=== PATIENT | female | born 1940 | race Caucasian/White ===

== ENCOUNTER → 2016-08-19 | Outpatient (CLI) | payer OTHER, MEDICARE ==
[~2016-08-19] MED LIST: ACETAMINOPHEN PO; ASPCH81X PO; ASPI81TA28 PO; BONE STRENGTH PO; CHOL2000 PO; CHOLTAB3 PO; CIPR1TAB11 PO; FISHOIL PO; HYDROCODONE PO; LPR25 PO; MELA3TAB25 PO; META1TAB PO; METO25TA3 PO; METR-163 PO; MULT-506 PO; NITR-5 PO; OMEG10007 PO; ONDA4TAB46 PO; [UNRECOGNIZED DRUG - OTHER] PO
[2016-08-19 09:41] LABS: BASO % 0.5 %; BASO ABS # 0.03 K/uL (0-0.2); COMPLETE YES; EOS % 2.4 %; HEMATOCRIT 35.7 % (37-47); IG% 0.2 %; LYMPH % 36.4 %; LYMPH ABS # 2.12 K/uL (1.2-3.4); MEAN CELL VOLUME 94.4 fL (80-100); MEAN CORPUSCULAR HEMOGLOBIN 32.8 pg (25-34); MEAN CORPUSCULAR HGB CONC 34.7 g/dl (32-36); MEAN PLATELET VOLUME 9.7 fL (7.4-10.4); MONO % 8.7 %; NEUT % 51.8 %; PLATELET COUNT 221 K/uL (130-400); RED BLOOD COUNT 3.78 M/uL (4.2-5.4); WHITE BLOOD COUNT 5.83 K/uL (4.8-10.8)
[2016-08-19 10:01] LABS: CALCIUM 9.7 mg/dl (8.5-10.1)
[2016-08-19 10:02] LABS: ALT/SGPT 22 U/L (12-78); BLOOD UREA NITROGEN 11 mg/dl (7-18); BUN/CREATININE RATIO 14.5 (10-20); CARBON DIOXIDE 30 mmol/L (21-32); CHLORIDE 97 mmol/L (98-107); CHOLESTEROL 192 mg/dl (0-200); CREATININE 0.76 mg/dl (0.60-1.20); GLUCOSE 86 mg/dl (70-99); POTASSIUM 4.2 mmol/L (3.5-5.1); SODIUM 134 mmol/L (136-145); TRIGLYCERIDES 85 mg/dl (0-150); VERY LOW DENSITY LIPOPROT CALC 17 mg/dl
[2016-08-19 10:05] LABS: ALB/GLOB RATIO 1.1 (0.9-2); ALKALINE PHOSPHATASE 52 U/L (45-117); AST/SGOT 24 U/L (15-37); CHOLESTEROL/HDL RATIO 2.5; HDL CHOLESTEROL 78 mg/dl; LDL CHOLESTEROL CALCULATED 97 mg/dl
== END | disposition home or self-care (01) ==
LOC: C.LAB 08:23
PROVIDERS: ATTEND Internal Medicine
DX: K21.9 Gastro-esophageal reflux disease without esophagitis (principal); M81.0 Age-related osteoporosis without current pathological fracture; E78.00 Pure hypercholesterolemia, unspecified

== ENCOUNTER 2016-10-31 12:40 | Emergency (ER) | payer OTHER, MEDICARE ==
[~2016-10-31] VITALS: Ht 152.4 cm; Wt 50.6 kg
[~2016-10-31 12:40] MED LIST changes: -ASPI81TA28 PO; -BONE STRENGTH PO; -CHOL2000 PO; -CIPR1TAB11 PO; -LPR25 PO; -META1TAB PO; -METR-163 PO; -MULT-506 PO; -NITR-5 PO; -OMEG10007 PO; -ONDA4TAB46 PO
[2016-10-31 12:44] VITALS: TEMP 36.8; Ht 152.4 cm; Wt 50.6 kg
[2016-10-31] MEDS ORDERED: SODIUM CHLORIDE 0.9% 1000ML 1,000 ML IV STA (15:01)
[2016-10-31] MEDS ORDERED: ONDANSETRON INJ 2 MG/ML 2 ML VIAL IV STA (15:01)
--- NOTE | 2016-10-31 15:20 | EMERGENCY ROOM VISIT NOTE ---
History First contact with patient: 14:45 Chief Complaint: HEADACHE Stated Complaint: VOMITING, HEADACHE, BACK ACHE, EYE SURGERY ON History of Present Illness The patient is a 76 year old female who presents to the Emergency Room with complaints of abdominal discomfort, nausea, and diarrhea. The patient had cataract surgery of her right eye on 10/29 and had been constipated thereafter so took a herbal tea called Smooth Move Tea, the main ingredient being senna. The patient describes waking up with nausea and diarrhea. Initially the stool was well formed but became more loose throughout the day and has more than 10 bowel movements throughout the day. She states her abdominal pain is located in the left lower quadrant and does not radiate. She also had 2 episodes of vomiting associated with trying to eat food in the morning. The patient also complains of a headache she has had since last night. The patient has a history of ACS and when she was having the diarrhea she was becoming clammy and was concerned about having another episode. She also has a history of diverticulitis occurring in the same region but states this episode is more mild. She denies any fevers, neck pain, chest pain, shortness of breath, or any other acute complaints. Review of Systems See HPI for pertinent positives and negatives. A total of ten systems were reviewed and were otherwise negative. Past Medical/Surgical History Medical Problems: (1) Benign hypertension (2) Diverticulitis Colon (W/O Ment Of Hemorrhage) (3) [place] (myocardial infarction) (4) Osteoporosis Nos (5) pylonephritis Family History Heart disease Social History Smoking Status: Never Smoker Alcohol Use: none Drug Use: none Marital Status: Occupation Status: retired Current/Historical Medications Scheduled Aspirin (Aspirin Ec), 81 MG PO DAILY Cholecalciferol (Vitamin D3), 1 CAP PO DAILY Fish Oil ([place]-3), 1 CAP PO DAILY Metoprolol Succ (Toprol Xl) (Toprol-Xl), 12.5 MG PO DAILY [Bone Strength], 3 TABS PO DAILY Scheduled PRN Melatonin (Melatonin Cr), 3 MG PO HS PRN for Sleep Allergies Coded Allergies: Azithromycin (Verified Allergy, Intermediate, HEADACHE, 10/31/16) Acetaminophen (Verified Allergy, Mild, 10/31/16) Statins (Verified Allergy, Unknown, lethargy,muscle weakness, 10/31/16) Alprazolam (Verified Adverse Reaction, Intermediate, HEADACHE, 10/31/16) Amoxicillin (Verified Adverse Reaction, Unknown, HEADACHE, 10/31/16) Physical Exam Vital Signs Date Time Temp Pulse Resp B/P (MAP) Pulse Ox O2 Delivery O2 Flow Rate FiO2 10/31/16 17:40 82 16 142/75 99 Room Air 10/31/16 15:43 65 18 122/75 98 Room Air 10/31/16 12:44 36.8 74 16 134/70 97 Room Air Physical Exam GENERAL: Awake, alert, well-appearing, in no distress HENT: Normocephalic, atraumatic. Oropharynx unremarkable. EYES: Normal conjunctiva. Sclera non-icteric. NECK: Supple. No nuchal rigidity. RESPIRATORY: Clear to auscultation. CARDIAC: Regular rate, normal rhythm. Extremities warm and well perfused. Pulses equal. ABDOMEN: Soft, non-distended. Tenderness over the left lower quadrant. No rebound or guarding. No masses. RECTAL: Deferred. MUSCULOSKELETAL: Chest examination reveals no tenderness. The back is symmetrical on inspection without obvious abnormality. There is CVA tenderness over the right side. LOWER EXTREMITIES: Calves are equal size bilaterally and non-tender. No edema. No discoloration. NEURO: Normal sensorium. No sensory or motor deficits noted. SKIN: No rash or jaundice noted. Medical Decision & Procedures Laboratory Results 10/31/16 15:35 Red Blood Count 3.79, Mean Corpuscular Volume 93.4, Mean Corpuscular Hemoglobin 33.2, Mean Corpuscular Hemoglobin Concent 35.6, Mean Platelet Volume 10.0, Neutrophils (%) (Auto) 90.5, Lymphocytes (%) (Auto) 5.7, Monocytes (%) (Auto) 3.3, Eosinophils (%) (Auto) 0.1, Basophils (%) (Auto) 0.2, Neutrophils # (Auto) 11.12, Lymphocytes # (Auto) 0.70, Monocytes # (Auto) 0.40, Eosinophils # (Auto) 0.01, Basophils # (Auto) 0.02 10/31/16 15:35 Test 10/31/16 15:35 10/31/16 16:30 White Blood Count 12.28 K/uL (4.8-10.8) Red Blood Count 3.79 M/uL (4.2-5.4) Hemoglobin 12.6 g/dL (12.0-16.0) Hematocrit 35.4 % (37-47) Mean Corpuscular Volume 93.4 fL (80-100) Mean Corpuscular Hemoglobin 33.2 pg (25-34) Mean Corpuscular Hemoglobin Concent 35.6 g/dl (32-36) Platelet Count 170 K/uL (130-400) Mean Platelet Volume 10.0 fL (7.4-10.4) Neutrophils (%) (Auto) 90.5 % Lymphocytes (%) (Auto) 5.7 % Monocytes (%) (Auto) 3.3 % Eosinophils (%) (Auto) 0.1 % Basophils (%) (Auto) 0.2 % Neutrophils # (Auto) 11.12 K/uL (1.4-6.5) Lymphocytes # (Auto) 0.70 K/uL (1.2-3.4) Monocytes # (Auto) 0.40 K/uL (0.11-0.59) Eosinophils # (Auto) 0.01 K/uL (0-0.5) Basophils # (Auto) 0.02 K/uL (0-0.2) RDW Standard Deviation 46.5 fL (36.4-46.3) RDW Coefficient of Variation 13.6 % (11.5-14.5) Immature Granulocyte % (Auto) 0.2 % Immature Granulocyte # (Auto) 0.03 K/uL (0.00-0.02) Anion Gap 9.0 mmol/L (3-11) Est Creatinine Clear Calc Drug Dose 38.5 ml/min Estimated GFR () 73.5 Estimated GFR (Non- 63.4 BUN/Creatinine Ratio 18.6 (10-20) Calcium Level 9.8 mg/dl (8.5-10.1) Total Bilirubin 0.6 mg/dl (0.2-1) Direct Bilirubin < 0.1 mg/dl (0-0.2) Aspartate Amino Transf (AST/SGOT) 23 U/L (15-37) Alanine Aminotransferase (ALT/SGPT) 27 U/L (12-78) Alkaline Phosphatase 57 U/L (45-117) Troponin I < 0.015 ng/ml (0-0.045) Total Protein 8.3 gm/dl (6.4-8.2) Albumin 4.4 gm/dl (3.4-5.0) Lipase 176 U/L (73-393) Urine Color DK YELLOW Urine Appearance CLOUDY (CLEAR) Urine pH 7.5 (4.5-7.5) Urine Specific [place] 1.022 (1.000-1.030) Urine Protein NEG (NEG) Urine Glucose (UA) NEG (NEG) Urine Ketones 2+ (NEG) Urine Occult Blood NEG (NEG) Urine Nitrite NEG (NEG) Urine Bilirubin NEG (NEG) Urine Urobilinogen NEG (NEG) Urine Leukocyte Esterase TRACE (NEG) Urine WBC (Auto) 1-5 /hpf (0-5) Urine RBC (Auto) 5-10 /hpf (0-4) Urine Hyaline Casts (Auto) 1-5 /lpf (0-5) Urine Epithelial Cells (Auto) 10-20 /lpf (0-5) Urine Bacteria (Auto) NEG (NEG) Medications Administered Medications (Trade) Dose Ordered Sig/Seema Route Start Time Stop Time Status Last Admin Dose Admin Ondansetron HCl (Zofran Inj) 4 mg NOW STAT IV 10/31/16 15:01 10/31/16 15:05 DC 10/31/16 16:26 4 MG Sodium Chloride 1,000 ml @ 999 mls/hr Q1H1M STAT IV 10/31/16 15:01 10/31/16 16:01 DC 10/31/16 16:26 999 MLS/HR Medical Decision Patient is a 76 year old female that presents with nausea, abdominal pain, and diarrhea Etiologies such as appendicitis, diverticulitis, obstruction, inflammatory bowel disease, renal colic, PUD, biliary pathology, pancreatitis, mesenteric ischemia, aortic pathology, infections, genitourinary, UTI, perforated viscus, as well as others were entertained. Labs: CBC, BMP, Lipase, LFT, Troponin Imaging: CT Abd/Pelvis 1L NS Meds: Zofran EKG Urinalysis Impression Primary Impression: Vaso vagal episode Patient is a 76 year old female that presents with nausea and diarrhea - Labwork appears to be non-contributory other than non-specific elevated WBC - CT Abd/Pelvis appears to show no acute abnormalities other than some possible endometrial thickening - Patient states she is feeling better after receiving IV fluids and Zofran - Patient will be discharged home with plan to follow up with Dr. Self Departure Information Dispostion Home / Self-Care Condition GOOD Prescriptions Ondansetron Hcl (ZOFRAN) 4 Mg Tab 4 MG PO Q6H Y for Nausea for 3 Days, #12 TAB Prov: David Sam MD 10/31/16 Referrals Pro,Michael Beck M.D. (PCP) Mary Self M.D. Patient Instructions My [facility] Additional Instructions Zofran(odansetron) tablets 4mg: Take one and allow it to dissolve in your mouth every four to six hours as needed for nausea or vomiting. Follow up with Dr. Self to review the results of your CT scan Rest and drink plenty of fluids as tolerated. Continue current medications. Return to the ER immediately for worsening or persistent dizziness, vomiting, headache, fevers, chest pains, difficulty breathing, black or bloody stools, slurred speech, numbness, weakness, visual changes, worsening of your condition , or as needed. Follow up with your primary physician in 2-3 days for a recheck of your current condition.
[2016-10-31] MEDS ORDERED: OPTIRAY 320 IV PRN (15:30)
--- NOTE | 2016-10-31 15:43 | EMERGENCY ROOM VISIT NOTE ---
History Report prepared by Genevieve: Fredy Ortiz Under the Supervision of: Dr. Edgar March M.D. First contact with patient: 14:45 Chief Complaint: HEADACHE Stated Complaint: VOMITING, HEADACHE, BACK ACHE, EYE SURGERY ON History of Present Illness The patient is a 76 year old female who presents to the Emergency Room with complaints of a constant mild headache starting this morning. The patient states that she had cataract surgery two days ago, and she has been having constipation since then. She states that she drank some herbal tea last night. She states that this morning she has been vomiting, and has chills, diarrhea, and a back ache. She states that she has a history of a heart attack in 2004, and she has two stents in. She is not on Plavix, and she takes an aspirin every day. Additionally, she has a history of diverticulosis. Source of History: patient Onset: this morning Position: head Symptom Intensity: mild Quality: ache Timing: constant Associated Symptoms: + chills, + vomiting, + back pain, + diarrhea Review of Systems See HPI for pertinent positives & negatives. A total of 10 systems reviewed and were otherwise negative. Past Medical & Surgical Medical Problems: (1) Benign hypertension (2) Diverticulitis Colon (W/O Ment Of Hemorrhage) (3) [place] (myocardial infarction) (4) Osteoporosis Nos (5) pylonephritis Family History Heart disease Social History Smoking Status: Never Smoker Alcohol Use: none Drug Use: none Marital Status: Occupation Status: retired Current/Historical Medications Scheduled Aspirin (Aspirin Ec), 81 MG PO DAILY Cholecalciferol (Vitamin D3), 1 CAP PO DAILY Fish Oil ([place]-3), 1 CAP PO DAILY Metoprolol Succ (Toprol Xl) (Toprol-Xl), 12.5 MG PO DAILY [Bone Strength], 3 TABS PO DAILY Scheduled PRN Melatonin (Melatonin Cr), 3 MG PO HS PRN for Sleep Ondansetron Hcl (Zofran), 4 MG PO Q6H PRN for Nausea Allergies Coded Allergies: Azithromycin (Verified Allergy, Intermediate, HEADACHE, 10/31/16) Acetaminophen (Verified Allergy, Mild, 10/31/16) Statins (Verified Allergy, Unknown, lethargy,muscle weakness, 10/31/16) Alprazolam (Verified Adverse Reaction, Intermediate, HEADACHE, 10/31/16) Amoxicillin (Verified Adverse Reaction, Unknown, HEADACHE, 10/31/16) Physical Exam Vital Signs Date Time Temp Pulse Resp B/P (MAP) Pulse Ox O2 Delivery O2 Flow Rate FiO2 10/31/16 18:37 76 18 141/87 99 10/31/16 17:40 82 16 142/75 99 Room Air 10/31/16 15:43 65 18 122/75 98 Room Air 10/31/16 12:44 36.8 74 16 134/70 97 Room Air Physical Exam GENERAL: Patient is a healthy-appearing well-nourished female HEAD: Normocephalic atraumatic. No evidence of meningitis or encephalitis EYES: Ocular movements intact pupils equal and react to light OROPHARYNX mucous membranes are moist no exudates present no erythema or edema present NECK: Supple no nuchal rigidity CHEST: Good equal expansion LUNGS: Clear and equal to auscultation CARDIAC: Normal S1 and S2 ABDOMEN: Soft nontender no guarding BACK: No CVA tenderness EXTREMITIES: No pain upon palpation normal muscle strength in all groups no clubbing cyanosis or edema NEURO: Patient is following commands and answering questions appropriately. Alert and oriented x3 Cranial Nerves 2-12 grossly intact Medical Decision & Procedures ER Provider Diagnostic Interpretation: Radiology results as stated below per my review and radiologist interpretation: CT OF THE ABDOMEN AND PELVIS WITH CONTRAST CLINICAL HISTORY: Left lower quadrant abdominal pain. COMPARISON STUDY: CT of the abdomen and pelvis January 30, 2014. TECHNIQUE: Following IV administration of 92 mL of Optiray-320, axial images of the abdomen and pelvis were obtained from the lung bases to the proximal femurs. Images were reviewed in the axial, sagittal, and coronal planes. IV contrast was administered without complication. CT DOSE: 339.05 mGy.cm FINDINGS: The heart is mildly enlarged. There is a pectus excavatum deformity. The liver, spleen, adrenal glands and pancreas are unremarkable. There are a few subcentimeter renal lesions which are too small to characterize but are likely benign. There is no hydronephrosis. There is no evidence for a bowel obstruction. The appendix is normal. A small amount of fluid within the pelvis is nonspecific. There is possible endometrial thickening although this could be artifactual. There is a uterine calcification. No pneumatosis, free air or portal venous gas is present. No suspicious skeletal lesions are present. There is moderate atherosclerotic plaque of the abdominal aorta without aneurysmal dilatation. A small fat-containing umbilical hernia is present. IMPRESSION: 1. Trace free fluid within the pelvis, a nonspecific finding. 2. No bowel obstruction. 3. Possible endometrial thickening. However, this could be artifactual. A follow-up nonemergent pelvic ultrasound is recommended as well as correlation with history of postmenopausal bleeding. Electronically signed by: Hugh Saini M.D. 10/31/2016 5:47 PM Dictated Date/Time: 10/31/2016 5:35 PM SINGLE VIEW CHEST CLINICAL HISTORY: Vasovagal episode. Headache and vomiting. FINDINGS: An AP, portable, upright chest radiograph is compared to study dated 12/05/2013. The examination is degraded by portable technique and patient rotation. The cardiomediastinal heart is enlarged and there is atherosclerotic calcification of the thoracic aorta. The pulmonary vasculature is noncongested. Chronic interstitial thickening is unchanged. No airspace consolidation or large pleural effusion is identified. No pneumothorax is seen. The skeletal structures are osteopenic. The bony thorax is grossly intact. Chronic appearing deformity of the right humeral neck is noted. IMPRESSION: Cardiomegaly with no acute cardiopulmonary abnormality. Electronically signed by: Holden Decker M.D. 10/31/2016 5:21 PM Dictated Date/Time: 10/31/2016 5:20 PM Laboratory Results 10/31/16 15:35 Red Blood Count 3.79, Mean Corpuscular Volume 93.4, Mean Corpuscular Hemoglobin 33.2, Mean Corpuscular Hemoglobin Concent 35.6, Mean Platelet Volume 10.0, Neutrophils (%) (Auto) 90.5, Lymphocytes (%) (Auto) 5.7, Monocytes (%) (Auto) 3.3, Eosinophils (%) (Auto) 0.1, Basophils (%) (Auto) 0.2, Neutrophils # (Auto) 11.12, Lymphocytes # (Auto) 0.70, Monocytes # (Auto) 0.40, Eosinophils # (Auto) 0.01, Basophils # (Auto) 0.02 10/31/16 15:35 Test 10/31/16 15:35 10/31/16 16:30 White Blood Count 12.28 K/uL (4.8-10.8) Red Blood Count 3.79 M/uL (4.2-5.4) Hemoglobin 12.6 g/dL (12.0-16.0) Hematocrit 35.4 % (37-47) Mean Corpuscular Volume 93.4 fL (80-100) Mean Corpuscular Hemoglobin 33.2 pg (25-34) Mean Corpuscular Hemoglobin Concent 35.6 g/dl (32-36) Platelet Count 170 K/uL (130-400) Mean Platelet Volume 10.0 fL (7.4-10.4) Neutrophils (%) (Auto) 90.5 % Lymphocytes (%) (Auto) 5.7 % Monocytes (%) (Auto) 3.3 % Eosinophils (%) (Auto) 0.1 % Basophils (%) (Auto) 0.2 % Neutrophils # (Auto) 11.12 K/uL (1.4-6.5) Lymphocytes # (Auto) 0.70 K/uL (1.2-3.4) Monocytes # (Auto) 0.40 K/uL (0.11-0.59) Eosinophils # (Auto) 0.01 K/uL (0-0.5) Basophils # (Auto) 0.02 K/uL (0-0.2) RDW Standard Deviation 46.5 fL (36.4-46.3) RDW Coefficient of Variation 13.6 % (11.5-14.5) Immature Granulocyte % (Auto) 0.2 % Immature Granulocyte # (Auto) 0.03 K/uL (0.00-0.02) Anion Gap 9.0 mmol/L (3-11) Est Creatinine Clear Calc Drug Dose 38.5 ml/min Estimated GFR () 73.5 Estimated GFR (Non- 63.4 BUN/Creatinine Ratio 18.6 (10-20) Calcium Level 9.8 mg/dl (8.5-10.1) Total Bilirubin 0.6 mg/dl (0.2-1) Direct Bilirubin < 0.1 mg/dl (0-0.2) Aspartate Amino Transf (AST/SGOT) 23 U/L (15-37) Alanine Aminotransferase (ALT/SGPT) 27 U/L (12-78) Alkaline Phosphatase 57 U/L (45-117) Troponin I < 0.015 ng/ml (0-0.045) Total Protein 8.3 gm/dl (6.4-8.2) Albumin 4.4 gm/dl (3.4-5.0) Lipase 176 U/L (73-393) Urine Color DK YELLOW Urine Appearance CLOUDY (CLEAR) Urine pH 7.5 (4.5-7.5) Urine Specific [place] 1.022 (1.000-1.030) Urine Protein NEG (NEG) Urine Glucose (UA) NEG (NEG) Urine Ketones 2+ (NEG) Urine Occult Blood NEG (NEG) Urine Nitrite NEG (NEG) Urine Bilirubin NEG (NEG) Urine Urobilinogen NEG (NEG) Urine Leukocyte Esterase TRACE (NEG) Urine WBC (Auto) 1-5 /hpf (0-5) Urine RBC (Auto) 5-10 /hpf (0-4) Urine Hyaline Casts (Auto) 1-5 /lpf (0-5) Urine Epithelial Cells (Auto) 10-20 /lpf (0-5) Urine Bacteria (Auto) NEG (NEG) Labs reviewed by ED physician. Medications Administered Medications (Trade) Dose Ordered Sig/Seema Route Start Time Stop Time Status Last Admin Dose Admin Ondansetron HCl (Zofran Inj) 4 mg NOW STAT IV 10/31/16 15:01 10/31/16 15:05 DC 10/31/16 16:26 4 MG Sodium Chloride 1,000 ml @ 999 mls/hr Q1H1M STAT IV 10/31/16 15:01 10/31/16 16:01 DC 10/31/16 16:26 999 MLS/HR ECG Indication: other (headache) Rate (beats per minute): 64 Rhythm: normal sinus Findings: no acute ischemic change, no ectopy ED Course 1501: Sodium Chloride 1000 ml @ 999 mls/hr, Zofran Inj 4mg IV 1520: Past medical records reviewed. The patient was evaluated in room B10. A complete history and physical examination was performed. 1756: Upon reexamination the patient is feeling well. I discussed results and treatment plan with the patient. She verbalizes agreement and understanding. The patient is ready for discharge. Medical Decision Differential diagnosis: Etiologies such as vasovagal event, infection, hypoglycemia, electrolyte abnormalities, cardiac sources, intracerebral event, toxicologic, neurologic, as well as others were entertained. This is a 76-year-old female who presents emergency department complaining of multiple complaints. The patient is complaining of a headache as well as left lower quadrant abdominal pain she has a benign abdominal examination. The patient is also complaining of diarrhea. I do believe she had a vasovagal episode. The patient does have a history of stents in place therefore we will check cardiac enzymes as well as EKG. Resident Physician Supervision Note: I interviewed and examined the patient. Discussed with Dr. Sam and agree with findings and plan as documented in the note. Documented By: Edgar March Impression Primary Impression: Vasovagal episode Scribe Attestation The scribe's documentation has been prepared under my direction and personally reviewed by me in its entirety. I confirm that the note above accurately reflects all work, treatment, procedures, and medical decision making performed by me. Departure Information Dispostion Home / Self-Care Prescriptions Ondansetron Hcl (ZOFRAN) 4 Mg Tab 4 MG PO Q6H Y for Nausea for 3 Days, #12 TAB Prov: David Sam MD 10/31/16 Referrals Pro,Michael Beck M.D. (PCP) Patient Instructions My [facility]
[2016-10-31 15:56] LABS: BASO % 0.2 %; BASO ABS # 0.02 K/uL (0-0.2); COMPLETE YES; EOS % 0.1 %; HEMATOCRIT 35.4 % (37-47); IG% 0.2 %; LYMPH % 5.7 %; MEAN CELL VOLUME 93.4 fL (80-100); MEAN CORPUSCULAR HEMOGLOBIN 33.2 pg (25-34); MEAN CORPUSCULAR HGB CONC 35.6 g/dl (32-36); MONO % 3.3 %; NEUT % 90.5 %; PLATELET COUNT 170 K/uL (130-400); RED BLOOD COUNT 3.79 M/uL (4.2-5.4); WHITE BLOOD COUNT 12.28 K/uL (4.8-10.8)
[2016-10-31] MEDS ORDERED: BONE STRENGTH PO (16:05)
[2016-10-31] MEDS ORDERED: OMEG10007 PO (16:05)
[2016-10-31] MEDS ORDERED: CHOL2000 PO (16:05)
[2016-10-31] MEDS ORDERED: ASPI81TA28 PO (16:05)
[2016-10-31 16:21] LABS: ALT/SGPT 27 U/L (12-78); BLOOD UREA NITROGEN 16 mg/dl (7-18); BUN/CREATININE RATIO 18.6 (10-20); CALCIUM 9.8 mg/dl (8.5-10.1); CARBON DIOXIDE 27 mmol/L (21-32); CHLORIDE 97 mmol/L (98-107); CREATININE 0.88 mg/dl (0.60-1.20); GLUCOSE 125 mg/dl (70-99); POTASSIUM 3.9 mmol/L (3.5-5.1); SODIUM 133 mmol/L (136-145)
[2016-10-31 16:27] LABS: ALKALINE PHOSPHATASE 57 U/L (45-117); AST/SGOT 23 U/L (15-37)
[2016-10-31 16:49] LABS: URINE APPEARANCE CLOUDY (CLEAR); URINE BILIRUBIN NEG (NEG); URINE COLOR DK YELLOW; URINE NITRITE NEG (NEG); URINE PH 7.5 (4.5-7.5); URINE SPECIFIC GRAVITY 1.022 (1.000-1.030); UROBILINOGEN NEG (NEG)
[2016-10-31 16:50] LABS: MANUAL MICROSCOPIC REQUIRED? NO; REVIEW REQ? NO
--- NOTE | 2016-10-31 17:23 | DIAGNOSTIC IMAGING REPORT ---
SINGLE VIEW CHEST CLINICAL HISTORY: Vasovagal episode. Headache and vomiting. FINDINGS: An AP, portable, upright chest radiograph is compared to study dated 12/05/2013. The examination is degraded by portable technique and patient rotation. The cardiomediastinal heart is enlarged and there is atherosclerotic calcification of the thoracic aorta. The pulmonary vasculature is noncongested. Chronic interstitial thickening is unchanged. No airspace consolidation or large pleural effusion is identified. No pneumothorax is seen. The skeletal structures are osteopenic. The bony thorax is grossly intact. Chronic appearing deformity of the right humeral neck is noted. IMPRESSION: Cardiomegaly with no acute cardiopulmonary abnormality. Electronically signed by: Holden Decker M.D. 10/31/2016 5:21 PM Dictated Date/Time: 10/31/2016 5:20 PM
--- NOTE | 2016-10-31 17:48 | DIAGNOSTIC IMAGING REPORT ---
CT OF THE ABDOMEN AND PELVIS WITH CONTRAST CLINICAL HISTORY: Left lower quadrant abdominal pain. COMPARISON STUDY: CT of the abdomen and pelvis January 30, 2014. TECHNIQUE: Following IV administration of 92 mL of Optiray-320, axial images of the abdomen and pelvis were obtained from the lung bases to the proximal femurs. Images were reviewed in the axial, sagittal, and coronal planes. IV contrast was administered without complication. CT DOSE: 339.05 mGy.cm FINDINGS: The heart is mildly enlarged. There is a pectus excavatum deformity. The liver, spleen, adrenal glands and pancreas are unremarkable. There are a few subcentimeter renal lesions which are too small to characterize but are likely benign. There is no hydronephrosis. There is no evidence for a bowel obstruction. The appendix is normal. A small amount of fluid within the pelvis is nonspecific. There is possible endometrial thickening although this could be artifactual. There is a uterine calcification. No pneumatosis, free air or portal venous gas is present. No suspicious skeletal lesions are present. There is moderate atherosclerotic plaque of the abdominal aorta without aneurysmal dilatation. A small fat-containing umbilical hernia is present. IMPRESSION: 1. Trace free fluid within the pelvis, a nonspecific finding. 2. No bowel obstruction. 3. Possible endometrial thickening. However, this could be artifactual. A follow-up nonemergent pelvic ultrasound is recommended as well as correlation with history of postmenopausal bleeding. Electronically signed by: Hugh Saini M.D. 10/31/2016 5:47 PM Dictated Date/Time: 10/31/2016 5:35 PM
[2016-10-31] MEDS ORDERED: ONDA4TAB46 PO (17:56)
[2016-10-31 18:37] VITALS: BP 141/87; PULSE 76; O2SAT 99
== END 2016-10-31 18:38 | disposition home or self-care (01) ==
LOC: C.EDB 12:42
DX: R55 Syncope and collapse (principal); I10 Essential (primary) hypertension; I25.2 Old myocardial infarction; M81.0 Age-related osteoporosis without current pathological fracture; K57.32 Diverticulitis of large intestine without perforation or abscess without bleeding; Z87.440 Personal history of urinary (tract) infections; Z79.82 Long term (current) use of aspirin; Z79.899 Other long term (current) drug therapy; Z88.1 Allergy status to other antibiotic agents; Z88.6 Allergy status to analgesic agent; Z88.8 Allergy status to other drugs, medicaments and biological substances; Z82.49 Family history of ischemic heart disease and other diseases of the circulatory system

== ENCOUNTER → 2017-01-24 | Outpatient (CLI) | payer OTHER, MEDICARE ==
[~2017-01-24] MED LIST changes: -ACETAMINOPHEN PO; -ASPCH81X PO; +ASPI81TA28 PO; +BONE STRENGTH PO; +CHOL2000 PO; -CHOLTAB3 PO; -FISHOIL PO; -HYDROCODONE PO; +LPR25 PO; +META1TAB PO; +MULT-506 PO; +NITR-5 PO; +OMEG10007 PO; -[UNRECOGNIZED DRUG - OTHER] PO
[2017-01-24 17:42] LABS: URINE APPEARANCE CLEAR (CLEAR); URINE BILIRUBIN NEG (NEG); URINE COLOR YELLOW; URINE NITRITE NEG (NEG); URINE PH 7.5 (4.5-7.5); URINE SPECIFIC GRAVITY 1.022 (1.000-1.030); UROBILINOGEN NEG (NEG)
[2017-01-24 17:44] LABS: MANUAL MICROSCOPIC REQUIRED? NO; REVIEW REQ? NO
== END | disposition home or self-care (01) ==
LOC: C.LABSPEC 17:14
PROVIDERS: ATTEND Physician Assistant
DX: M54.5 Low back pain (principal)

== ENCOUNTER 2017-01-26 10:28 | Emergency (ER) | payer OTHER, MEDICARE ==
[~2017-01-26] VITALS: Ht 152.4 cm; Wt 58.2 kg
[~2017-01-26 10:28] MED LIST changes: -LPR25 PO; -META1TAB PO; -MULT-506 PO; -NITR-5 PO
[2017-01-26 10:40] VITALS: Ht 152.4 cm; Wt 58.2 kg
[2017-01-26] MEDS ORDERED: ONDANSETRON 4MG OD TAB ONE (10:48)
[2017-01-26] MEDS ORDERED: MULT-506 PO (11:03)
[2017-01-26] MEDS ORDERED: LPR25 PO (11:03)
[2017-01-26] MEDS ORDERED: NITR-5 PO (11:03)
[2017-01-26] MEDS ORDERED: META1TAB PO (11:03)
[2017-01-26] MEDS ORDERED: SODIUM CHLORIDE 0.9% 1000ML 1,000 ML IV STA (11:41)
[2017-01-26] MEDS ORDERED: SODIUM CHLORIDE 0.9% 1000ML 1,000 ML IV ONE (11:41)
[2017-01-26] MEDS ORDERED: KETOROLAC TROMETHAMINE 30 MG/ML VIAL IV STA ×2 (11:44→14:29)
[2017-01-26 12:40] LABS: BASO % 0.1 %; BASO ABS # 0.01 K/uL (0-0.2); COMPLETE YES; HEMATOCRIT 30.7 % (37-47); IG% 0.1 %; LYMPH % 12.8 %; LYMPH ABS # 0.89 K/uL (1.2-3.4); MEAN CORPUSCULAR HGB CONC 37.5 g/dl (32-36); MEAN PLATELET VOLUME 9.1 fL (7.4-10.4); MONO % 8.1 %; NEUT % 78.9 %; PLATELET COUNT 191 K/uL (130-400); RED BLOOD COUNT 3.49 M/uL (4.2-5.4); WHITE BLOOD COUNT 6.93 K/uL (4.8-10.8)
[2017-01-26 12:47] LABS: URINE APPEARANCE CLEAR (CLEAR); URINE BILIRUBIN NEG (NEG); URINE COLOR YELLOW; URINE EPITHELIAL CELL AUTO 20-30 /lpf (0-5); URINE NITRITE NEG (NEG); URINE SPECIFIC GRAVITY 1.011 (1.000-1.030); UROBILINOGEN NEG (NEG); ZZUR CULT IF INDIC CLEAN CATCH NO
[2017-01-26 12:55] LABS: MANUAL MICROSCOPIC REQUIRED? NO; REVIEW REQ? NO
[2017-01-26 12:58] LABS: BUN/CREATININE RATIO 15.5 (10-20); CALCIUM 9.2 mg/dl (8.5-10.1); CREATININE 0.64 mg/dl (0.60-1.20); POTASSIUM 3.5 mmol/L (3.5-5.1)
[2017-01-26 13:01] LABS: ALB/GLOB RATIO 1.2 (0.9-2)
--- NOTE | 2017-01-26 14:00 | DIAGNOSTIC IMAGING REPORT ---
LUMBAR SPINE WITHOUT CLINICAL HISTORY: 76 years-old Female presenting with eval for lumbar dx, left flank pain, lower back pain. TECHNIQUE: Multidetector CT of the lumbar spine was performed without the use of intravenous contrast. IV contrast: None. A dose lowering technique was used consistent with the principles of ALARA (as low as reasonably achievable). COMPARISON: 01/30/2014. CT DOSE (mGy.cm): The estimated cumulative dose is 580.54 mGy.cm. FINDINGS: [employer] Rules topogram: Unremarkable. Minimal levocurvature of the lumbar spine. Normal lumbar lordosis. Vertebral bodies maintain normal height and alignment. Intervertebral disc spaces preserved. Severe osteopenia. No acute fracture or subluxation. Disc bulge with extrusion and cranial migration at L1-[address] This effaces the left lateral recess. No other significant degenerative change. No osseous spinal canal and neural foraminal narrowing. IMPRESSION: 1. No acute osseous injury lumbar spine. 2. Disc extrusion at L1-2 with effacement of the left lateral recess. This be better characterized on MR. Electronically signed by: Jarred Hope M.D. 01/26/2017 1:58 PM Dictated Date/Time: 01/26/2017 1:53 PM
--- NOTE | 2017-01-26 14:08 | DIAGNOSTIC IMAGING REPORT ---
ABD/PELVIS WITHOUT FOR STONE CLINICAL HISTORY: 76 years-old Female presenting with eval for stone, bowel obs, constipation. TECHNIQUE: Multidetector CT of the abdomen and pelvis was performed without the use of intravenous contrast. IV contrast: None. A dose lowering technique was used consistent with the principles of ALARA (as low as reasonably achievable). COMPARISON: 10/31/2016. CT DOSE (mGy.cm): The estimated cumulative dose is 580.54. 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 Lung bases: Lung bases clear. Normal heart size. Small pericardial effusion, stable to slightly increased from prior. No pleural effusion. Liver: Congenital hypoplasia of the medial segments of the left hepatic lobe. Normal density. Biliary: No gross biliary ductal dilatation allowing for noncontrast technique. Normal gallbladder. Pancreas: Normal noncontrast appearance. Spleen: Normal noncontrast appearance. Adrenal glands: Nodular thickening of the adrenal glands, nonspecific. Kidneys and ureters: Normal noncontrast appearance. No hydronephrosis. Extrarenal pelvises bilaterally. No nephrolithiasis. Limited visualization of the ureters. No hydroureter. Bladder: Normal. Pelvic organs: Uterus contains calcification, possibly calcified fibroid. Normal noncontrast appearance of the ovaries. Bowel: Small hiatal hernia. Mild stool burden primarily in the right colon. No bowel obstruction. Peritoneal cavity: Trace free fluid in the pelvis. Lymph nodes: No gross lymphadenopathy allowing for noncontrast technique. Vasculature: Atherosclerosis of the normal caliber abdominal aorta. Abdominal wall: Fat-containing umbilical hernia. Musculoskeletal: Degenerative changes of the spine. IMPRESSION: 1. No acute intra-abdominal pathology. No nephrolithiasis. 2. Mild stool burden. No bowel obstruction. 3. Small pericardial effusion, stable to slightly increased in size from prior. 4. Please see separately dictated CT of the lumbar spine for additional findings. Electronically signed by: Jarred Hope M.D. 01/26/2017 2:07 PM Dictated Date/Time: 01/26/2017 1:59 PM
[2017-01-26] MEDS ORDERED: ONDANSETRON HOME PACK 4MG OD TAB PO ONE (15:45)
[2017-01-26 16:19] VITALS: BP 119/68; PULSE 71; TEMP 36.7; O2SAT 97
--- NOTE | 2017-01-26 16:35 | EMERGENCY ROOM VISIT NOTE ---
History Report prepared by Genevieve: Bela Grayson Under the Supervision of: Dr. Austen Frost M.D. First contact with patient: 11:31 Chief Complaint: BACK PAIN Stated Complaint: BACK PAIN History of Present Illness The patient is a 76 year old female who presents to the Emergency Room with complaints of constant severe left sided lower back pain beginning 1 week ago. The patient states that she was seen here in October for her back pain. She states that she was given 2 prescriptions during her visit for Macrobid and Metaxalone and her doctor thought that the issue may be urinary. She reports that this week her back pain has been severe and spasms and she has been having nausea and vomiting. She notes that she has not been able to keep food and liquids down. The patient complains of weakness, chills, abdominal pain and bloating, and constipation. She states that she has not gone to the bathroom in the last few days. The patient denies any urinary symptoms, fever, numbness, chest pain, injury,headache, shortness of breath. Source of History: patient Onset: 1 week ago Position: back Quality: other (spasms) Timing: constant Associated Symptoms: + chills, + nausea, + vomiting, + abdominal pain, + weakness, No fevers, No headache, No chest pain, No SOB, No urinary symptoms, No numbness Note: Pt complains of constipation. Review of Systems See HPI for pertinent positives & negatives. A total of 10 systems reviewed and were otherwise negative. Past Medical & Surgical Medical Problems: (1) Benign hypertension (2) Diverticulitis Colon (W/O Ment Of Hemorrhage) (3) DC (myocardial infarction) (4) Osteoporosis Nos (5) pylonephritis Old medical records were reviewed. Nurse's notes were reviewed and I agree with. Family History Heart disease Social History Smoking Status: Never Smoker Alcohol Use: none Drug Use: none Marital Status: Occupation Status: retired Current/Historical Medications Scheduled Aspirin (Aspirin Ec), 81 MG PO DAILY Cholecalciferol (Vitamin D3), 1 CAP PO DAILY Fish Oil ([place]-3), 1 CAP PO DAILY Metoprolol Tartrate (Lopressor), 12.5 MG PO DAILY Multivitamin (Multivitamin), 1 TAB PO DAILY Nitrofurantoin Monohyd Macrocr (Macrobid), 100 MG PO BID [Bone Strength], 3 TABS PO DAILY Scheduled PRN Melatonin (Melatonin Cr), 3 MG PO HS PRN for Sleep Metaxalone (Metaxalone), 200-400 MG PO BID PRN for BACK PAIN Allergies Coded Allergies: Azithromycin (Verified Allergy, Intermediate, HEADACHE, 10/31/16) Acetaminophen (Verified Allergy, Mild, 10/31/16) Statins (Verified Allergy, Unknown, lethargy,muscle weakness, 10/31/16) Alprazolam (Verified Adverse Reaction, Intermediate, HEADACHE, 10/31/16) Amoxicillin (Verified Adverse Reaction, Unknown, HEADACHE, 10/31/16) Physical Exam Vital Signs Date Time Temp Pulse Resp B/P (MAP) Pulse Ox O2 Delivery O2 Flow Rate FiO2 01/26/17 16:19 36.7 71 18 119/68 97 01/26/17 15:04 62 18 111/58 97 Room Air 01/26/17 13:00 63 18 127/70 100 01/26/17 10:40 36.7 68 18 156/65 99 Room Air Physical Exam General: Uncomfortable appearing older female in no acute distress. Complaining of lower back pain. HEENT: Normal cephalic atraumatic. Pupils are equal round and reactive to light. Sclerae anicteric. Extraocular movements are intact. Oropharynx is pink with moist mucous membranes. No swelling of the mouth lips or tongue. Neck: Supple with a midline trachea. No meningeal signs or stiffness, no JVD or bruits. No Stridor. Chest: Clear to auscultation bilaterally. No wheezes or rhonchi. No increased work of breathing. Heart: regular rate and rhythm. Abdomen: Soft, mild tenderness to lower lumbar spine centrally, nondistended without rebound guarding or rigidity. Extremities: No cyanosis clubbing or edema. No calf tenderness or assymetry Spine/Back. Non tender to palpation. No CVA tenderness Skin: Good turgor without rashes. Neurologic exam: Cranial nerves two through 12 are intact. Motor and sensation are intact and symmetrical throughout. Medical Decision & Procedures ER Provider Diagnostic Interpretation: Radiology results as stated below per my review and radiologist interpretation: LUMBAR SPINE WITHOUT FINDINGS: Drapery Worker topogram: Unremarkable. Minimal levocurvature of the lumbar spine. Normal lumbar lordosis. Vertebral bodies maintain normal height and alignment. Intervertebral disc spaces preserved. Severe osteopenia. No acute fracture or subluxation. Disc bulge with extrusion and cranial migration at L1-[address] This effaces the left lateral recess. No other significant degenerative change. No osseous spinal canal and neural foraminal narrowing. IMPRESSION: 1. No acute osseous injury lumbar spine. 2. Disc extrusion at L1-2 with effacement of the left lateral recess. This be better characterized on MR. Electronically signed by: Jarred Hope M.D. 01/26/2017 1:58 PM Dictated Date/Time: 01/26/2017 1:53 PM ABD/PELVIS WITHOUT FOR STONE FINDINGS: Drapery Worker topogram: Unremarkable. Lung bases: Lung bases clear. Normal heart size. Small pericardial effusion, stable to slightly increased from prior. No pleural effusion. Liver: Congenital hypoplasia of the medial segments of the left hepatic lobe. Normal density. Biliary: No gross biliary ductal dilatation allowing for noncontrast technique. Normal gallbladder. Pancreas: Normal noncontrast appearance. Spleen: Normal noncontrast appearance. Adrenal glands: Nodular thickening of the adrenal glands, nonspecific. Kidneys and ureters: Normal noncontrast appearance. No hydronephrosis. Extrarenal pelvises bilaterally. No nephrolithiasis. Limited visualization of the ureters. No hydroureter. Bladder: Normal. Pelvic organs: Uterus contains calcification, possibly calcified fibroid. Normal noncontrast appearance of the ovaries. Bowel: Small hiatal hernia. Mild stool burden primarily in the right colon. No bowel obstruction. Peritoneal cavity: Trace free fluid in the pelvis. Lymph nodes: No gross lymphadenopathy allowing for noncontrast technique. Vasculature: Atherosclerosis of the normal caliber abdominal aorta. Abdominal wall: Fat-containing umbilical hernia. Musculoskeletal: Degenerative changes of the spine. IMPRESSION: 1. No acute intra-abdominal pathology. No nephrolithiasis. 2. Mild stool burden. No bowel obstruction. 3. Small pericardial effusion, stable to slightly increased in size from prior. 4. Please see separately dictated CT of the lumbar spine for additional findings. Electronically signed by: Jarred Hope M.D. 01/26/2017 2:07 PM Dictated Date/Time: 01/26/2017 1:59 PM Laboratory Results 01/26/17 12:10 Red Blood Count 3.49, Mean Corpuscular Volume 88.0, Mean Corpuscular Hemoglobin 33.0, Mean Corpuscular Hemoglobin Concent 37.5, Mean Platelet Volume 9.1, Neutrophils (%) (Auto) 78.9, Lymphocytes (%) (Auto) 12.8, Monocytes (%) (Auto) 8.1, Eosinophils (%) (Auto) 0.0, Basophils (%) (Auto) 0.1, Neutrophils # (Auto) 5.46, Lymphocytes # (Auto) 0.89, Monocytes # (Auto) 0.56, Eosinophils # (Auto) 0.00, Basophils # (Auto) 0.01 01/26/17 12:10 Test 01/26/17 12:10 01/26/17 12:26 White Blood Count 6.93 K/uL (4.8-10.8) Red Blood Count 3.49 M/uL (4.2-5.4) Hemoglobin 11.5 g/dL (12.0-16.0) Hematocrit 30.7 % (37-47) Mean Corpuscular Volume 88.0 fL (80-100) Mean Corpuscular Hemoglobin 33.0 pg (25-34) Mean Corpuscular Hemoglobin Concent 37.5 g/dl (32-36) Platelet Count 191 K/uL (130-400) Mean Platelet Volume 9.1 fL (7.4-10.4) Neutrophils (%) (Auto) 78.9 % Lymphocytes (%) (Auto) 12.8 % Monocytes (%) (Auto) 8.1 % Eosinophils (%) (Auto) 0.0 % Basophils (%) (Auto) 0.1 % Neutrophils # (Auto) 5.46 K/uL (1.4-6.5) Lymphocytes # (Auto) 0.89 K/uL (1.2-3.4) Monocytes # (Auto) 0.56 K/uL (0.11-0.59) Eosinophils # (Auto) 0.00 K/uL (0-0.5) Basophils # (Auto) 0.01 K/uL (0-0.2) RDW Standard Deviation 41.3 fL (36.4-46.3) RDW Coefficient of Variation 12.8 % (11.5-14.5) Immature Granulocyte % (Auto) 0.1 % Immature Granulocyte # (Auto) 0.01 K/uL (0.00-0.02) Urine Color YELLOW Urine Appearance CLEAR (CLEAR) Urine pH 8.0 (4.5-7.5) Urine Specific [place] 1.011 (1.000-1.030) Urine Protein NEG (NEG) Urine Glucose (UA) NEG (NEG) Urine Ketones 2+ (NEG) Urine Occult Blood TRACE (NEG) Urine Nitrite NEG (NEG) Urine Bilirubin NEG (NEG) Urine Urobilinogen NEG (NEG) Urine Leukocyte Esterase NEG (NEG) Urine WBC (Auto) 1-5 /hpf (0-5) Urine RBC (Auto) 0-4 /hpf (0-4) Urine Hyaline Casts (Auto) 1-5 /lpf (0-5) Urine Epithelial Cells (Auto) 20-30 /lpf (0-5) Urine Bacteria (Auto) NEG (NEG) Anion Gap 11.0 mmol/L (3-11) Est Creatinine Clear Calc Drug Dose 58.8 ml/min Estimated GFR () 99.8 Estimated GFR (Non- 86.1 BUN/Creatinine Ratio 15.5 (10-20) Calcium Level 9.2 mg/dl (8.5-10.1) Total Bilirubin 1.2 mg/dl (0.2-1) Aspartate Amino Transf (AST/SGOT) 24 U/L (15-37) Alanine Aminotransferase (ALT/SGPT) 21 U/L (12-78) Alkaline Phosphatase 47 U/L (45-117) Total Protein 7.4 gm/dl (6.4-8.2) Albumin 4.0 gm/dl (3.4-5.0) Globulin 3.4 gm/dl (2.5-4.0) Albumin/Globulin Ratio 1.2 (0.9-2) Bedside Troponin I < 0.030 ng/ml (0-0.045) Laboratory studies as stated above per my review. Medications Administered Medications (Trade) Dose Ordered Sig/Seema Route Start Time Stop Time Status Last Admin Dose Admin Ondansetron HCl (Zofran Odt) 4 mg STK-MED ONCE .ROUTE 01/26/17 10:48 01/26/17 10:49 DC 01/26/17 10:48 4 MG Sodium Chloride 1,000 ml @ 999 mls/hr Q1H1M STAT IV 01/26/17 11:41 01/26/17 12:41 DC 01/26/17 11:41 999 MLS/HR Sodium Chloride 1,000 ml @ 150 mls/hr Q6H40M ONCE IV 01/26/17 11:41 01/26/17 18:20 01/26/17 11:41 150 MLS/HR Ketorolac Tromethamine (Toradol Inj) 15 mg NOW STAT IV 01/26/17 11:44 01/26/17 11:45 DC 01/26/17 12:19 15 MG Ketorolac Tromethamine (Toradol Inj) 15 mg NOW STAT IV 01/26/17 14:29 01/26/17 14:31 DC 01/26/17 15:02 15 MG Ondansetron HCl (ZOFRAN ODT 4MG Home Pack) 1 homepack UD ONCE PO 01/26/17 15:45 01/26/17 15:46 DC 01/26/17 15:45 1 HOMEPACK ECG Indication: weakness Rate (beats per minute): 65 Rhythm: normal sinus Findings: no acute ischemic change, no ectopy Comparison ECG Date: 10/31/16 Change: no significant change ED Course 1131: Past medical records reviewed. The patient was evaluated in room C11B, and a complete history and physical examination were performed. 1048: Zofran Odt 4mg PO. 1141: Sodium Chloride 1000 ml @ 150 mls/hr IV. 1141: Sodium Chloride 1000 ml @ 999 mls/hr IV. 1144: Toradol Inj 15mg IV. 1429: Toradol Inj 15mg IV. 1438: I reevaluated the patient. She is feeling better but still has some back pain. 1515: Upon reevaluation, the patient is doing well. I discussed the results and treatment plan with the patient. She verbalized agreement of the treatment plan. The patient was discharged home. Medical Decision Differentials include, but are not limited to; UTI, kidney stone, constipation , bowel obstruction, arrhythmia, electrolyte or metabolic abnormalities. This patient comes in as described above. She's been having back pain for quite some time that got worse last evening. She has been seen by one of her providers recently and had a urine culture that I looked up from 2 days ago was negative. She's had some nausea last evening. She also had some constipation. The back pain is more towards the left. She has no numbness or weakness in her buttocks or legs. She has no incontinence or anything to suggest cauda equina syndrome. She's been afebrile. She tells me she is very sensitive to medications and is reluctant take most things. IV access established was hydrated with IV normal saline and she receive IV Zofran. She did well with Toradol I gave her 15 mg IV and a second dose while she was here she is resting much more comfortably. She has no white count or fever to suggest infection. Her EKG is unremarkable and her symptoms do not sound cardiac. They are in her low back and she has no chest pain or shortness of breath. Her urinalysis here is unremarkable. Her blood work does not show any acute electrode or metabolic abnormality. CAT scan of her abdomen is unremarkable. She has a moderate amount of constipation. She does have a disc at seen at L1/L2 with this could be causing some of her symptoms. I don't think is likely causing all of her symptoms. I do think she likely has some constipation causing this as well. I told her use MiraLAX her some stool softener or an enema. She does well with ibuprofen she should continue this. She does as well as Zofran she can use this if nausea or any problems keeping her medications in. I encouraged to follow-up with Dr. Corley, her primary doctor tomorrow. She may ultimately an MRI. At this point , she has no acute neurologic deficits to suggest that she needs an emergent MRI. She should return if : worsening of symptoms, fever or chills, any new problems or concerns. The patient andher werehappy with plan and she was discharged to home. Medication Reconcilliation Current Medication List: was personally reviewed by me Blood Pressure Screening Patient's blood pressure: Elevated blood pressure Blood pressure disposition: Did not require urgent referral Impression Primary Impression: Back pain Additional Impression: Lumbar disc disease Scribe Attestation The scribe's documentation has been prepared under my direction and personally reviewed by me in its entirety. I confirm that the note above accurately reflects all work, treatment, procedures, and medical decision making performed by me. Departure Information Dispostion Home / Self-Care Referrals No Doctor, Assigned (PCP) Forms HOME CARE DOCUMENTATION FORM, IMPORTANT VISIT INFORMATION Patient Instructions My [facility] Additional Instructions Rest. Use a stool softener or MiraLAX or enema if needed Drink plenty of fluids. Use ibuprofen 400 mg every 6 hours, take with food Return if: Increasing pain, numbness weakness, change in bowel or bladder function, any new problems or concerns. Follow-up with your doctor for recheck tomorrow. You may ultimately need an MRI. Problem Qualifiers
== END 2017-01-26 16:21 | disposition home or self-care (01) ==
LOC: C.EDB 10:29 → C.EDC 16:21
DX: M54.5 Low back pain (principal); M51.9 Unspecified thoracic, thoracolumbar and lumbosacral intervertebral disc disorder; I10 Essential (primary) hypertension; I25.2 Old myocardial infarction; K57.92 Diverticulitis of intestine, part unspecified, without perforation or abscess without bleeding; M81.0 Age-related osteoporosis without current pathological fracture; Z87.440 Personal history of urinary (tract) infections; Z79.82 Long term (current) use of aspirin; Z79.899 Other long term (current) drug therapy; Z88.1 Allergy status to other antibiotic agents; Z88.6 Allergy status to analgesic agent; Z88.8 Allergy status to other drugs, medicaments and biological substances; Z82.49 Family history of ischemic heart disease and other diseases of the circulatory system

== ENCOUNTER 2017-01-29 14:23 | Emergency (ER) | payer OTHER, MEDICARE ==
[~2017-01-29] VITALS: Ht 152.4 cm; Wt 49.3 kg
[~2017-01-29 14:23] MED LIST changes: +LPR25 PO; +META1TAB PO; -METO25TA3 PO; +MULT-506 PO; +NITR-5 PO
[2017-01-29 14:25] VITALS: TEMP 37; Ht 152.4 cm; Wt 49.3 kg
--- NOTE | 2017-01-29 15:09 | EMERGENCY ROOM VISIT NOTE ---
ED Visit Note First contact with patient: 14:37 The patient was seen and examined with Dr. Heber Claros. I agree with the history, physical and findings. Please see the note for disposition and details.
[2017-01-29 15:10] LABS: BASO % 0.1 %; BASO ABS # 0.01 K/uL (0-0.2); COMPLETE YES; HEMATOCRIT 30.8 % (37-47); IG% 0.3 %; LYMPH % 8.4 %; MEAN CELL VOLUME 89.5 fL (80-100); MEAN CORPUSCULAR HEMOGLOBIN 32.6 pg (25-34); MEAN CORPUSCULAR HGB CONC 36.4 g/dl (32-36); MEAN PLATELET VOLUME 9.1 fL (7.4-10.4); MONO % 10.1 %; NEUT % 81.1 %; PLATELET COUNT 217 K/uL (130-400); RED BLOOD COUNT 3.44 M/uL (4.2-5.4); WHITE BLOOD COUNT 9.53 K/uL (4.8-10.8)
[2017-01-29] MEDS ORDERED: OPTIRAY 320 IV PRN (15:30)
[2017-01-29 15:35] LABS: BUN/CREATININE RATIO 15.4 (10-20); CALCIUM 8.9 mg/dl (8.5-10.1); CREATININE 0.77 mg/dl (0.60-1.20); POTASSIUM 3.5 mmol/L (3.5-5.1)
[2017-01-29 15:37] LABS: ALB/GLOB RATIO 1.1 (0.9-2)
--- NOTE | 2017-01-29 15:44 | EMERGENCY ROOM VISIT NOTE ---
History First contact with patient: 14:37 Chief Complaint: GI ASSESSMENT Stated Complaint: INTERNAL BLEEDING Nursing Triage Summary: triage note: pt reports blood in stool twice since this morning. History of Present Illness The patient is a 76 year old female who presents to the Emergency Room with complaints of GI bleeding. She was actually here on 01/26/2017 for complaints of back pain. CT of the abdomen did show constipation and a CT lumbar spine also showed disc extrusion of the lumbar vertebra for which she is scheduled to have follow-up MRI next week. She was discharged home on a bowel regimen with MiraLAX. She was also started on a course of Macrobid for urinary tract infection though this was stopped after the culture was ruled to be negative. The patient states she is taking "senna tea" regimen, started having bowel movements yesterday. She states that she is having multiple bowel movements overnight. She denies at that time that she was having any bleeding. This morning she went up to have another bowel movement. She had some liquid stool, but also noted some fresh blood rectally. She had 2 other bowel movements over the course the morning and notes that she had increasing amounts of blood in her stool. She notes ongoing back pain which is the same back pain she had when she came in on 01/26 which she attributes to the disc extrusion or lumbar spine. She also complaining of a low-grade diffuse abdominal pain is slightly greater in the left lower quadrant. The patient does not recall when her last colonoscopy was, or whether there were any abnormalities. The patient has no known history of inflammatory bowel disease. As above she did take 3 days of Macrobid for suspected UTI last week. She denies any foreign travel. She is on aspirin for secondary prevention of NE, but she is not on any anticoagulants. Patient has not had fevers, or sweats but states that occasionally she gets chills. She also has intermittent nausea but is able to keep food and fluids down. She denies any urinary symptoms including dysuria or urinary frequency. Review of Systems See HPI for pertinent positives & negatives. A total of 10 systems reviewed and were otherwise negative. Past Medical/Surgical History Medical Problems: (1) Benign hypertension (2) Diverticulitis Colon (W/O Ment Of Hemorrhage) (3) NE (myocardial infarction) (4) Osteoporosis Nos (5) pylonephritis Family History Heart disease Social History Smoking Status: Never Smoker Smokeless Tobacco Use: No Alcohol Use: none Drug Use: none Marital Status: Housing Status: lives with family Occupation Status: retired Current/Historical Medications Scheduled Aspirin (Aspirin Ec), 81 MG PO DAILY Cholecalciferol (Vitamin D3), 1 CAP PO DAILY Ciprofloxacin Tab (Cipro), 2 TAB PO BID Fish Oil ([place]-3), 1 CAP PO DAILY Metoprolol Tartrate (Lopressor), 12.5 MG PO DAILY Metronidazole (Flagyl), 500 MG PO TID Multivitamin (Multivitamin), 1 TAB PO DAILY [Bone Strength], 3 TABS PO DAILY Scheduled PRN Melatonin (Melatonin Cr), 3 MG PO HS PRN for Sleep Allergies Multiple allergies and intolerances as noted above Physical Exam Vital Signs Date Time Temp Pulse Resp B/P (MAP) Pulse Ox O2 Delivery O2 Flow Rate FiO2 01/29/17 21:13 84 18 98 Room Air 01/29/17 20:36 71 18 133/66 97 Room Air 01/29/17 18:37 65 18 138/67 99 Room Air 01/29/17 16:42 68 01/29/17 16:30 62 18 98 Room Air 01/29/17 15:56 96 Room Air 01/29/17 14:25 37.0 65 18 139/67 99 Room Air Physical Exam Constitutional: Vital signs as above were reviewed. Eyes: Pupils equal, round, and reactive to light. Extraocular muscles are intact. No proptosis. No photophobia. ENT: Mucous membranes are moist. Oropharynx is clear. No sinus tenderness. Cardiovascular: Heart with a regular rate and rhythm. Pulses are palpable and symmetric in all 4 extremities. No pedal edema appreciated. Respiratory: Lungs clear to auscultation bilaterally. No wheezes, rales, or rhonchi appreciated. No accessory muscle use. No retractions. No increased work of breathing. GI: Abdomen soft nondistended. Normal active bowel sounds. No abdominal hernias appreciated. No rebound. No guarding. Diffuse abdominal quadrant tenderness, without guarding or rigidity. The patient localizes the pain to the left lower quadrant External hemorrhoid at 6 o'clock position, non-thrombosed nonbleeding Rectal examination: Grossly bloody contents noted with digital rectal exam; Hemoccult was positive : No CVA tenderness appreciated. Musculoskeletal: No midline cervical or vertebral tenderness. No gross deformities. No bony tenderness. No calf swelling or tenderness. Integumentary: Warm, dry, no rashes appreciated. Neurological: Patient awake, alert, and oriented x 3. Cranial nerves two through 12 grossly intact. Lymph: No cervical lymphadenopathy appreciated. Medical Decision & Procedures Laboratory Results 01/29/17 14:45 Red Blood Count 3.44, Mean Corpuscular Volume 89.5, Mean Corpuscular Hemoglobin 32.6, Mean Corpuscular Hemoglobin Concent 36.4, Mean Platelet Volume 9.1, Neutrophils (%) (Auto) 81.1, Lymphocytes (%) (Auto) 8.4, Monocytes (%) (Auto) 10.1, Eosinophils (%) (Auto) 0.0, Basophils (%) (Auto) 0.1, Neutrophils # (Auto ) 7.73, Lymphocytes # (Auto) 0.80, Monocytes # (Auto) 0.96, Eosinophils # (Auto ) 0.00, Basophils # (Auto) 0.01 01/29/17 14:45 Test 01/29/17 14:45 01/29/17 19:01 White Blood Count 9.53 K/uL (4.8-10.8) Red Blood Count 3.44 M/uL (4.2-5.4) Hemoglobin 11.2 g/dL (12.0-16.0) Hematocrit 30.8 % (37-47) Mean Corpuscular Volume 89.5 fL (80-100) Mean Corpuscular Hemoglobin 32.6 pg (25-34) Mean Corpuscular Hemoglobin Concent 36.4 g/dl (32-36) Platelet Count 217 K/uL (130-400) Mean Platelet Volume 9.1 fL (7.4-10.4) Neutrophils (%) (Auto) 81.1 % Lymphocytes (%) (Auto) 8.4 % Monocytes (%) (Auto) 10.1 % Eosinophils (%) (Auto) 0.0 % Basophils (%) (Auto) 0.1 % Neutrophils # (Auto) 7.73 K/uL (1.4-6.5) Lymphocytes # (Auto) 0.80 K/uL (1.2-3.4) Monocytes # (Auto) 0.96 K/uL (0.11-0.59) Eosinophils # (Auto) 0.00 K/uL (0-0.5) Basophils # (Auto) 0.01 K/uL (0-0.2) RDW Standard Deviation 42.9 fL (36.4-46.3) RDW Coefficient of Variation 13.2 % (11.5-14.5) Immature Granulocyte % (Auto) 0.3 % Immature Granulocyte # (Auto) 0.03 K/uL (0.00-0.02) Prothrombin Time 11.4 SECONDS (9.0-12.0) Prothromb Time International Ratio 1.1 (0.9-1.1) Activated Partial Thromboplast Time 26.1 SECONDS (21.0-31.0) Partial Thromboplastin Ratio 1.0 Anion Gap 10.0 mmol/L (3-11) Est Creatinine Clear Calc Drug Dose 43.9 ml/min Estimated GFR () 86.3 Estimated GFR (Non- 74.5 BUN/Creatinine Ratio 15.4 (10-20) Calcium Level 8.9 mg/dl (8.5-10.1) Total Bilirubin 0.7 mg/dl (0.2-1) Aspartate Amino Transf (AST/SGOT) 40 U/L (15-37) Alanine Aminotransferase (ALT/SGPT) 53 U/L (12-78) Alkaline Phosphatase 55 U/L (45-117) Total Protein 7.8 gm/dl (6.4-8.2) Albumin 4.1 gm/dl (3.4-5.0) Globulin 3.7 gm/dl (2.5-4.0) Albumin/Globulin Ratio 1.1 (0.9-2) Lipase 152 U/L (73-393) Date/Time Source Procedure Growth Status 01/29/17 20:30 Stool C.difficile Toxin B Gene (PCR) - Final No C. difficile toxin B gene detected Complete Medications Administered Medications (Trade) Dose Ordered Sig/Seema Route Start Time Stop Time Status Last Admin Dose Admin Ciprofloxacin/ Dextrose 400 mg/ Prmx 200 ml @ 100 mls/hr Q12 IV 01/29/17 21:00 02/08/17 20:59 01/29/17 19:45 100 MLS/HR Metronidazole 500 mg/Prmx 100 ml @ 100 mls/hr Q8H IV 01/29/17 19:15 02/08/17 19:14 01/29/17 19:45 100 MLS/HR ED Course 14:15 - The patient was seen and evaluated by Dr. Heber Claros MD [facility] 15:00 - Preliminary labs ordered, CBC, CMP 15:15 - Rectal examination; positive Hemoccult 15:20 - Discussed case with Dr. Eric Mccormack Coags, Stat CMP, EKG and CT Abdo/pelvis with IV and oral contrast ordered 17:00 - labs were reviewed No evidence of anemia Na 128 that is stable compared to previous labs on 02/15 19:45 - Reviewed CT scan result with evidence of colitis Cipro and Flagyl ordered 20:00 - I discussed the results with the patient. After discussing with the patient needs to be admitted versus go home, we discussed the risks versus benefits. I did note to her that she is hemodynamically stable with no evidence of anemia on labs. She noted to me that she had bowel movements with blood but these were resolving. She did have some continued mild abdominal pain that seemed to be getting better. Decision was decision mutually made for the patient to go home with oral antibiotics. 20:15 - Discharge paperwork completed 21:45 - Notified by nursing that the patient was debating whether she should stay or not be admitted. The patient has gotten a dose of Cipro and Flagyl. I did note to her the possible however there will probably be no additional treatment overnight and that likely additional antibiotics will be given the morning. In light of this, the patient stated that she would actually prefer to go home. She did note some mild back pain, though I expect that this was likely due to her extruded lumbar disc. I discussed the plan again with the patient who was in agreement to be discharged home and follow up closely with her PCP in the next 48 hours. Medical Decision Patient is 76-year-old female who presents with acute onset rectal bleeding. Her Hemoccult was positive in the ER. She did have some mild diffuse abdominal pain, but no guarding or rigidity. I was not concerned for an acute abdomen. The abdominal pain has been ongoing issue for the past 2 weeks and was likely due to ongoing constipation which she was diagnosed 3 days ago and was started on a bowel regimen. Review of her labs show that she did have a stable hemoglobin. I was made aware that she had a bowel movement the ED but fortunately it has been progressively improving during her stay. CT scan did show some evidence of colitis. Also, consider whether chronic constipation with large bowel movements over 24 hours has been irritated the lining of the GI tract pre- existing internal hemorrhoids. She is on aspirin for secondary prevention of coronary disease. However this time I have recommended that she hold off for at least 48 hours until she see her primary care provider and until she notes that bleeding stops. Impression is that this case can be managed in the outpatient setting. I strongly reiterated to the patient that she does need to see her PCP within 48 hours. And I would strongly recommend repeat H&H in 24-48 hours. The patient did express that preference as well. I do feel we should also start her on oral antibiotics to provide coverage for possible bacterial source therefore she was discharged on ciprofloxacin and Flagyl. Also recommended to her to eat a low residue diet, and concentrate on eating more liquid foods such as soups. The patient was agreeable to the plan. She is agreed to call her PCPs office in the morning and notes that she will be able to get an appointment by the end of the week to be reassessed. I did reassure her that at this time she is hemodynamically stable, and in the setting of improving bleeding we can watch this at home. The patient was agreeable to the plan and was discharged in stable condition. I did re-iterate that if her condition changes to return immediately to the emergency department so we can reevaluate her. Head Trauma GCS Score: 15 Blood Pressure Screening Patient's blood pressure: Normal blood pressure Impression Primary Impression: Colitis Ruled Out: Diverticulitis Colon (W/O Ment Of Hemorrhage) Departure Information Dispostion Home / Self-Care Condition GOOD Prescriptions Metronidazole (Flagyl) 500 Mg Tab 500 MG PO TID for 10 Days, #30 TAB Prov: Heber Claros MD 01/29/17 Ciprofloxacin Tab (Cipro) 250 Mg Tab 2 TAB PO BID for 10 Days, #40 TAB Prov: Heber Claros MD 01/29/17 Referrals Pro,Michael Beck M.D. (PCP) Patient Instructions My [facility] Additional Instructions You came to the emergency department for rectal bleeding. This started after a large bowel movement following issues with constipation. We did a rectal examination which was positive for blood. We did a CT scan which did show some changes suggestive of inflammation of your colon, called colitis. Inflammation may be related to an infection or may some irritation of the bowel in the setting of having constipation. This may also be related to hemorrhoids. In this setting, we felt you need to start treatment with antibiotics but in discussion with you, we will try to treat this in the outpatient setting with close follow-up with your primary care provider. We will also test you for a common infection that can occur called C.difficile, if this is positive you will be notified. The 2 antibiotics we will treat you with are called Ciprofloxacin and Flagyl. We gave you doses of each of these in the ER before you left and will give you a prescription to take these by mouth outside the hospital for 10 days. You vital signs were stable and you noted improvement in the bleeding after arrival to the hospital so we felt that you could be safely discharged home with close follow-up with your primary care provider. If your symptoms improve, you may talk with your primary care provider about having a colonoscopy to determine if this is related to hemorrhoids or diverticuli. If you continue to bleed, you may need a colonoscopy more urgently. When you go home, please hold your Aspirin until you are seen by your PCP. Please eat a low residue diet with foods like bananas, applesauce, rice and toast. Please also drink fluids to ensure that you do not get dehydration. If your symptoms fail to improve, acutely worsen, please seek medical attention immediately by either calling your primary care provider or going to your nearest emergency department. Otherwise, please see your primary care provider within 2 days to ensure that your symptoms continue to improve. It was a pleasure to be involved in your care and we wish you all the best.
[2017-01-29 15:46] LABS: INR 1.1 (0.9-1.1); PROTHROMBIN TIME (PATIENT) 11.4 SECONDS (9.0-12.0)
[2017-01-29 15:56] VITALS: O2SAT 96
--- NOTE | 2017-01-29 18:17 | DIAGNOSTIC IMAGING REPORT ---
CT OF THE ABDOMEN AND PELVIS WITH CONTRAST CLINICAL HISTORY: Abdominal pain and rectal bleeding. Evaluate for acute diverticulitis. COMPARISON STUDY: CT of the abdomen and pelvis January 26, 2017. TECHNIQUE: Following IV administration of 93 mL of Optiray-320, axial images of the abdomen and pelvis were obtained from the lung bases to the proximal femurs. Images were reviewed in the axial, sagittal, and coronal planes. IV contrast was administered without complication. A dose lowering technique was utilized adhering to the principles of ALARA. Oral contrast was administered. CT DOSE: 337.95 mGy.cm FINDINGS: No pneumatosis, free air or portal venous gas is present. Mild cardiomegaly is noted. There is a small amount of abdominal and pelvic ascites. The liver, spleen, adrenal glands, pancreas and right kidney are normal. A 4 mm hypodense left renal lesion likely reflects a cyst. There is no evidence for a bowel obstruction. There is mild circumferential wall thickening of the descending colon and proximal sigmoid colon. This was not present on prior CT of January 26, 2017. There is no abscess. Apparent endometrial thickening is noted. This is probably artifactual. There is a suspected small calcified uterine fibroid. There is no hydronephrosis. IMPRESSION: 1. Mild circumferential wall thickening of the descending colon and proximal sigmoid colon consistent with colitis. Differential considerations include infectious, ischemic and inflammatory etiologies. Small amount of ascites. No pneumatosis, free air, portal venous gas or abscess. 2. Apparent endometrial thickening which is likely artifactual. However, this could be correlated with history of postmenopausal bleeding and a nonemergent pelvic ultrasound. Electronically signed by: Hugh Saini M.D. 01/29/2017 6:16 PM Dictated Date/Time: 01/29/2017 6:08 PM
[2017-01-29] MEDS ORDERED: METRONIDAZOLE / NSS 500 MG in PREMIXED NSS 100 ML IV SCH (19:15)
[2017-01-29] MEDS ORDERED: METR-163 PO (20:09)
[2017-01-29] MEDS ORDERED: CIPR1TAB11 PO (20:09)
[2017-01-29] MEDS ORDERED: CIPROFLOXACIN / D5W 400 MG in PREMIXED IN D5W 200 ML IV SCH (21:00)
[2017-01-29 22:50] VITALS: BP 125/64; PULSE 62; O2SAT 98
== END 2017-01-29 22:52 | disposition home or self-care (01) ==
LOC: C.EDB 14:24 → C.EDC 22:52
DX: K52.9 Noninfective gastroenteritis and colitis, unspecified (principal); I10 Essential (primary) hypertension; K57.30 Diverticulosis of large intestine without perforation or abscess without bleeding; I25.2 Old myocardial infarction; M81.0 Age-related osteoporosis without current pathological fracture; Z87.440 Personal history of urinary (tract) infections; Z79.82 Long term (current) use of aspirin; Z79.899 Other long term (current) drug therapy; Z82.49 Family history of ischemic heart disease and other diseases of the circulatory system

== ENCOUNTER → 2017-02-01 | Outpatient (CLI) | payer OTHER, MEDICARE ==
[~2017-02-01] MED LIST changes: +CIPR1TAB11 PO; -META1TAB PO; +METR-163 PO; -NITR-5 PO
[2017-02-01 09:10] LABS: HEMATOCRIT 33.9 % (37-47); MEAN CELL VOLUME 90.2 fL (80-100); MEAN CORPUSCULAR HEMOGLOBIN 32.4 pg (25-34); MEAN PLATELET VOLUME 8.7 fL (7.4-10.4); PLATELET COUNT 226 K/uL (130-400); RED BLOOD COUNT 3.76 M/uL (4.2-5.4); WHITE BLOOD COUNT 7.57 K/uL (4.8-10.8)
[2017-02-01 09:39] LABS: ALT/SGPT 41 U/L (12-78); BLOOD UREA NITROGEN 7 mg/dl (7-18); BUN/CREATININE RATIO 9.5 (10-20); CALCIUM 8.8 mg/dl (8.5-10.1); CARBON DIOXIDE 28 mmol/L (21-32); CHLORIDE 94 mmol/L (98-107); CHOLESTEROL 145 mg/dl (0-200); CREATININE 0.77 mg/dl (0.60-1.20); GLUCOSE 97 mg/dl (70-99); POTASSIUM 3.1 mmol/L (3.5-5.1); SODIUM 130 mmol/L (136-145); TRIGLYCERIDES 77 mg/dl (0-150); VERY LOW DENSITY LIPOPROT CALC 15 mg/dl
[2017-02-01 09:42] LABS: ALKALINE PHOSPHATASE 47 U/L (45-117); AST/SGOT 30 U/L (15-37); CHOLESTEROL/HDL RATIO 2.2; HDL CHOLESTEROL 65 mg/dl; LDL CHOLESTEROL CALCULATED 65 mg/dl
== END | disposition home or self-care (01) ==
LOC: C.LAB 08:14
PROVIDERS: ATTEND Internal Medicine Cardiovascular Disease
DX: E87.1 Hypo-osmolality and hyponatremia (principal); K21.9 Gastro-esophageal reflux disease without esophagitis; E55.9 Vitamin D deficiency, unspecified; I25.10 Atherosclerotic heart disease of native coronary artery without angina pectoris

== ENCOUNTER → 2017-02-04 | Outpatient (CLI) | payer OTHER, MEDICARE ==
[~2017-02-04] MED LIST changes: +GADAVIST IV PRN
--- NOTE | 2017-02-04 10:42 | DIAGNOSTIC IMAGING REPORT ---
MRI OF THE LUMBAR SPINE WITH AND WITHOUT CONTRAST CLINICAL HISTORY: Low back pain. COMPARISON STUDY: Lumbar spine CT January 26, 2017 TECHNIQUE: Utilizing a 1.5 Eve magnet and dedicated coil, multiplanar, multiecho imaging of the lumbar spine was performed before and after uneventful IV administration of 5 mL of Gadavist. FINDINGS: For purposes of numbering on this exam, the L5-S1 disc space is assigned to axial image 27 of 30. Alignment of the lumbar spine is anatomic. Vertebral body heights are maintained. There is no marrow replacement. Conus terminates at the L1-L2 level. L1-2: There is a left paracentral disc extrusion with mild superior subligamentous migration that measures 1.3 x 1.2 x 0.7 cm and results in moderate narrowing of the left lateral recess as well as mild narrowing of the left neural foramen at this level. L2-3: The central canal and neural foramen are patent. There is minimal disc bulge L3-4: The central canal and neural foramen are patent. There is minimal disc bulge. L4-5: The central canal and neural foramen are patent. L5-S1: The central canal neural foramen are patent. IMPRESSION: 1. 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 This results in moderate narrowing of the left lateral recess and mild narrowing of the left neural foramen at this level. 2. Otherwise, minimal multilevel degenerative changes of the lumbar spine. Electronically signed by: Hugh Saini M.D. 02/04/2017 10:41 AM Dictated Date/Time: 02/04/2017 10:33 AM
== END | disposition home or self-care (01) ==
LOC: C.MRI 09:24
PROVIDERS: ATTEND Physician Assistant
DX: M51.26 Other intervertebral disc displacement, lumbar region (principal); M48.061 Spinal stenosis, lumbar region without neurogenic claudication

== ENCOUNTER → 2017-02-12 | Outpatient (CLI) | payer OTHER, MEDICARE ==
[~2017-02-12] MED LIST changes: -CIPR1TAB11 PO; -GADAVIST IV PRN; -METR-163 PO
[2017-02-12 10:05] LABS: BLOOD UREA NITROGEN 12 mg/dl (7-18); BUN/CREATININE RATIO 17.6 (10-20); CALCIUM 9.2 mg/dl (8.5-10.1); CARBON DIOXIDE 28 mmol/L (21-32); CHLORIDE 99 mmol/L (98-107); CREATININE 0.68 mg/dl (0.60-1.20); GLUCOSE 86 mg/dl (70-99); POTASSIUM 4.1 mmol/L (3.5-5.1); SODIUM 134 mmol/L (136-145)
== END | disposition home or self-care (01) ==
LOC: C.LAB 08:23
PROVIDERS: ATTEND Internal Medicine
DX: E87.6 Hypokalemia (principal)

== ENCOUNTER → 2017-04-04 | Outpatient (CLI) | payer OTHER, MEDICARE ==
--- NOTE | 2017-04-07 08:03 | DIAGNOSTIC IMAGING REPORT ---
LEG LENGTH STUDY (WHOLE LEG) CLINICAL HISTORY: OSTEOPENIA, OSTEOPOROSIS COMPARISON STUDY: None FINDINGS: Total leg length on the right ICA is 80.1 cm. Total leg length on the left is 80.0 cm. This is a 1 cm discrepancy. IMPRESSION: 1 cm discrepancy with the left leg 1 cm shorter as compared to the right. The above report was generated using voice recognition software. It may contain grammatical, syntax or spelling errors. Electronically signed by: Luis Otoole M.D. 04/04/2017 11:24 AM Dictated Date/Time: 04/04/2017 11:22 AM
== END | disposition home or self-care (01) ==
LOC: C.RAD1850 10:45
PROVIDERS: ATTEND Internal Medicine
DX: M85.9 Disorder of bone density and structure, unspecified (principal); M81.0 Age-related osteoporosis without current pathological fracture; M21.752 Unequal limb length (acquired), left femur

== ENCOUNTER 2017-04-27 06:29 | Emergency (ER) | payer OTHER, MEDICARE ==
[~2017-04-27] VITALS: Ht 154.9 cm; Wt 46.9 kg
[2017-04-27 06:34] VITALS: TEMP 37.1; Ht 154.9 cm; Wt 46.9 kg
[2017-04-27] MEDS ORDERED: MoRPHine SULFATE 4 MG/ML 1 ML CARP\\VIAL IV STA (06:54)
[2017-04-27] MEDS ORDERED: ONDANSETRON INJ 2 MG/ML 2 ML VIAL IV STA (06:54)
[2017-04-27] MEDS ORDERED: SODIUM CHLORIDE 0.9% 1000ML 1,000 ML IV STA (06:54)
[2017-04-27] MEDS ORDERED: DIGECAP3 PO (07:03)
--- NOTE | 2017-04-27 07:11 | EMERGENCY ROOM VISIT NOTE ---
History Report prepared by Genevieve: Fredy Ortiz Under the Supervision of: Cira EllsworthO. First contact with patient: 06:39 Chief Complaint: BACK PAIN Stated Complaint: LWR BACK/HIP RIGHT SIDED PAIN,STRESS History of Present Illness The patient is a 77 year old female who presents to the Emergency Room with complaints of waxing and waning right lower back pain starting 5 days ago. She notes that the pain is relieved with heat, and it is worse with twisting, turning, bending, and lifting. The patient states that she had similar symptoms on the left side in January, and she had an MRI done, and it turned out to be constipation. She states that she had it treated and has been fine since then until this episode. The patient reports that she has osteoporosis and some disc bulges in her spine. The patient denies any history of kidney stones. Pt denies difficulty with bowel movements and urination, numbness in her legs, headache, change in vision, fevers, chest pain, shortness of breath, nausea, vomiting, diarrhea, pain with urination, and melena. Source of History: patient Onset: 5 days ago Position: back (right lower) Timing: waxes/wanes Modifying Factors (Worsening): movement Modifying Factors (Relieving): heat Associated Symptoms: No urinary symptoms, No numbness Review of Systems See HPI for pertinent positives & negatives. A total of 10 systems reviewed and were otherwise negative. Past Medical & Surgical Medical Problems: (1) Benign hypertension (2) Diverticulitis Colon (W/O Ment Of Hemorrhage) (3) LA (myocardial infarction) (4) Osteoporosis Nos (5) pylonephritis Family History Heart disease Social History Smoking Status: Never Smoker Alcohol Use: none Drug Use: none Marital Status: Housing Status: lives with family Occupation Status: retired Current/Historical Medications Scheduled Aspirin (Aspirin Ec), 81 MG PO DAILY Cholecalciferol (Vitamin D3), 1 CAP PO DAILY Digestive Enzymes (Enzyme Digest), 1 CAP PO DAILY Fish Oil (Custer-3), 1 CAP PO DAILY Metoprolol Tartrate (Lopressor), 12.5 MG PO DAILY Multivitamin (Multivitamin), 1 TAB PO DAILY [Bone Strength], 3 TABS PO DAILY Scheduled PRN Melatonin (Melatonin Cr), 3 MG PO HS PRN for Sleep Oxycodone Immediate Rel Tab (Roxicodone Ir), 5 MG PO Q6H PRN for Pain Allergies Coded Allergies: Azithromycin (Verified Allergy, Intermediate, HEADACHE, 04/27/17) Acetaminophen (Verified Allergy, Mild, 04/27/17) Statins (Verified Allergy, Unknown, lethargy,muscle weakness, 04/27/17) Alprazolam (Verified Adverse Reaction, Intermediate, HEADACHE, 04/27/17) Amoxicillin (Verified Adverse Reaction, Unknown, HEADACHE, 04/27/17) Physical Exam Vital Signs Date Time Temp Pulse Resp B/P (MAP) Pulse Ox O2 Delivery O2 Flow Rate FiO2 04/27/17 08:56 64 18 109/65 99 04/27/17 08:03 64 18 113/79 98 Room Air 04/27/17 06:34 37.1 79 20 152/82 97 Room Air Physical Exam GENERAL: Sitting up in bed, intermittently grabbing her back and jumping onto the bed. Complaining of right flank pain. EYE EXAM: normal conjunctiva. OROPHARYNX: no exudate, no erythema, lips, buccal mucosa, and tongue normal and mucous membranes are moist NECK: supple, no nuchal rigidity, no adenopathy, non-tender LUNGS: Clear to auscultation. Normal chest wall mechanics HEART: no murmurs, S1 normal and S2 normal ABDOMEN: abdomen soft, non-tender, normo-active bowel sounds, no masses, no rebound or guarding. BACK: Acute reproducible right paraspinal tenderness. Back is symmetrical on inspection and there is no deformity SKIN: no rashes and no bruising UPPER EXTREMITIES: upper extremities are grossly normal. LOWER EXTREMITIES: Flexion and extension of the hip, knee, ankle, and EHL are 5/ 5 bilaterally. Gross sensation intact. Achilles and patellar reflexes are 1/4. DP are 2/4. No pitting edema. NEURO EXAM: Normal sensorium, cranial nerves II-XII grossly intact, normal speech, no gross weakness of arms. Medical Decision & Procedures ER Provider Diagnostic Interpretation: Radiology results as stated below per my review and the radiologist's interpretation: LUMBAR SPINE WITHOUT CLINICAL HISTORY: Right lower back pain. COMPARISON STUDY: Lumbar spine CT January 26, 2017 and MRI of the lumbar spine February 04, 2017. FINDINGS: Mild leftward curvature of the lumbar spine is likely positional. There is no acute lumbar spine fracture or subluxation. No suspicious osseous lesion is present. The abdomen and pelvis will be reported separately. A left paracentral disc extrusion at L1-L2 appears similar to prior CT and MRI. Otherwise, mild multilevel degenerative changes are present. The central canal and neural foramen are suboptimally assessed by CT. IMPRESSION: 1. No acute lumbar spine fracture or subluxation. 2. No significant change in a left paracentral disc extrusion at L1-L2 since prior CT of January 26, 2017 and MRI of February 04, 2017. 3. Otherwise, mild multilevel degenerative disc disease and facet arthrosis of the lumbar spine. Electronically signed by: Hugh Saini M.D. 04/27/2017 8:23 AM Dictated Date/Time: 04/27/2017 8:[address] OF THE ABDOMEN AND PELVIS WITHOUT CONTRAST, STONE PROTOCOL CLINICAL HISTORY: Right flank pain. COMPARISON STUDY: CT of the abdomen and pelvis January 29, 2017. TECHNIQUE: Helical axial images of the abdomen and pelvis were obtained without IV or oral contrast according to renal stone protocol. A dose lowering technique was utilized adhering to the principles of ALARA. FINDINGS: No renal, ureteral or bladder calculi are noted. There are bilateral extrarenal pelves. Evaluation of the remainder of the abdomen and pelvis is suboptimal on this unenhanced exam. Unenhanced images of liver, spleen, adrenal glands and pancreas are unremarkable. There is no evidence for a bowel obstruction. The appendix is normal. A small amount of free fluid within the pelvis is noted. This is been shown on prior exams. There is a calcified uterine fibroid. No pneumatosis, free air or portal venous gas is present. The lumbar spine CT will be reported separately. IMPRESSION: 1. No urinary calculi or hydronephrosis. 2. No acute process within the abdomen or pelvis on unenhanced exam. No bowel obstruction. Normal appendix. 3. Small amount of free fluid within the pelvis which has shown seen on prior exams. Electronically signed by: Hugh Saini M.D. 04/27/2017 8:18 AM Dictated Date/Time: 04/27/2017 8:07 AM Laboratory Results 04/27/17 07:15 Red Blood Count 3.40, Mean Corpuscular Volume 92.9, Mean Corpuscular Hemoglobin 32.9, Mean Corpuscular Hemoglobin Concent 35.4, Mean Platelet Volume 9.6, Neutrophils (%) (Auto) 75.7, Lymphocytes (%) (Auto) 15.0, Monocytes (%) (Auto) 8.7, Eosinophils (%) (Auto) 0.0, Basophils (%) (Auto) 0.3, Neutrophils # (Auto) 5.47, Lymphocytes # (Auto) 1.08, Monocytes # (Auto) 0.63, Eosinophils # (Auto) 0.00, Basophils # (Auto) 0.02 04/27/17 07:15 Test 04/27/17 07:15 White Blood Count 7.22 K/uL (4.8-10.8) Red Blood Count 3.40 M/uL (4.2-5.4) Hemoglobin 11.2 g/dL (12.0-16.0) Hematocrit 31.6 % (37-47) Mean Corpuscular Volume 92.9 fL (80-100) Mean Corpuscular Hemoglobin 32.9 pg (25-34) Mean Corpuscular Hemoglobin Concent 35.4 g/dl (32-36) Platelet Count 188 K/uL (130-400) Mean Platelet Volume 9.6 fL (7.4-10.4) Neutrophils (%) (Auto) 75.7 % Lymphocytes (%) (Auto) 15.0 % Monocytes (%) (Auto) 8.7 % Eosinophils (%) (Auto) 0.0 % Basophils (%) (Auto) 0.3 % Neutrophils # (Auto) 5.47 K/uL (1.4-6.5) Lymphocytes # (Auto) 1.08 K/uL (1.2-3.4) Monocytes # (Auto) 0.63 K/uL (0.11-0.59) Eosinophils # (Auto) 0.00 K/uL (0-0.5) Basophils # (Auto) 0.02 K/uL (0-0.2) RDW Standard Deviation 47.0 fL (36.4-46.3) RDW Coefficient of Variation 13.9 % (11.5-14.5) Immature Granulocyte % (Auto) 0.3 % Immature Granulocyte # (Auto) 0.02 K/uL (0.00-0.02) Urine Color YELLOW Urine Appearance CLEAR (CLEAR) Urine pH 7.0 (4.5-7.5) Urine Specific [place] 1.022 (1.000-1.030) Urine Protein NEG (NEG) Urine Glucose (UA) NEG (NEG) Urine Ketones 1+ (NEG) Urine Occult Blood TRACE (NEG) Urine Nitrite NEG (NEG) Urine Bilirubin NEG (NEG) Urine Urobilinogen NEG (NEG) Urine Leukocyte Esterase SMALL (NEG) Urine WBC (Auto) 1-5 /hpf (0-5) Urine RBC (Auto) 5-10 /hpf (0-4) Urine Hyaline Casts (Auto) 1-5 /lpf (0-5) Urine Epithelial Cells (Auto) 10-20 /lpf (0-5) Urine Bacteria (Auto) NEG (NEG) Anion Gap 7.0 mmol/L (3-11) Est Creatinine Clear Calc Drug Dose 50.5 ml/min Estimated GFR () 97.1 Estimated GFR (Non- 83.8 BUN/Creatinine Ratio 21.6 (10-20) Calcium Level 9.2 mg/dl (8.5-10.1) Total Bilirubin 0.9 mg/dl (0.2-1) Direct Bilirubin 0.2 mg/dl (0-0.2) Aspartate Amino Transf (AST/SGOT) 33 U/L (15-37) Alanine Aminotransferase (ALT/SGPT) 36 U/L (12-78) Alkaline Phosphatase 49 U/L (45-117) Total Protein 7.8 gm/dl (6.4-8.2) Albumin 4.0 gm/dl (3.4-5.0) Lipase 186 U/L (73-393) Laboratory results per my review. Medications Administered Medications (Trade) Dose Ordered Sig/Seema Route Start Time Stop Time Status Last Admin Dose Admin Ondansetron HCl (Zofran Inj) 4 mg NOW STAT IV 04/27/17 06:54 04/27/17 06:56 DC 04/27/17 07:21 4 MG Morphine Sulfate (MoRPHine SULFATE INJ) 2 mg NOW STAT IV 04/27/17 06:54 04/27/17 06:56 DC 04/27/17 07:22 2 MG Sodium Chloride 1,000 ml @ 999 mls/hr Q1H1M STAT IV 04/27/17 06:54 04/27/17 07:54 DC 04/27/17 07:22 999 MLS/HR Oxycodone HCl (Roxicodone Immediate Rel Tab) 5 mg NOW STAT PO 04/27/17 08:41 04/27/17 08:42 DC 04/27/17 08:48 5 MG ED Course ED COURSE: Vital signs were reviewed and showed situational hypertension The patients medical record was reviewed The above diagnostic studies were performed and reviewed. ED treatments and interventions as stated above. 0639: The patient was evaluated in room A11. A complete history and physical examination was performed. 0654: Sodium Chloride 1000 ml @ 999 mls/hr IV, Morphine Sulfate 2mg IV, Zofran 4mg IV 0838: Upon reevaluation, the patient is doing well.I discussed my findings with the patient and she understands and agrees with the treatment plan. Based on the patients age, coexisting illnesses, exam and lab findings the decision to treat as an outpatient was made. The patient remained stable while under my care. The patient appeared well at the time of discharge. 0841: Oxycodone HCl 5mg PO Medical Decision Differential diagnoses includes but is not limited to lumbar radiculopathy, muscle strain, facture, cauda equina, mass, and disc herniation. Patient is a 77-year-old female who presents to ER for right lower back pain associated with nausea. She has no numbness or weakness in her legs. No focal deficit. Completely neurologically intact. She is intermittently writhing around in the bed. Based on presentation and decided consistent with muscle spasms or possible stone. Based on this blood work was obtained. CT was ordered. She was given IV narcotics and Zofran. CT of the abdomen and pelvis and lumbar spine was unremarkable. No stone. CBC was unremarkable. BMP shows a sodium of 128. Will follow-up with PCP in regards to this. Bilirubin all LFTs and lipase is normal. UA without signs of infection. Patient was updated bedside. She was given an oral dose of OxyIR prior to discharge and was instructed to follow-up with PCP. I do favor this is muscle skeletal back pain based on exam with reproducible tenderness. No signs of cauda equina. Discussed with Pt concerning signs and symptoms to watch out for. Pt was instructed to follow up with their PCP and discussed with the patient their option to return to the ED at anytime for persistent or worsening symptoms. The appropriate anticipatory guidance and out-patient management, including indications for return to the emergency department, were explained at length to the patient and understood. [place] Drug Monitoring Program Search Results: patient reviewed within database, no issues identified Medication Reconcilliation Current Medication List: was personally reviewed by me Blood Pressure Screening Patient's blood pressure: Elevated blood pressure Blood pressure disposition: Elevated BP felt to be situational Impression Primary Impression: Musculoskeletal back pain Additional Impression: Hyponatremia Scribe Attestation The scribe's documentation has been prepared under my direction and personally reviewed by me in its entirety. I confirm that the note above accurately reflects all work, treatment, procedures, and medical decision making performed by me. Departure Information Dispostion Home / Self-Care Prescriptions Oxycodone Immediate Rel Tab (ROXICODONE IR) 5 Mg Tab 5 MG PO Q6H Y for Pain, #14 TAB Prov: Meet Aguirre, DO 04/27/17 Referrals Michael Corley M.D. (PCP) Forms HOME CARE DOCUMENTATION FORM, IMPORTANT VISIT INFORMATION Patient Instructions Back Pain - [facility], Hyponatremia Dc, My [facility] Additional Instructions Please follow up with your primary care doctor or if you are a student, [facility] with in the next 24 hours. Any worsening of your symptoms, please return to the ED immediately. This includes any fevers greater than 100.4, worsening pain, chest pain, shortness breath, persistent nausea, vomiting, unable to eat or drink, weakness or numbness in her legs or any other concerning signs or symptoms from your standpoint. You were given medications during this visit that will inhibit your ability to drive, operate machinery and work. Please do NOT drive, operate machinery or work for the next 12hrs. You were also given a prescription for a narcotic. While taking this medication you should also not drive, operate machinery and or work. Please have a repeat BMP to recheck your sodium within 3 days by her primary care doctor. Problem Qualifiers
[2017-04-27 07:24] LABS: BASO % 0.3 %; BASO ABS # 0.02 K/uL (0-0.2); HEMATOCRIT 31.6 % (37-47); HEMOGLOBIN 11.2 g/dL (12.0-16.0); IG# 0.02 K/uL (0.00-0.02); LYMPH ABS # 1.08 K/uL (1.2-3.4); MEAN CELL VOLUME 92.9 fL (80-100); MEAN CORPUSCULAR HEMOGLOBIN 32.9 pg (25-34); MEAN CORPUSCULAR HGB CONC 35.4 g/dl (32-36); MEAN PLATELET VOLUME 9.6 fL (7.4-10.4); MONO % 8.7 %; MONO ABS # 0.63 K/uL (0.11-0.59); NEUT % 75.7 %; NEUT ABS # 5.47 K/uL (1.4-6.5); PLATELET COUNT 188 K/uL (130-400); RED CELL DISTRIBUTION WIDTH CV 13.9 % (11.5-14.5); WHITE BLOOD COUNT 7.22 K/uL (4.8-10.8)
[2017-04-27 07:45] LABS: CALCIUM 9.2 mg/dl (8.5-10.1); CREATININE 0.68 mg/dl (0.60-1.20); POTASSIUM 3.7 mmol/L (3.5-5.1)
[2017-04-27 07:48] LABS: TOTAL PROTEIN 7.8 gm/dl (6.4-8.2)
--- NOTE | 2017-04-27 08:19 | DIAGNOSTIC IMAGING REPORT ---
CT OF THE ABDOMEN AND PELVIS WITHOUT CONTRAST, STONE PROTOCOL CLINICAL HISTORY: Right flank pain. COMPARISON STUDY: CT of the abdomen and pelvis January 29, 2017. TECHNIQUE: Helical axial images of the abdomen and pelvis were obtained without IV or oral contrast according to renal stone protocol. A dose lowering technique was utilized adhering to the principles of ALARA. FINDINGS: No renal, ureteral or bladder calculi are noted. There are bilateral extrarenal pelves. Evaluation of the remainder of the abdomen and pelvis is suboptimal on this unenhanced exam. Unenhanced images of liver, spleen, adrenal glands and pancreas are unremarkable. There is no evidence for a bowel obstruction. The appendix is normal. A small amount of free fluid within the pelvis is noted. This is been shown on prior exams. There is a calcified uterine fibroid. No pneumatosis, free air or portal venous gas is present. The lumbar spine CT will be reported separately. IMPRESSION: 1. No urinary calculi or hydronephrosis. 2. No acute process within the abdomen or pelvis on unenhanced exam. No bowel obstruction. Normal appendix. 3. Small amount of free fluid within the pelvis which has shown seen on prior exams. Electronically signed by: Hugh Saini M.D. 04/27/2017 8:18 AM Dictated Date/Time: 04/27/2017 8:07 AM
--- NOTE | 2017-04-27 08:24 | DIAGNOSTIC IMAGING REPORT ---
LUMBAR SPINE WITHOUT CLINICAL HISTORY: Right lower back pain. COMPARISON STUDY: Lumbar spine CT January 26, 2017 and MRI of the lumbar spine February 04, 2017. FINDINGS: Mild leftward curvature of the lumbar spine is likely positional. There is no acute lumbar spine fracture or subluxation. No suspicious osseous lesion is present. The abdomen and pelvis will be reported separately. A left paracentral disc extrusion at L1-L2 appears similar to prior CT and MRI. Otherwise, mild multilevel degenerative changes are present. The central canal and neural foramen are suboptimally assessed by CT. IMPRESSION: 1. No acute lumbar spine fracture or subluxation. 2. No significant change in a left paracentral disc extrusion at L1-L2 since prior CT of January 26, 2017 and MRI of February 04, 2017. 3. Otherwise, mild multilevel degenerative disc disease and facet arthrosis of the lumbar spine. Electronically signed by: Hugh Saini M.D. 04/27/2017 8:23 AM Dictated Date/Time: 04/27/2017 8:18 AM
[2017-04-27] MEDS ORDERED: OXYCODONE HCL IR 5 MG TAB (IMMEDIATE RELEASE) PO STA (08:41)
[2017-04-27] MEDS ORDERED: OXYC1TAB3 PO (08:43)
[2017-04-27 08:56] VITALS: BP 109/65; PULSE 64; O2SAT 99
== END 2017-04-27 08:56 | disposition home or self-care (01) ==
LOC: C.EDB 06:32 → C.EDA 08:56
DX: M54.5 Low back pain (principal); E87.1 Hypo-osmolality and hyponatremia; M81.0 Age-related osteoporosis without current pathological fracture; I10 Essential (primary) hypertension; I25.2 Old myocardial infarction; Z79.82 Long term (current) use of aspirin; Z82.49 Family history of ischemic heart disease and other diseases of the circulatory system

== ENCOUNTER → 2017-05-22 | Outpatient (CLI) | payer OTHER, MEDICARE ==
[~2017-05-22] MED LIST changes: +DIGECAP3 PO; +OXYC1TAB3 PO
[2017-05-22 14:57] LABS: BLOOD UREA NITROGEN 19 mg/dl (7-18); CALCIUM 8.9 mg/dl (8.5-10.1); CARBON DIOXIDE 30 mmol/L (21-32); CREATININE 0.76 mg/dl (0.60-1.20); GLUCOSE 103 mg/dl (70-99); POTASSIUM 3.7 mmol/L (3.5-5.1); SODIUM 133 mmol/L (136-145)
== END | disposition home or self-care (01) ==
LOC: C.LAB 13:09
PROVIDERS: ATTEND Internal Medicine
DX: E87.1 Hypo-osmolality and hyponatremia (principal)

== ENCOUNTER → 2017-07-19 | Outpatient (CLI) | payer OTHER, MEDICARE ==
[2017-07-19 09:27] LABS: HEMATOCRIT 35.4 % (37-47); HEMOGLOBIN 12.2 g/dL (12.0-16.0); MEAN CELL VOLUME 93.9 fL (80-100); MEAN CORPUSCULAR HEMOGLOBIN 32.4 pg (25-34); MEAN CORPUSCULAR HGB CONC 34.5 g/dl (32-36); PLATELET COUNT 165 K/uL (130-400); RED CELL DISTRIBUTION WIDTH CV 13.5 % (11.5-14.5); RED CELL DISTRIBUTION WIDTH SD 46.5 fL (36.4-46.3); WHITE BLOOD COUNT 5.35 K/uL (4.8-10.8)
[2017-07-19 09:56] LABS: ALT/SGPT 26 U/L (12-78); BLOOD UREA NITROGEN 14 mg/dl (7-18); CALCIUM 9.3 mg/dl (8.5-10.1); CARBON DIOXIDE 29 mmol/L (21-32); CHOLESTEROL 178 mg/dl (0-200); CREATININE 0.75 mg/dl (0.60-1.20); GLUCOSE 88 mg/dl (70-99); POTASSIUM 4.1 mmol/L (3.5-5.1); SODIUM 134 mmol/L (136-145)
[2017-07-19 09:57] LABS: AST/SGOT 25 U/L (15-37); LDL CHOLESTEROL CALCULATED 87 mg/dl
== END | disposition home or self-care (01) ==
LOC: C.LAB 08:57
PROVIDERS: ATTEND Internal Medicine Cardiovascular Disease
DX: E87.1 Hypo-osmolality and hyponatremia (principal); E55.9 Vitamin D deficiency, unspecified; K21.9 Gastro-esophageal reflux disease without esophagitis; I25.10 Atherosclerotic heart disease of native coronary artery without angina pectoris

== ENCOUNTER 2018-12-02 10:33 | Observation (INO) ==
[2018-12-02] MEDS ORDERED: ASPIRIN CHEW 324 MG PO STA (10:44)
[2018-12-02] MEDS ORDERED: SODIUM CHLORIDE 0.9% 1000ML 1,000 ML IV SCH (10:45)
[2018-12-02 10:59] LABS: Basophils # (auto) 0.04 K/uL (0-0.2); Basophils % (auto) 0.7 %; Eosinophils % (auto) 1.9 %; Hemoglobin 11.8 g/dL (12.0-16.0); Immature Granulocytes # (auto) 0.01 K/uL (0.00-0.02); Immature Granulocytes % (auto) 0.2 %; Lymphocytes # (auto) 1.76 K/uL (1.2-3.4); Lymphocytes % (auto) 32.7 %; Mean Corpuscular Hgb Conc 34.7 g/dL (32-36); Mean Corpuscular Volume 94.2 fL (80-100); Mean Platelet Volume 9.9 fL (7.4-10.4); Monocytes # (auto) 0.49 K/uL (0.11-0.59); Monocytes % (auto) 9.1 %; Neutrophils # (auto) 2.99 K/uL (1.4-6.5); Neutrophils % (auto) 55.4 %; Platelet Count 157 K/uL (130-400); RDW Coefficient of Variation 13.6 % (11.5-14.5); RDW Standard Deviation 47.1 fL (36.4-46.3); Red Blood Count 3.61 M/uL (4.2-5.4); White Blood Count 5.39 K/uL (4.8-10.8)
--- NOTE | 2018-12-02 10:59 | XRay Report ---
XR chest 1V portable CLINICAL HISTORY: Atypical chest pain COMPARISON STUDY: 10/31/2016 FINDINGS: The heart is mildly enlarged. The patient appears hyperinflated. There is no failure. There is no focal pulmonary consolidation. There are no pleural effusions.[ IMPRESSION: Stable cardiomegaly. No acute findings. Electronically signed by: Thomas Connor M.D. 12/02/2018 10:58 AM
[2018-12-02 11:20] LABS: Alanine Aminotransferase 24 U/L (12-78); Albumin Level 3.7 gm/dl (3.4-5.0); Aspartate Aminotransferase 25 U/L (15-37); BUN Creatinine Ratio 20.4 (10-20); Blood Urea Nitrogen 17 mg/dl (7-18); Carbon Dioxide 29 mmol/L (21-32); Chloride 101 mmol/L (98-107); Est GFR (African American) 76.6; Est GFR (Non-African American) 66.1; Glucose 108 mg/dl (70-99); Potassium 3.9 mmol/L (3.5-5.1); Sodium 136 mmol/L (136-145)
[2018-12-02 11:31] LABS: Alkaline Phosphatase 48 U/L (45-117); Bilirubin,Total 0.6 mg/dl (0.2-1); Globulin 3.6 gm/dl (2.5-4.0); Total Protein 7.3 gm/dl (6.4-8.2); Troponin I < 0.015 ng/ml (0-0.045)
[2018-12-02] MEDS ORDERED: KETOROLAC TROMETHAMINE 15 MG/ML VIAL IV PRN ×2 (16:24→19:37)
--- NOTE | 2018-12-02 16:41 | History & Physical Report ---
Date of Service December 02, 2018 Assessment & Plan (1) Chest pain, precordial: Admit to inpatient on observation with telemetry Vital signs every 4 hours Troponin every 6 hours with EKG Echocardiogram Consult cardiology Would recommend nuclear stress test CT scan abdomen and pelvis for epigastric pain Hold DVT prophylaxis RICHARD lamae and SCDs for DVT prophylaxis Keep n.p.o. while patient has epigastric pain IV fluid hydration Full code Present on Admission?: Yes (2) Anemia: Appears to be anemia of chronic disease Iron studies Present on Admission?: Yes (3) Epigastric pain: Pending CT abdomen pelvis with IV and p.o. contrast N.p.o. Gentle IV fluid hydration Present on Admission?: Yes History of Present Illness Chief Complaint: Chest pain and epigastric pain Primary Care Provider: Michael Corley MD Patient is a 78 years old female with past medical history of myocardial infarction, coronary artery disease, anemia, digestive enzymes insufficiency was brought by the ambulance to the emergency room with a complaint of the chest pain that started this last night. patient describes her chest pain started first in her epigastrium and then it was spreading to over her left side. Patient tried to relieve her chest pain with food but that did not help. Chest pain continued through the morning and then patient called ambulance. On arrival of the ambulance patient was given 4 baby aspirins and nitroglycerin. Patient said her chest pain improved by that time. Labs were reviewed: White blood cell 5.39, hemoglobin 11.8, hematocrit 34, platelets 157. PT 11.4, INR 1.1, APTT 26.1 PTT ratio 1. Chemistry: Sodium 136 potassium 3.9 chloride 101 anion gap 6 BUN 17 creatinine 0.86 GFR 76 BUN/creatinine ratio 20.4 glucose 108 AST 25 ALT 24 alkaline phosphatase 48 troponin 0 0.015, lipase 178. Chest x- ray, stable cardiomegaly no acute findings. EKG: Sinus rhythm with market sinus arrhythmia and first-degree AV block. Cannot rule out anterior infarction cited on or before November 2018 compared with ECG of January 29, 2017, will repeat EKG. Decision was made to admit patient to the hospital on telemetry for observation to rule out acute coronary syndrome and check serial troponins with EKG. Also ordered CT abdomen pelvis with IV and p.o. contrast. Allergies Allergy/AdvReac Type Severity Reaction Status Date / Time mivacurium Allergy Intermediate HEADACHE Verified 12/02/18 11:33 acetaminophen Allergy Mild Verified 12/02/18 11:33 Tjczxun-Urt-Kic Reductase Allergy Unknown lethargy,muscle Verified 12/02/18 11:33 Inhibitor weakness alprazolam AdvReac Intermediate HEADACHE Verified 12/02/18 11:33 amoxicillin AdvReac Unknown HEADACHE Verified 12/02/18 11:33 Home Medications Home Medications Medication Instructions Recorded Confirmed Type calcium crb,[id number] 2 tab PO DAILY 12/02/18 12/02/18 History [Citracal + Bone Density] cholecalciferol (vitamin D3) 2,000 unit PO DAILY 12/02/18 12/02/18 History [Vitamin D3] digestive enzymes [Enzyme Digest] 1 cap PO BIDM 12/02/18 12/02/18 History melatonin 3 mg PO HS PRN 12/02/18 12/02/18 History multivitamin 1 tab PO DAILY 12/02/18 12/02/18 History omega 3-asm-msz-fish oil [Fish Oil] 1 cap PO DAILY 12/02/18 12/02/18 History Past Med/Surg History Medical History Myocardial infarction Social History Preferred Language: Ethiopian Communication Ability: Effective Supervisor Shearing Required: No Beliefs That Will Affect Care: Spiritism Spiritism Beliefs: Zoroastrian Current Living Situation: Spouse Other Information That Helps Us Care for You: No Feels Safe at Home: Yes Safety Concerns: Feels Safe At This Time Smoking Status: Never smoker Hx Alcohol Use: Yes Alcohol type: wine Hx Substance Use: No Review of Systems Review of Systems: All systems reviewed & are unremarkable except as noted in HPI & below Physical Exam Constitutional: WD/WN, vitals as above well developed and + frail appearing Eyes: PERRL, conjunctivae normal, anicteric sclerae ENMT: external ear and nose normal, oropharynx normal Neck: trachea midline, no thyromegaly Respiratory: normal respiratory effort, lungs clear to auscultation Cardiovascular: Heart Sounds: normal S1, normal S2 and + murmur Chest (Breasts): normal inspection/palpation of breasts Gastrointestinal (Abdomen): Inspection/Auscultation: abdomen normal to inspection and + hypoactive bowel sounds Percussion/Palpation: abdomen soft Musculoskeletal: no cyanosis or clubbing, extremities motor strength 5/5 Skin: no rashes, warm and dry Neurologic: patellar DTR's 2+ bilat, sensation intact Psychiatric: A+Ox3, euthymic affect Genitourinary: no vaginal lesions, no adnexal mass Lymphatic: no cervical or axillary lymphadenopathy Results & Data Vital Signs (Past 12 Hours) Vital Signs Temp Pulse Resp BP Pulse Ox 12/02/18 14:50 71 19 141/93 H 100 12/02/18 14:30 70 12/02/18 14:02 74 20 12/02/18 12:36 80 17 139/65 100 12/02/18 12:30 67 22 99 12/02/18 12:00 68 16 100 12/02/18 11:30 62 12/02/18 11:00 70 12/02/18 10:48 70 20 12/02/18 10:44 78 19 97/66 L 98 12/02/18 10:33 36.8 C 71 18 97/66 L 98 Code Status & VTE Plan Code Status Full code VTE Prophylaxis Plan VTE Prophylaxis will be ordered: No PG Care Time/CCT Total # of Minutes Spent Total Time Spent with Patient: Total time spent is greater than 50% in coordination of care (as documented) at patient's floor/unit and/or counseling patient:
--- NOTE | 2018-12-02 17:14 | Emergency Department Note ---
Entered by Aniya Workman acting as a scribe for History of Present Illness General Chief complaint: Chest Pain Stated complaint: chest pain Time Seen by Provider: 12/02/18 10:34 Source: patient and EMS Mode of arrival: EMS Limitations: no limitations History of Present Illness Onset (ago): hour(s) 2 Location: chest Radiation: non-radiation Pain Consistency: + constant Quality: + other ("pressure") Relieved By: + none Exacerbated By: + none Associated symptoms: + diaphoresis, + nausea/vomiting (+nausea, -vomiting), + weakness and + other (-jaw pain, -arm pain) Treatments prior to arrival: none The patient is a 78 year old female w/ PMHx of previous HI who presents to the ED w/ CC of chest pain beginning earlier this morning. She was brought to the ED via EMS. She states while eating breakfast, she started to experience indigestion and chest pain that she describes as "pressure". She notes she experienced similar symptoms when she had an HI in 2004. She has [address]. She admits to nausea this morning but denies any vomiting. She was diaphoretic with the pain as well. She denies any jaw or arm pain. The patient does complain of some increased weakness recently. She denies any increased breathing issues or weakness with exertion. She does take daily Aspirin. Home Medications Home Medications Medication Instructions Recorded Confirmed Type calcium crb,[id number]-genis 2 tab PO DAILY 12/02/18 12/02/18 History [Citracal + Bone Density] cholecalciferol (vitamin D3) 2,000 unit PO DAILY 12/02/18 12/02/18 History [Vitamin D3] digestive enzymes [Enzyme Digest] 1 cap PO BIDM 12/02/18 12/02/18 History melatonin 3 mg PO HS PRN 12/02/18 12/02/18 History multivitamin 1 tab PO DAILY 12/02/18 12/02/18 History omega 7-wib-xje-fish oil [Fish Oil] 1 cap PO DAILY 12/02/18 12/02/18 History Allergies Allergy/AdvReac Type Severity Reaction Status Date / Time mivacurium Allergy Intermediate HEADACHE Verified 12/02/18 11:33 acetaminophen Allergy Mild Verified 12/02/18 11:33 Mzosyqq-Qjq-Xvj Reductase Allergy Unknown lethargy,muscle Verified 12/02/18 11:33 Inhibitor weakness alprazolam AdvReac Intermediate HEADACHE Verified 12/02/18 11:33 amoxicillin AdvReac Unknown HEADACHE Verified 12/02/18 11:33 Past Med/Surg History Medical History Myocardial infarction Social History Feels Safe at Home: Yes Review of Systems See HPI for pertinent positives & negatives. and A total of 10 systems reviewed and were otherwise negative Physical Exam Vital Signs Vital Signs - 24 hr 12/02/18 10:33 12/02/18 10:44 12/02/18 10:48 Temperature 36.8 C Temperature Source Oral Sepsis Recent Fever Within 48 Hours No Sepsis Action Taken by Nursing No Action Required Pulse Rate 71 78 70 Pulse Rate from SpO2 Sensor Respiratory Rate 18 19 20 Blood Pressure 97/66 L 97/66 L Blood Pressure Mean 76 76 Pulse Oximetry 98 98 Oxygen Delivery Method Room Air Room Air 12/02/18 11:00 12/02/18 11:30 12/02/18 12:00 Temperature Temperature Source Sepsis Recent Fever Within 48 Hours Sepsis Action Taken by Nursing Pulse Rate 70 62 68 Pulse Rate from SpO2 Sensor 69 Respiratory Rate 16 Blood Pressure Blood Pressure Mean Pulse Oximetry 100 Oxygen Delivery Method 12/02/18 12:30 12/02/18 12:36 12/02/18 14:02 Temperature Temperature Source Sepsis Recent Fever Within 48 Hours Sepsis Action Taken by Nursing Pulse Rate 67 80 74 Pulse Rate from SpO2 Sensor 68 80 Respiratory Rate 22 17 20 Blood Pressure 139/65 Blood Pressure Mean 89 Pulse Oximetry 99 100 Oxygen Delivery Method 12/02/18 14:30 12/02/18 14:50 Temperature Temperature Source Sepsis Recent Fever Within 48 Hours Sepsis Action Taken by Nursing Pulse Rate 70 71 Pulse Rate from SpO2 Sensor 72 Respiratory Rate 19 Blood Pressure 141/93 H Blood Pressure Mean 109 Pulse Oximetry 100 Oxygen Delivery Method GENERAL: Patient is sitting up in bed, talking in full sentences, wearing hospital gown. EKG being obtained. EYE EXAM: normal conjunctiva OROPHARYNX: no exudate, no erythema, lips, buccal mucosa, and tongue normal and mucous membranes are moist NECK: supple, no nuchal rigidity, no adenopathy, non-tender LUNGS: Clear to auscultation. Normal chest wall mechanics HEART: no murmurs, S1 normal and S2 normal ABDOMEN: abdomen soft, non-tender, normo-active bowel sounds, no masses, no rebound or guarding. BACK: Back is symmetrical on inspection and there is no deformity, no midline tenderness, no CVA tenderness. SKIN: no rashes and no bruising UPPER EXTREMITIES: upper extremities are grossly normal. LOWER EXTREMITIES: No pitting edema. Calves are equal bilaterally. NEURO EXAM: Normal sensorium, cranial nerves II-XII grossly intact, normal speech, no gross weakness of arms, no gross weakness of legs. Gross sensation intact. Course ED COURSE: Vital signs were reviewed and showed the patient is hypotensive. The patients medical record was reviewed The above diagnostic studies were performed and reviewed. ED treatments and interventions as stated above. 1038: The patient was evaluated in room A12A. A complete history and physical examination was performed. 1230: I discussed the patients [facility] The patient will be further evaluated. 1235: Upon reevaluation, the patient is resting comfortably. I discussed my findings with the patient and she understands and agrees with the treatment plan. Based on the patients age, coexisting illnesses, exam and lab findings the decis ion to treat as an inpatient was made. The patient remained stable while under my care. The patient will be evaluated for further management. Administered Medications Discontinued Medications Aspirin (Aspirin) 324 mg PO NOW STA Stop: 12/02/18 10:45 Last Admin: 12/02/18 12:45 Dose: Not Given Documented by: [id number] Sodium Chloride (Nss 1000ml) 1,000 mls @ 999 mls/hr IV .Q1H1M ELIANA Stop: 12/02/18 11:45 Last Admin: 12/02/18 12:45 Dose: 999 mls/hr Documented by: [id number] Medical Decision Making Differential Diagnosis Differential diagnoses includes but is not limited to acute coronary syndrome, myocardial infarction, pericarditis, pulmonary embolus, aortic dissection, pneumonia, pneumothorax, musculoskeletal, shingles, esophageal. Medical Records Attestation: I reviewed the patient's medical records. Home Medications Current Medication List: was personally reviewed by me Laboratory Data Attestation: I reviewed the patient's lab results. Result diagrams: 12/02/18 10:50 12/02/18 10:50 Lab Results 12/02/18 12/02/18 Range/Units 10:50 10:50 WBC 5.39 (4.8-10.8) K/uL RBC 3.61 L (4.2-5.4) M/uL Hgb 11.8 L (12.0-16.0) g/dL Hct 34.0 L (37-47) % MCV 94.2 (80-100) fL MCH 32.7 (25-34) pg MCHC 34.7 (32-36) g/dL RDW Std Deviation 47.1 H (36.4-46.3) fL RDW Coeff of Jorge Luis 13.6 (11.5-14.5) % Plt Count 157 (130-400) K/uL MPV 9.9 (7.4-10.4) fL Immature Gran % (Auto) 0.2 % Neut % (Auto) 55.4 % Lymph % (Auto) 32.7 % [place] % (Auto) 9.1 % Eos % (Auto) 1.9 % Baso % (Auto) 0.7 % Immature Gran # (Auto) 0.01 (0.00-0.02) K/uL Neut # (Auto) 2.99 (1.4-6.5) K/uL Lymph # (Auto) 1.76 (1.2-3.4) K/uL [place] # (Auto) 0.49 (0.11-0.59) K/uL Eos # (Auto) 0.10 (0-0.5) K/uL Baso # (Auto) 0.04 (0-0.2) K/uL Sodium 136 (136-145) mmol/L Potassium 3.9 (3.5-5.1) mmol/L Chloride 101 (98-107) mmol/L Carbon Dioxide 29 (21-32) mmol/L Anion Gap 6.0 (3-11) BUN 17 (7-18) mg/dl Creatinine 0.84 (0.6-1.2) mg/dl Est Cr Clr Drug Dosing 39.0 ml/min Est GFR ( Amer) 76.6 Est GFR (Non-Af Amer) 66.1 BUN/Creatinine Ratio 20.4 H (10-20) Glucose 108 H (70-99) mg/dl Calcium 9.0 (8.5-10.1) mg/dl Total Bilirubin 0.6 (0.2-1) mg/dl AST 25 (15-37) U/L ALT 24 (12-78) U/L Alkaline Phosphatase 48 (45-117) U/L Troponin I < 0.015 (0-0.045) ng/ml Total Protein 7.3 (6.4-8.2) gm/dl Albumin 3.7 (3.4-5.0) gm/dl Globulin 3.6 (2.5-4.0) gm/dl Albumin/Globulin Ratio 1.0 (0.9-2) Lipase 178 (73-393) U/L Specimen Hemolysis Imaging Data Radiologist's Impression: Radiology results as stated below per my review and the radiologist's interpretation: XR chest 1V portable CLINICAL HISTORY: Atypical chest pain COMPARISON STUDY: 10/31/2016 FINDINGS: The heart is mildly enlarged. The patient appears hyperinflated. There is no failure. There is no focal pulmonary consolidation. There are no pleural effusions. IMPRESSION: Stable cardiomegaly. No acute findings. Electronically signed by: Thomas Connor M.D. 12/02/2018 10:58 AM ECG Data Attestation: I personally reviewed and interpreted this ECG as follows: Indication: chest pain Rate (beats per minute): 78 Rhythm: sinus with SA Findings: + other (Normal axis) and + ST elevation (in V2) Comparison ECG Date: from (01/29/2017) Change: no significant change Blood Pressure Blood Pressure Findings: Low blood pressure MDM Narrative Patient is a 78-year-old female with a past medical history of previous HI back in 2004 who presents the ER for epigastric pressure/heaviness associated with shortness of breath nausea and sweating which felt like her previous HI. She does have 2 stents placed. Vitals show that she is slightly hypertensive. She was given nitro by EMS and her pain resolved. She was given aspirin. Blood work was obtained and showed no significant leukocytosis. Mild anemia at 11.8. BMP along with LFTs bilirubin and troponin was negative. Lipase was unremarkable. EKG with ST segment elevation in V2 consistent with previous. Patient was pain-free and as this felt like her previous HI with no recent cath did feel prudent to observe her overnight. Discussed with patient discussed the hospitalist. Impression & Plan Chest pain, precordial, Anemia Discharge Plan Visit Data Chief Complaint: Chest Pain Stated Complaint: chest pain ED Provider: Meet Aguirre Discharge Problem: Chest pain, precordial, Anemia Patient Disposition: Being Evaluated by Hospitalist Forms Stand Alone Forms: Call Back Authorization, My [facility] Prescriptions Prescriptions: No Action multivitamin Tablet 1 tab PO DAILY RF: 0 Enzyme Digest Capsule 1 cap PO BIDM RF: 0 melatonin 3 mg Tablet 3 mg PO HS PRN (Reason: Sleep) RF: 0 cholecalciferol (vitamin D3) [Vitamin D3] 1,000 unit Capsule 2,000 unit PO DAILY RF: 0 Citracal + Bone Density 300-200-13.5 mg-unit-mg Tablet 2 tab PO DAILY RF: 0 omega 7-bob-udo-fish oil [Fish Oil] 1,000 mg (120 mg-180 mg) Capsule 1 cap PO DAILY RF: 0 Referrals Referrals: Michael Corley MD [Primary Care Provider] - The scribe's documentation has been prepared under my direction and personally reviewed by me in its entirety. I confirm that the note above accurately reflects all work, treatment, procedures, and medical decision making performed by me.
--- NOTE | 2018-12-02 17:23 | Ultrasound Report ---
ULTRASOUND OF THE CAROTID ARTERIES CLINICAL HISTORY: Atypical chest pain. COMPARISON STUDY: No priors. TECHNIQUE: Real-time, grayscale, and color Doppler sonography of the carotid arteries is performed. I mages are reviewed in the transverse and longitudinal planes. FINDINGS: Blood pressures were not assessed due to the presence of IV catheters. The carotid arteries are patent bilaterally and demonstrate antegrade flow. There is mild atheroscler otic plaque seen in the carotid bulbs. Normal doppler arterial waveforms are seen throughout. Velocit y measurements are listed below. Common carotid peak systolic velocity (cm/sec): RIGHT: 58 LEFT: 62 ICA proximal peak systolic velocity (cm/sec): RIGHT: 46 LEFT: 59 ICA mid peak systolic velocity (cm/sec): RIGHT: 83 LEFT: 53 ICA distal peak systolic velocity (cm/sec): RIGHT: 67 LEFT: 75 ICA/CC peak systolic ratio: RIGHT: 1.4 LEFT: 1.2 Antegrade flow was shown in the vertebral arteries. The external carotid arteries are patent. IMPRESSION: 1. There is no sonographic evidence of hemodynamically significant stenosis in the right or left [place] tid arterial system. 2. Antegrade flow is shown in the vertebral arteries. Electronically signed by: Holden Decker M.D. 12/02/2018 5:21 PM
[2018-12-02] MEDS ORDERED: NITROGLYCERIN SL 0.4 MG/TAB TAB SL PRN (19:37)
[2018-12-02] MEDS ORDERED: FAMOTIDINE 20MG IV PUSH 20 MG/5 ML SYR IV SCH (19:37)
[2018-12-02] MEDS ORDERED: ALUMINUM/MAGNESIUM SUSP 30 ML UDC PO PRN (19:37)
[2018-12-02] MEDS ORDERED: ZOLPIDEM TARTRATE 5 MG TAB PO PRN (19:37)
[2018-12-02] MEDS ORDERED: MAGNESIUM HYDROXIDE SUSP 30 ML UDC PO PRN (19:37)
[2018-12-02] MEDS ORDERED: POLYETHYLENE (MIRALAX) 17 GM PACK PO PRN (19:37)
[2018-12-02] MEDS: SODIUM CHLORIDE 0.9% 1000ML 1,000 ML IV SCH (20:12)
[2018-12-02] MEDS: FAMOTIDINE 20 MG in SYRINGE 3 ML IV SCH (20:13)
[2018-12-03] MEDS ORDERED: IOVERSOL 100ml IV PRN (00:03)
--- NOTE | 2018-12-03 06:21 | CT Scan Report ---
CT abd pelvis oral and IV con CT DOSE: 229.25 mGy.cm HISTORY: Pain. Nausea. epigastric pain TECHNIQUE: Multiaxial CT images of the abdomen and pelvis were performed following the use of intrave nous and oral contrast. A dose lowering technique was utilized adhering to the principles of ALARA. COMPARISON STUDY: 04/27/2017 FINDINGS: The lung bases are clear. Liver spleen and pancreas are unremarkable. Gallbladder is contra cted. Slight prominence of the renal pelves bilaterally most likely anatomic variation bases. No evid ence for hydronephrosis. Nonobstructive bowel pattern. Several partially calcified uterine fibroids. The bladder is midline. N onobstructive bowel pattern. IMPRESSION: 1. Contracted gallbladder. 2. Partially calcified uterine fibroids. 3. Otherwise negative study. The above report was generated using voice recognition software. It may contain grammatical, syntax or spelling errors. Electronically signed by: Luis Otoole M.D. 12/03/2018 6:19 AM
[2018-12-03 07:48] LABS: Basophils # (auto) 0.02 K/uL (0-0.2); Basophils % (auto) 0.4 %; Eosinophils # (auto) 0.06 K/uL (0-0.5); Eosinophils % (auto) 1.1 %; Hematocrit (blood only) 31.5 % (37-47); Hemoglobin 11.1 g/dL (12.0-16.0); Immature Granulocytes # (auto) 0.01 K/uL (0.00-0.02); Immature Granulocytes % (auto) 0.2 %; Lymphocytes # (auto) 1.55 K/uL (1.2-3.4); Lymphocytes % (auto) 29.5 %; Mean Corpuscular Hgb Conc 35.2 g/dL (32-36); Mean Corpuscular Volume 93.5 fL (80-100); Mean Platelet Volume 9.5 fL (7.4-10.4); Monocytes % (auto) 7.6 %; Neutrophils # (auto) 3.21 K/uL (1.4-6.5); Neutrophils % (auto) 61.2 %; Platelet Count 138 K/uL (130-400); RDW Coefficient of Variation 13.7 % (11.5-14.5); Red Blood Count 3.37 M/uL (4.2-5.4); Reticulocytes # 0.03 10^6/uL (0.02-0.10); White Blood Count 5.25 K/uL (4.8-10.8)
[2018-12-03 08:24] LABS: Folate (Folic Acid) 14.51 ng/ml (>5.38)
[2018-12-03 08:25] LABS: Alanine Aminotransferase 21 U/L (12-78); Albumin Level 3.4 gm/dl (3.4-5.0); Aspartate Aminotransferase 22 U/L (15-37); BUN Creatinine Ratio 13.9 (10-20); Blood Urea Nitrogen 9 mg/dl (7-18); Calcium 8.4 mg/dl (8.5-10.1); Carbon Dioxide 28 mmol/L (21-32); Chloride 105 mmol/L (98-107); Creatinine Clr Calc Pharmacy 47.2 ml/min; Est GFR (African American) 96.4; Est GFR (Non-African American) 83.2; Glucose 80 mg/dl (70-99); Iron 109 mcg/dl (35-150); Potassium 3.7 mmol/L (3.5-5.1); Sodium 138 mmol/L (136-145)
[2018-12-03 08:36] LABS: Albumin Globulin Ratio 1.1 (0.9-2); Alkaline Phosphatase 43 U/L (45-117); Bilirubin,Total 0.8 mg/dl (0.2-1); Total Protein 6.4 gm/dl (6.4-8.2); Troponin I < 0.015 ng/ml (0-0.045)
[2018-12-03] MEDS ORDERED: CALCIUM 600MG + VIT D 400 IU TAB PO SCH (09:00)
[2018-12-03] MEDS ORDERED: CHOLECALCIFEROL 1,000 UNITS TAB PO SCH (09:00)
[2018-12-03] MEDS ORDERED: MULTIVITAMIN TAB PO SCH (09:00)
[2018-12-03] MEDS ORDERED: OMEGA-3 (PURIFIED FISH OIL) 1 GM CAP PO SCH (09:00)
[2018-12-03] MEDS: SODIUM CHLORIDE 0.9% 1000ML 1,000 ML IV SCH (09:05)
[2018-12-03] MEDS: FAMOTIDINE 20 MG in SYRINGE 3 ML IV SCH (09:13)
--- NOTE | 2018-12-03 11:24 | Cardiology Consultation ---
Date of Consultation December 03, 2018 Assessment & Plan (1) Epigastric pain: The patient had the abrupt onset of epigastric discomfort immediately following a high fiber meal. Suspect her presenting complaints were gastrointestinal in origin, and not financial sales representative of myocardial ischemia. She is very physically active without evidence of angina pectoris. Would allow the patient to eat breakfast, ambulate in the hallways. If she does well, no further cardiac evaluation necessary. (2) CAD (coronary artery disease): She has a history of an anterior myocardial infarction which required stents within the LAD and ramus intermedius. Her coronary disease has been quiescent on her current medical regimen. No changes were necessary today. (3) Hypertension: Adequate control on her current medical regimen. (4) Hypercholesterolemia: She is intolerant to statins. History of Present Illness Attending Physician: Ravi Flores History of Present Illness Mrs. Brown is a 78-year-old female admitted yesterday with a chest pain synd [place]. This consultation was ordered to assist in her management. Of note, the patient is well known to me from the outpatient setting. Patient was in her usual state of health until yesterday morning. Just after finishing a high fiber breakfast, the patient noted the acute onset of a gas- like discomfort in her mid epigastrium. She explained that it felt like I had to burp, however, I could not." There were no other associated symptoms such as shortness of breath, nausea, vomiting, diaphoresis, or radiation of the discomfort. After approximately 20 minutes, the patient called 911. While in route, she was given 4 baby aspirin and a sublingual nitroglycerin tablet. Her symptoms resolved by the time she reached the hospital. The patient is very active on a daily basis caring for her home and property. She works in the garden, cleaned her home, and can climb several flights stairs without exertional angina pectoris or limiting dyspnea. She further denies syncope, presyncope, PND, orthopnea, palpitations, lower extremity edema, and claudication. The patient's cardiac history began back in January 2005 when she suffered anterior myocardial infarction requiring stents in the LAD and ramus intermedius. She has done well from a cardiac perspective since that time. Currently, patient is resting comfortably in bed without complaints. Past medical and surgical history 1. Coronary artery disease-see above 2. LAD stent-January 2005 3. Ramus intermedius stent-January 2005 4. Hypertension 5. Statin intolerant hypercholesterolemia 6. GERD 7. Vitamin-D deficiency 8. Osteoporosis 9. Diverticulitis 10. Interocular lens implants 11. D&C Social history and lives with her No tobacco or alcohol Family history Noncontributory Review of systems A 10 point review of systems was undertaken and negative except for that described above. Allergies Allergy/AdvReac Type Severity Reaction Status Date / Time mivacurium Allergy Intermediate HEADACHE Verified 12/02/18 11:33 acetaminophen Allergy Mild Verified 12/02/18 11:33 Zlaygfe-Acr-Siv Reductase Allergy Unknown lethargy,muscle Verified 12/02/18 11:33 Inhibitor weakness alprazolam AdvReac Intermediate HEADACHE Verified 12/02/18 11:33 amoxicillin AdvReac Unknown HEADACHE Verified 12/02/18 11:33 Home Medications Home Medications Medication Instructions Recorded Confirmed Type calcium crb,sbg-[id number]-[id number]-genis 2 tab PO DAILY 12/02/18 12/02/18 History [Citracal + Bone Density] cholecalciferol (vitamin D3) 2,000 unit PO DAILY 12/02/18 12/02/18 History [Vitamin D3] digestive enzymes [Enzyme Digest] 1 cap PO BIDM 12/02/18 12/02/18 History melatonin 3 mg PO HS PRN 12/02/18 12/02/18 History multivitamin 1 tab PO DAILY 12/02/18 12/02/18 History omega 0-zjz-uie-fish oil [Fish Oil] 1 cap PO DAILY 12/02/18 12/02/18 History Patient History Medical History Myocardial infarction Social History Preferred Language: Pashto Communication Ability: Effective Story Teller Required: No Beliefs That Will Affect Care: Hinduism Hinduism Beliefs: Episcopal Current Living Situation: Spouse Other Information That Helps Us Care for You: No Feels Safe at Home: Yes Safety Concerns: Feels Safe At This Time Smoking Status: Never smoker Hx Alcohol Use: Yes Alcohol type: wine Hx Substance Use: No Physical Exam Physical Exam: In general this is a well-developed well-nourished white female in no acute distress. HEENT exam is negative. Neck is supple with full carotid upstrokes. There are no carotid bruits. Jugular venous pressure is flat at 90. There is no thyromegaly. Cardiovascular exam reveals a regular rhythm with a normal S1 and S2. No S3, S4, or murmurs are noted. Lungs are clear without rales, rhonchi, or wheezes. Abdomen is soft and nontender without bruits. Extremities reveal intact radial artery and posterior tibial pulses bilaterally. There is no peripheral edema. Results & Data Vital Signs (Past 12 Hours) Vital Signs Temp Pulse Pulse Resp BP BP Pulse Ox 12/03/18 07:29 36.8 C 64 18 135/80 99 12/03/18 07:09 61 12/03/18 03:34 36.8 C 65 18 125/75 97 12/03/18 01:15 62 Laboratory Results CBC notes a hemoglobin of 11.1, hematocrit 31.5, white count 5.2, and platelet count [id number]. Electrolytes note a sodium of 136, potassium 3.9, chloride 101, bicarb 29, BUN 17, creatinine 0.84, glucose of 108. Two troponin I levels were undetectable less than 0.015. Diagnostic Findings EKG notes normal sinus rhythm with a first-degree AV block. There frequent PACs and nonspecific T-wave abnormality. Chest x-ray shows cardiomegaly. Carotid ultrasound shows no significant disease. court recording monitor is benign. PG Care Time/CCT Total # of Minutes Spent Total Time Spent with Patient: Total time spent is greater than 50% in coordination of care (as documented) at patient's floor/unit and/or counseling patient:
[2018-12-04] MEDS ORDERED: FAMOTIDINE 20 MG TAB PO SCH (09:00)
--- NOTE | 2018-12-13 21:16 | Discharge Summary ---
Date of Service December 03, 2018 Admission HPI Per Admitting Provider Patient is a 78 years old female with past medical history of myocardial infarction, coronary artery disease, anemia, digestive enzymes insufficiency was brought by the ambulance to the emergency room with a complaint of the chest pain that started this last night. patient describes her chest pain started first in her epigastrium and then it was spreading to over her left side. Patient tried to relieve her chest pain with food but that did not help. Chest pain continued through the morning and then patient called ambulance. On arrival of the ambulance patient was given 4 baby aspirins and nitroglycerin. Patient said her chest pain improved by that time. Labs were reviewed: White blood cell 5.39, hemoglobin 11.8, hematocrit 34, platelets 157. PT 11.4, INR 1.1, APTT 26.1 PTT ratio 1. Chemistry: Sodium 136 potassium 3.9 chloride 101 anion gap 6 BUN 17 creatinine 0.86 GFR 76 BUN/creatinine ratio 20.4 glucose 108 AST 25 ALT 24 alkaline phosphatase 48 troponin 0 0.015, lipase 178. Chest x-ray, stable cardiomegaly no acute findings. EKG: Sinus rhythm with market sinus arrhythmia and first-degree AV block. Cannot rule out anterior infarction cited on or before November 2018 compared with ECG of January 29, 2017, will repeat EKG. Decision was made to admit patient to the hospital on telemetry for observation to rule out acute coronary syndrome and check serial troponins with EKG. Also ordered CT abdomen pelvis with IV and p.o. contrast. Principal Diagnosis Chest pain Discharge Exam Constitutional: WD/WN, vitals as above well developed Eyes: PERRL, conjunctivae normal, anicteric sclerae ENMT: external ear and nose normal, oropharynx normal Neck: trachea midline, no thyromegaly Respiratory: normal respiratory effort, lungs clear to auscultation Cardiovascular: Heart Sounds: normal S1, normal S2 and + murmur Chest (Breasts): normal inspection/palpation of breasts Gastrointestinal (Abdomen): Inspection/Auscultation: abdomen normal to inspection and + hypoactive bowel sounds Percussion/Palpation: abdomen soft Musculoskeletal: no cyanosis or clubbing, extremities motor strength 5/5 Skin: no rashes, warm and dry Neurologic: patellar DTR's 2+ bilat, sensation intact Psychiatric: A+Ox3, euthymic affect Lymphatic: no cervical or axillary lymphadenopathy Discharge Data Allergies Allergy/AdvReac Type Severity Reaction Status Date / Time mivacurium Allergy Intermediate HEADACHE Verified 12/09/18 13:49 acetaminophen Allergy Mild Verified 12/09/18 13:49 Nnqixly-Iaa-Itl Reductase Allergy Unknown lethargy,muscle Verified 12/09/18 13:49 Inhibitor weakness alprazolam AdvReac Intermediate HEADACHE Verified 12/09/18 13:49 amoxicillin AdvReac Unknown HEADACHE Verified 12/09/18 13:49 Consultations 12/02/18 12:03 ED Decision to Admit Stat 12/02/18 23:07 Consult Cardiology Routine Ordered Studies 12/02/18 16:18 US carotid doppler BI Stat 12/02/18 19:37 CT abd pelvis oral and IV con Urgent Hospital Course (1) Chest pain, precordial: Admit to inpatient on observation with telemetry Vital signs every 4 hours Troponin every 6 hours with EKG Echocardiogram Consult cardiology Would recommend nuclear stress test CT scan abdomen and pelvis for epigastric pain Hold DVT prophylaxis RICHARD hose and SCDs for DVT prophylaxis Keep n.p.o. while patient has epigastric pain IV fluid hydration Full code Cardio Input The patient had the abrupt onset of epigastric discomfort immediately following a high fiber meal. 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 She is very physically active without evidence of angina pectoris. Would allow the patient to eat breakfast, ambulate in the hallways. If she does well, no further cardiac evaluation necessary. (2) CAD (coronary artery disease): She has a history of an anterior myocardial infarction which required stents within the LAD and ramus intermedius. Her coronary disease has been quiescent on her current medical regimen. No changes were necessary today. (3) Hypertension: Adequate control on her current medical regimen. (4) Hypercholesterolemia: She is intolerant to statins. Patient is discharged. Will defer further eval of epigastric pain to PCP. (2) Anemia: Appears to be anemia of chronic disease Iron studies (3) Epigastric pain: Completed CT abdomen pelvis with IV and p.o. contrast Please refer to official report. Total Time Total Time Spent Total Time Spent (In Minutes): 32 Total Time Includes: Examination of the Patient, Discharge Planning and Medication Reconciliation Discharge Plan Discharge Items Patient Disposition: Home - Self-Care Reason For Visit: CHEST PAIN, EPIGASTRIC PAIN Discharge Diagnosis: chest pain Discharge Goals: Decrease discomfort Activity: Resume your previous activity Non-emergency contact: Primary Care Provider Call non-emergency contact if: you have any medication questions Follow-up/Referrals: Michael Corley MD [Primary Care Provider] - Diet: Regular Addtl Provider Instructions: You were admitted for a chest pain rule out. You were evaluated by cardiology. Your work up has been negative which places you at low risk. Prescriptions: New famotidine 20 mg Tablet 20 mg PO DAILY Qty: 30 RF: 0 Continued multivitamin Tablet 1 tab PO DAILY RF: 0 Enzyme Digest Capsule 1 cap PO BIDM RF: 0 melatonin 3 mg Tablet 3 mg PO HS PRN (Reason: Sleep) RF: 0 cholecalciferol (vitamin D3) [Vitamin D3] 1,000 unit Capsule 2,000 unit PO DAILY RF: 0 Citracal + Bone Density 300-200-13.5 mg-unit-mg Tablet 2 tab PO DAILY RF: 0 omega 1-wcd-hvv-fish oil [Fish Oil] 1,000 mg (120 mg-180 mg) Capsule 1 cap PO DAILY RF: 0 Stand-Alone Forms: Call Back Authorization, [facility] Discharge Orders: Discharge Order (Routine); Ordered 12/03/18 Ordered By: Ravi Flores Admission Data Admit Date/Time: 12/02/18 16:24 Attending Provider: Ravi Flores Admit Provider: Vickie Galicia Primary Care Provider: Michael Corley Other Providers: Vickie Galicia ; Parveen Sanchez Service: Telemetry Medical Other Interventions: Discharge Summary Assessment (RN) Last Done: 12/03/18 13:43 DC Date/Time DO NOT enter until pt leaves facility: 12/03/18 15:06
== END 2018-12-03 15:06 | disposition home or self-care (01) ==
LOC: ED 10:33 → 2N 10:33 → SUATTDRO 16:24 → 2N 19:25
DX: E78.00 Pure hypercholesterolemia, unspecified; Z79.899 Other long term (current) drug therapy; I25.10 Atherosclerotic heart disease of native coronary artery without angina pectoris; R07.9 Chest pain, unspecified; D64.9 Anemia, unspecified; R10.13 Epigastric pain; Z88.8 Allergy status to other drugs, medicaments and biological substances; E55.9 Vitamin D deficiency, unspecified; M81.0 Age-related osteoporosis without current pathological fracture; I10 Essential (primary) hypertension; Z88.0 Allergy status to penicillin; I25.2 Old myocardial infarction; K21.9 Gastro-esophageal reflux disease without esophagitis

== ENCOUNTER 2021-05-12 12:25 | Observation (INO) ==
[2021-05-12] MEDS ORDERED: SODIUM CHLORIDE 0.9% 1000ML 1,000 ML IV SCH (13:05)
--- NOTE | 2021-05-12 13:13 | Emergency Department Note ---
Impression & Plan Syncope, Fall, Left rib fracture, Hemothorax on left, Contusion of scalp, Neck pain ED Provider Note CHIEF COMPLAINT: Fall HISTORY OF PRESENT ILLNESS: Mallika Brown is an 81 year old female with history of [place] s/p cardiac stent on bASA, HTN, DLD, osteoporosis among others listed below who presents to the Emergency Department for evaluation after suffering a fall just prior to arrival. Of note, the patient states that she has recently been experiencing intermittent spasming pains to her left back with associated nausea and dry heaves secondary to the pain over the past several days. The patient was seen by her PCP yesterday and was started on Flexeril 5 mg TID PRN. The patient did take a dose of this medication last evening and states that she was able to sleep very well. When she woke up, she ate breakfast and started to do some chores. When she went to use the bathroom, she had stood up from the toilet when she suddenly felt nauseous and lightheaded. She then laid her head o n the sink to rest, however she passed out and fell backwards, striking her left side and head on the edge of the tub. The patient's heard her fall and when he went to check on her, she was laying on the floor complaining of pain to her left back and side. The patient's called EMS for help. Upon their arrival, they were able to help her up and she was ambulatory before they assisted her for transport. Currently, the patient is mainly complaining of pain to her left posterior chest wall/back which she rates as a 5/10 and worsens with attempts of movement. She does note mild pain to her frontal head and posterior neck. She otherwise denies pain to her anterior/right chest, abdomen, pelvis, BUE or BLE. No numbness/tingling. The patient does state that she has had decreased urinary frequency lately but denies urgency or dysuria. She also states that she has felt more weak than normal. She denies recent fevers/chills, cough, shortness of breath, specific abdominal pain or diarrhea. Noted recent constipation but resolved after drinking tea and taking stool softeners. The patient is on bASA, no other anticoagulants/antiplatelets. REVIEW OF SYSTEMS: 10 systems were reviewed and were negative unless otherwise stated in HPI as above PHYSICAL EXAM: VITALS: Vitals are noted on the nurse's note and reviewed by myself. Hypertensive, additional vital signs stable. General: Resting in bed, no acute distress HEENT: Erythema to the frontal forehead with mild tenderness to palpation, no palpable bony deformity. Pupils 2mm and reactive to light with EOMI bilaterally. Bilateral TMs clear without hemotympanum. No obvious deformities to the nose, non-tender, no epistaxis. Oropharynx clear. Neck: Mild tenderness to palpation of the midline c-spine, no obvious step-offs or deformities, ROM remains intact Resp: Good inspiratory effort on room air, lung sounds clear bilaterally. Small abrasion to the left posterior chest wall, tender to palpation over the left lateral and posterior chest wall, right chest wall non-tender to palpation CV: Regular rate and rhythm, peripheral pulses palpated Back: No significant tenderness to palpation of the midline thoracic or lumbar spine, no obvious step-offs or deformities, tender to palpation of the left perispinal musculature Abd: Soft, non-tender to palpation MSK: No obvious long bone deformities. Moving all extremities with strength 5/5 throughout, sensation and peripheral pulses intact Neuro: Awake, alert and oriented x 3, interacting and answering questions appropriately Differential diagnosis includes intracranial injury, cervical spine injury, intrathoracic injury, intra-abdominal injury, musculoskeletal injury. EMERGENCY DEPARTMENT COURSE: Physical exam and history were performed. Nursing triage notes, EMR, and medication list were personally reviewed. Patient is an 81-year-old female with history of [place] s/p cardiac stent on bASA, HTN, DLD, osteoporosis among others listed below who presents for evaluation after suffering a fall just prior to arrival. Of note, the patient states that she has been experiencing spasming pains to her left back with associated nausea and dry heaves secondary to pain over the past several days and was started on Flexeril 5 mg 3 times daily as needed by her PCP yesterday. She did take a dose of this medication last evening and stated that she was able to sleep very well, however after eating breakfast and doing some chores today she stated that she became lightheaded and nauseous after using the bathroom and suffered a syncopal episode leading to a fall. The patient did strike her head and left side on the edge of the bathtub during the episode and was unable to get up until EMS arrived for help. On exam, she did have erythema to the frontal forehead with mild tenderness to palpation, no palpable deformity. She also had some mild tenderness to palpation of the midline C-spine without obvious deformities and range of motion remained intact. Additionally, she did have an abrasion to the left posterior chest wall with tenderness to palpation. She continued with good inspiratory effort on room air, lung sounds clear throughout. No other significa nt findings on exam. The patient was offered pain medication and was given Tylenol 650 mg. IV access was established and she was also given NSS 1 L. EKG was obtained and reviewed by myself. This did show normal sinus rhythm at 70 bpm with left axis deviation and anteroseptal infarct. QRS duration increased compared to study from 09/03/20. Labs were obtained and reviewed by myself as below. Of note, she did not have significant leukocytosis with a WBC of 7.34. No concern for anemia with hem oglobin 12.9. She was hyponatremic with sodium 128 and hypochloremic with chloride 96. Additional electrolytes WNL. Renal indices stable. BSG normal at 104. LFTs nondiagnostic. Troponin negative at <0.03. CT head, c-spine, thoracic, lumbar spine without contrast and CT chest, abdomen and pelvis with contrast were obtained and reviewed by radiologist and myself as below. Of note, there were no acute skull fractures or intracranial injuries identified. No acute traumatic injuries to the cervical, thoracic or lumbar spine. There were acute left 11th and 12th rib fractures with a trace h emothorax at the left lung base without pneumothorax. Also trace free fluid in the pelvis, otherwise no acute traumatic injuries in the abdomen or pelvis. Upon reevaluation, the patient was doing well. I discussed the results of the above lab work and imaging with her and her as well as my attending, Dr. Diehl, who was involved throughout the patient's course of care. I did also contact thoracic surgery from [facility] in [place]. They recommended monitoring the hemothorax with serial chest x-rays, however no acute intervention required or need for transfer to higher level of care. I do feel that the patient would benefit from continued monitoring in the hospital and for slow repletion of the hyponatremia as well. Dr. Flores of the [facility] group was contacted and agreed to evaluate the patient. The patient verbalized her understanding and agreement with the treatment plan as above. The chart was completed utilizing Dragon Speech Voice Recognition Software. Grammatical errors, random word insertions, pronoun errors, and incomplete sentences are an occasional consequence of this system due to software limitations, ambient noise, and hardware issues. Any formal questions or concerns about the content, text, or information contained within the body of this dictation should be directly addressed to the provider for clarification. Past Med/Surg History Medical History Abdominal pain, RUQ (right upper quadrant) Adenomatous polyp of colon Allergic rhinitis Arteriosclerosis of coronary artery Back pain Benign hypertension (08/21/11) Cataract, bilateral Colitis Constipation Disc herniation Diverticulitis Encounter for routine gynecological examination Esophageal reflux Flank pain History of diverticulitis of colon Hypokalemia Hyponatremia [place] (myocardial infarction) Muscle spasm Muscle weakness (generalized) Myocardial infarction Nausea Osteoarthritis Osteopenia Osteoporosis Past myocardial infarction Postmenopausal atrophic vaginitis Presence of stent in artery Pyelonephritis (08/21/11) Right wrist sprain Screening for thyroid disorder Urinary symptom or sign Vitamin D deficiency Surgical History S/P arterial stent S/P cataract surgery S/P dilation and curettage Family History Father Myocardial infarction Mother Cardiac disorder Denies family history of Ovarian cancer Prostate cancer Breast cancer Colorectal cancer Social History Smoking Status: Never smoker Second Hand Exposure: No; Hx Alcohol Use: Yes Alcohol type: beer Alcohol Intake Frequency: Monthly or Less Hx Substance Use: No Preferred Language: Indonesian Communication Ability: Effective Visual Impairment: No Limitations Hearing Ability: Normal Physiotherapy Assistant Required: No Beliefs That Will Affect Care: Oriental Orthodox Oriental Orthodox Beliefs: Nondenominational marital status: Current Living Situation: Spouse current occupational status: retired Feels Safe at Home: Yes Childhood Exposure to Second-Hand Smoke: No Dental Care, Regularly: Yes Physical Activity Frequency: Daily Physical Activity Frequency Comment: bike and gardening Seatbelt Use: always Sunscreen Use: Yes Assistive Devices: Glasses Allergies Allergies Allergy/AdvReac Type Severity Reaction Status Date / Time acetaminophen Allergy Mild Headache Verified 05/12/21 14:27 [id number] Reductase Allergy Unknown lethargy,muscle Verified 05/12/21 14:27 Inhibitor weakness [Diwnzax-Ysn-Uow Reductase Inhibitor] azithromycin Allergy Headache Verified 05/12/21 14:27 alprazolam AdvReac Intermediate HEADACHE Verified 05/12/21 14:27 amoxicillin AdvReac Unknown HEADACHE Verified 05/12/21 14:27 ciprofloxacin AdvReac Unknown Unknown Verified 05/12/21 14:27 Home Meds Home Medications Medication Instructions Recorded Confirmed calcium carb,cit 300 mg-D3 200 2 tab PO DAILY 12/02/18 05/12/21 unit-min no.34-genistein 13.5 mg tablet (Citracal Plus Bone Density Builder) cholecalciferol (vitamin D3) 25 2,000 unit PO DAILY 12/02/18 05/12/21 mcg (1,000 unit) capsule (Vitamin D3) digestive enzymes (Enzyme Digest) 1 cap PO BIDM 12/02/18 05/12/21 melatonin 3 mg tablet 3 mg PO HS PRN 12/02/18 05/12/21 multivitamin 1 tab PO DAILY 12/02/18 05/12/21 omega 8-emm-qdo-fish oil 1,000 mg 1 cap PO DAILY 12/02/18 05/11/21 (120 mg-180 mg) capsule (Fish Oil) aspirin 81 mg tablet,delayed 81 mg PO QAM 10/09/20 05/12/21 release Previous Rx's Medication Instructions Recorded [facility] See Rx Instructions .ROUTE PRN #1 % 05/11/21 cyclobenzaprine 5 mg tablet 5 mg PO TID PRN #30 tab 05/11/21 Results & Data (ED) Vital Signs Vital Signs - 24 hr 05/12/21 12:49 05/12/21 15:00 05/12/21 18:00 Temperature 36.5 C Temperature Source Oral Pulse Rate 80 Pulse Rate [Right Finger] 107 H 75 Pulse Rhythm [Right Finger] Regular Regular Pulse Strength [Right Finger] Normal Normal Respiratory Rate 18 18 18 Respiratory Effort / Characteristics Non-Labored Non-Labored Respiratory Depth Normal Normal Respiratory Pattern Regular Regular Blood Pressure 145/80 H Blood Pressure [Left Arm] 141/76 H Blood Pressure Mean 101 Blood Pressure Mean [Left Arm] 97 Blood Pressure Position [Left Arm] Lying Pulse Oximetry 99 99 99 Oxygen Delivery Method Room Air Room Air Room Air Sepsis Recent Fever Within 48 Hours No Sepsis New/Unexplained Change in Mental Status No Sepsis Action Taken by Nursing No Action Required 05/12/21 20:00 Temperature 36.8 C Temperature Source Oral Pulse Rate Pulse Rate [Right Finger] 73 Pulse Rhythm [Right Finger] Regular Pulse Strength [Right Finger] Normal Respiratory Rate 18 Respiratory Effort / Characteristics Non-Labored Respiratory Depth Normal Respiratory Pattern Blood Pressure Blood Pressure [Left Arm] 137/84 Blood Pressure Mean Blood Pressure Mean [Left Arm] 101 Blood Pressure Position [Left Arm] Lying Pulse Oximetry 99 Oxygen Delivery Method Room Air Sepsis Recent Fever Within 48 Hours Sepsis New/Unexplained Change in Mental Status Sepsis Action Taken by Nursing Laboratory Data Result diagrams: 05/12/21 12:40 05/12/21 12:40 Lab Results 05/12/21 05/12/21 05/12/21 Range/Units 12:40 12:40 12:40 WBC 7.34 (4.8-10.8) K/uL RBC 3.85 L (4.2-5.4) M/uL Hgb 12.9 (12.0-16.0) g/dL Hct 36.5 L (37-47) % MCV 94.8 (80-100) fL MCH 33.5 (25-34) pg MCHC 35.3 (32-36) g/dL RDW Std Deviation 46.2 (36.4-46.3) fL RDW Coeff of Jorge Luis 13.4 (11.5-14.5) % Plt Count 198 (130-400) K/uL MPV 9.6 (7.4-10.4) fL Immature Gran % (Auto) 0.1 % Neut % (Auto) 73.5 % Lymph % (Auto) 15.3 % Kings % (Auto) 10.5 % Eos % (Auto) 0.3 % Baso % (Auto) 0.3 % Neut # (Auto) 5.40 (1.4-6.5) K/uL Lymph # (Auto) 1.12 L (1.2-3.4) K/uL Kings # (Auto) 0.77 H (0.11-0.59) K/uL Eos # (Auto) 0.02 (0-0.5) K/uL Baso # (Auto) 0.02 (0-0.2) K/uL Immature Gran # (Auto) 0.01 (0.00-0.02) K/uL Sodium 128 L (136-145) mmol/L Potassium 3.5 (3.5-5.1) mmol/L Chloride 96 L (98-107) mmol/L Carbon Dioxide 25 (21-32) mmol/L Anion Gap 7 (3-11) BUN 14 (6-23) mg/dl Creatinine 0.75 (0.6-1.2) mg/dl Est Cr Clr Drug Dosing 40.8 ml/min Est GFR ( Amer) 86.0 ml/min Est GFR (Non-Af Amer) 74.2 ml/min BUN/Creatinine Ratio 18.7 (10-20) Glucose 104 H (70-99(Fasting)) mg/dl Osmolality 276 L (280-300) mOsm/kg Calcium 9.5 (8.5-10.1) mg/dl Total Bilirubin 0.9 (0.2-1.0) mg/dl AST 33 (13-39) U/L ALT 23 (7-52) U/L Alkaline Phosphatase 47 (34-104) U/L Troponin I < 0.03 (0-0.04) ng/ml Total Protein 7.7 (6.0-8.3) gm/dl Albumin 4.4 (3.4-5.0) gm/dl Globulin 3.3 (2.5-4.0) gm/dl Albumin/Globulin Ratio 1.3 (0.9-2) Lipase 35 (11-82) U/L Urine Color Urine Appearance (Clear) Urine pH (4.5-7.5) Ur Specific Tram (1.000-1.030) Urine Protein (Negative) Urine Glucose (UA) (Negative) Urine Ketones (Negative) Urine Blood (Negative) Urine Nitrite (Negative) Urine Bilirubin (Negative) Urine Urobilinogen (Negative) Ur Leukocyte Esterase (Negative) Urine Osmolality (500-800) mOsm/kg Ur Random Sodium mmol/L SARS-CoV-2, RNA, NAAT (NEGATIVE) 05/12/21 05/12/21 05/12/21 Range/Units 16:15 16:40 Unknown WBC (4.8-10.8) K/uL RBC (4.2-5.4) M/uL Hgb (12.0-16.0) g/dL Hct (37-47) % MCV (80-100) fL MCH (25-34) pg MCHC (32-36) g/dL RDW Std Deviation (36.4-46.3) fL RDW Coeff of Jorge Luis (11.5-14.5) % Plt Count (130-400) K/uL MPV (7.4-10.4) fL Immature Gran % (Auto) % Neut % (Auto) % Lymph % (Auto) % Kings % (Auto) % Eos % (Auto) % Baso % (Auto) % Neut # (Auto) (1.4-6.5) K/uL Lymph # (Auto) (1.2-3.4) K/uL Kings # (Auto) (0.11-0.59) K/uL Eos # (Auto) (0-0.5) K/uL Baso # (Auto) (0-0.2) K/uL Immature Gran # (Auto) (0.00-0.02) K/uL Sodium (136-145) mmol/L Potassium (3.5-5.1) mmol/L Chloride (98-107) mmol/L Carbon Dioxide (21-32) mmol/L Anion Gap (3-11) BUN (6-23) mg/dl Creatinine (0.6-1.2) mg/dl Est Cr Clr Drug Dosing ml/min Est GFR ( Amer) ml/min Est GFR (Non-Af Amer) ml/min BUN/Creatinine Ratio (10-20) Glucose (70-99(Fasting)) mg/dl Osmolality (280-300) mOsm/kg Calcium (8.5-10.1) mg/dl Total Bilirubin (0.2-1.0) mg/dl AST (13-39) U/L ALT (7-52) U/L Alkaline Phosphatase (34-104) U/L Troponin I (0-0.04) ng/ml Total Protein (6.0-8.3) gm/dl Albumin (3.4-5.0) gm/dl Globulin (2.5-4.0) gm/dl Albumin/Globulin Ratio (0.9-2) Lipase (11-82) U/L Urine Color Yellow Urine Appearance Clear (Clear) Urine pH 7.5 (4.5-7.5) Ur Specific Tram 1.033 H (1.000-1.030) Urine Protein Negative (Negative) Urine Glucose (UA) Negative (Negative) Urine Ketones Trace H (Negative) Urine Blood Negative (Negative) Urine Nitrite Negative (Negative) Urine Bilirubin Negative (Negative) Urine Urobilinogen Negative (Negative) Ur Leukocyte Esterase Negative (Negative) Urine Osmolality 388 L (500-800) mOsm/kg Ur Random Sodium mmol/L SARS-CoV-2, RNA, NAAT NEGATIVE (NEGATIVE) 05/12/21 Range/Units Unknown WBC (4.8-10.8) K/uL RBC (4.2-5.4) M/uL Hgb (12.0-16.0) g/dL Hct (37-47) % MCV (80-100) fL MCH (25-34) pg MCHC (32-36) g/dL RDW Std Deviation (36.4-46.3) fL RDW Coeff of Jorge Luis (11.5-14.5) % Plt Count (130-400) K/uL MPV (7.4-10.4) fL Immature Gran % (Auto) % Neut % (Auto) % Lymph % (Auto) % Kings % (Auto) % Eos % (Auto) % Baso % (Auto) % Neut # (Auto) (1.4-6.5) K/uL Lymph # (Auto) (1.2-3.4) K/uL Kings # (Auto) (0.11-0.59) K/uL Eos # (Auto) (0-0.5) K/uL Baso # (Auto) (0-0.2) K/uL Immature Gran # (Auto) (0.00-0.02) K/uL Sodium (136-145) mmol/L Potassium (3.5-5.1) mmol/L Chloride (98-107) mmol/L Carbon Dioxide (21-32) mmol/L Anion Gap (3-11) BUN (6-23) mg/dl Creatinine (0.6-1.2) mg/dl Est Cr Clr Drug Dosing ml/min Est GFR ( Amer) ml/min Est GFR (Non-Af Amer) ml/min BUN/Creatinine Ratio (10-20) Glucose (70-99(Fasting)) mg/dl Osmolality (280-300) mOsm/kg Calcium (8.5-10.1) mg/dl Total Bilirubin (0.2-1.0) mg/dl AST (13-39) U/L ALT (7-52) U/L Alkaline Phosphatase (34-104) U/L Troponin I (0-0.04) ng/ml Total Protein (6.0-8.3) gm/dl Albumin (3.4-5.0) gm/dl Globulin (2.5-4.0) gm/dl Albumin/Globulin Ratio (0.9-2) Lipase (11-82) U/L Urine Color Urine Appearance (Clear) Urine pH (4.5-7.5) Ur Specific Tram (1.000-1.030) Urine Protein (Negative) Urine Glucose (UA) (Negative) Urine Ketones (Negative) Urine Blood (Negative) Urine Nitrite (Negative) Urine Bilirubin (Negative) Urine Urobilinogen (Negative) Ur Leukocyte Esterase (Negative) Urine Osmolality (500-800) mOsm/kg Ur Random Sodium 112 mmol/L SARS-CoV-2, RNA, NAAT (NEGATIVE) Administered Medications Acetaminophen (Acetaminophen 500 Mg Tab) 500 mg PO Q6H ELIANA Stop: 06/11/21 18:59 Last Admin: 05/12/21 19:56 Dose: 500 mg Documented by: [id number] Discontinued Medications Acetaminophen (Acetaminophen 325 Mg Tab) 650 mg PO NOW STA Stop: 05/12/21 14:23 Last Admin: 05/12/21 14:29 Dose: 325 mg Documented by: [id number] Acetaminophen (Acetaminophen 500 Mg Tab) Confirm Administered Dose 500 mg .ROUTE .STK-MED ONE Stop: 05/12/21 19:22 Last Admin: 05/12/21 19:23 Dose: Not Given Documented by: [id number] Sodium Chloride (Nss 1000ml) 1,000 mls @ 999 mls/hr IV .Q1H1M ELIANA Stop: 05/12/21 14:05 Last Infusion: 05/12/21 14:32 Dose: 0 mls/hr Documented by: [id number] Admin: 05/12/21 13:16 Dose: 999 mls/hr Documented by: [id number] Ioversol (Optiray 320 100ml) 91 ml IV ONCE ONE Stop: 05/12/21 14:55 Last Admin: 05/12/21 14:55 Dose: 91 ml Documented by: [id number] Ondansetron HCl (Ondansetron Inj 2 Mg/Ml 2 Ml Vial) 4 mg IV NOW STA Stop: 05/12/21 14:23 Last Admin: 05/12/21 14:30 Dose: 4 mg Documented by: [id number] Imaging Data Radiologist's Impression: Abdomen/Pelvis CT 05/12/21 13:01 CT SCAN OF THE CHEST, ABDOMEN, AND PELVIS WITH IV CONTRAST; CT SCAN OF THE THORACIC SPINE WITH IV CONTRAST; CT SCAN OF THE LUMBAR SPINE WITH IV CONTRAST CLINICAL HISTORY: Fall. Left-sided chest wall injury. COMPARISON STUDY: Chest x-ray dated 12/02/2018. Abdominal CT dated 12/02/2018. TECHNIQUE: Following the IV administration of 91 of Optiray 320, CT scan of the chest, abdomen, and pelvis was performed from the thoracic inlet to the proximal femora. Additionally, CT scan of the thoracic spine is performed from the lower cervical spine to the upper lumbar spine and CT scan of the lumbar spine is performed from the lower thoracic spine to the sacrum. Images for these examinations are reviewed in the axial, sagittal, and coronal planes. IV contrast was administered without complication.A dose lowering technique was utilized adhering to the principles of ALARA. The Examinations are degraded by motion artifact. CT DOSE: 1329.96 mGy.cm FINDINGS: CHEST: Thyroid: Imaged portions of the thyroid gland are normal in size and attenuation. Thoracic aorta: The thoracic aorta is normal in caliber and demonstrates standard 3-vessel arch anatomy. No dissection is seen. Pulmonary vasculature: The pulmonary trunk is normal in caliber. There are no filling defects identified in the central pulmonary vessels to indicate pulmonary embolus. Note that this examination was not protocoled for evaluation of the pulmonary arteries. Heart: The heart is mildly enlarged and without pericardial effusion. The coronary arteries are densely calcified. Lungs and pleural spaces: Apical scarring is observed. There is trace hemothorax at the left lung base. No pneumothorax is identified. There is bibasilar scarring/atelectasis. No airspace consolidation is seen. The trachea and central airways are clear. A 1.6 cm cyst is incidentally noted in the left upper lobe. Mediastinum: There is no mediastinal hematoma or lymphadenopathy. Erika: Clear. Axillae: There is no axillary lymphadenopathy. Bony thorax: The skeletal structures are osteopenic. There are acute fractures of the left posterior 11th and 12th ribs. The 11th rib fractures mildly displaced. The remainder of the bony thorax appears intact. See below for d edicated assessment of the thoracic spine. No lytic or blastic lesions are identified. There is chronic deformity of the right proximal humerus. Arthritic change is noted in the shoulders. THORACIC SPINE: There are minimal chronic appearing superior endplate compression deformities of T4 and T5. Vertebral body height is otherwise maintained throughout the thoracic spine. Alignment is preserved. There is no evidence of fracture or malalignment. Hyperkyphosis is observed. Anterior osteophytes are seen throughout. The transverse and spinous processes are intact. There is multilevel disc space narrowing. Posterior disc osteophyte complexes are noted at T7-T8 and T8-T9. There is no CT evidence of high-grade central canal stenosis. The paraspinous soft tissues are normal in appearance. ABDOMEN AND PELVIS: Liver: The contrast-enhanced liver is normal in size, contour, and attenuation. There is no intrahepatic biliary ductal dilatation. The hepatic veins and portal veins are patent. A portovenous shunt is incidentally noted in the right lobe. Fatty infiltration is noted adjacent to falciform ligament. Gallbladder: Unremarkable. Spleen: Normal in size and attenuation. Pancreas: Moderately atrophic and grossly unremarkable. Adrenal glands: Unremarkable. Kidneys: The contrast enhanced kidneys demonstrate mild cortical atrophy and are without hydronephrosis. The kidneys enhance symmetrically. Abdominal vasculature: The abdominal aorta is normal in course and caliber noting moderate atherosclerotic calcification. Bowel: There is no bowel obstruction. The appendix is well-visualized and normal. Peritoneum: There is no intraperitoneal free air or abdominal ascites. There is a fat-containing umbilical hernia. Lymphadenopathy: None. Pelvic viscera: The bladder is normal as visualized. There are calcified uterine fibroids. The uterus is otherwise normal as imaged. No adnexal lesion is seen. Trace free fluid is noted in the pelvis. Skeletal structures: The skeletal structures are osteopenic. The bony pelvis and proximal femora appear intact. See below for dedicated assessment of the lumbar spine. No lytic or blastic lesions are seen. LUMBAR SPINE: Vertebral body height and alignment are maintained throughout the lumbar spine. There is no evidence of fracture or malalignment. Tiny anterior osteophytes are seen throughout. The transverse and spinous processes are intact. There is no evidence of spondylolysis. The disc spaces are preserved. There is no evidence of large disc herniation or high-grade stenosis by CT. There is fatty atrophy of the paraspinous musculature. The paraspinous soft tissues are otherwise within normal limits. IMPRESSION: 1. There are acute left posterior 11th and 12th rib fractures. 2. Trace hemothorax is seen at the left lung base. There is no pneumothorax. 3. The lungs are otherwise clear. 4. There is no evidence of solid organ injury in the abdomen or pelvis. 5. There is no evidence of fracture or malalignment involving the thoracic spine. 6. There is no evidence of fracture or malalignment involving the lumbar spine. 7. Trace free fluid in the pelvis is a nonspecific abnormal finding, but can be seen in the setting of occult injury. If there is clinical concern for occult injury or if the patient clinically worsens consider short-term follow-up. 8. Additional findings as above. ACT 112: Negative or not required by law. Electronically signed by: Holden Decker M.D. 05/12/2021 3:[address] 05/12/21 13:01 CT SCAN OF THE CERVICAL SPINE CLINICAL HISTORY: Fall. COMPARISON STUDY: Cervical spine radiographs dated 01/18/2013. TECHNIQUE: CT scan of the cervical spine is performed from the skull base to the upper thoracic spine. Images are reviewed in the axial, sagittal, and coronal planes. IV contrast was not administered for this examination. A dose lowering technique was utilized adhering to the principles of ALARA. FINDINGS: Skeletal structures: The skeletal structures are osteopenic. There is no evidence of fracture or subluxation involving the cervical spine. Vertebral body height is maintained. There is minimal anterolisthesis at C4-C5. Alignment is ot herwise preserved. Anterior osteophytes are seen throughout. Mild hyperlordosis is noted. The odontoid process and lateral masses are intact. The atlantoaxial articulation is preserved noting mild productive degenerative change. The spinous processes appear intact. There is mild to moderate multilevel cervical spondylosis. Uncovertebral and facet arthropathy contribute to neural foraminal narrowing at several levels. Intervertebral discs: There is moderate disc space narrowing at C6-C7. Mild disc space narrowing is noted at the remaining cervical levels. Central canal: Posterior disc osteophyte complexes at C5-C6 and C6-C7 may contribute to mild acquired compromise of the central canal. Soft tissues: The prevertebral and paraspinous soft tissues are within normal limits. Calcified sialoliths are noted in the right parotid gland. There is atherosclerotic calcification of the carotid bulbs. Calvarium: The visualized calvarium at the skull base appears intact. Brain parenchyma: Partially visualized brain parenchyma at the skull base is within normal limits. Sinuses and mastoids: The visualized paranasal sinuses are clear. The mastoid air cells are well pneumatized. Lung apices: Clear as visualized. IMPRESSION: 1. There is no evidence of fracture or subluxation involving the cervical spine. 2. Osteopenia and spondylotic change as above. ACT 112: Negative or not required by law. Electronically signed by: Holden Decker M.D. 05/12/2021 3:[address] 05/12/21 13:01 CT SCAN OF THE CHEST, ABDOMEN, AND PELVIS WITH IV CONTRAST; CT SCAN OF THE THORACIC SPINE WITH IV CONTRAST; CT SCAN OF THE LUMBAR SPINE WITH IV CONTRAST CLINICAL HISTORY: Fall. Left-sided chest wall injury. COMPARISON STUDY: Chest x-ray dated 12/02/2018. Abdominal CT dated 12/02/2018. TECHNIQUE: Following the IV administration of 91 of Optiray 320, CT scan of the chest, abdomen, and pelvis was performed from the thoracic inlet to the proximal femora. Additionally, CT scan of the thoracic spine is performed from the lower cervical spine to the upper lumbar spine and CT scan of the lumbar spine is performed from the lower thoracic spine to the sacrum. Images for these examinations are reviewed in the axial, sagittal, and coronal planes. IV contrast was administered without complication.A dose lowering technique was utilized adhering to the principles of ALARA. The Examinations are degraded by motion artifact. CT DOSE: 1329.96 mGy.cm FINDINGS: CHEST: Thyroid: Imaged portions of the thyroid gland are normal in size and attenuation. Thoracic aorta: The thoracic aorta is normal in caliber and demonstrates standard 3-vessel arch anatomy. No dissection is seen. Pulmonary vasculature: The pulmonary trunk is normal in caliber. There are no filling defects identified in the central pulmonary vessels to indicate pulmonary embolus. Note that this examination was not protocoled for evaluation of the pulmonary arteries. Heart: The heart is mildly enlarged and without pericardial effusion. The garcia ry arteries are densely calcified. Lungs and pleural spaces: Apical scarring is observed. There is trace hemothorax at the left lung base. No pneumothorax is identified. There is bibasilar scarring/atelectasis. No airspace consolidation is seen. The trachea and central airways are clear. A 1.6 cm cyst is incidentally noted in the left upper lobe. Mediastinum: There is no mediastinal hematoma or lymphadenopathy. Erika: Clear. Axillae: There is no axillary lymphadenopathy. Bony thorax: The skeletal structures are osteopenic. There are acute fractures of the left posterior 11th and 12th ribs. The 11th rib fractures mildly displaced. The remainder of the bony thorax appears intact. See below for dedicated assessment of the thoracic spine. No lytic or blastic lesions are identified. There is chronic deformity of the right proximal humerus. Arthritic change is noted in the shoulders. THORACIC SPINE: There are minimal chronic appearing superior endplate compression deformities of T4 and T5. Vertebral body height is otherwise maintained throughout the thoracic spine. Alignment is preserved. There is no evidence of fracture or malalignment. Hyperkyphosis is observed. Anterior osteophytes are seen throughout. The transverse and spinous processes are intact. There is multilevel disc space narrowing. Posterior disc osteophyte complexes are noted at T7-T8 and T8-T9. There is no CT evidence of high-grade central canal stenosis. The paraspinous soft tissues are normal in appearance. ABDOMEN AND PELVIS: Liver: The contrast-enhanced liver is normal in size, contour, and attenuation. There is no intrahepatic biliary ductal dilatation. The hepatic veins and portal veins are patent. A portovenous shunt is incidentally noted in the right lobe. Fatty infiltration is noted adjacent to falciform ligament. Gallbladder: Unremarkable. Spleen: Normal in size and attenuation. Pancreas: Moderately atrophic and grossly unremarkable. Adrenal glands: Unremarkable. Kidneys: The contrast enhanced kidneys demonstrate mild cortical atrophy and are without hydronephrosis. The kidneys enhance symmetrically. Abdominal vasculature: The abdominal aorta is normal in course and caliber noting moderate atherosclerotic calcification. Bowel: There is no bowel obstruction. The appendix is well-visualized and normal. Peritoneum: There is no intraperitoneal free air or abdominal ascites. There is a fat-containing umbilical hernia. Lymphadenopathy: None. Pelvic viscera: The bladder is normal as visualized. There are calcified uterine fibroids. The uterus is otherwise normal as imaged. No adnexal lesion is seen. Trace free fluid is noted in the pelvis. Skeletal structures: The skeletal structures are osteopenic. The bony pelvis and proximal femora appear intact. See below for dedicated assessment of the lumbar spine. No lytic or blastic lesions are seen. LUMBAR SPINE: Vertebral body height and alignment are maintained throughout the lumbar spine. There is no evidence of fracture or malalignment. Tiny anterior osteophytes are seen throughout. The transverse and spinous processes are intact. There is no evidence of spondylolysis. The disc spaces are preserved. T here is no evidence of large disc herniation or high-grade stenosis by CT. There is fatty atrophy of the paraspinous musculature. The paraspinous soft tissues are otherwise within normal limits. IMPRESSION: 1. There are acute left posterior 11th and 12th rib fractures. 2. Trace hemothorax is seen at the left lung base. There is no pneumothorax. 3. The lungs are otherwise clear. 4. There is no evidence of solid organ injury in the abdomen or pelvis. 5. There is no evidence of fracture or malalignment involving the thoracic sp ine. 6. There is no evidence of fracture or malalignment involving the lumbar spine. 7. Trace free fluid in the pelvis is a nonspecific abnormal finding, but can be seen in the setting of occult injury. If there is clinical concern for occult injury or if the patient clinically worsens consider short-term follow-up. 8. Additional findings as above. ACT 112: Negative or not required by law. Electronically signed by: Holden Decker M.D. 05/12/2021 3:[address] 05/12/21 13:01 CT SCAN OF THE BRAIN WITHOUT IV CONTRAST CLINICAL HISTORY: Fall. Head injury. COMPARISON STUDY: CT of the brain dated 01/31/2014. TECHNIQUE: Unenhanced axial CT scan of the brain is performed from the vertex to the skull base. A dose lowering technique was utilized adhering to the principl es of CONOR. FINDINGS: Brain parenchyma: There are age-related involutional changes noting moderate patchy subcortical and periventricular microangiopathic change. There is no hemorrhage, mass effect, or evidence of acute territorial ischemia by CT criteria. Martin-white matter differentiation is preserved. No extra-axial fluid collection is seen. Ventricles, sulci, cisterns: Prominent secondary to involutional change. Intracranial vasculature: There is atherosclerotic calcification of the ca vernous carotid and vertebral arteries. Calvarium: The skeletal structures are osteopenic. There is no depressed calvarial fracture. Sinuses and mastoids: A 12 mm retention cyst is noted in the left maxillary antrum. The remaining paranasal sinuses are clear. The mastoid air cells are well pneumatized. Orbits: The bony orbits are grossly intact. There are bilateral ocular lens implants. IMPRESSION: There is no hemorrhage, mass effect, or evidence of acute territorial ischemia by CT criteria. ACT 112: Negative or not required by law. Electronically signed by: Holden Decker M.D. 05/12/2021 3:[address] 05/12/21 13:01 CT SCAN OF THE CHEST, ABDOMEN, AND PELVIS WITH IV CONTRAST; CT SCAN OF THE THORACIC SPINE WITH IV CONTRAST; CT SCAN OF THE LUMBAR SPINE WITH IV CONTRAST CLINICAL HISTORY: Fall. Left-sided chest wall injury. COMPARISON STUDY: Chest x-ray dated 12/02/2018. Abdominal CT dated 12/02/2018. TECHNIQUE: Following the IV administration of 91 of Optiray 320, CT scan of the chest, abdomen, and pelvis was performed from the thoracic inlet to the proximal femora. Additionally, CT scan of the thoracic spine is performed from the lower cervical spine to the upper lumbar spine and CT scan of the lumbar spine is performed from the lower thoracic spine to the sacrum. Images for these examinations are reviewed in the axial, sagittal, and coronal planes. IV contrast was administered without complication.A dose lowering technique was utilized adhering to the principles of ALARA. The Examinations are degraded by motion artifact. CT DOSE: 1329.96 mGy.cm FINDINGS: CHEST: Thyroid: Imaged portions of the thyroid gland are normal in size and attenuation. Thoracic aorta: The thoracic aorta is normal in caliber and demonstrates standard 3-vessel arch anatomy. No dissection is seen. Pulmonary vasculature: The pulmonary trunk is normal in caliber. There are no filling defects identified in the central pulmonary vessels to indicate pulmonary embolus. Note that this examination was not protocoled for evaluation of the pulmonary arteries. Heart: The heart is mildly enlarged and without pericardial effusion. The coronary arteries are densely calcified. Lungs and pleural spaces: Apical scarring is observed. There is trace hemothorax at the left lung base. No pneumothorax is identified. There is bibasilar scarring/atelectasis. No airspace consolidation is seen. The trachea and central airways are clear. A 1.6 cm cyst is incidentally noted in the left upper lobe. Mediastinum: There is no mediastinal hematoma or lymphadenopathy. Erika: Clear. Axillae: There is no axillary lymphadenopathy. Bony thorax: The skeletal structures are osteopenic. There are acute fractures of the left posterior 11th and 12th ribs. The 11th rib fractures mildly displaced. The remainder of the bony thorax appears intact. See below for dedicated assessment of the thoracic spine. No lytic or blastic lesions are i dentified. There is chronic deformity of the right proximal humerus. Arthritic change is noted in the shoulders. THORACIC SPINE: There are minimal chronic appearing superior endplate compression deformities of T4 and T5. Vertebral body height is otherwise maintained throughout the thoracic spine. Alignment is preserved. There is no evidence of fracture or malalignment. Hyperkyphosis is observed. Anterior osteophytes are seen throughout. The transverse and spinous processes are intact. There is multilevel disc space narrowing. Posterior disc osteophyte complexes are noted at T7-T8 and T8-T9. There is no CT evidence of high-grade central canal stenosis. The paraspinous soft tissues are normal in appearance. ABDOMEN AND PELVIS: Liver: The contrast-enhanced liver is normal in size, contour, and attenuation. There is no intrahepatic biliary ductal dilatation. The hepatic veins and portal veins are patent. A portovenous shunt is incidentally noted in the right lobe. Fatty infiltration is noted adjacent to falciform ligament. Gallbladder: Unremarkable. Spleen: Normal in size and attenuation. Pancreas: Moderately atrophic and grossly unremarkable. Adrenal glands: Unremarkable. Kidneys: The contrast enhanced kidneys demonstrate mild cortical atrophy and are without hydronephrosis. The kidneys enhance symmetrically. Abdominal vasculature: The abdominal aorta is normal in course and caliber noting moderate atherosclerotic calcification. Bowel: There is no bowel obstruction. The appendix is well-visualized and n ormal. Peritoneum: There is no intraperitoneal free air or abdominal ascites. There is a fat-containing umbilical hernia. Lymphadenopathy: None. Pelvic viscera: The bladder is normal as visualized. There are calcified uterine fibroids. The uterus is otherwise normal as imaged. No adnexal lesion is seen. Trace free fluid is noted in the pelvis. Skeletal structures: The skeletal structures are osteopenic. The bony pelvis and proximal femora appear intact. See below for dedicated assessment of the lumbar spine. No lytic or blastic lesions are seen. LUMBAR SPINE: Vertebral body height and alignment are maintained throughout the lumbar spine. There is no evidence of fracture or malalignment. Tiny anterior osteophytes are seen throughout. The transverse and spinous processes are intact. There is no evidence of spondylolysis. The disc spaces are preserved. There is no evidence of large disc herniation or high-grade stenosis by CT. There is fatty atrophy of the paraspinous musculature. The paraspinous soft tissues are otherwise within normal limits. IMPRESSION: 1. There are acute left posterior 11th and 12th rib fractures. 2. Trace hemothorax is seen at the left lung base. There is no pneumothorax. 3. The lungs are otherwise clear. 4. There is no evidence of solid organ injury in the abdomen or pelvis. 5. There is no evidence of fracture or malalignment involving the thoracic spine. 6. There is no evidence of fracture or malalignment involving the lumbar spine. 7. Trace free fluid in the pelvis is a nonspecific abnormal finding, but can be seen in the setting of occult injury. If there is clinical concern for occult injury or if the patient clinically worsens consider short-term follow-up. 8. Additional findings as above. ACT 112: Negative or not required by law. Electronically signed by: Holden Decker M.D. 05/12/2021 3:[address] 05/12/21 13:01 CT SCAN OF THE CHEST, ABDOMEN, AND PELVIS WITH IV CONTRAST; CT SCAN OF THE THORACIC SPINE WITH IV CONTRAST; CT SCAN OF THE LUMBAR SPINE WITH IV CONTRAST CLINICAL HISTORY: Fall. Left-sided chest wall injury. COMPARISON STUDY: Chest x-ray dated 12/02/2018. Abdominal CT dated 12/02/2018. TECHNIQUE: Following the IV administration of 91 of Optiray 320, CT scan of the chest, abdomen, and pelvis was performed from the thoracic inlet to the proximal femora. Additionally, CT scan of the thoracic spine is performed from the lower cervical spine to the upper lumbar spine and CT scan of the lumbar spine is performed from the lower thoracic spine to the sacrum. Images for these examinations are reviewed in the axial, sagittal, and coronal planes. IV contrast was administered without complication.A dose lowering technique was utilized adhering to the principles of ALARA. The Examinations are degraded by motion artifact. CT DOSE: 1329.96 mGy.cm FINDINGS: CHEST: Thyroid: Imaged portions of the thyroid gland are normal in size and attenuation. Thoracic aorta: The thoracic aorta is normal in caliber and demonstrates standard 3-vessel arch anatomy. No dissection is seen. Pulmonary vasculature: The pulmonary trunk is normal in caliber. There are no filling defects identified in the central pulmonary vessels to indicate pulmonary embolus. Note that this examination was not protocoled for evaluation of the pulmonary arteries. Heart: The heart is mildly enlarged and without pericardial effusion. The preethi nary arteries are densely calcified. Lungs and pleural spaces: Apical scarring is observed. There is trace hemothorax at the left lung base. No pneumothorax is identified. There is bibasilar scarring/atelectasis. No airspace consolidation is seen. The trachea and central airways are clear. A 1.6 cm cyst is incidentally noted in the left upper lobe. Mediastinum: There is no mediastinal hematoma or lymphadenopathy. Erika: Clear. Axillae: There is no axillary lymphadenopathy. Bony thorax: The skeletal structures are osteopenic. There are acute fractures of the left posterior 11th and 12th ribs. The 11th rib fractures mildly displaced. The remainder of the bony thorax appears intact. See below for dedicated assessment of the thoracic spine. No lytic or blastic lesions are identified. There is chronic deformity of the right proximal humerus. Arthritic change is noted in the shoulders. THORACIC SPINE: There are minimal chronic appearing superior endplate compression deformities of T4 and T5. Vertebral body height is otherwise maintained throughout the thoracic spine. Alignment is preserved. There is no evidence of fracture or malalignment. Hyperkyphosis is observed. Anterior osteophytes are seen throughout. The transverse and spinous processes are intact. There is multilevel disc space narrowing. Posterior disc osteophyte complexes are noted at T7-T8 and T8-T9. There is no CT evidence of high-grade central canal stenosis. The paraspinous soft tissues are normal in appearance. ABDOMEN AND PELVIS: Liver: The contrast-enhanced liver is normal in size, contour, and attenuation. There is no intrahepatic biliary ductal dilatation. The hepatic veins and portal veins are patent. A portovenous shunt is incidentally noted in the right lobe. Fatty infiltration is noted adjacent to falciform ligament. Gallbladder: Unremarkable. Spleen: Normal in size and attenuation. Pancreas: Moderately atrophic and grossly unremarkable. Adrenal glands: Unremarkable. Kidneys: The contrast enhanced kidneys demonstrate mild cortical atrophy and are without hydronephrosis. The kidneys enhance symmetrically. Abdominal vasculature: The abdominal aorta is normal in course and caliber noting moderate atherosclerotic calcification. Bowel: There is no bowel obstruction. The appendix is well-visualized and normal. Peritoneum: There is no intraperitoneal free air or abdominal ascites. There is a fat-containing umbilical hernia. Lymphadenopathy: None. Pelvic viscera: The bladder is normal as visualized. There are calcified uterine fibroids. The uterus is otherwise normal as imaged. No adnexal lesion is seen. Trace free fluid is noted in the pelvis. Skeletal structures: The skeletal structures are osteopenic. The bony pelvis and proximal femora appear intact. See below for dedicated assessment of the lumbar spine. No lytic or blastic lesions are seen. LUMBAR SPINE: Vertebral body height and alignment are maintained throughout the lumbar spine. There is no evidence of fracture or malalignment. Tiny anterior osteophytes are seen throughout. The transverse and spinous processes are intact. There is no evidence of spondylolysis. The disc spaces are preserved. There is no evidence of large disc herniation or high-grade stenosis by CT. There is fatty atrophy of the paraspinous musculature. The paraspinous soft tissues are otherwise within normal limits. IMPRESSION: 1. There are acute left posterior 11th and 12th rib fractures. 2. Trace hemothorax is seen at the left lung base. There is no pneumothorax. 3. The lungs are otherwise clear. 4. There is no evidence of solid organ injury in the abdomen or pelvis. 5. There is no evidence of fracture or malalignment involving the thoracic spine. 6. There is no evidence of fracture or malalignment involving the lumbar spine. 7. Trace free fluid in the pelvis is a nonspecific abnormal finding, but can be seen in the setting of occult injury. If there is clinical concern for occult injury or if the patient clinically worsens consider short-term follow-up. 8. Additional findings as above. ACT 112: Negative or not required by law. Electronically signed by: Holden Decker M.D. 05/12/2021 3:32 PM Discharge Plan Visit Data Chief Complaint: Fall Stated Complaint: FALL ED Provider: Sary Diehl ED Midlevel Provider: Barb Salgado Discharge Problem: Syncope, Fall, Left rib fracture, Hemothorax on left, Contusion of scalp, Neck pain Patient Disposition: Being Evaluated by Hospitalist Discharge Instructions Interventions: ED Discharge Assessment Last Done: 05/12/21 20:15 Forms Stand Alone Forms: [employer] Prescriptions Prescriptions: No [facility] See Rx Instructions .ROUTE PRN Qty: 1 RF: 0 cyclobenzaprine 5 mg tablet 5 mg PO TID PRN (Reason: muscle spasm) Qty: 30 RF: 0 multivitamin Tablet 1 tab PO DAILY RF: 0 Enzyme Digest Capsule 1 cap PO BIDM RF: 0 melatonin 3 mg Tablet 3 mg PO HS PRN (Reason: Sleep) RF: 0 cholecalciferol (vitamin D3) [Vitamin D3] 1,000 unit Capsule 2,000 unit PO DAILY RF: 0 Citracal Plus Bone Density 300-200-13.5 mg-unit-mg Tablet 2 tab PO DAILY RF: 0 omega [id number] oil [Fish Oil] 1,000 mg (120 mg-180 mg) Capsule 1 cap PO DAILY RF: 0 aspirin 81 mg Tablet,Delayed Release (Dr/Ec) 81 mg PO QAM RF: 0 Referrals Referrals: Pro,Michael Beck MD [Primary Care Provider] - Discharge Problem: Left rib fracture Qualifiers: Encounter type: initial encounter Rib fracture type: multiple ribs Fracture type: closed Qualified Code(s): S22.42XA - Multiple fractures of ribs, left side, initial encounter for closed fracture
[2021-05-12 13:26] LABS: Basophils # (auto) 0.02 K/uL (0-0.2); Basophils % (auto) 0.3 %; Eosinophils # (auto) 0.02 K/uL (0-0.5); Eosinophils % (auto) 0.3 %; Hematocrit (blood only) 36.5 % (37-47); Hemoglobin 12.9 g/dL (12.0-16.0); Immature Granulocytes # (auto) 0.01 K/uL (0.00-0.02); Immature Granulocytes % (auto) 0.1 %; Lymphocytes # (auto) 1.12 K/uL (1.2-3.4); Lymphocytes % (auto) 15.3 %; Mean Corpuscular Hemoglobin 33.5 pg (25-34); Mean Corpuscular Hgb Conc 35.3 g/dL (32-36); Mean Corpuscular Volume 94.8 fL (80-100); Mean Platelet Volume 9.6 fL (7.4-10.4); Monocytes # (auto) 0.77 K/uL (0.11-0.59); Monocytes % (auto) 10.5 %; Neutrophils % (auto) 73.5 %; Platelet Count 198 K/uL (130-400); RDW Coefficient of Variation 13.4 % (11.5-14.5); RDW Standard Deviation 46.2 fL (36.4-46.3); Red Blood Count 3.85 M/uL (4.2-5.4); White Blood Count 7.34 K/uL (4.8-10.8)
[2021-05-12 13:56] LABS: Troponin I < 0.03 ng/ml (0-0.04)
[2021-05-12 14:15] LABS: Alanine Aminotransferase 23 U/L (7-52); Albumin Globulin Ratio 1.3 (0.9-2); Albumin Level 4.4 gm/dl (3.4-5.0); Alkaline Phosphatase 47 U/L (34-104); Anion Gap 7 (3-11); Aspartate Aminotransferase 33 U/L (13-39); BUN Creatinine Ratio 18.7 (10-20); Bilirubin,Total 0.9 mg/dl (0.2-1.0); Blood Urea Nitrogen 14 mg/dl (6-23); Calcium 9.5 mg/dl (8.5-10.1); Carbon Dioxide 25 mmol/L (21-32); Chloride 96 mmol/L (98-107); Creatinine Clr Calc Pharmacy 40.8 ml/min; Est GFR (Non-African American) 74.2 ml/min; Globulin 3.3 gm/dl (2.5-4.0); Glucose 104 mg/dl (70-99(Fasting)); Lipase 35 U/L (11-82); Potassium 3.5 mmol/L (3.5-5.1); Sodium 128 mmol/L (136-145); Total Protein 7.7 gm/dl (6.0-8.3)
[2021-05-12] MEDS ORDERED: ACETAMINOPHEN 325 MG TAB PO STA (14:22)
[2021-05-12] MEDS ORDERED: ONDANSETRON INJ 2 MG/ML 2 ML VIAL IV STA (14:22)
[2021-05-12] MEDS ORDERED: OPTIRAY 320 100ml IV ONE (14:54)
--- NOTE | 2021-05-12 15:14 | CT Scan Report ---
CT SCAN OF THE CERVICAL SPINE CLINICAL HISTORY: Fall. COMPARISON STUDY: Cervical spine radiographs dated 01/18/2013. TECHNIQUE: CT scan of the cervical spine is performed from the skull base to the upper thoracic spine . Images are reviewed in the axial, sagittal, and coronal planes. IV contrast was not administered fo r this examination. A dose lowering technique was utilized adhering to the principles of ALARA. FINDINGS: Skeletal structures: The skeletal structures are osteopenic. There is no evidence of fracture or subl uxation involving the cervical spine. Vertebral body height is maintained. There is minimal anterolis thesis at C4-C5. Alignment is otherwise preserved. Anterior osteophytes are seen throughout. Mild hyp erlordosis is noted. The odontoid process and lateral masses are intact. The atlantoaxial articulatio n is preserved noting mild productive degenerative change. The spinous processes appear intact. There is mild to moderate multilevel cervical spondylosis. Uncovertebral and facet arthropathy contribute to neural foraminal narrowing at several levels. Intervertebral discs: There is moderate disc space narrowing at C6-C7. Mild disc space narrowing is n oted at the remaining cervical levels. Central canal: Posterior disc osteophyte complexes at C5-C6 and C6-C7 may contribute to mild acquired compromise of the central canal. Soft tissues: The prevertebral and paraspinous soft tissues are within normal limits. Calcified sialo liths are noted in the right parotid gland. There is atherosclerotic calcification of the carotid bul bs. Calvarium: The visualized calvarium at the skull base appears intact. Brain parenchyma: Partially visualized brain parenchyma at the skull base is within normal limits. Sinuses and mastoids: The visualized paranasal sinuses are clear. The mastoid air cells are well pneu matized. Lung apices: Clear as visualized. IMPRESSION: 1. There is no evidence of fracture or subluxation involving the cervical spine. 2. Osteopenia and spondylotic change as above. ACT 112: Negative or not required by law. Electronically signed by: Holden Decker M.D. 05/12/2021 3:12 PM
--- NOTE | 2021-05-12 15:33 | CT Scan Report ---
CT SCAN OF THE CHEST, ABDOMEN, AND PELVIS WITH IV CONTRAST; CT SCAN OF THE THORACIC SPINE WITH IV CON TRAST; CT SCAN OF THE LUMBAR SPINE WITH IV CONTRAST CLINICAL HISTORY: Fall. Left-sided chest wall injury. COMPARISON STUDY: Chest x-ray dated 12/02/2018. Abdominal CT dated 12/02/2018. TECHNIQUE: Following the IV administration of 91 of Optiray 320, CT scan of the chest, abdomen, and p margie was performed from the thoracic inlet to the proximal femora. Additionally, CT scan of the thor acic spine is performed from the lower cervical spine to the upper lumbar spine and CT scan of the roel mbar spine is performed from the lower thoracic spine to the sacrum. Images for these examinations ar e reviewed in the axial, sagittal, and coronal planes. IV contrast was administered without complicat ion.A dose lowering technique was utilized adhering to the principles of ALARA. The Examinations are degraded by motion artifact. CT DOSE: 1329.96 mGy.cm FINDINGS: CHEST: Thyroid: Imaged portions of the thyroid gland are normal in size and attenuation. Thoracic aorta: The thoracic aorta is normal in caliber and demonstrates standard 3-vessel arch anato my. No dissection is seen. Pulmonary vasculature: The pulmonary trunk is normal in caliber. There are no filling defects identif ied in the central pulmonary vessels to indicate pulmonary embolus. Note that this examination was no t protocoled for evaluation of the pulmonary arteries. Heart: The heart is mildly enlarged and without pericardial effusion. The coronary arteries are dense ly calcified. Lungs and pleural spaces: Apical scarring is observed. There is trace hemothorax at the left lung bas e. No pneumothorax is identified. There is bibasilar scarring/atelectasis. No airspace consolidation is seen. The trachea and central airways are clear. A 1.6 cm cyst is incidentally noted in the left u pper lobe. Mediastinum: There is no mediastinal hematoma or lymphadenopathy. Erika: Clear. Axillae: There is no axillary lymphadenopathy. Bony thorax: The skeletal structures are osteopenic. There are acute fractures of the left posterior 11th and 12th ribs. The 11th rib fractures mildly displaced. The remainder of the bony thorax appears intact. See below for dedicated assessment of the thoracic spine. No lytic or blastic lesions are id entified. There is chronic deformity of the right proximal humerus. Arthritic change is noted in the shoulders. THORACIC SPINE: There are minimal chronic appearing superior endplate compression deformities of T4 a nd T5. Vertebral body height is otherwise maintained throughout the thoracic spine. Alignment is pres erved. There is no evidence of fracture or malalignment. Hyperkyphosis is observed. Anterior osteophy daina are seen throughout. The transverse and spinous processes are intact. There is multilevel disc sp deborah narrowing. Posterior disc osteophyte complexes are noted at T7-T8 and T8-T9. There is no CT evide nce of high-grade central canal stenosis. The paraspinous soft tissues are normal in appearance. ABDOMEN AND PELVIS: Liver: The contrast-enhanced liver is normal in size, contour, and attenuation. There is no intrahepa tic biliary ductal dilatation. The hepatic veins and portal veins are patent. A portovenous shunt is incidentally noted in the right lobe. Fatty infiltration is noted adjacent to falciform ligament. Gallbladder: Unremarkable. Spleen: Normal in size and attenuation. Pancreas: Moderately atrophic and grossly unremarkable. Adrenal glands: Unremarkable. Kidneys: The contrast enhanced kidneys demonstrate mild cortical atrophy and are without hydronephros is. The kidneys enhance symmetrically. Abdominal vasculature: The abdominal aorta is normal in course and caliber noting moderate atheroscle rotic calcification. Bowel: There is no bowel obstruction. The appendix is well-visualized and normal. Peritoneum: There is no intraperitoneal free air or abdominal ascites. There is a fat-containing umbi lical hernia. Lymphadenopathy: None. Pelvic viscera: The bladder is normal as visualized. There are calcified uterine fibroids. The uterus is otherwise normal as imaged. No adnexal lesion is seen. Trace free fluid is noted in the pelvis. Skeletal structures: The skeletal structures are osteopenic. The bony pelvis and proximal femora appe ar intact. See below for dedicated assessment of the lumbar spine. No lytic or blastic lesions are se en. LUMBAR SPINE: Vertebral body height and alignment are maintained throughout the lumbar spine. There i s no evidence of fracture or malalignment. Tiny anterior osteophytes are seen throughout. The transve rse and spinous processes are intact. There is no evidence of spondylolysis. The disc spaces are pres erved. There is no evidence of large disc herniation or high-grade stenosis by CT. There is fatty atr ophy of the paraspinous musculature. The paraspinous soft tissues are otherwise within normal limits. IMPRESSION: 1. There are acute left posterior 11th and 12th rib fractures. 2. Trace hemothorax is seen at the left lung base. There is no pneumothorax. 3. The lungs are otherwise clear. 4. There is no evidence of solid organ injury in the abdomen or pelvis. 5. There is no evidence of fracture or malalignment involving the thoracic spine. 6. There is no evidence of fracture or malalignment involving the lumbar spine. 7. Trace free fluid in the pelvis is a nonspecific abnormal finding, but can be seen in the setting o f occult injury. If there is clinical concern for occult injury or if the patient clinically worsens consider short-term follow-up. 8. Additional findings as above. ACT 112: Negative or not required by law. Electronically signed by: Holden Decker M.D. 05/12/2021 3:32 PM
--- NOTE | 2021-05-12 15:35 | CT Scan Report ---
CT SCAN OF THE BRAIN WITHOUT IV CONTRAST CLINICAL HISTORY: Fall. Head injury. COMPARISON STUDY: CT of the brain dated 01/31/2014. TECHNIQUE: Unenhanced axial CT scan of the brain is performed from the vertex to the skull base. A do se lowering technique was utilized adhering to the principles of ALARA. FINDINGS: Brain parenchyma: There are age-related involutional changes noting moderate patchy subcortical and periventricular microangiopathic change. There is no hemorrhage, mass effect, or evidence of acute te rritorial ischemia by CT criteria. Martin-white matter differentiation is preserved. No extra-axial flu id collection is seen. Ventricles, sulci, cisterns: Prominent secondary to involutional change. Intracranial vasculature: There is atherosclerotic calcification of the cavernous carotid and vertebr al arteries. Calvarium: The skeletal structures are osteopenic. There is no depressed calvarial fracture. Sinuses and mastoids: A 12 mm retention cyst is noted in the left maxillary antrum. The remaining par anasal sinuses are clear. The mastoid air cells are well pneumatized. Orbits: The bony orbits are grossly intact. There are bilateral ocular lens implants. IMPRESSION: There is no hemorrhage, mass effect, or evidence of acute territorial ischemia by CT daisy alonso. ACT 112: Negative or not required by law. Electronically signed by: Holden Decker M.D. 05/12/2021 3:34 PM
[2021-05-12 17:06] LABS: Appearance Urine Clear (Clear); Bilirubin Urine Negative (Negative); Blood Urine Negative (Negative); Color Urine Yellow; Glucose Urine UA Negative (Negative); Ketones Urine Trace (Negative); Leukocyte Esterase Urine Negative (Negative); Nitrite Urine Negative (Negative); Protein Urine Negative (Negative); Specific Gravity Urine 1.033 (1.000-1.030); Urobilinogen Urine Negative (Negative); pH Urine 7.5 (4.5-7.5)
[2021-05-12] MEDS ORDERED: MELATONIN 3 MG TAB PO PRN (18:01)
[2021-05-12] MEDS ORDERED: CYCLOBENZAPRINE HCL 5 MG TAB PO PRN (18:01)
[2021-05-12] MEDS ORDERED: ACETAMINOPHEN 500 MG TAB ONE (19:21)
[2021-05-12] MEDS: ACETAMINOPHEN 500 MG TAB PO SCH (19:56)
--- NOTE | 2021-05-12 20:07 | History & Physical Report ---
Date of Service May 12, 2021 Assessment & Plan (1) Left rib fracture: Plan: Patient had a a fall Has acute left posterior 11th and 12th rib fractures shown on CT scan Patient chika be placed on acetaminophen scheduled and Naprosyn PRN. (2) Syncope: Plan: Appears to be vasovagal.w will monitor. (3) Hemothorax on left: Plan: Trace hemothorax is seen at the left lung base will repeat chest x ray in AM. (4) Hypercholesterolemia: Plan: will resume home meds (5) Hypertension: Plan: will monitor. Patient does not take medications at home. will monitor her level. may be worse due to pain. (6) Hyponatremia: Plan: Acute worsening of hyponatremia. This appears to be a chronic issue. will check urine and serum osmolalitiy chika check urine sodium. Likely SIADH, DVT: scd History of Present Illness Chief Complaint: BACK PAIN Primary Care Provider: Michael Corley MD 81 yo miko reports having muscle spasms for 1 week in her back. 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 Patient was given a script of cyclobenzarpine. The next morning when patient had nausea from the pain, she went to the bathroom. After some dry heaves, patient stood up and felt light headed and fell on her left side on top of the tub. heard her fall and went to check on her. He found her on the ground stating she had left sided back pain. He called the ambulance who brought her in the hospital. She was found to have a small hemothorax and left nondiscplaced posterior fractures of her Allergies Allergy/AdvReac Type Severity Reaction Status Date / Time acetaminophen Allergy Mild Headache Verified 05/12/21 14:27 Nrurflj-LWE-HwX Reductase Allergy Unknown lethargy,muscle Verified 05/12/21 14:27 Inhibitor weakness [Tfftssc-Pbj-Nuq Reductase Inhibitor] azithromycin Allergy Headache Verified 05/12/21 14:27 alprazolam AdvReac Intermediate HEADACHE Verified 05/12/21 14:27 amoxicillin AdvReac Unknown HEADACHE Verified 05/12/21 14:27 ciprofloxacin AdvReac Unknown Unknown Verified 05/12/21 14:27 Home Medications Medication Instructions Recorded Confirmed Type calcium carb,cit 300 mg-D3 200 2 tab PO DAILY 08/14/19 01/22/22 History unit-min no.34-genistein 13.5 mg tablet (Citracal Plus Bone Density Builder) cholecalciferol (vitamin D3) 25 2,000 unit PO DAILY 12/02/18 05/12/21 History mcg (1,000 unit) capsule (Vitamin D3) digestive enzymes (Enzyme Digest) 1 cap PO BIDM 12/02/18 05/12/21 History melatonin 3 mg tablet 3 mg PO HS PRN 12/02/18 05/12/21 History multivitamin 1 tab PO DAILY 12/02/18 05/12/21 History omega 3-lbi-ylj-fish oil 1,000 mg 1 cap PO DAILY 12/02/18 05/11/21 History (120 mg-180 mg) capsule (Fish Oil) aspirin 81 mg tablet,delayed 81 mg PO QAM 10/09/20 05/12/21 History release [facility] See Rx Instructions .ROUTE PRN #1 % 05/11/21 05/12/21 Rx cyclobenzaprine 5 mg tablet 5 mg PO TID PRN #30 tab 05/11/21 05/12/21 Rx Past Med/Surg History Medical History Abdominal pain, RUQ (right upper quadrant) Adenomatous polyp of colon Allergic rhinitis Arteriosclerosis of coronary artery Back pain Benign hypertension (08/21/11) Cataract, bilateral Colitis Constipation Disc herniation Diverticulitis Encounter for routine gynecological examination Esophageal reflux Flank pain History of diverticulitis of colon Hypokalemia Hyponatremia [place] (myocardial infarction) Muscle spasm Muscle weakness (generalized) Myocardial infarction Nausea Osteoarthritis Osteopenia Osteoporosis Past myocardial infarction Postmenopausal atrophic vaginitis Presence of stent in artery Pyelonephritis (08/21/11) Right wrist sprain Screening for thyroid disorder Urinary symptom or sign Vitamin D deficiency Surgical History S/P arterial stent S/P cataract surgery S/P dilation and curettage Family History Father Myocardial infarction Mother Cardiac disorder Denies family history of Ovarian cancer Prostate cancer Breast cancer Colorectal cancer Social History Smoking Status: Never smoker Second Hand Exposure: No; Do You Dip or Chew Tobacco: No; Tobacco Cessation Education Requested by Patient: No Hx Alcohol Use: Yes Alcohol type: wine Alcohol Intake Frequency: Monthly or Less Hx Substance Use: No Preferred Language: Japanese Communication Ability: Effective Visual Impairment: No Limitations Hearing Ability: Normal 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 Beliefs That Will Affect Care: None marital status: Current Living Situation: Spouse current occupational status: retired Other Information That Helps Us Care for You: No Feels Safe at Home: Yes Safety Concerns: Feels Safe At This Time Childhood Exposure to Second-Hand Smoke: No Dental Care, Regularly: Yes Physical Activity Frequency: Daily Physical Activity Frequency Comment: bike and gardening Seatbelt Use: always Sunscreen Use: Yes Assistive Devices: None Review of Systems Constitutional: + body aches; no fever Eyes: no diplopia Ear, Nose, Mouth, Throat: no ear pain Respiratory: no cough Cardiovascular: no chest pain Gastrointestinal: no abdominal pain Genitourinary: no dysuria Musculoskeletal: + back pain Integumentary: no acne Neurologic: no gait abnormality Psychiatric: no hopelessness Endocrine: no fatigue Hematologic / Lymphatic: no easy bleeding Physical Exam Constitutional: WD/WN, vitals as above Eyes: PERRL, conjunctivae normal, anicteric sclerae ENMT: external ear and nose normal, oropharynx normal Neck: trachea midline, no thyromegaly Respiratory: normal respiratory effort, lungs clear to auscultation Cardiovascular: RRR, no murmur, no edema Gastrointestinal (Abdomen): normal bowel sounds, soft, nontender, no hepatosplenomegaly Musculoskeletal: no cyanosis or clubbing, extremities motor strength 5/5 Skin: no rashes, warm and dry Neurologic: PERRL, EOMI, accommodation nl, no face palsy, no dysarthria Psychiatric: A+Ox3, euthymic affect Lymphatic: no cervical or axillary lymphadenopathy Results & Data Results & Data ([facility]) Vital Signs (Past 12 Hours) Vital Signs Temp Pulse Pulse Resp BP Pulse Ox 05/12/21 15:00 107 H 18 99 05/12/21 12:49 36.5 C 80 18 145/80 H 99 PG Care Time/CCT Total # of Minutes Spent Total Time Spent with Patient: Total time spent is greater than 50% in coordination of care (as documented) at patient's floor/unit and/or counseling patient: Coding Level of Care Code INT OBSERVATION CARE 70M LVL 3 Diagnoses Syncope R55 Left rib fracture S22.42XA Encounter type: initial encounter Fracture type: closed Rib fracture type: multiple ribs Hemothorax on left J94.2 Hypercholesterolemia E78.00 Hypertension I10 Hyponatremia E87.1 (1) Left rib fracture Encounter type: initial encounter Fracture type: closed Rib fracture type: multiple ribs Qualified Code(s): S22.42XA - Multiple fractures of ribs, left side, initial encounter for closed fracture
[2021-05-12] MEDS ORDERED: NAPROXEN 250 MG TAB PO PRN (20:57)
[2021-05-12] MEDS: FAMOTIDINE 10 MG TABLET PO SCH (22:46)
[2021-05-13] MEDS: ACETAMINOPHEN 500 MG TAB PO SCH ×4 (00:39→18:29)
[2021-05-13 06:25] LABS: Hemoglobin 11.6 g/dL (12.0-16.0); Mean Corpuscular Hemoglobin 33.4 pg (25-34); Mean Corpuscular Hgb Conc 35.2 g/dL (32-36); Mean Corpuscular Volume 95.1 fL (80-100); Platelet Count 182 K/uL (130-400); RDW Coefficient of Variation 13.5 % (11.5-14.5); RDW Standard Deviation 46.7 fL (36.4-46.3); Red Blood Count 3.47 M/uL (4.2-5.4); White Blood Count 6.94 K/uL (4.8-10.8)
[2021-05-13 06:44] LABS: BUN Creatinine Ratio 18.2 (10-20); Calcium 8.8 mg/dl (8.5-10.1); Creatinine Clr Calc Pharmacy 46.4 ml/min; Est GFR (African American) 95.3 ml/min; Est GFR (Non-African American) 82.3 ml/min; Potassium 3.2 mmol/L (3.5-5.1)
--- NOTE | 2021-05-13 07:27 | Electrocardiogram Report ---
Test Reason : Blood Pressure : / mmHG Vent. Rate : 070 BPM Atrial Rate : 070 BPM P-R Int : 166 ms QRS Dur : 120 ms QT Int : 392 ms P-R-T Axes : 051 -58 086 degrees QTc Int : 423 ms Normal sinus rhythm with sinus arrhythmia Left axis deviation Left bundle branch block Abnormal ECG When compared with ECG of 03-SEP-2020 23:13, Left bundle branch block is now present Confirmed by Khanh Motta ([id number]) on 05/13/2021 7:27:33 AM Referred By: REFERRED SELF Confirmed By:Eugene Motta
[2021-05-13] MEDS ORDERED: DIGESTIVE ENZYMES PO SCH (08:00)
[2021-05-13] MEDS: MULTIVITAMIN TAB PO SCH (09:06)
[2021-05-13] MEDS: CHOLECALCIFEROL 1,000 UNITS 25 MCG TAB PO SCH (09:07)
[2021-05-13] MEDS: FAMOTIDINE 10 MG TABLET PO SCH ×2 (09:07→20:00)
[2021-05-13] MEDS: OMEGA-3 (PURIFIED FISH OIL) 1 GM CAP PO SCH (09:07)
[2021-05-13] MEDS: ASPIRIN 81 MG ECTAB PO SCH (09:07)
--- NOTE | 2021-05-13 10:53 | XRay Report ---
XR chest 2V PA/lateral CLINICAL HISTORY: hemothorax TECHNIQUE: AP and lateral frontal radiograph of the chest was obtained. Comparison: Comparison is made to CT chest 12/02/2018 FINDINGS: No lines and tubes are seen. Cardiomegaly is noted. The lungs are clear. No evidence of pleural effus ion or pneumothorax. IMPRESSION: No acute chest disease. ACT 112: Negative or not required by law. Electronically signed by: Shen Bergeron M.D. 05/13/2021 10:51 AM
--- NOTE | 2021-05-13 15:00 | Hospitalist Progress Note ---
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 Physical Exam Physical Exam: The patient is awake, alert and oriented 3, well developed and well nourished, normocephalic and atraumatic, lying in bed and in no acute distress. HEENT--PERRL, EOMI, mucous membranes and oropharynx mildly dry Neck--supple. No JVD. No bruits. Thyroid normal, trachea midline, no adenopathy. Heart--normal S1 and S2. No murmurs, rubs or gallops. Lungs--clear bilaterally, no respiratory distress, no accessory muscle use. Abdomen--normal bowel sounds and soft. Mild epigastric and left sided abdominal pain Extremities--no cyanosis or clubbing. No edema. Dermatologic--normal skin turgor, normal color, no abnormal lymph nodes, no rash. Neurologic--cranial nerves II through XII grossly intact. Rheumatologic--normal range of motion. Psychiatric--normal affect. Results & Data Results & Data ([facility]) Vital Signs (Past 12 Hours) Vital Signs Temp Pulse Resp BP Pulse Ox 05/13/21 07:01 99.1 F 73 16 179/74 H 97 PG Care Time/CCT Total # of Minutes Spent Total Time Spent with Patient: Total time spent is greater than 50% in coordination of care (as documented) at patient's floor/unit and/or counseling patient: Coding Level of Care Code 27779 Subseq Hosp Care Lvl 2 Diagnoses Left rib fracture S22.42XA Encounter type: initial encounter Fracture type: closed Rib fracture type: multiple ribs Hemothorax on left J94.2 Hypertension I10 SIADH (syndrome of inappropriate ADH production) E22.2 Time Spent (min) 35 (1) Left rib fracture Encounter type: initial encounter Fracture type: closed Rib fracture type: multiple ribs Qualified Code(s): S22.42XA - Multiple fractures of ribs, left side, initial encounter for closed fracture
[2021-05-13] MEDS ORDERED: amLODIPine BESYLATE 5 MG TAB PO ONE (15:15)
[2021-05-14] MEDS: ACETAMINOPHEN 500 MG TAB PO SCH ×3 (00:42→12:47)
[2021-05-14] MEDS: OMEGA-3 (PURIFIED FISH OIL) 1 GM CAP PO SCH (07:47)
[2021-05-14] MEDS: CHOLECALCIFEROL 1,000 UNITS 25 MCG TAB PO SCH (07:55)
[2021-05-14] MEDS: FAMOTIDINE 10 MG TABLET PO SCH (07:55)
[2021-05-14] MEDS: MULTIVITAMIN TAB PO SCH (07:55)
[2021-05-14] MEDS: ASPIRIN 81 MG ECTAB PO SCH (07:56)
[2021-05-14 08:28] LABS: BUN Creatinine Ratio 16.7 (10-20); Calcium 9.1 mg/dl (8.5-10.1); Creatinine Clr Calc Pharmacy 56.7 ml/min; Est GFR (African American) 101.9 ml/min; Est GFR (Non-African American) 87.9 ml/min; Potassium 3.4 mmol/L (3.5-5.1)
[2021-05-14] MEDS ORDERED: amLODIPine BESYLATE 5 MG TAB PO SCH (09:00)
[2021-05-14] MEDS ORDERED: SODIUM CHLORIDE 1 GM TABLET PO SCH (09:00)
--- NOTE | 2021-05-14 11:11 | Discharge Summary ---
Date of Service May 14, 2021 Admission HPI Per Admitting Provider 81 yo miko reports having muscle spasms for 1 week in her back. 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 Patient was given a script of cyclobenzarpine. The next morning when patient had nausea from the pain, she went to the bathroom. After some dry heaves, patient stood up and felt light headed and fell on her left side on top of the tub. heard her fall and went to check on her. He found her on the ground stating she had left sided back pain. He called the ambulance who brought her in the hospital. She was found to have a small hemothorax and left nondiscplaced posterior fractures of her Principal Diagnosis rib fracture Discharge Exam The patient is awake, alert and oriented 3, well developed and well nourished, normocephalic and atraumatic, lying in bed and in no acute distress. HEENT--PERRL, EOMI, mucous membranes and oropharynx mildly dry Neck--supple. No JVD. No bruits. Thyroid normal, trachea midline, no adenopathy. Heart--normal S1 and S2. No murmurs, rubs or gallops. Lungs--clear bilaterally, no respiratory distress, no accessory muscle use. Abdomen--normal bowel sounds and soft. Mild epigastric and left sided abdominal pain Extremities--no cyanosis or clubbing. No edema. Dermatologic--normal skin turgor, normal color, no abnormal lymph nodes, no rash. Neurologic--cranial nerves II through XII grossly intact. Rheumatologic--normal range of motion. Psychiatric--normal affect. Discharge Data Allergies Allergy/AdvReac Type Severity Reaction Status Date / Time acetaminophen Allergy Mild Headache Verified 05/12/21 14:27 Cxoirjv-GTL-BqO Reductase Allergy Unknown lethargy,muscle Verified 05/12/21 14:27 Inhibitor weakness [Gfkxtns-Tlq-Xgo Reductase Inhibitor] azithromycin Allergy Headache Verified 05/12/21 14:27 alprazolam AdvReac Intermediate HEADACHE Verified 05/12/21 14:27 amoxicillin AdvReac Unknown HEADACHE Verified 05/12/21 14:27 ciprofloxacin AdvReac Unknown Unknown Verified 05/12/21 14:27 Consultations 05/12/21 16:36 ED Decision to Admit Stat Ordered Studies 05/12/21 13:01 CT abd pelvis IV con only Stat CT cervical spine wo con Stat CT chest diagnostic w con Stat CT head/brain wo con Stat CT lumbar spine w con Stat CT thoracic spine w con Stat Hospital Course (1) Left rib fracture: Sustained fracture 11 and 12 ribs following a fall No surgical indications Patient states that her pain is under good control (2) Hemothorax on left: Small left hemothorax following a fall seen on x-ray Repeat chest x-ray didnt show hemothorax (3) Hypertension: Blood pressure 179/74 Amlodipine 5 mg daily (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): Fluid restriction 1 L/day Sodium tablets 1g daily Total Time Total Time Spent Total Time Spent (In Minutes): 35 Discharge Plan Discharge Items Patient Disposition: Home - Home Health Services Reason For Visit: PAIN/ SYNCOPE/ RIB FRACTURE Discharge Diagnosis: rib fracture Activity: Resume your previous activity Lifting: Gradually increase as tolerated Non-emergency contact: Primary Care Provider Call non-emergency contact if: you have any medication questions Follow-up/Referrals: Pro,Michael Beck MD [Primary Care Provider] - Diet: Regular Addtl Attending Provider Instructions: please make appointment to follow up with your regular PCP Pending Studies at Discharge: No Stand-Alone Forms: My [employer], Smoking Cessation Medications and DC Order Prescriptions: New sodium chloride 1 gram Tablet 1 g PO DAILY 30 Days Qty: 30 RF: 0 Continued [facility] See Rx Instructions .ROUTE PRN Qty: 1 RF: 0 cyclobenzaprine 5 mg tablet 5 mg PO TID PRN (Reason: muscle spasm) Qty: 30 RF: 0 multivitamin Tablet 1 tab PO DAILY RF: 0 Enzyme Digest Capsule 1 cap PO BIDM RF: 0 melatonin 3 mg Tablet 3 mg PO HS PRN (Reason: Sleep) RF: 0 cholecalciferol (vitamin D3) [Vitamin D3] 1,000 unit Capsule 2,000 unit PO DAILY RF: 0 Citracal Plus Bone Density 300-200-13.5 mg-unit-mg Tablet 2 tab PO DAILY RF: 0 omega 0-glk-sfd-fish oil [Fish Oil] 1,000 mg (120 mg-180 mg) Capsule 1 cap PO DAILY RF: 0 aspirin 81 mg Tablet,Delayed Release (Dr/Ec) 81 mg PO QAM RF: 0 Discharge Orders: Discharge Order (Routine); Ordered 05/14/21 Ordered By: Lester Cornejo Admission Data Admit Date/Time: 05/12/21 18:06 Attending Provider: Lester Cornejo Admit Provider: Ravi Flores Primary Care Provider: Michael Corley Other Providers: Ravi Flores Coding Level of Care Code D/C DAY MANAGEMENT >30 MINS Diagnoses Left rib fracture S22.42XA Encounter type: initial encounter Fracture type: closed Rib fracture type: multiple ribs Hemothorax on left J94.2 Hypertension I10 SIADH (syndrome of inappropriate ADH production) E22.2 Time Spent (min) 35
== END 2021-05-14 16:55 | disposition home health service (06) ==
LOC: ED 12:25 → 3W 12:25 → SUATTDRO 18:06 → 3W 20:15

== ENCOUNTER 2022-12-14 08:08 | Inpatient (IN) ==
[2022-12-14] MEDS ORDERED: SODIUM CHLORIDE 0.9% 1000ML 1,000 ML IV SCH (08:15)
[2022-12-14] MEDS ORDERED: ONDANSETRON INJ 2 MG/ML 2 ML VIAL IV STA (08:22)
[2022-12-14 08:36] LABS: Basophils # (auto) 0.05 K/uL (0.00-0.20); Basophils % (auto) 0.8 %; Eosinophils # (auto) 0.07 K/uL (0.00-0.50); Eosinophils % (auto) 1.1 %; Hematocrit (blood only) 30.7 % (37.0-47.0); Hemoglobin 11.2 g/dl (12.0-16.0); Immature Granulocytes # (auto) 0.01 K/uL (0.01-0.20); Immature Granulocytes % (auto) 0.2 %; Lymphocytes # (auto) 1.94 K/uL (1.20-3.40); Lymphocytes % (auto) 31.2 %; Mean Corpuscular Hemoglobin 33.8 pg (25.0-34.0); Mean Corpuscular Hgb Conc 36.5 g/dL (32.0-36.0); Mean Corpuscular Volume 92.7 fL (80.0-100.0); Mean Platelet Volume 10.1 fL (9.4-12.4); Monocytes # (auto) 0.49 K/uL (0.11-0.59); Monocytes % (auto) 7.9 %; Neutrophils # (auto) 3.66 K/uL (1.40-6.50); Neutrophils % (auto) 58.8 %; Platelet Count 167 K/uL (130-400); RDW Standard Deviation 44.5 fL (36.4-46.3); Red Blood Count 3.31 M/uL (4.20-5.40); White Blood Count 6.22 K/ul (4.8-10.8)
[2022-12-14 08:51] LABS: iSTAT Creatinine 0.5 mg/dl (0.6-1.3); iSTAT Hemoglobin 11.2 g/dl (12.0-16.0); iSTAT Ionized Calcium 1.03 mmol/l (1.12-1.32); iSTAT Potassium 3.6 mmol/L (3.3-5.0)
[2022-12-14 09:05] LABS: Albumin Globulin Ratio 1.4 (0.9-2); BUN Creatinine Ratio 25.5 (10-20); Bilirubin,Total 1.1 mg/dl (0.2-1.0); Calcium 9.4 mg/dl (8.6-10.3); Est GFR (African American) 103.1 ml/min; Est GFR (Non-African American) 88.9 ml/min; Globulin 2.8 gm/dl (2.5-4.0); Potassium 3.8 mmol/L (3.5-5.1); Total Protein 6.8 gm/dl (6.0-8.3)
[2022-12-14 09:09] LABS: Partial Thromboplastin Ratio 0.8; Partial Thromboplastin Time 23.9 Seconds (21.0-31.0); Prothrombin Time 11.1 Seconds (9.0-12.0)
[2022-12-14 09:28] LABS: Troponin I High Sensitivity 348.7 pg/ml (0-14)
--- NOTE | 2022-12-14 09:30 | XRay Report ---
XR chest 1V portable CLINICAL HISTORY: Chest pain, nonspecific COMPARISON STUDY: Chest CT May 12, 2021. Chest radiograph February 05, 2022. FINDINGS: Lung volumes are normal. Lungs are clear. There is no pneumothorax or pleural effusion. . C ardiomegaly is unchanged. Mediastinal contours are normal. There is no evidence for pulmonary edema. Old, healed proximal right humeral diaphyseal fracture is unchanged. IMPRESSION: No acute cardiopulmonary findings. Stable cardiomegaly. ACT 112: Negative or not required by law. Electronically signed by: Hugh Saini M.D. 12/14/2022 9:29 AM
[2022-12-14] MEDS ORDERED: Heparin IV Adult Wt-Based Low-Dose *NO* Bolus Protocol IV ONE (09:41)
[2022-12-14] MEDS ORDERED: NITROGLYCERIN 2% OINTMENT 30GM TUBE EXT STA (09:45)
[2022-12-14] MEDS ORDERED: HEPARIN SODIUM/DEXTROSE 25,000 UNITS/500 ML BAG IV SCH (09:45)
--- NOTE | 2022-12-14 09:45 | Emergency Department Note ---
Impression & Plan Non-ST elevated myocardial infarction, Chest pain ED Provider Note INFORMANT: Patient and EMS ED PROVIDER(S): Declan Albert MD CHIEF COMPLAINT: Chest pain PLAN: Disposition: Admitted Condition: Guarded Outpatient prescription management: none Referral: None MEDICAL DECISION MAKING: Patient presented because of chest pain. Work-up was initiated. Her ECG did not show any acute ischemia. Old left bundle branch block. Chest x-ray was unremarkable. Patient CBC and chemistry panel were unremarkable. Unfortunate the patient's cardiac troponin is markedly elevated concerning for non-ST elevation MA. Patient had heparin ordered as well as Nitropaste. She had recei kiarra aspirin prehospital. [facility]. I also consulted with Dr. Motta of cardiology. He agreed with the treatment and recommended inpatient management. Patient was evaluated by internal medicine was having ongoing chest pain. We discussed consulting interventional cardiology and I did place a consult with Dr. Amador. He did ask for bedside echo and will evaluate the patient in the ED. The patient had IV nitroglycerin ordered by internal medicine but cannot tolerate this due to hypotension. Patient was seen by Dr. Amador during the bedside echo and he felt that going to the cardiac Gate Supervisor was most appropriate at this time. Discussed with international operations manager After review of the information above and other included data, I feel the patient requires admission. Triage Nursing notes reviewed and agree them. Vital Signs: reviewed and remarkable for no significant abnormalities Prior /Outside records reviewed: none Differential diagnosis: Cardiac ischemia, aortic dissection, pulmonary embolism, pneumothorax, pneumonia, pericarditis, myocarditis, esophageal rupture, GERD, cholecystitis, pancreatitis, musculoskeletal, as well as other pathologies. Twelve-lead ECG reveals Diagnostics, as interpreted by me: ECG: Sinus bradycardia with first-degree block at 51 bpm. Left axis deviation and left bundle branch block. When compared to 05 February 2022 there is no significant change. When compared to prehospital ECG there is no significant change Cardiac Monitoring: Cardiac monitoring ordered by me: The patient was placed on continuous cardiac monitoring and observed. It revealed a normal sinus rhythm at 6 beats per minute without ectopy or evidence of dysrhythmia. Medical decision rules: none Imaging studies: Chest x-ray. Findings: A chest x-ray was performed and revealed no pneumothorax, effusion, infiltrate, pulmonary edema, free air under the diaphragm, or wide mediastinum. Impression: No acute disease. HPI: The patient is a 82year old female who presents to the Emergency Room with complaints of chest pain. This started 3 days ago, is intermittent and is substernal. The patient also notes the following associated symptoms, nausea and feelings of heartburn. The patient has found no relieving factors. Current pain is rated as 5/10. Patient was found to have mildly low blood pressure by EMS prehospital with a systolic of 92. That resolved after a 250 saline bolus. Patient was given aspirin. She was initially offered Zofran for her nausea but declined from EMS. Patient does have a history of stenting of her coronary artery back in 2004. Patient also had some dizziness and diaphoresis. Pt denie s LOC, headache, fevers, chills, visual changes, neck pain, breathing difficulties, vomiting, abdominal pain, back pain, melena, hematochezia, urinary symptoms, numbness, weakness, lymphadenopathy, rash, or other complaints. PAST MEDICAL HISTORY: See Below, CAD PAST SURGICAL HISTORY: See Below, cardiac stenting SOCIAL HISTORY: See Below, retired HOME MEDICATIONS: See Below ALLERGIES: See Below VITALS: See Below PHYSICAL EXAMINATION: GENERAL: Awake, alert, well-appearing, in no distress HENT: Normocephalic, atraumatic. Oropharynx unremarkable. EYES: Normal conjunctiva. Sclera non-icteric. NECK: Inspection normal. Non-tender. Supple. No nuchal rigidity. FROM. No masses. RESPIRATORY: Clear to auscultation. No wheezes. No rales. Normal respiratory effort. CARDIAC: Normal rate. Normal rhythm. No murmurs. No rubs. Extremities warm and well perfused. Pulses equal. No JVD. GI: Soft, non-distended. No tenderness to palpation. No rebound or guarding. No masses. RECTAL: Deferred. MUSCULOSKELETAL: Atraumatic. Chest examination reveals no tenderness. The back is symmetrical on inspection without obvious abnormality. There is no CVA tenderness to palpation. No joint edema. LOWER EXTREMITIES: Calves are equal size bilaterally and non-tender. No edema. No discoloration. NEURO: Normal sensorium. No sensory or motor deficits noted. SKIN: No rash or jaundice noted. CRITICAL CARE: I have personally spent 35 minutes of critical care time in the direct management of this patient. This includes bedside care, interpretation of diagnostic studies, and testing, discussion with consultants, patient, and family members, and other required patient management activities. This 30 minutes is in excess of all separately billable procedures. Past Med/Surg History Medical History Abdominal pain, RUQ (right upper quadrant) Allergic rhinitis Arteriosclerosis of coronary artery Dysuria Elevated cholesterol Esophageal reflux Frequent UTI NOT CURRENT Hemorrhoid History of diverticulitis of colon Hypertension PT DENIES Hyponatremia Muscle weakness (generalized) Myocardial infarction 2004 Osteoarthritis Osteoporosis Postmenopausal atrophic vaginitis Urinary frequency Vitamin D deficiency Surgical History H/O colonoscopy with polypectomy History of cataract surgery RT/LEFT History of heart artery stent 2004>2 STENTS PLACED AT [facility] (FOLLOWED BY DR. OSBORNE NOW) History of tooth extraction S/P dilation and curettage Family History Father Myocardial infarction Mother Cardiac disorder Other No family history of adverse response to anesthesia Denies family history of Ovarian cancer Prostate cancer Breast cancer Colorectal cancer Social History Smoking Status: Never smoker Second Hand Exposure: No; Do You Dip or Chew Tobacco: No; Hx Alcohol Use: No Hx Substance Use: No Preferred Language: Bruneian Communication Ability: Effective Visual Impairment: No Limitations Hearing Ability: Normal Supervisor Chemical Required: No Beliefs That Will Affect Care: None marital status: Current Living Situation: Spouse current occupational status: retired current occupation: worked in sales How many Children do You have: 1 Other Information That Helps Us Care for You: No Feels Safe at Home: Yes Safety Concerns: Feels Safe At This Time Childhood Exposure to Second-Hand Smoke: No Diet: regular Dental Care, Regularly: Yes Physical Activity Frequency: Daily Physical Activity Frequency Comment: bike and gardening Seatbelt Use: always Sunscreen Use: Yes Assistive Devices: Glasses Allergies Allergies Allergy/AdvReac Type Severity Reaction Status Date / Time acetaminophen Allergy Intermediate Joint Verified 12/14/22 10:38 Pain, Headache asparagus Allergy Intermediate Joint Pain Unverified 12/14/22 10:38 azithromycin Allergy Intermediate Joint Verified 12/14/22 10:38 Pain, Headache spinach Allergy Intermediate Joint Pain Unverified 12/14/22 10:38 Vjmuvhc-MJG-LpX Reductase Allergy Intermediate lethargy,muscle Verified 12/14/22 10:38 Inhibitor weakness [Zdnvpsm-Tuy-Uni Reductase Inhibitor] alprazolam AdvReac Intermediate Joint Verified 12/14/22 10:38 Pain, Headache amoxicillin AdvReac Intermediate Joint Verified 12/14/22 10:38 Pain, Headache ciprofloxacin AdvReac Intermediate Joint Verified 12/14/22 10:38 Pain, Headache Acid food Allergy Intermediate Joint Uncoded 12/14/22 10:38 Pain, heahache Home Meds Home Medications Medication Instructions Recorded Confirmed digestive enzymes (Enzyme Digest 1 cap PO BIDM 12/02/18 12/14/22 capsule) melatonin 3 mg tablet 3 mg PO HS PRN Sleep 12/02/18 12/14/22 multivitamin 1 tab PO DAILY 12/02/18 12/14/22 omega 1-zxa-ftt-fish oil 1,000 mg 1 cap PO DAILY 12/02/18 12/14/22 (120 mg-180 mg) capsule (Fish Oil) aspirin 81 mg tablet,delayed 81 mg PO QAM 10/09/20 12/14/22 release cholecalciferol (vitamin D3) 25 4,000 unit PO DAILY 10/23/21 12/14/22 mcg (1,000 unit) capsule (Vitamin D3) Arnicare Pain Relieving Cream 1 applic topical DAILY PRN Pain 12/14/22 12/14/22 pantoprazole 40 mg tablet,delayed 0 mg PO DAILY 12/14/22 12/14/22 release (Protonix) Results & Data (ED) Vital Signs Vital Signs - 24 hr 12/14/22 08:10 12/14/22 08:10 12/14/22 08:27 Temperature 36.5 C Temperature Source Oral Pulse Rate 57 L 58 L 56 L Pulse Rate from SpO2 Sensor Respiratory Rate Blood Pressure 143/68 H Blood Pressure Mean 93 Blood Pressure Position Sitting Pulse Oximetry 100 100 Oxygen Delivery Method Room Air Room Air Sepsis Recent Fever Within 48 Hours No Sepsis New/Unexplained Change in Mental Status No Sepsis Action Taken by Nursing No Action Required 12/14/22 08:45 12/14/22 10:08 12/14/22 10:15 Temperature Temperature Source Pulse Rate 56 L 71 63 Pulse Rate from SpO2 Sensor 56 L 68 60 Respiratory Rate 24 19 20 Blood Pressure 118/60 123/83 138/87 Blood Pressure Mean 79 96 104 Blood Pressure Position Pulse Oximetry 100 99 99 Oxygen Delivery Method Room Air Sepsis Recent Fever Within 48 Hours Sepsis New/Unexplained Change in Mental Status Sepsis Action Taken by Nursing 12/14/22 10:30 12/14/22 10:45 12/14/22 11:00 Temperature Temperature Source Pulse Rate 65 62 61 Pulse Rate from SpO2 Sensor 64 64 Respiratory Rate 19 22 16 Blood Pressure 113/62 92/70 L 100/51 L Blood Pressure Mean 79 77 67 Blood Pressure Position Pulse Oximetry 97 97 97 Oxygen Delivery Method Room Air Room Air Room Air Sepsis Recent Fever Within 48 Hours Sepsis New/Unexplained Change in Mental Status Sepsis Action Taken by Nursing 12/14/22 11:21 12/14/22 11:30 12/14/22 11:45 Temperature Temperature Source Pulse Rate 70 66 60 Pulse Rate from SpO2 Sensor Respiratory Rate 17 20 24 Blood Pressure 86/53 L 98/51 L 113/56 L Blood Pressure Mean 64 66 75 Blood Pressure Position Pulse Oximetry 94 98 99 Oxygen Delivery Method Room Air Room Air Room Air Sepsis Recent Fever Within 48 Hours Sepsis New/Unexplained Change in Mental Status Sepsis Action Taken by Nursing 12/14/22 12:00 Temperature Temperature Source Pulse Rate 63 Pulse Rate from SpO2 Sensor Respiratory Rate 17 Blood Pressure 97/81 L Blood Pressure Mean 86 Blood Pressure Position Pulse Oximetry 98 Oxygen Delivery Method Room Air Sepsis Recent Fever Within 48 Hours Sepsis New/Unexplained Change in Mental Status Sepsis Action Taken by Nursing Laboratory Data 12/14/22 Unknown 12/14/22 Unknown Lab Results 12/14/22 12/14/22 12/14/22 Range/Units 08:30 08:30 08:38 POC Hgb 11.2 L (12.0-16.0) g/dl POC Hct 33 L (37-47) % POC Sodium 129 L (135-144) mmol/L POC Potassium 3.6 (3.3-5.0) mmol/L POC Chloride 92 L (101-112) mmol/L POC Total CO2 28 (24-31) mmol/L POC Anion Gap 14.0 L (16-25) mmol/L POC BUN 12 (7-18) mg/dl POC Creatinine 0.5 L (0.6-1.3) mg/dl POC Glucose (other) 120 H (70-99) mg/dl POC Ioniz Calcium Damaris 1.03 L (1.12-1.32) mmol/l Troponin I High Sens (0-14) pg/ml B-Natriuretic Peptide 190 H (0-100) pg/ml SARS-CoV-2, RNA, NAAT NEGATIVE (NEGATIVE) 12/14/22 Range/Units 11:22 POC Hgb (12.0-16.0) g/dl POC Hct (37-47) % POC Sodium (135-144) mmol/L POC Potassium (3.3-5.0) mmol/L POC Chloride (101-112) mmol/L POC Total CO2 (24-31) mmol/L POC Anion Gap (16-25) mmol/L POC BUN (7-18) mg/dl POC Creatinine (0.6-1.3) mg/dl POC Glucose (other) (70-99) mg/dl POC Ioniz Calcium Damaris (1.12-1.32) mmol/l Troponin I High Sens 329.4 H* (0-14) pg/ml B-Natriuretic Peptide (0-100) pg/ml SARS-CoV-2, RNA, NAAT (NEGATIVE) Administered Medications Lactated Ringer's (Lr) 1,000 mls @ 100 mls/hr IV .Q10H ELIANA Stop: 12/14/22 20:44 Last Admin: 12/14/22 11:30 Dose: 100 mls/hr Documented By: BRIAN Miscellaneous (Icu Protocol For Hyperglycemia) 1 each N/A ACHS [facility] Stop: 12/16/22 15:17 Last Admin: 12/14/22 15:38 Dose: Not Given Documented By: Admin: 12/14/22 15:38 Dose: 1 each Documented By: MAXIMILIAN Discontinued Medications Clopidogrel Bisulfate (Clopidogrel Bisulfate 300 Mg Tab) Confirm Administered Dose 600 mg .ROUTE .STK-MED ONE Stop: 12/14/22 14:05 Last Admin: 12/14/22 14:58 Dose: Not Given Documented By: YADIEL Eptifibatide (Eptifibatide 0.75 Mg/Ml 75mg Vial (Gate Supervisor Use Only)) Confirm Administered Dose 75 mg IV .STK-MED ONE Stop: 12/14/22 13:11 Last Admin: 12/14/22 15:29 Dose: Not Given Documented By: MAXIMILIAN Eptifibatide (Eptifibatide 2 Mg/Ml 10 Ml Vial (Gate Supervisor Use Only)) Confirm Administered Dose 20 mg IV .STK-MED ONE Stop: 12/14/22 13:12 Last Admin: 12/14/22 15:29 Dose: Not Given Documented By: MAXIMILIAN Eptifibatide (Eptifibatide Bolus/Drip) 1 each IV NOW STA Stop: 12/14/22 14:11 Last Admin: 12/14/22 15:40 Dose: Not Given Documented By: MAXIMILIAN Fentanyl Citrate (Fentanyl Citrate Pf 100 Mcg/2 Ml Vial) Confirm Administered Dose 100 mcg .ROUTE .STK-MED ONE Stop: 12/14/22 12:11 Last Increment: 12/14/22 14:18 Dose: 50 mcg Documented By: MINNIE Heparin Sodium (Porcine) (Heparin Sod (Porcine) 1000 Unit/Ml) Confirm Admini stered Dose 1,000 units .ROUTE .STK-MED ONE Stop: 12/14/22 10:21 Last Admin: 12/14/22 10:23 Dose: 3,000 units Documented By: AMADOR Co-signed By: PADMA Heparin Sodium (Porcine) (Heparin (Porcine) 1000 Unit/Ml 10 Ml (Gate Supervisor Use Only)) Confirm Administered Dose 10,000 units .ROUTE .STK-MED ONE Stop: 12/14/22 12:11 Last Admin: 12/14/22 14:18 Dose: 5,500 units Documented By: MINNIE Heparin Sodium/Dextrose (Heparin Iv Adult Wt-Based Low-Dose *No* Bolus Protocol) 1 each IV ONE ONE; Protocol Stop: 12/14/22 09:42 Last Admin: 12/14/22 15:35 Dose: Not Given Documented By: MAXIMILIAN Heparin Sodium/Dextrose (Heparin Iv Adult Wt-Based Low-Dose With Bolus Protocol) 1 each IV NOW ONE Stop: 12/14/22 10:31 Last Admin: 12/14/22 15:35 Dose: Not Given Documented By: MAXIMILIAN Heparin Sodium/Sodium Chloride (Heparin In Nss Infusion 1000 Unit/500 Ml (2 U/Ml) Bag) Confirm Administered Dose 4,000 units IV .STK-MED ONE Stop: 12/14/22 12:12 Last Admin: 12/14/22 15:29 Dose: Not Given Documented By: MAXIMILIAN Sodium Chloride (Nss 1000ml) 1,000 mls @ 125 mls/hr IV .Q8H ELIANA Stop: 01/13/23 08:14 Last Infusion: 12/14/22 10:48 Dose: 0 mls/hr Documented By: Admin: 12/14/22 08:39 Dose: 125 mls/hr Documented By: DORI Heparin Sodium/Dextrose (Heparin Sodium/Dextrose) 25,000 units in 500 mls @ 10 mls/hr IV .Q24H ELIANA; Protocol Stop: 01/13/23 09:44 Last Titration: 12/14/22 15:39 Dose: 0 units/hr, 0 mls/hr Documented By: MAXIMILIAN Co-signed By: THOMAS Admin: 12/14/22 10:25 Dose: 500 units/hr, 10 mls/hr Documented By: AMADOR Co-signed By: PADMA Nitroglycerin/Dextrose (Nitroglycerin/D5w 100 Mcg/Ml) 250 mls @ 0 mls/hr IV .Q0M ELIANA; Protocol Stop: 01/13/23 10:14 Last Titration: 12/14/22 15:39 Dose: 0 mcg/min, 0 mls/hr Documented By: Titration: 12/14/22 11:23 Dose: 0 mcg/min, 0 mls/hr Documented By: Titration: 12/14/22 10:29 Dose: 10 mcg/min, 6 mls/hr Documented By: Admin: 12/14/22 10:09 Dose: 5 mcg/min, 3 mls/hr Documented By: AMADOR Co-signed By: PADMA Pantoprazole Sodium 40 mg/ (Syringe) 10 mls @ 5 mls/min IV NOW ONE Stop: 12/14/22 11:01 Last Admin: 12/14/22 11:38 Dose: 5 mls/min Documented By: BRIAN Lidocaine HCl (Lidocaine 1% Local 20 Ml Vial) Confirm Administered Dose 20 ml .ROUTE .STK-MED ONE Stop: 12/14/22 12:22 Last Admin: 12/14/22 13:06 Dose: 20 ml Documented By: SAEED Midazolam HCl (Midazolam Hcl 1 Mg/Ml 2ml Vial) Confirm Administered Dose 2 mg .R OUTE .STK-MED ONE Stop: 12/14/22 12:11 Last Admin: 12/14/22 14:18 Dose: 2 mg Documented By: MINNIE Nicardipine HCl (Nicardipine Hcl Inj 2.5 Mg/Ml 10 Ml Amp) Confirm Administered Dose 25 mg .ROUTE .STK-MED ONE Stop: 12/14/22 12:11 Last Admin: 12/14/22 13:06 Dose: 25 mg Documented By: SAEED Nitroglycerin (Nitroglycerin 2% Ointment 30gm Tube) 0.25 inch EXT NOW STA Stop: 12/14/22 09:46 Last Admin: 12/14/22 15:40 Dose: Not Given Documented By: MAXIMILIAN Nitroglycerin/Dextrose (Nitroglycerin/D5w 100 Mcg/Ml Btl) Confirm Administered Dose 25 mg .ROUTE .STK-MED ONE Stop: 12/14/22 10:07 Last Admin: 12/14/22 10:22 Dose: Not Given Documented By: AMADOR Nitroglycerin/Dextrose (Nitroglycerin/D5w 100mcg/Ml 20ml Syr) Confirm Administered Dose 2,000 mcg .[facility]OUTE [facility] Stop: 12/14/22 12:12 Last Admin: 12/14/22 13:06 Dose: 2,000 mcg Documented By: SAEED Ondansetron HCl (Ondansetron Inj 2 Mg/Ml 2 Ml Vial) 2 mg IV NOW STA Stop: 12/14/22 08:23 Last Admin: 12/14/22 08:40 Dose: 2 mg Documented By: DORI Ticagrelor (Ticagrelor 90 Mg Tab) Confirm Administered Dose 180 mg .ROUTE [facility] ONE Stop: 12/14/22 14:22 Last Admin: 12/14/22 14:58 Dose: 180 mg Documented By: YADIEL Imaging Data Radiologist's Impression: Chest X-Ray 12/14/22 08:10 XR chest 1V portable CLINICAL HISTORY: Chest pain, nonspecific COMPARISON STUDY: Chest CT May 12, 2021. Chest radiograph February 05, 2022. FINDINGS: Lung volumes are normal. Lungs are clear. There is no pneumothorax or pleural effusion. . Cardiomegaly is unchanged. Mediastinal contours are normal. There is no evidence for pulmonary edema. Old, healed proximal right humeral diaphyseal fracture is unchanged. IMPRESSION: No acute cardiopulmonary findings. Stable cardiomegaly. ACT 112: Negative or not required by law. Electronically signed by: Hugh Saini M.D. 12/14/2022 9:29 AM Discharge Plan Visit Data Chief Complaint: Chest Pain ED Provider: Declan Albert Discharge Problem: Non-ST elevated myocardial infarction, Chest pain Patient Disposition: Admitted As Inpatient Discharge Instructions Interventions: ED Discharge Assessment Last Done: 12/14/22 12:29
--- NOTE | 2022-12-14 10:01 | History & Physical Report ---
Date of Service December 14, 2022 Assessment & Plan (1) Non-ST elevated myocardial infarction: Plan: -Admit to the ICU on tele and pulse oximetry -Currently stable on Nitroglycerine drip and heparin drip -At this time it appears that the etiology of the patient's symptoms are most likely cardiac in nature. Symptoms are similar to her previous need for cardiac cath and stent placement in 2004. Initial high sen trop elevated at 348, no acute ST segment or T-wave inversion on ECG to suggest STEMI. -Patient with previous LAD and Ramus stents placed in 2004; has not been taking aspirin daily as prescribed -Received 324 mg Aspirin By EMS -Cardiology consulted, profiling machine set up operator will be evaluating her shortly to determine need to go to the bed laborer -Keep NPO for now -STAT TTE ordered -Continue Heparin drip, bolus given -Continue Nitroglycerin drip and titrate based on chest pain, keep SBP between 90-180 mmhg -Will hold BB at this time due to bradycardia in the ED -Continue heparin drip which will cover DVT PPX -Will continue to trend high sen trop -AM CBC, CMP, Mag, PT/INR, aptt (2) CAD (coronary artery disease): Plan: -Continue acute chest pain management as described in NSTEMI (3) SIADH (syndrome of inappropriate ADH production): Plan: -Sodium is stable at 130 (appears to be baseline) -Stopping NSS ordered in the ED, will start LR while NPO -Monitor intake/output and daily sodium levels (4) Hypertension: Plan: -Stable -Continue nitro drip for now with parameters listed in NSTEMI Plan The patient was discussed with Dr. Salamanca at the time of the admission History of Present Illness Chief Complaint: Chest Pain Primary Care Provider: Michael Corley MD Mallika is a 82 year old female with a PMH significant for CAD S/P [place] in 2004, S/P Cardiac Cath with [place] to the LAD and ramus, HTN, hypercholesterolemia, LVH, known LBBB, and hyponatremia (SIADH) who presented to the [facility] ED on 12/14 via EMS for 3 days of ongoing substernal/epigastric abdominal pain. In the ED vitals remained stable. Labs were significant for a stable sodium of 130, total bili of 1.1, and initial high sen trop of 348. Chest xray was read as "No acute cardiopulmonary findings. Stable cardiomegaly.". ECG showed stable LBBB and no acute ST segment or T-wave changes. Prior to admission the patient was given 324 mg Aspirin in route by EMS and was started on a Heparin drip and ordered 0.25 in ches of nitroglycerine paste. At the time of the exam the patient was sitting in bed in no acute distress with her standing bedside. She states that she started to develop substernal/epigastric burning approximately 3 days ago. She states that at it's worst the patient has been a 5-6/10, it is currently a 5/10. She denies the pain radiating anywhere else. She prefers homeopathic medicine and was taking plant enzymes for her symptoms without relief. When asked, she states that she takes her baby aspirin infrequently due to forgetting and because she does not like non-homeopathic medications. When asked, she confirms that these symptoms are similar to her symptoms in 2004 when she required cardiac cath and stent placement. She denies recent fever, chills, cough, abd pain, vomiting, dysuria, hematuria, melena, diarrhea, LE swelling, and recent trauma. We explained that she will be evaluated by our Manager Assembly to determine if she will be taken to the bed laborer. I strongly encouraged her to take her aspirin as prescribed as not taking it will significantly increase her chances of having further coronary artery plaque build up. We discussed code status. The patient does not want CPR or defibrillation in the event of Cardiac Arrest. She would want a trial of intubation in the event of reparatory distress/failure. Please refer to Dr. Salamanca's attestation for any changes to the treatment plan Allergies Allergy/AdvReac Type Severity Reaction Status Date / Time acetaminophen Allergy Intermediate Joint Verified 12/14/22 10:38 Pain, Headache asparagus Allergy Intermediate Joint Pain Unverified 12/14/22 10:38 azithromycin Allergy Intermediate Joint Verified 12/14/22 10:38 Pain, Headache spinach Allergy Intermediate Joint Pain Unverified 12/14/22 10:38 Scsoxgp-EVL-VdJ Reductase Allergy Intermediate lethargy,muscle Verified 12/14/22 10:38 Inhibitor weakness [Hdftszm-Gag-Nai Reductase Inhibitor] alprazolam AdvReac Intermediate Joint Verified 12/14/22 10:38 Pain, Headache amoxicillin AdvReac Intermediate Joint Verified 12/14/22 10:38 Pain, Headache ciprofloxacin AdvReac Intermediate Joint Verified 12/14/22 10:38 Pain, Headache Acid food Allergy Intermediate Joint Uncoded 12/14/22 10:38 Pain, heahache Home Medications Medication Instructions Recorded Confirmed Type digestive enzymes (Enzyme Digest 1 cap PO BIDM 12/02/18 12/14/22 History capsule) melatonin 3 mg tablet 3 mg PO HS PRN Sleep 12/02/18 12/14/22 History multivitamin 1 tab PO DAILY 12/02/18 12/14/22 History omega 7-cfh-ozy-fish oil 1,000 mg 1 cap PO DAILY 12/02/18 12/14/22 History (120 mg-180 mg) capsule (Fish Oil) aspirin 81 mg tablet,delayed 81 mg PO QAM 10/09/20 12/14/22 History release cholecalciferol (vitamin D3) 25 4,000 unit PO DAILY 10/23/21 12/14/22 History mcg (1,000 unit) capsule (Vitamin D3) Arnicare Pain Relieving Cream 1 applic topical DAILY PRN Pain 12/14/22 12/14/22 History pantoprazole 40 mg tablet,delayed 0 mg PO DAILY 12/14/22 12/14/22 History release (Protonix) Past Med/Surg History Medical History Abdominal pain, RUQ (right upper quadrant) Allergic rhinitis Arteriosclerosis of coronary artery Dysuria Elevated cholesterol Esophageal reflux Frequent UTI NOT CURRENT Hemorrhoid History of diverticulitis of colon Hypertension PT DENIES Hyponatremia Muscle weakness (generalized) Myocardial infarction 2004 Osteoarthritis Osteoporosis Postmenopausal atrophic vaginitis Urinary frequency Vitamin D deficiency Surgical History H/O colonoscopy with polypectomy History of cataract surgery RT/LEFT History of heart artery stent 2005>2 STENTS PLACED AT [facility] (FOLLOWED BY DR. OSBORNE NOW) History of tooth extraction S/P dilation and curettage Family History Father Myocardial infarction Mother Cardiac disorder Other No family history of adverse response to anesthesia Denies family history of Ovarian cancer Prostate cancer Breast cancer Colorectal cancer Social History Smoking Status: Never smoker Second Hand Exposure: No; Do You Dip or Chew Tobacco: No; Hx Alcohol Use: No Hx Substance Use: No Preferred Language: Turkmen Communication Ability: Effective Visual Impairment: No Limitations Hearing Ability: Normal Retail Analytics Manager Required: No Beliefs That Will Affect Care: None marital status: Current Living Situation: Spouse current occupational status: retired current occupation: worked in sales How many Children do You have: 1 Other Information That Helps Us Care for You: No Feels Safe at Home: Yes Safety Concerns: Feels Safe At This Time Childhood Exposure to Second-Hand Smoke: No Diet: regular Dental Care, Regularly: Yes Physical Activity Frequency: Daily Physical Activity Frequency Comment: bike and gardening Seatbelt Use: always Sunscreen Use: Yes Assistive Devices: Glasses Physical Exam Physical Exam: Physical Exam: General: In no acute distress, stated age, non-toxic appearing HEENT: Normocephalic, atraumatic, no scleral icterus, pupils around round, symmetrical, and reactive to light, moist mucus membranes, trachea midline, no thyromegaly Chest/Pulm: No reproducible pain on palpation of the chest, No respiratory distress, symmetrical chest expansion, clear breath sounds throughout Cardiac: RRR, no murmurs noted Abdomen: Negative for ascites and bruising, normoactive bowel sounds, soft, non-tender to palpation throughout Musculoskeletal: Symmetrical and without signs of acute trauma, upper and lower extremities with full ROM, no atrophy, spasticity, or flaccidity Extremities: Radial, dorsalis pedis, and posterior tibial pulses are intact and symmetrical, no edema noted in the BL LE's Skin: Warm, dry, no rashes , lesions, or scars noted Neuro: Alert and oriented to person, place, month, year, and president, no focal defects, no tremors noted Psych: No acute distress, calm and cooperative during the exam Results & Data Results & Data Vital Signs (Past 12 Hours) Vital Signs Temp Pulse BP Pulse Ox O2 Del Method 12/14/22 08:27 56 L 12/14/22 08:10 58 L 100 Room Air 12/14/22 08:10 36.5 C 57 L 143/68 H 100 Room Air Laboratory Results Abnormal lab results 12/14/22 12/14/22 12/14/22 Range/Units 08:30 08:38 Unknown RBC 3.31 L (4.20-5.40) M/uL Hgb 11.2 L (12.0-16.0) g/dl POC Hgb 11.2 L (12.0-16.0) g/dl Hct 30.7 L (37.0-47.0) % POC Hct 33 L (37-47) % MCHC 36.5 H (32.0-36.0) g/dL POC Sodium 129 L (135-144) mmol/L Sodium (136-145) mmol/L POC Chloride 92 L (101-112) mmol/L Chloride (98-107) mmol/L POC Anion Gap 14.0 L (16-25) mmol/L Creatinine (0.6-1.2) mg/dl POC Creatinine 0.5 L (0.6-1.3) mg/dl BUN/Creatinine Ratio (10-20) Glucose (70-99(Fasting)) mg/dl POC Glucose (other) 120 H (70-99) mg/dl POC Ioniz Calcium Damaris 1.03 L (1.12-1.32) mmol/l Total Bilirubin (0.2-1.0) mg/dl Troponin I High Sens (0-14) pg/ml B-Natriuretic Peptide 190 H (0-100) pg/ml 12/14/22 Range/Units Unknown RBC (4.20-5.40) M/uL Hgb (12.0-16.0) g/dl POC Hgb (12.0-16.0) g/dl Hct (37.0-47.0) % POC Hct (37-47) % MCHC (32.0-36.0) g/dL POC Sodium (135-144) mmol/L Sodium 130 L (136-145) mmol/L POC Chloride (101-112) mmol/L Chloride 95 L (98-107) mmol/L POC Anion Gap (16-25) mmol/L Creatinine 0.51 L (0.6-1.2) mg/dl POC Creatinine (0.6-1.3) mg/dl BUN/Creatinine Ratio 25.5 H (10-20) Glucose 123 H (70-99(Fasting)) mg/dl POC Glucose (other) (70-99) mg/dl POC Ioniz Calcium Damaris (1.12-1.32) mmol/l Total Bilirubin 1.1 H (0.2-1.0) mg/dl Troponin I High Sens 348.7 H* (0-14) pg/ml B-Natriuretic Peptide (0-100) pg/ml Diagnostic Findings Chest X-Ray 12/14/22 08:10 XR chest 1V portable CLINICAL HISTORY: Chest pain, nonspecific COMPARISON STUDY: Chest CT May 12, 2021. Chest radiograph February 05, 2022. FINDINGS: Lung volumes are normal. Lungs are clear. There is no pneumothorax or pleural effusion. . Cardiomegaly is unchanged. Mediastinal contours are normal. There is no evidence for pulmonary edema. Old, healed proximal right humeral diaphyseal fracture is unchanged. IMPRESSION: No acute cardiopulmonary findings. Stable cardiomegaly. ACT 112: Negative or not required by law. Electronically signed by: Hugh Saini M.D. 12/14/2022 9:29 AM Code Status & VTE Plan Code Status Conditional code; no CPR or defibrillation in the event of cardiac arrest, would want a trial of CPR in event of respiratory failure VTE Prophylaxis Plan VTE Prophylaxis will be ordered: Yes Supervising Physician Co-Signing Physician Notes I personally saw and examined the patient. I verified all hood points and agree with Edgar Austin PA-C with the following exceptions and/or additions: 82 year old female presents to the ER with chest pain. Non-compliant with her medications. Prior history of AMI, LAD and ramus stents, January 2005. 3 days of intermittent but now constant chest pain. Worse on exertion. O/E HS RRR, no murmurs, Chest CTAB, Abdo SNT A/P NSTEMI - Low dose heparin with bolus, ASA given pre-hospital, dropping her BP to intravenous nitroglycerin, Recommend proceeding to cardiac cath, contacted Dr Amador while patient having echocardiogram who will evaluate. Stressed importance of compliance with medications to stop. PG Care Time/CCT Total # of Minutes Spent Total Time Spent with Patient: Total time spent is greater than 50% in coordination of care (as documented) at patient's floor/unit and/or counseling patient: Coding [place] [address] INT INP/OBS CARE 3/75MIN Patient Type Established Medical Decision Making High Complexity Diagnoses Non-ST elevated myocardial infarction I21.4 CAD (coronary artery disease) I25.10 SIADH (syndrome of inappropriate ADH production) E22.2 Hypertension I10
[2022-12-14] MEDS ORDERED: STAT IV Infusion **Titration per Protocol STA (10:05)
[2022-12-14] MEDS ORDERED: NITROGLYCERIN/D5W 100 MCG/ML BTL ONE (10:06)
[2022-12-14] MEDS ORDERED: NITROGLYCERIN/D5W 100MCG/ML 250 ML IV SCH (10:15)
[2022-12-14] MEDS ORDERED: HEPARIN SOD (PORCINE) 1000 UNIT/ML ONE (10:20)
[2022-12-14] MEDS ORDERED: Heparin IV Adult Wt-Based Low-Dose WITH Bolus Protocol IV ONE (10:30)
[2022-12-14] MEDS ORDERED: LACTATED RINGER'S 1,000 ML IV SCH (10:45)
[2022-12-14] MEDS ORDERED: PANTOprazole 40 MG in SYRINGE 0 ML IV ONE (11:00)
[2022-12-14] MEDS ORDERED: MIDAZOLAM HCL 1 MG/ML 2ML VIAL ONE (12:10)
[2022-12-14] MEDS ORDERED: HEPARIN (PORCINE) 1000 UNIT/ML 10 ML (CATH LAB USE ONLY) ONE (12:10)
[2022-12-14] MEDS ORDERED: niCARdipine HCL INJ 2.5 MG/ML 10 ML AMP ONE (12:10)
[2022-12-14] MEDS ORDERED: fentaNYL citrate PF 100 MCG/2 ML VIAL ONE (12:10)
[2022-12-14] MEDS ORDERED: NITROGLYCERIN/D5W 100MCG/ML 20ML SYR ONE (12:11)
[2022-12-14] MEDS ORDERED: LIDOCAINE 1% LOCAL 20 ML VIAL ONE (12:21)
[2022-12-14] MEDS ORDERED: EPTIFIBATIDE 0.75 MG/ML 75MG VIAL (CATH LAB USE ONLY) IV ONE (13:10)
[2022-12-14] MEDS ORDERED: EPTIFIBATIDE 2 MG/ML 10 ML VIAL (CATH LAB USE ONLY) IV ONE (13:11)
--- NOTE | 2022-12-14 13:58 | XCELERA ---
[id number] \\[id number]
[2022-12-14] MEDS ORDERED: CLOPIDOGREL BISULFATE 300 MG TAB ONE (14:04)
[2022-12-14] MEDS ORDERED: EPTIFIBATIDE BOLUS/DRIP IV STA ×2 (14:10)
[2022-12-14] MEDS ORDERED: EPTIFIBATIDE 75 MG/100 ML VIAL IV SCH (14:15)
[2022-12-14] MEDS ORDERED: TICAGRELOR 90 MG TAB ONE (14:21)
--- NOTE | 2022-12-14 14:32 | Pre Anesthesia Assessment ---
Date of Service December 14, 2022 Pre Sedation Assessment Vital Signs Temp Pulse Resp BP Pulse Ox O2 Del Method 12/14/22 12:00 63 17 97/81 L 98 Room Air 12/14/22 11:45 60 24 113/56 L 99 Room Air 12/14/22 11:30 66 20 98/51 L 98 Room Air 12/14/22 11:21 70 17 86/53 L 94 Room Air 12/14/22 11:00 61 16 100/51 L 97 Room Air 12/14/22 10:45 62 22 92/70 L 97 Room Air 12/14/22 10:30 65 19 113/62 97 Room Air 12/14/22 10:15 63 20 138/87 99 Room Air 12/14/22 10:08 71 19 123/83 99 12/14/22 08:45 56 L 24 118/60 100 12/14/22 08:27 56 L 12/14/22 08:10 58 L 100 Room Air 12/14/22 08:10 36.5 C 57 L 143/68 H 100 Room Air Cardiovascular Additional Comments: Bradycardia Respiratory normal respiratory effort, lungs clear to auscultation Pre-Sedation Airway Assessment Smoking Status: Never smoker Mallampati 2 ASA 4 Notes The planned sedation has been discussed with the patient. Informed Consent was obtained. I have identified the patient, determined the appropriateness of sedation and have assessed the patient immediately prior to the procedure. All medicine(s) and interventions are by my order. [facility] [place] Procedure Codes (Charges) Indication for Procedure Indication for procedure: Non-ST elevation UT
--- NOTE | 2022-12-14 14:34 | Post Anesthesia Assessment ---
Date of Service December 14, 2022 Post Sedation Assessment Vital Signs Temp Pulse Resp BP Pulse Ox O2 Del Method 12/14/22 12:00 63 17 97/81 L 98 Room Air 12/14/22 11:45 60 24 113/56 L 99 Room Air 12/14/22 11:30 66 20 98/51 L 98 Room Air 12/14/22 11:21 70 17 86/53 L 94 Room Air 12/14/22 11:00 61 16 100/51 L 97 Room Air 12/14/22 10:45 62 22 92/70 L 97 Room Air 12/14/22 10:30 65 19 113/62 97 Room Air 12/14/22 10:15 63 20 138/87 99 Room Air 12/14/22 10:08 71 19 123/83 99 12/14/22 08:45 56 L 24 118/60 100 12/14/22 08:27 56 L 12/14/22 08:10 58 L 100 Room Air 12/14/22 08:10 36.5 C 57 L 143/68 H 100 Room Air Recovery Score Activity: Moves 4 extremities Respiration: Deep Breath/Cough Circulation: +/-20% PreAnes Value Consciousness: Fully Awake Oxygen Saturation: > 92% On Room Air Discharge Sedation Level of Care: Fast Track Phase II Post Sedation Plan On clinical assessment, the patient appears to have tolerated the sedation without complications. Patient is recovering as anticipated. Patient will continue to be monitored by nursing and may be discharged when sedation discharge criteria are met per below protocol. Upon Completions of procedure up to 15 minutes continue every 5 minute vital signs and the P.A.R. score; then discharge to a Phase I or Fast Track to Phase II per the following guidelines: * Discharge Patient to appropriate Phase II area if PAR is 8 or greater or return to pre- procedure baseline. The post - procedure orders will be as directed. * If PAR score is less than 8 or not return to pre-procedure baseline then patient will follow Phase I monitoring till PAR is reached for Phase II. The Phase I may be done in procedure room or may call to secure a Phase I area. * If naloxone or flumazenil are used for reversal, hold in Phase I for continued monitoring from when last reversal dose was given for a minimum of 60 minutes or longer pending the nurse and/or physician discretion of patient condition before discharge to Phase II. Please call the Sedation Physician to re-evaluate and complete post-note for discharge to Phase II area. Do NOT discharge from procedure sedation or Phase 1 until post- sedation evaluation note is complete by procedure /sedation MD Sedation Discharge Instructions to be given to the patient at discharge to home. [facility] [place] Procedure Codes (Charges) Indication for Procedure Indication for procedure: Non-ST elevation CT Sedation/Anesthesia Procedure 1: Sedation/Anesthesia: 17067 Mod Sedation by the same physician;Init15 Min Child Age 5 & Up (Initial 15-minute, start time 1248) Total Sedation Time (minutes): 75 Procedure 2: Sedation/Anesthesia: 90429 Mod Sedation by the same physician; Ea [id number] Minutes (Additional 16 min, end time 1403) Total Sedation Time (minutes): 75
--- NOTE | 2022-12-14 14:46 | Cardiac Catheterization ---
[facility] Data: Retail Team Leader Cardiac Status Clinical evaluation leading to the procedure CAD Presenation: Non STEMI Anginal Classification: CCS IV Heart Failure: No Cardiogenic Shock within 24 Hours: No Cardiac Arrest within 24 Hours: No Imaging Studies Past 6 Months: Yes Stress Studies Past 6 Months: No Coronary Anatomy Dominant: Right Left Main (% Stenosis): Distal (30%) LAD (% Stenosis): Proximal (80%), Mid (Stent patent) and Distal (40 to 50% diffuse) D1 (% Stenosis): Normal D2 (% Stenosis): Normal Circumflex (% Stenosis): Proximal (50%) OM1 (% Stenosis): Normal RCA (% Stenosis): Ostial (50%) and Proximal (Diffuse mild and then 100% before RV marginal) Ramus (% Stenosis): Proximal (50%), Mid (Stent patent) and Distal (50%) Diagnostic Physicians Name: Geo Amador MD, PhD Closure Device Percutaneous Entry Location: Initial radial, final femoral Closure Device: None-Manual Hold and Radial Band Recommendations: Medical Therapy and/or Counseling, PCI without planned CABG and Management Recommendatons (Cardiac rehab) PCI Indication: PCI for high risk Non-[place]ES Lesion Segment Name: Proximal to mid RCA Culprit Artery: Yes Stenosis Prior to Rx (%): 100% proximal to mid, 50 to 70% ostial to proximal Chronic Total Occlusion: No Pre-Procedure JOSEFINA Flow: 0 Previously Treated Lesion: No Lesion Complexity: Non-High/Non-C Lesion Length (mm): 25 mm proximal, 8 mm ostial to proximal Thrombus Present: Yes Bifurcation Lesion: Yes Guidewire Across Lesion: Yes Intraprocedure Events Significant Disection: No Perforation: No Cardiac Cath Procedure Full Procedure Date December 14, 2022 Pre-Procedure Diagnosis Pre-Procedure Diagnosis: Non STEMI AUC Score AUC Score: 07 Post-Procedure Diagnosis Post-Procedure Diagnosis: Severe CAD Procedure(s) Performed Procedure(s) Performed: Coronary Angiography, Drug Eluting Stent and Ultrasound Guided Vascular Access Special Education Supervisor Geo Amador MD, PhD Estimated Blood Loss Estimated Blood Loss: 8 mL Medication(s) Medication(s): Fentanyl, Heparin, Integrilin, Lidocaine 1%, Nicardipine, Nitroglycerin and Versed Summary of Findings Brief description: Patient was brought to the cardiac catheterization suite where she was shaved and prepped in a sterile fashion. Sedated using IV Versed and fentanyl. Soft tissues of the right wrist were anesthetized using 2 mils of 1% Xylocaine. The right radial artery was accessed with a modified Seldinger technique and a 5 [place] arterial sheath was placed. Patient arrived already having received 5000 units IV heparin. All catheters were advanced and exchanged over a 0.035 J-tip wire. Left coronary angiography was performed in orthogonal views with a 5 [place] Sparkill 4 diagnostic catheter. Right coronary angiography was performed in orthogonal views with a 5 [place] Sparkill 4 diagnostic catheter. Diagnostic catheters were removed. We decided to proceed with PCI of the RCA. ACT was checked and additional heparin was provided as needed intermittently throughout the case to maintain therapeutic anticoagulation. Additionally, Integrilin was started as a double bolus administration followed by a drip. A 5 [place] JR4 guide catheter was used to engage the right coronary. Through this, a BMW universal guidewire was advanced and positioned distally in the RCA. The lesion was predilated with a 2.0 x 12 mm mini trek balloon up to 14 haydee. Senior Software Test Engineer angiography was performed. We attempted to advance a 2.25 x 22 mm resolute Bogdan stent, however, because of severe vasospasm in the small caliber of her radial artery we were unable to safely deliver this stent. Even after antispasmodics were used we could not safely deliver the stent and therefore decision was made to abandon PCI from the radial artery approach. All equipment was removed via the radial artery sheath and this sheath was fixed in place with Tegaderm. Soft tissues of the right groin were anesthetized using 5 mL of 1% Xylocaine. Using the ultrasound for guidance (image saved), the right femoral artery was accessed and a 6 [place] femoral artery sheath was placed. A 6 [place] JR4 guide catheter was then used to engage the right coronary artery. BMW number so guidewire was reinserted and advanced distally in the RCA. A 2.25 x 22 mm [place] drug-eluting stent was then advanced and positioned across the lesion where it was deployed at 14 HAYDEE. Stent balloon was removed and we next attempted to implant a 2.5 x 15 mm Bogdan stent in an overlap fashion and extending to the ostium of the RCA which was diseased. Unfortunately, as we were deploying the stent the patient moved. The stent was deployed at 15 haydee. Senior Software Test Engineer angiography revealed a short uncovered segment between the 2 stents and the proximal edge of the stent was protruding into the aorta about a millimeter or 2 further than we had intended. Therefore, a 2.5 x 8 mm Bogdan stent was advanced and positioned across the unstented intervening segment where it was deployed at 15 haydee thereby completing the bridge between the stents. The proximal overlap segment was then postdilated with the same balloon to 18 haydee. Finally, because of significant distal stepdown patient was provided intracoronary nitroglycerin and angiography was performed. Decision was made to implant a final 2.25 x 12 mm [place] stent in an overlap fashion at the most distal edge of the first stent and extending a bit further distally in the RCA. This was deployed at 14 haydee. The overlapped portion was then postdilated with the same balloon to 17 haydee. Postdilatation performed throughout the stent train beginning distally and ending at the ostium as follows. We used a 2.5 x 12 mm NC trek at 13 haydee in the mid to distal portion, 16 haydee in the midportion, 17 haydee in the mid to proximal portion, 18 haydee in the proximal portion, 19 haydee in the proximal to ostial portion and then 20 haydee limited to the ostium of the stent. Senior Software Test Engineer angiography was performed. Guidewire and balloons were removed. Final angiographic evaluation was performed. The guide catheter was then removed. ACT was checked and the femoral arterial sheath was sutured in place to be removed later when ACT was less than 160 seconds. Manual compression to be used at that time. The radial artery sheath was removed and hemostasis was obtained using the TR band. Patient remained hemodynamically stable and asymptomatic. She was subsequently transported to the ICU for further treatment. This ended the case. Coronary angiography findings: QEH-fzsld-dxhpuuv vessel trifurcating into LAD, ramus, and circumflex. Mild diffuse disease with distal calcification and distal up to 30% narrowing. LAD-large caliber and transapical. Beginning at the ostium and through the proximal segment there is a long eccentric 80% stenosis. This segment gives off a small first diagonal. Mid segment has a previously placed stent which is widely patent. It gives off a medium caliber branching second diagonal. After the stent the distal LAD is tortuous with diffuse 30 to 40% stenosis. Ramus-medium to large caliber. Ostial to proximal 40 to 50% stenosis followed by a stent which is widely patent and then after the stent there is 50% stenosis. LCx-medium to large caliber and nondominant. Travels in AV groove where there is a proximal focal 50% stenosis. It gives a small to medium caliber tortuous OM1. The circumflex then continues distally in the AV groove. 2 atrial branches arise from the AV groove vessel and the vessel terminates as a small caliber AV groove circumflex. RCA-medium to large in caliber and dominant. Ostial 50 to 70% focal stenosis. We did have pressure dampening on engagement. The proximal segment then has diffuse mild to moderate disease until just prior to the RV marginal where it is 100% occluded with evidence of thrombus. JOSEFINA 0 flow. The most distal branch vessels of the RCA fills faintly via left to right collateralization. PCI of RCA- 0% residual stenosis post PCI No evidence of dissection or perforation post PCI JOSEFINA-3 flow post PCI The ostium to proximal portion of the RV marginal has 70% stenosis but is too small for intervention. The most distal circumflex prior to bifurcation into the PDA and posterolateral branch has a focal 40% residual stenosis. Summary: 1. Previously placed stents appear patent. 2. Severe [place] vessel coronary artery disease. Culprit is occluded RCA. 3. Successful PCI with implantation of 4 overlapped drug-eluting stents spanning the ostium of the RCA to the early distal RCA. Significant residual coronary disease in the proximal LAD as described. 4. Patient will be on dual antiplatelet therapy with aspirin and Brilinta to complete 1 to 2 years. Integrilin drip and heparin will be discontinued. 5. Patient has multiple drug intolerances. For now, her therapy will include only the antiplatelets. As tolerated we will add a beta-vaibhav and/or MONTSE inhibitor/ARB. She has not tolerated or has refused statins in the past. At the very least she should be considered for Repatha. 6. I strongly recommend CARDIAC REHAB after discharge. Hemodynamics Rest Ao:: 127/64 mmHg Final Ao: 116/60 mmHg LV: Not performed Recommendations Recommendations: Medical Therapy and/or Counseling, PCI without planned CABG and Management Recommendatons (Cardiac rehab) Radiation Exposure (mGy) 317 mGy, fluoroscopy time 14 minutes Contrast (mls) 160 mL Anesthesia 2 mg IV Versed, 50 mcg IV fentanyl Procedural Complication(s) None Disposition ICU I attest to the content of the Intraoperative Record and any orders documented therein. Any exceptions are noted below. [facility] [place] Card Cath Procedure Codes Cardiac Catheterization Procedure 1: Cardiovascular Cath Procedures: 95803 Coronaries Therapeutic Services & Ancillary Procedure 1: Cardiovascular Tx and Anc Procedures: 07457 Ultrasonic Guidance Vascular Access Moderate Sedation Procedure 1: Sedation/Anesthesia: 62106 Mod Sedation by the same physician;Init15 Min Child Age 5 & Up (Initial 15 min, start time 1248) Procedure 2: Sedation/Anesthesia: 79934 Mod Sedation by the same physician; Ea [id number] Minutes (Additional 60 min, end time 1403) Stenting Procedure 1: Cardiovascular Stent Procedures: 60947 Perc transluminal revascularization of acute sub/total occl, aMI (RCA) PG Care Time/CCT Total # of Minutes Spent Total Time Spent with Patient: Total time spent is greater than 50% in coordination of care (as documented) at patient's floor/unit and/or counseling patient:
[2022-12-14] MEDS ORDERED: TICAGRELOR 90 MG TAB PO ONE ×2 (14:51)
[2022-12-14] MEDS: ICU Protocol for HYPERglycemia SCH ×3 (15:38→22:26)
--- NOTE | 2022-12-14 15:39 | Critical Care Consultation ---
Date of Consultation December 14, 2022 Assessment & Plan (1) Non-ST elevated myocardial infarction: (2) Chest pain: (3) CAD (coronary artery disease): (4) Chest pain, precordial: (5) Hypercholesterolemia: (6) SIADH (syndrome of inappropriate ADH production): Plan Reason Critically Ill: 82-year-old female past medical history of coronary artery disease, SIADH, dyslipidemia presented to the hospital with chest pain, she went to the cardiac [employer] and stents were placed. In the ICU for further management Neuro - [facility] ICU: Negative Cardiac - -- NSTEMI S/p cardiac cath 12/14/2022 4 stents in RCA Continue with dual antiplatelet therapy Patient was not able to tolerate statin in the past. It would be recommended in somebody with coronary artery disease and latest stents Continue to trend troponin and EKG 2D echo 12/14/2022: EF 60-65%, mild concentric LVH, mild AR, RV SP normal, small pericardial effusion EKG 12/14/2022: Sinus bradycardia with first-degree AV block, left axis deviation, left bundle branch block, no ST-T wave changes -- Dyslipidemia Patient was not able to tolerate statins in the past Respiratory - -- No acute issues GI - -- GERD Continue with pantoprazole RENAL/LYTES - -- Chronic hyponatremia History of SIADH Continue to monitor ENDO - ICU hypoglycemia protocol HEME - -- Normocytic anemia Monitor H&H ID - -- No active issues --Prophylaxis VTE: IPC GI: Pantoprazole Lines: Right femoral sheath, peripheral Diet: Cardiac Plan: Continue with dual antiplatelet therapy Integrilin infusion as per cardiology. Start the patient on pantoprazole. Patient will need statin as well Patient's heart rate is on the bradycardic side, blood pressure is also soft. I f it starts to trend down we will give IV fluids Start beta-vaibhav once patient's heart rate is able to tolerate Right femoral sheath to be removed by cardiology. Please note the above document was generated using voice recognition software. It may contain grammatical, syntax or spelling errors.Any formal questions or concerns about the content, text or information contained within the body of this dictation should be directly addressed to the provider for clarification. History of Present Illness Attending Physician: Geo Amador MD, PhD History of Present Illness 82-year-old female presented to the hospital with chest pain, identity was ca lled and patient was taken to the [employer] Past medical history: Coronary artery disease s/p stenting 2004, dyslipidemia, hypertension, LVH, left bundle branch block, hyponatremia from SIADH Had 4 stents placed in RCA. Patient presented to the hospital with complaint of chest pain which was subste rnal nonradiating. At the time of examination in the ICU patient's heart rate was in the high 50s t o low 60s. Blood pressure in the high 90s with MAP in the high 60s. She was asking if she could eat something Patient denied any chest pain. No dizziness, no nausea or vomiting She did complain of some tingling sensation in the fingers. No headache or blurry vision. She is compliant with her medications Denies any fever or chills No dysuria, no diarrhea Social history: Lifetime non-smoker. Allergies Allergy/AdvReac Type Severity Reaction Status Date / Time acetaminophen Allergy Intermediate Joint Verified 12/14/22 10:38 Pain, Headache asparagus Allergy Intermediate Joint Pain Unverified 12/14/22 10:38 azithromycin Allergy Intermediate Joint Verified 12/14/22 10:38 Pain, Headache spinach Allergy Intermediate Joint Pain Unverified 12/14/22 10:38 Tqdyalg-SPL-NwB Reductase Allergy Intermediate lethargy,muscle Verified 12/14/22 10:38 Inhibitor weakness [Punnwwy-Gbr-Trk Reductase Inhibitor] alprazolam AdvReac Intermediate Joint Verified 12/14/22 10:38 Pain, Headache amoxicillin AdvReac Intermediate Joint Verified 12/14/22 10:38 Pain, Headache ciprofloxacin AdvReac Intermediate Joint Verified 12/14/22 10:38 Pain, Headache Acid food Allergy Intermediate Joint Uncoded 12/14/22 10:38 Pain, heahache Home Medications Medication Instructions Recorded Confirmed Type digestive enzymes (Enzyme Digest 1 cap PO BIDM 12/02/18 12/14/22 History capsule) melatonin 3 mg tablet 3 mg PO HS PRN Sleep 12/02/18 12/14/22 History multivitamin 1 tab PO DAILY 12/02/18 12/14/22 History omega 0-kut-jhg-fish oil 1,000 mg 1 cap PO DAILY 12/02/18 12/14/22 History (120 mg-180 mg) capsule (Fish Oil) aspirin 81 mg tablet,delayed 81 mg PO QAM 10/09/20 12/14/22 History release cholecalciferol (vitamin D3) 25 4,000 unit PO DAILY 10/23/21 12/14/22 History mcg (1,000 unit) capsule (Vitamin D3) Arnicare Pain Relieving Cream 1 applic topical DAILY PRN Pain 12/14/22 12/14/22 History pantoprazole 40 mg tablet,delayed 0 mg PO DAILY 12/14/22 12/14/22 History release (Protonix) Patient History Medical History Abdominal pain, RUQ (right upper quadrant) Allergic rhinitis Arteriosclerosis of coronary artery Dysuria Elevated cholesterol Esophageal reflux Frequent UTI Hemorrhoid History of diverticulitis of colon Hypertension Hyponatremia Muscle weakness (generalized) Myocardial infarction Osteoarthritis Osteoporosis Postmenopausal atrophic vaginitis Urinary frequency Vitamin D deficiency Surgical History H/O colonoscopy with polypectomy History of cataract surgery History of heart artery stent History of tooth extraction S/P dilation and curettage Family History Father Myocardial infarction Mother Cardiac disorder Other No family history of adverse response to anesthesia Denies family history of Ovarian cancer Prostate cancer Breast cancer Colorectal cancer Social History Smoking Status: Never smoker Second Hand Exposure: No; Do You Dip or Chew Tobacco: No; Hx Alcohol Use: Yes Alcohol type: beer Alcohol Intake Frequency: Monthly or Less Hx Substance Use: No Preferred Language: Italian Communication Ability: Effective Visual Impairment: No Limitations Hearing Ability: Normal Induction Machine Setter Required: No Beliefs That Will Affect Care: None marital status: Current Living Situation: Spouse current occupational status: retired current occupation: worked in sales How many Children do You have: 1 Feels Safe at Home: Yes Childhood Exposure to Second-Hand Smoke: No Diet: regular Dental Care, Regularly: Yes Physical Activity Frequency: Daily Physical Activity Frequency Comment: bike and gardening Seatbelt Use: always Sunscreen Use: Yes Assistive Devices: Glasses Review of Systems Review of Systems: All systems reviewed & are unremarkable except as noted in HPI & below Physical Exam Physical Exam: Constitutional: No acute distress HEENT: EOMI, PERRLA Respiratory system: Good air entry bilaterally, no wheeze, no rhonchi, no crackles CVS: S1-S2 positive, no murmurs or gallops Abdomen: Soft, nontender, nondistended, positive bowel sounds x4 Extremities: +2 pulses bilaterally radialis/ dorsalis pedis, no cyanosis, no edema Neuro: Awake alert oriented x3 Psych: Normal mood and affect G/U: No Shepard Results & Data Results & Data Vital Signs (Past 12 Hours) Vital Signs Temp Pulse Resp BP Pulse Ox O2 Del Method 12/14/22 12:00 63 17 97/81 L 98 Room Air 12/14/22 11:45 60 24 113/56 L 99 Room Air 12/14/22 11:30 66 20 98/51 L 98 Room Air 12/14/22 11:21 70 17 86/53 L 94 Room Air 12/14/22 11:00 61 16 100/51 L 97 Room Air 12/14/22 10:45 62 22 92/70 L 97 Room Air 12/14/22 10:30 65 19 113/62 97 Room Air 12/14/22 10:15 63 20 138/87 99 Room Air 12/14/22 10:08 71 19 123/83 99 12/14/22 08:45 56 L 24 118/60 100 12/14/22 08:27 56 L 12/14/22 08:10 58 L 100 Room Air 12/14/22 08:10 36.5 C 57 L 143/68 H 100 Room Air Laboratory Results 12/14/22 Unknown 12/14/22 Unknown Coding Level of Care Code 99508 IN/OBS CONSULT LVL 4,60M Diagnoses Non-ST elevated myocardial infarction I21.4 Chest pain R07.9 CAD (coronary artery disease) I25.10 Chest pain, precordial R07.2 Hypercholesterolemia E78.00 SIADH (syndrome of inappropriate ADH production) E22.2
--- NOTE | 2022-12-14 15:50 | Cardiology Consultation ---
Date of Consultation December 14, 2022 Assessment & Plan (1) Non-ST elevated myocardial infarction: 100% occluded proximal RCA is the culprit. Unclear if this occurred today or over the past 3 days. In any case, successful PCI with implantation of 4 overlapped drug-eluting stent spanning the ostium of the RCA to the early distal vessel. Mild residual disease in the RCA. There is severe residual disease in the proximal LAD. Prior stents are patent. There is moderate disease in the ramus. She will remain on dual antiplatelet therapy. For now, aspirin 81 mg daily and Brilinta 90 mg p.o. twice daily. Heparin and Integrilin are discontinued. Echo has already been performed. Check labs including troponin, BMP, and CBC. (2) CAD (coronary artery disease): Unfortunately, patient has been intolerant to statin, her heart rate and blood pressure at the moment do not allow for beta-vaibhav and MONTSE inhibitor as recommended. We will reassess and initiate guideline directed medical therapy as tolerated. (3) Hypercholesterolemia: Patient is high risk. High intensity statin therapy is recommended. If she is truly intolerant to statins then we will need to consider Repatha or alternative as an outpatient. (4) Esophageal dysphagia: This is concerning given that she has difficulty swallowing her pills. It is imperative that she take her antiplatelets to maintain patency of the long stent train. She probably needs a work-up including swallow study. Plan Anticipate 48 hours or more hospitalization. History of Present Illness Reason for Consultation: Chest pain, elevated troponin Attending Physician: Geo Amador MD, PhD History of Present Illness 82-year-old female who follows with Dr. Osborne for her cardiac needs. She has a history of prior [place] with stenting of the LAD and the ramus in 2005 performed at [facility]. Additional details are unknown. She has followed with Dr. Osborne and essentially has done fairly well. About 2 years ago her EKG changed and she was demonstrated to have left bundle branch block. Her last echocardiogram was in 2019 at which time she had normal EF, mild LVH, and no significant valvular pathology. Patient presents today to the emergency department with complain of epigastric chest discomfort. This has been ongoing intermittently for the past several days. However, this morning she states that it was more severe and persistent. There was associated nausea, diaphoresis and shortness of breath. In the emergency department her symptoms improved somewhat although she still has some atypical chest pain. Her EKG showed a left bundle branch block without changes from prior. Her first troponin was elevated at over 300. Therefore, I was asked to see her. She was started on heparin drip after a heparin bolus, as well as nitroglycerin. Reviewing the patient's history she has had either intolerance or refusal to take medications. She tells me that she likes to treat herself "homeopathically". On my arrival she was laying comfortably in bed with the stage technician performing a stat echocardiogram. She continued with mild epigastric discomfort. She did admit this was similar to her prior myocardial infarction pain. Brief review of the echo suggested subtle inferolateral myocardial hypokinesis. I suggested to her and her who was present at the bedside that we should proceed with definitive evaluation by coronary angiography plus or minus PCI. They were both amenable to this. Patient has subsequently undergone coronary angiography via the radial approach but PCI was performed via the femoral approach given her small radial artery and increased size for interventional equipment. She end up having 4 overlapped drug-eluting stents placed in the RCA which was 100% occluded. Good angiographic result including good post PCI myocardial blush. She has no ongoing discomfort at this time. She tells me that she has had difficulty swallowing for several months. We had to change the plan from Plavix to Brilinta as she can no longer swallow the larger pills. She was able to take her Brilinta and is now in the intensive care unit where the heparin drip and Integrilin drip will be discontinued. She has a indwelling femoral artery sheath which will be removed later today once her ACT is less than 160 seconds. She voices no other complaints or concerns at this time. Allergies Allergy/AdvReac Type Severity Reaction Status Date / Time acetaminophen Allergy Intermediate Joint Verified 12/14/22 10:38 Pain, Headache asparagus Allergy Intermediate Joint Pain Unverified 12/14/22 10:38 azithromycin Allergy Intermediate Joint Verified 12/14/22 10:38 Pain, Headache spinach Allergy Intermediate Joint Pain Unverified 12/14/22 10:38 Uruqikz-XUZ-VtB Reductase Allergy Intermediate lethargy,muscle Verified 12/14/22 10:38 Inhibitor weakness [Ouofvxl-Cqx-Ddl Reductase Inhibitor] alprazolam AdvReac Intermediate Joint Verified 12/14/22 10:38 Pain, Headache amoxicillin AdvReac Intermediate Joint Verified 12/14/22 10:38 Pain, Headache ciprofloxacin AdvReac Intermediate Joint Verified 12/14/22 10:38 Pain, Headache Acid food Allergy Intermediate Joint Uncoded 12/14/22 10:38 Pain, heahache Home Medications Medication Instructions Recorded Confirmed Type digestive enzymes (Enzyme Digest 1 cap PO BIDM 12/02/18 12/14/22 History capsule) melatonin 3 mg tablet 3 mg PO HS PRN Sleep 12/02/18 12/14/22 History multivitamin 1 tab PO DAILY 12/02/18 12/14/22 History omega 9-qns-vuq-fish oil 1,000 mg 1 cap PO DAILY 12/02/18 12/14/22 History (120 mg-180 mg) capsule (Fish Oil) aspirin 81 mg tablet,delayed 81 mg PO QAM 10/09/20 12/14/22 History release cholecalciferol (vitamin D3) 25 4,000 unit PO DAILY 10/23/21 12/14/22 History mcg (1,000 unit) capsule (Vitamin D3) Arnicare Pain Relieving Cream 1 applic topical DAILY PRN Pain 12/14/22 12/14/22 History pantoprazole 40 mg tablet,delayed 0 mg PO DAILY 12/14/22 12/14/22 History release (Protonix) Patient History Medical History Abdominal pain, RUQ (right upper quadrant) Allergic rhinitis Arteriosclerosis of coronary artery Dysuria Elevated cholesterol Esophageal reflux Frequent UTI NOT CURRENT Hemorrhoid History of diverticulitis of colon Hypertension PT DENIES Hyponatremia Muscle weakness (generalized) Myocardial infarction 2004 Osteoarthritis Osteoporosis Postmenopausal atrophic vaginitis Urinary frequency Vitamin D deficiency Surgical History H/O colonoscopy with polypectomy History of cataract surgery RT/LEFT History of heart artery stent 2004>2 STENTS PLACED AT [facility] (FOLLOWED BY DR. OSBORNE NOW) History of tooth extraction S/P dilation and curettage Family History Father Myocardial infarction Mother Cardiac disorder Other No family history of adverse response to anesthesia Denies family history of Ovarian cancer Prostate cancer Breast cancer Colorectal cancer Social History Smoking Status: Never smoker Second Hand Exposure: No; Do You Dip or Chew Tobacco: No; Hx Alcohol Use: Yes Alcohol type: beer Alcohol Intake Frequency: Monthly or Less Hx Substance Use: No Preferred Language: Malian Communication Ability: Effective Visual Impairment: No Limitations Hearing Ability: Normal Digital Content Coordinator Required: No Beliefs That Will Affect Care: None marital status: Current Living Situation: Spouse current occupational status: retired current occupation: worked in sales How many Children do You have: 1 Feels Safe at Home: Yes Childhood Exposure to Second-Hand Smoke: No Diet: regular Dental Care, Regularly: Yes Physical Activity Frequency: Daily Physical Activity Frequency Comment: bike and gardening Seatbelt Use: always Sunscreen Use: Yes Assistive Devices: Glasses Review of Systems Review of Systems: Negative except as per HPI Physical Exam Constitutional: WD/WN, vitals as above (Cachectic, elderly) Eyes: Extraocular muscles intact. Sclera are anicteric. ENMT: Oral mucosa is pink and dry. Neck: No JVD Respiratory: Clear to auscultation bilaterally. No wheezing, rhonchi, or rales. Fair air movement. Cardiovascular: Regular rhythm with bradycardic rate. S4 gallop. I do not appreciate any rubs or murmurs. No edema. Musculoskeletal: no cyanosis or clubbing, extremities motor strength 5/5 (6 Romanian femoral artery sheath in place. TR band right wrist. No evidence) Neurologic: Hearing is diminished. Cognition is intact. Speech is fluent. No focal deficits. Psychiatric: A+Ox3, euthymic affect Results & Data Vital Signs (Past 12 Hours) Vital Signs Temp Pulse Resp BP Pulse Ox O2 Del Method 12/14/22 12:00 63 17 97/81 L 98 Room Air 12/14/22 11:45 60 24 113/56 L 99 Room Air 12/14/22 11:30 66 20 98/51 L 98 Room Air 12/14/22 11:21 70 17 86/53 L 94 Room Air 12/14/22 11:00 61 16 100/51 L 97 Room Air 12/14/22 10:45 62 22 92/70 L 97 Room Air 12/14/22 10:30 65 19 113/62 97 Room Air 12/14/22 10:15 63 20 138/87 99 Room Air 12/14/22 10:08 71 19 123/83 99 12/14/22 08:45 56 L 24 118/60 100 12/14/22 08:27 56 L 12/14/22 08:10 58 L 100 Room Air 12/14/22 08:10 36.5 C 57 L 143/68 H 100 Room Air PG Care Time/CCT Total # of Minutes Spent Total Time Spent with Patient: Total time spent is greater than 50% in coordination of care (as documented) at patient's floor/unit and/or counseling patient: Coding Level of Care Code 69893 INT INP/OBS CARE 3/75MIN Diagnoses Non-ST elevated myocardial infarction I21.4 CAD (coronary artery disease) I25.10 Hypercholesterolemia E78.00 Esophageal dysphagia R13.19 Time Spent (min) 75
--- NOTE | 2022-12-14 17:33 | Electrocardiogram Report ---
Test Reason : Blood Pressure : / mmHG Vent. Rate : 051 BPM Atrial Rate : 051 BPM P-R Int : 214 ms QRS Dur : 126 ms QT Int : 464 ms P-R-T Axes : 072 -61 093 degrees QTc Int : 427 ms Sinus bradycardia with 1st degree A-V block Left axis deviation Left bundle branch block Abnormal ECG When compared with ECG of 05-FEB-2022 09:34, Premature supraventricular complexes are no longer Present Confirmed by Khanh Motta ([id number]) on 12/14/2022 5:32:37 PM Referred By: REFERRED SELF Confirmed By:Eugene Motta
--- NOTE | 2022-12-14 17:37 | Electrocardiogram Report ---
Test Reason : Blood Pressure : / mmHG Vent. Rate : 062 BPM Atrial Rate : 062 BPM P-R Int : 216 ms QRS Dur : 124 ms QT Int : 462 ms P-R-T Axes : 075 -57 091 degrees QTc Int : 468 ms Poor data quality, interpretation may be adversely affected Sinus rhythm with 1st degree A-V block Left axis deviation Left bundle branch block Abnormal ECG When compared with ECG of 14-DEC-2022 08:15, (unconfirmed) No significant change was found Confirmed by Khanh Motta ([id number]) on 12/14/2022 5:37:01 PM Referred By: REFERRED SELF Confirmed By:Eugene Motta
[2022-12-14] MEDS ORDERED: TICAGRELOR 90 MG TAB PO SCH (21:00)
[2022-12-14] MEDS: TICAGRELOR 90 MG TAB PO SCH (22:17)
[2022-12-14] MEDS: MELATONIN 3 MG TAB PO PRN (22:39)
[2022-12-15 05:10] LABS: Basophils # (auto) 0.01 K/uL (0.00-0.20); Basophils % (auto) 0.1 %; Eosinophils # (auto) 0.02 K/uL (0.00-0.50); Eosinophils % (auto) 0.3 %; Hematocrit (blood only) 25.6 % (37.0-47.0); Hemoglobin 9.2 g/dl (12.0-16.0); Immature Granulocytes # (auto) 0.03 K/uL (0.01-0.20); Immature Granulocytes % (auto) 0.4 %; Lymphocytes # (auto) 0.84 K/uL (1.20-3.40); Lymphocytes % (auto) 11.9 %; Mean Corpuscular Hemoglobin 33.5 pg (25.0-34.0); Mean Corpuscular Hgb Conc 35.9 g/dL (32.0-36.0); Mean Corpuscular Volume 93.1 fL (80.0-100.0); Monocytes # (auto) 0.57 K/uL (0.11-0.59); Monocytes % (auto) 8.1 %; Neutrophils # (auto) 5.56 K/uL (1.40-6.50); Neutrophils % (auto) 79.2 %; Platelet Count 138 K/uL (130-400); RDW Standard Deviation 44.2 fL (36.4-46.3); Red Blood Count 2.75 M/uL (4.20-5.40); White Blood Count 7.03 K/ul (4.8-10.8)
[2022-12-15 05:24] LABS: Albumin Globulin Ratio 1.4 (0.9-2); Albumin Level 3.3 gm/dl (3.4-5.0); Bilirubin,Total 1.5 mg/dl (0.2-1.0); Calcium 8.8 mg/dl (8.6-10.3); Creatinine Clr Calc Pharmacy 56.1 ml/min; Est GFR (African American) 103.7 ml/min; Est GFR (Non-African American) 89.5 ml/min; Globulin 2.4 gm/dl (2.5-4.0); Magnesium 1.8 mg/dl (1.7-2.4); Potassium 3.6 mmol/L (3.5-5.1); Total Protein 5.7 gm/dl (6.0-8.3)
[2022-12-15 05:38] LABS: INR 1.1 (0.9-1.1); Partial Thromboplastin Ratio 0.9; Partial Thromboplastin Time 25.5 Seconds (21.0-31.0); Prothrombin Time 11.8 Seconds (9.0-12.0)
[2022-12-15] MEDS: PANTOprazole 40 MG TAB PO SCH (07:17)
[2022-12-15] MEDS: TICAGRELOR 90 MG TAB PO SCH ×2 (07:17→21:18)
[2022-12-15] MEDS: ICU Protocol for HYPERglycemia SCH (07:18)
--- NOTE | 2022-12-15 07:28 | Hospitalist Progress Note ---
Date of Service December 15, 2022 Assessment & Plan (1) Non-ST elevated myocardial infarction: Plan: -Chest pain x3 days, worsened in hours prior to admission, now s/p PCI to 100% occluded RCA and with resolution in symptoms -HR intolerant to beta vaibhav, has also been intolerant to statin in the past, consider Repatha or alternative -Continue DAPT with asa/Brilinta -Losartan 25mg daily added, to continue on discharge -A1c 5.6% in August 2022 -Echo performed, subtle inferolateral hypokinesis, fortunately normal EF (2) CAD (coronary artery disease): Plan: -Known history, Hx of prior stenting to LAD and ramus in 2004, now s/p stent x1 to RCA (3) Esophageal dysphagia: Plan: -Notes difficulty swallowing pills, ongoing problem, DRAGGER OUT eval ordered without abnormal findings -EGD 05/2022 without evidence of esophageal stricture or other pathology to explain large pill dysphagia -Advised to alternate food and fluids, alternate pills and drinks of water to ensure good passage (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): Plan: -Chronic SIADH, Na 127 this AM, light fluid restriction 1800cc -Monitor intake/output and daily sodium levels (5) Hypertension: Plan: -Stable, BP 130s overnight, will start ARB today and monitor BP Plan Ultimately monitoring post-catheterization, ensure able to ambulate, eval for swallowing dysfunction, anticipate discharge tomorrow if remains clinically stable Transferred from ICU status to Telemetry status today, ICU signed off, appreciate Cardiology following Admission and Anticipated Discharge Date Admission Date: December 14, 2022 Subjective No overnight events, this AM with a bit of nausea that resolved with sitting up, no nausea, chest pain, or SOB on my interview. Physical Exam Constitutional: WD/WN, vitals as above Respiratory: normal respiratory effort, lungs clear to auscultation Cardiovascular: RRR, no murmur, no edema Gastrointestinal (Abdomen): normal bowel sounds, soft, nontender, no hepatosplenomegaly Skin: no rashes, warm and dry Psychiatric: A+Ox3, euthymic affect Results & Data Results & Data Vital Signs (Past 12 Hours) Vital Signs Pulse Resp BP Pulse Ox O2 Del Method 12/15/22 06:00 51 L 18 96 Room Air 12/15/22 06:00 134/58 L 12/15/22 05:00 52 L 19 98 Room Air 12/15/22 05:00 113/60 12/15/22 04:00 52 L 16 96 Room Air 12/15/22 04:00 116/56 L 12/15/22 03:00 57 L 22 93 Room Air 12/15/22 02:00 52 L 16 96 Room Air 12/15/22 02:00 115/55 L 12/15/22 01:00 59 L 14 98 Room Air 12/15/22 01:00 104/52 L 12/15/22 00:00 61 21 98 Room Air 12/15/22 00:00 104/50 L 12/14/22 23:00 54 L 17 97 12/14/22 23:00 94/51 L 12/14/22 22:00 68 22 98 Room Air 12/14/22 22:00 111/50 L 12/14/22 21:45 116/54 L 12/14/22 21:45 66 19 97 12/14/22 21:30 100/51 L 12/14/22 21:30 66 19 98 12/14/22 21:15 100/48 L 12/14/22 21:15 68 18 98 12/14/22 21:00 63 20 98 Room Air 12/14/22 21:00 99/46 L 12/14/22 20:45 104/48 L 12/14/22 20:45 73 16 98 12/14/22 20:30 111/51 L 12/14/22 20:30 73 18 98 12/14/22 20:15 120/60 12/14/22 20:15 75 15 100 12/14/22 20:00 75 17 99 Room Air 12/15/22 00:47 58 L 12/14/22 19:45 76 26 H 100 12/14/22 19:45 116/55 L 12/14/22 19:30 61 19 98 Room Air 12/14/22 19:30 105/50 L PG Care Time/CCT Total # of Minutes Spent Total Time Spent with Patient: Total time spent is greater than 50% in coordination of care (as documented) at patient's floor/unit and/or counseling patient: Coding Level of Care Code 68042 SUB INP/OBS CARE 3/50MIN Diagnoses Non-ST elevated myocardial infarction I21.4 CAD (coronary artery disease) I25.10 Esophageal dysphagia R13.19 SIADH (syndrome of inappropriate ADH production) E22.2 Hypertension I10
--- NOTE | 2022-12-15 08:00 | Critical Care Progress Note ---
Date of Service December 15, 2022 Assessment & Plan (1) Non-ST elevated myocardial infarction: (2) Chest pain: (3) CAD (coronary artery disease): (4) Chest pain, precordial: (5) Hypercholesterolemia: (6) SIADH (syndrome of inappropriate ADH production): Plan Reason Critically Ill: 82-year-old female past medical history of coronary artery disease, SIADH, dyslipidemia presented to the hospital with chest pain, she went to the cardiac Conservation Science Officer and stents were placed. In the ICU for further management Neuro - CAM ICU: Negative Cardiac - -- NSTEMI S/p cardiac cath 12/14/2022 4 stents in RCA Continue with dual antiplatelet therapy Patient was not able to tolerate statin in the past. It would be recommended in somebody with coronary artery disease and latest stents Continue to trend troponin and EKG 2D echo 12/14/2022: EF 60-65%, mild concentric LVH, mild AR, RV SP normal, small pericardial effusion EKG 12/14/2022: Sinus bradycardia with first-degree AV block, left axis deviation, left bundle branch block, no ST-T wave changes -- NSVT Likely from reperfusion Unfortunately cannot use beta-vaibhav given the underlying bradycardia Keep potassium greater than 4, magnesium greater than 2, phosphorus greater than 3 Continue to monitor -- Dyslipidemia Patient was not able to tolerate statins in the past Respiratory - -- No acute issues GI - -- GERD Continue with pantoprazole RENAL/LYTES - -- Chronic hyponatremia History of SIADH Continue to monitor ENDO - ICU hypoglycemia protocol HEME - -- Normocytic anemia Monitor H&H ID - -- No active issues --Prophylaxis VTE: IPC GI: Pantoprazole Lines: peripheral Diet: Cardiac Plan: In/out: +777, urine output 1450 Potassium and magnesium being replaced. Continue with dual antiplatelet therapy Start beta-vaibhav once patient's heart rate is able to tolerate Patient hemodynamically stable to be downgrade to telemetry floor Please note the above document was generated using voice recognition software. It may contain grammatical, syntax or spelling errors.Any formal questions or concerns about the content, text or information contained within the body of this dictation should be directly addressed to the provider for clarification. Admission and Anticipated Discharge Date Admission Date: December 14, 2022 Subjective Patient seen and examined at bedside. No acute distress, notable since overnight Did complain of mild nausea when she woke up. Did not have any vomiting No chest pain, no shortness of breath No headache, no blurry vision Finished her breakfast. Fair appetite. Patient's heart rate was in the mid 70s at the time of examination Review of Systems Review of Systems: All systems reviewed & are unremarkable except as noted in Subjective Physical Exam Physical Exam: Constitutional: No acute distress HEENT: EOMI, PERRLA Respiratory system: Good air entry bilaterally, no wheeze, no rhonchi, no crackles CVS: S1-S2 positive, no murmurs or gallops Abdomen: Soft, nontender, nondistended, positive bowel sounds x4 Extremities: +2 pulses bilaterally radialis/ dorsalis pedis, no cyanosis, no edema Neuro: Awake alert oriented x3 Psych: Normal mood and affect G/U: No Shepard Results & Data Results & Data Vital Signs (Past 12 Hours) Vital Signs Pulse Resp BP Pulse Ox O2 Del Method 12/15/22 07:00 54 L 18 99 12/15/22 07:00 111/63 12/15/22 06:45 64 19 12/15/22 07:33 51 L 12/15/22 06:00 51 L 18 96 Room Air 12/15/22 06:00 134/58 L 12/15/22 05:00 52 L 19 98 Room Air 12/15/22 05:00 113/60 12/15/22 04:00 52 L 16 96 Room Air 12/15/22 04:00 116/56 L 12/15/22 03:00 57 L 22 93 Room Air 12/15/22 02:00 52 L 16 96 Room Air 12/15/22 02:00 115/55 L 12/15/22 01:00 59 L 14 98 Room Air 12/15/22 01:00 104/52 L 12/15/22 00:00 61 21 98 Room Air 12/15/22 00:00 104/50 L 12/14/22 23:00 54 L 17 97 12/14/22 23:00 94/51 L 12/14/22 22:00 68 22 98 Room Air 12/14/22 22:00 111/50 L 12/14/22 21:45 116/54 L 12/14/22 21:45 66 19 97 12/14/22 21:30 100/51 L 12/14/22 21:30 66 19 98 12/14/22 21:15 100/48 L 12/14/22 21:15 68 18 98 12/14/22 21:00 63 20 98 Room Air 12/14/22 21:00 99/46 L 12/14/22 20:45 104/48 L 12/14/22 20:45 73 16 98 12/14/22 20:30 111/51 L 12/14/22 20:30 73 18 98 12/14/22 20:15 120/60 12/14/22 20:15 75 15 100 12/14/22 20:00 75 17 99 Room Air 12/15/22 00:47 58 L Laboratory Results 12/15/22 04:46 12/15/22 04:46 Coding Level of Care Code 00489 SUB INP/OBS CARE 2/35MIN Diagnoses Non-ST elevated myocardial infarction I21.4 Chest pain R07.9 CAD (coronary artery disease) I25.10 Chest pain, precordial R07.2 Hypercholesterolemia E78.00 SIADH (syndrome of inappropriate ADH production) E22.2
[2022-12-15] MEDS ORDERED: POTASSIUM CHLORIDE CRTAB 20 MEQ TABCR PO STA (08:01)
[2022-12-15] MEDS: MAGNESIUM SULFATE / D5W 1 GM/100 ML BAG IV SCH ×2 (08:11→10:45)
[2022-12-15] MEDS ORDERED: CLOPIDOGREL BISULFATE 75 MG TAB PO SCH (09:00)
[2022-12-15] MEDS ORDERED: ASPIRIN 325 MG ECTAB PO SCH ×2 (09:00)
--- NOTE | 2022-12-15 09:25 | Cardiology Progress Note ---
Date of Service December 15, 2022 Assessment & Plan (1) Non-ST elevated myocardial infarction: Plan: Status post PCI to the RCA. She will remain on dual antiplatelet therapy with aspirin 81 mg daily and Brilinta 90 mg p.o. twice daily. She should be provided with a Brilinta card for reduced cost over the first 30 days post AR. Appears she tolerated her procedure without complication. We will continue to be on the monitor until discharge. (2) Esophageal dysphagia: Plan: Suspect this contributes to apparent hyponatremia and malnutrition. Speech evaluation plus or minus swallow study. Appropriate recommendations to follow. (3) CAD (coronary artery disease): Plan: Patient heart rate is at target, blood pressure is at target. She has been intolerant to or unwilling to take statins in the past. Therefore, at present her guideline directed medical therapy is limited to aspirin. I would like to add low-dose losartan prior to discharge if her blood pressure will allow. Fortunately, her renal function appears to be good. (4) Hypercholesterolemia: Plan: Patient is high risk. High intensity statin therapy is recommended. Target LDL reduction is greater than or equal to 50% of baseline. Her last LDL was 88 mg/dL. We may be able to reduce her LDL adequately with red yeast rice alone or with a low-dose statin. She may not be willing to try a low-dose statin. If not then she could be considered for Repatha. Plan Patient is appropriate for transfer to stepdown telemetry. Anticipate she will be appropriate for discharge tomorrow. She will need follow-up with Dr. Bowen within 1 to 3 weeks of discharge. Admission and Anticipated Discharge Date Admission Date: December 14, 2022 Subjective Patient was seen and examined in the ICU. She reports no recurrence of chest pain, no shortness of breath, no pain at the radial access site. No events overnight. Thus far, she has tolerated her medications. Speech evaluation and swallow study pending Review of Systems Review of Systems: Negative except as per HPI Physical Exam Constitutional: WD/WN, vitals as above (Frail and cachectic. No acute distress) Neck: No JVD Respiratory: Clear to auscultation bilaterally. No wheezing, rhonchi, or rales. Cardiovascular: Regular rhythm. Bradycardic rate. S4 gallop. No rubs or murmurs appreciated. No edema. Musculoskeletal: no cyanosis or clubbing, extremities motor strength 5/5 (Right radial access intact. Good distal perfusion.) Neurologic: Cognition intact. Speech fluent. No focal deficits. Psychiatric: A+Ox3, euthymic affect Results & Data Vital Signs (Past 12 Hours) Vital Signs Pulse Resp BP Pulse Ox O2 Del Method 12/15/22 07:00 54 L 18 99 12/15/22 07:00 111/63 12/15/22 06:45 64 19 12/15/22 07:33 51 L 12/15/22 06:00 51 L 18 96 Room Air 12/15/22 06:00 134/58 L 12/15/22 05:00 52 L 19 98 Room Air 12/15/22 05:00 113/60 12/15/22 04:00 52 L 16 96 Room Air 12/15/22 04:00 116/56 L 12/15/22 03:00 57 L 22 93 Room Air 12/15/22 02:00 52 L 16 96 Room Air 12/15/22 02:00 115/55 L 12/15/22 01:00 59 L 14 98 Room Air 12/15/22 01:00 104/52 L 12/15/22 00:00 61 21 98 Room Air 12/15/22 00:00 104/50 L 12/14/22 23:00 54 L 17 97 12/14/22 23:00 94/51 L 12/14/22 22:00 68 22 98 Room Air 12/14/22 22:00 111/50 L 12/14/22 21:45 116/54 L 12/14/22 21:45 66 19 97 12/14/22 21:30 100/51 L 12/14/22 21:30 66 19 98 12/15/22 00:47 58 L PG Care Time/CCT Total # of Minutes Spent Total Time Spent with Patient: Total time spent is greater than 50% in coordination of care (as documented) at patient's floor/unit and/or counseling patient: Coding Level of Care Code 65229 SUB INP/OBS CARE 2/35MIN Diagnoses Non-ST elevated myocardial infarction I21.4 Esophageal dysphagia R13.19 CAD (coronary artery disease) I25.10 Hypercholesterolemia E78.00
[2022-12-15] MEDS ORDERED: FLUTICASONE PROPIONATE NA SPR 16 GM BTL NAE PRN (12:49)
[2022-12-15] MEDS: MELATONIN 3 MG TAB PO PRN (21:20)
[2022-12-16 06:11] LABS: Basophils # (auto) 0.01 K/uL (0.00-0.20); Basophils % (auto) 0.1 %; Eosinophils # (auto) 0.02 K/uL (0.00-0.50); Eosinophils % (auto) 0.3 %; Hematocrit (blood only) 28.2 % (37.0-47.0); Hemoglobin 10.3 g/dl (12.0-16.0); Immature Granulocytes # (auto) 0.02 K/uL (0.01-0.20); Immature Granulocytes % (auto) 0.3 %; Lymphocytes # (auto) 0.77 K/uL (1.20-3.40); Lymphocytes % (auto) 11.2 %; Mean Corpuscular Hemoglobin 33.2 pg (25.0-34.0); Mean Corpuscular Hgb Conc 36.5 g/dL (32.0-36.0); Monocytes # (auto) 0.64 K/uL (0.11-0.59); Monocytes % (auto) 9.3 %; Neutrophils # (auto) 5.41 K/uL (1.40-6.50); Neutrophils % (auto) 78.8 %; Platelet Count 147 K/uL (130-400); RDW Coefficient of Variation 12.9 % (11.5-14.5); RDW Standard Deviation 42.2 fL (36.4-46.3); White Blood Count 6.87 K/ul (4.8-10.8)
[2022-12-16 06:33] LABS: Albumin Globulin Ratio 1.4 (0.9-2); Albumin Level 3.6 gm/dl (3.4-5.0); BUN Creatinine Ratio 18.9 (10-20); Bilirubin,Total 1.1 mg/dl (0.2-1.0); Calcium 8.6 mg/dl (8.6-10.3); Creatinine Clr Calc Pharmacy 54.8 ml/min; Est GFR (African American) 101.8 ml/min; Est GFR (Non-African American) 87.8 ml/min; Globulin 2.6 gm/dl (2.5-4.0); Potassium 3.8 mmol/L (3.5-5.1); Total Protein 6.2 gm/dl (6.0-8.3)
--- NOTE | 2022-12-16 07:31 | Discharge Summary ---
Discharge Summary Date of Service December 16, 2022 Notes For Next Care Provider Follow up Cardiology Consider Repatha or other option for secondary risk prevention of CAD Medication Changes From Visit Added Plavix (Brilinta too expensive for patient) Added losartan Added pantoprazole Continue baby asa Admission HPI Per Admitting Provider Mallika is a 82 year old female with a PMH significant for CAD S/P SC in 2004, S/P Cardiac Cath with [place] to the LAD and ramus, HTN, hypercholesterolemia, LVH, known LBBB, and hyponatremia (SIADH) who presented to the [facility] ED on 12/14 via EMS for 3 days of ongoing substernal/epigastric abdominal pain. In the ED vitals remained stable. Labs were significant for a stable sodium of 130, total bili of 1.1, and initial high sen trop of 348. Chest xray was read as "No acute cardiopulmonary findings. Stable cardiomegaly.". ECG showed stable LBBB and no acute ST segment or T-wave changes. Prior to admission the patient was given 324 mg Aspirin in route by EMS and was started on a Heparin drip and ordered 0.25 inches of nitroglycerine paste. At the time of the exam the patient was sitting in bed in no acute distress with her standing bedside. She states that she started to develop substernal/epigastric burning approximately 3 days ago. She states that at it's worst the patient has been a 5-6/10, it is currently a 5/10. She denies the pain radiating anywhere else. She prefers homeopathic medicine and was taking plant enzymes for her symptoms without relief. When asked, she states that she takes her baby aspirin infrequently due to forgetting and because she does not like non-homeopathic medications. When asked, she confirms that these symptoms are similar to her symptoms in 2005 when she required cardiac cath and stent placement. She denies recent fever, chills, cough, abd pain, vomiting, dysuria, hematuria, melena, diarrhea, LE swelling, and recent trauma. We explained that she will be evaluated by our Jewel Bearing Driller to determine if she will be taken to the odd job laborer. I strongly encouraged her to take her aspirin as prescribed as not taking it will significantly increase her chances of having further coronary artery plaque build up. We discussed code status. The patient does not want CPR or defibrillation in the event of Cardiac Arrest. She would want a trial of intubation in the event of reparatory distress/failure. Please refer to Dr. Salamanca's attestation for any changes to the treatment plan Admission Exam Per Admitting Provider General:In no acute distress, stated age, non-toxic appearing HEENT:Normocephalic, atraumatic, no scleral icterus, pupils around round, symmetrical, and reactive to light, moist mucus membranes, trachea midline, no thyromegaly Chest/Pulm:No reproducible pain on palpation of the chest, No respiratory distress, symmetrical chest expansion, clear breath sounds throughout Cardiac:RRR, no murmurs noted Abdomen:Negative for ascites and bruising, normoactive bowel sounds, soft, non- tender to palpation throughout Musculoskeletal:Symmetrical and without signs of acute trauma, upper and lower extremities with full ROM, no atrophy, spasticity, or flaccidity Extremities:Radial, dorsalis pedis, and posterior tibial pulses are intact and symmetrical, no edema noted in the BL LE's Skin:Warm, dry, no rashes , lesions, or scars noted Neuro:Alert and oriented to person, place, month, year, and president, no focal defects, no tremors noted Psych:No acute distress, calm and cooperative during the exam Principal Dx & Hospital Course #1 = Principal Diagnosis (1) Non-ST elevated myocardial infarction: -Chest pain x3 days, worsened in hours prior to admission, now s/p PCI to 100% occluded RCA and with resolution in symptoms -A1c 5.6% in August 2022 -Echo performed, subtle inferolateral hypokinesis, fortunately normal EF -HR intolerant to beta vaibhav, has also been intolerant to statin in the past, consider Repatha or alternative -Continue DAPT with asa/Plavix (Brilinta is cost-prohibitive to patient) -Continue ARB losartan 25mg daily on discharge (2) CAD (coronary artery disease): -Known history, Hx of prior stenting to LAD and ramus in 2004, now s/p stent x1 to RCA (3) Esophageal dysphagia: -Notes difficulty swallowing pills, ongoing problem, INSTRUCTIONAL AIDE eval ordered without abnormal findings -EGD 05/2022 without evidence of esophageal stricture or other pathology to explain large pill dysphagia -Advised to alternate food and fluids, alternate pills and drinks of water to ensure good passage -Continue PPI pantoprazole 40mg daily for reflux (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): -Chronic SIADH, Na 130 on day of discharge, no interventions -Monitor intake/output and daily sodium levels (5) Hypertension: -Stable, continue losartan as above Plan Discharge home with Cardiology follow up Discharge Exam Constitutional WD/WN, vitals as above Respiratory normal respiratory effort, lungs clear to auscultation Cardiovascular RRR, no murmur, no edema Psychiatric A+Ox3, euthymic affect Updated Medication List Medication Instructions Recorded Confirmed Type digestive enzymes (Enzyme Digest 1 cap PO BIDM 12/02/18 12/14/22 History capsule) melatonin 3 mg tablet 3 mg PO HS PRN Sleep 12/02/18 12/14/22 History multivitamin 1 tab PO DAILY 12/02/18 12/14/22 History omega 0-eeg-wdr-fish oil 1,000 mg 1 cap PO DAILY 12/02/18 12/14/22 History (120 mg-180 mg) capsule (Fish Oil) aspirin 81 mg tablet,delayed 81 mg PO QAM 10/09/20 12/14/22 History release cholecalciferol (vitamin D3) 25 4,000 unit PO DAILY 10/23/21 12/14/22 History mcg (1,000 unit) capsule (Vitamin D3) Arnicare Pain Relieving Cream 1 applic topical DAILY PRN Pain 12/14/22 12/14/22 History clopidogrel 75 mg tablet (Plavix) 75 mg PO DAILY #30 tabs 12/16/22 Rx losartan 25 mg tablet 25 mg PO QAM 30 days #30 tabs 12/16/22 Rx pantoprazole 40 mg tablet,delayed 40 mg PO QAM 30 days #30 tabs 12/16/22 Rx release Hospital Stay Data Consultations 12/14/22 09:53 ED Decision to Admit Stat 12/14/22 10:40 Consult Cardiology Routine 12/14/22 15:18 Consult Composite Technician Routine Procedures Performed Operation Date: 12/14/22 12:30 Actual Procedures p Cath, Left with Cors and Vent - Geo Amador MD, PhD Diagnostic Imagining Performed 12/14/22 12:09 CL Cath Imgs for PACS use only Stat Discharge Instructions Given to Patient (Per Discharging Provider) You were admitted to the hospital for evaluation and management of abdominal/chest pain. You are found to have evidence of heart attack on your lab work and your EKG. You were taken to the cardiac catheter lab where a stent was placed into a vessel that was blocked. Because you had a blocked vessel on your home medications, some extra medications were added to help decrease your future risk of heart attack. Please see the list below for changes to medica tions.Your new medications were sent to the [facility] in [place]. Losartan is a very low-dose blood pressure medication that you tolerated while you are in the hospital. This is to help the heart pump more effectively when it has had a blockage. This is one tablet daily. Plavix (also called clopidogrel) is a medication that works with baby aspirin to help keep the blood thin enough so that, hopefully, future clots in your heart vessels do not form. Aspirin and Plavix work in different ways and work together towards the same goal, so it is important that you take both. Blood thinners can cause increase in bruising and bleeding, so keep an eye on this and if you have any increasing bleeding please call your doctors. Pantoprazole is an acid vaibhav medication for reflux. This is a once daily pill. If it does not help your reflux, please let your family doctor know. Baby aspirin is 81 milligrams daily. You can get a bottle of this over the counter at the pharmacy. Your symptoms improved, and you were felt to be safe for discharge home with follow-up with your family doctor and with cardiology. If you have any return of symptoms, or other concerns with regard to your health or safety, please seek urgent medical attention. Total Time Total Time Spent Total Time Spent (In Minutes): 35 min Coding Level of Care Code 34009 INP/OBS DISCH >30 MIN Diagnoses Non-ST elevated myocardial infarction I21.4 CAD (coronary artery disease) I25.10 Esophageal dysphagia R13.19 SIADH (syndrome of inappropriate ADH production) E22.2 Hypertension I10
[2022-12-16] MEDS: TICAGRELOR 90 MG TAB PO SCH (08:46)
[2022-12-16] MEDS: PANTOprazole 40 MG TAB PO SCH (08:46)
[2022-12-16] MEDS ORDERED: LOSARTAN POTASSIUM 25 MG TAB PO SCH (09:00)
[2022-12-16] MEDS ORDERED: ASPIRIN 81 MG ECTAB PO SCH (09:00)
== END 2022-12-16 17:00 | disposition home or self-care (01) | DRG 246 ==
LOC: ED 08:08 → ASU 12:32 → SUATTDRO 12:33 → 1E 12:33 → ASU 12:56 → 4W 12-15 18:26
PROC: CLB.CCO (2022-12-14 12:30)

== ENCOUNTER 2023-07-28 14:10 | Inpatient (IN) ==
--- NOTE | 2023-07-28 14:24 | Emergency Department Note ---
Impression & Plan Compression fracture of L1 lumbar vertebra ADMIT ED Provider Note HPI: History obtained from patient. The patient is a 83-year-old female who presents the emergency department with a chief complaint of ongoing right lower back pain. Patient states she also gets short of breath "sometimes when I exert myself". On arrival here to the ED the patient is hemodynamically stable, she is saturating well on room air. Patient states that she has had ongoing right lower back pain for about the past month since she had a D&C performed. On arrival here to the ED the patient otherwise appears to be in no acute distress. She states she was taking pain medicine after her last visit to the ER on July 14 but states that it was "too much". ROS: - Per HPI Differential Diagnosis: Kidney stone, degenerative changes of the lumbar spine, musculoskeletal strain, pulmonary embolism, ACS, pyelonephritis, UTI, amongst other potential pathologies. *Outpatient medications and allergy history reviewed. PE: General: Alert HEENT: Normocephalic, trachea midline Eyes: Extraocular eye movement is intact, no scleral erythema Pulmonary: Clear to auscultation bilaterally, no wheezing Cardio: Regular rate and rhythm GI: Abdomen is soft to palpation : No suprapubic tenderness MSK: No evidence of trauma or malformation of the extremities, no edema, mild midline tenderness in the lumbar spine to palpation approximately, no step-off deformity Skin: No evidence of rash Neuro: Alert, no focal deficits Psychiatric: Cooperative INDEPENDENT INTERPRETATIONS: compliance monitor: (As interpreted by myself): - An order was placed for continuous cardiac monitoring - Patient was noted to be in sinus rhythm with a rate of 75 EKG: (As interpreted by myself): Sinus rhythm with a rate of 72 Intervals: QRS 126 ms with underlying left bundle branch block, otherwise within normal limits ST changes: No ST elevation Time: 1417 Interventions provided in ED: -IV fluid bolus, IV morphine, IV Zofran Medical Decision Making: IV was established and lab work obtained, patient was placed on awake overnight monitor. Lab work shows no leukocytosis, hemoglobin is normal, platelet count is normal, CMP does not show any critical findings. Mild hyponatremia 130, potassium is 3.0 which was ordered for oral repletion. No evidence of acute kidney injury, troponin is negative. Lipase is within normal limits, TSH is normal, urinalysis does not show any evidence of hematuria or infection. CT imaging of the abdomen pelvis was obtained and does show evidence of an acute on chronic appearing L1 compression fracture. There is also evidence of pericardial effusion which was noted previously. Patient denies any chest pain, troponin is negative, EKG does not show any acute ischemic changes. Patient does not exhibit any tamponade findings clinically on exam. Patient is saturating well on room air. The L1 compression fracture is in the area of where the patient is having pain and therefore I do suspect this is the source of her pain and difficulty with ambulation. I discussed this with the patient, at this time she is in preference of admission for arrangement of physical therapy as an inpatient. Case management was consulted, we were unable to directly place the patient at a rehabilitation facility and therefore she will require admission. Case was discussed with the on-call hospitalist, Dr. Salamanca, and the patient was placed for admission in stable condition. Consultants/Discussions held with other healthcare providers: -Dr. Salamanca, hospitalist Disposition discussion held by myself with: -Patient and at bedside Diagnosis: 1. L1 compression fracture, acute on chronic 2. Back pain, acute 3. Ambulatory dysfunction, acute 4. Small pericardial effusion on CT imaging Disposition: Admission Luis Noel DO Emergency Medicine Past Med/Surg History Medical History Dyspnea on exertion Failure to thrive in adult LBBB (left bundle branch block) Hypercholesterolemia Hypertension GERD (gastroesophageal reflux disease) Abnormal uterine bleeding History of frequent urinary tract infections SIADH (syndrome of inappropriate ADH production) Osteoporosis History of diverticulitis of colon Arteriosclerosis of coronary artery Myocardial infarction Surgical History History of surgery on arm History of surgery on left wrist Hx of cardiac catheterization Hx of bilateral cataract extraction H/O colonoscopy with polypectomy History of tooth extraction History of heart artery stent S/P dilation and curettage Family History Father Myocardial infarction Mother Cardiac disorder Other Dysuria No family history of adverse response to anesthesia Denies family history of Ovarian cancer Prostate cancer Breast cancer Colorectal cancer Social History Smoking Status: Never smoker Second Hand Exposure: No; Do You Dip or Chew Tobacco: No; Hx Alcohol Use: Yes Alcohol type: beer Alcohol Intake Frequency: Monthly or Less Hx Substance Use: No Preferred Language: Indonesian Communication Ability: Effective Visual Impairment: No Limitations Hearing Ability: Normal Esthetics Instructor Required: No Beliefs That Will Affect Care: None marital status: Current Living Situation: Spouse current occupational status: retired current occupation: worked in sales How many Children do You have: 1 Feels Safe at Home: Yes Childhood Exposure to Second-Hand Smoke: No Diet: regular Dental Care, Regularly: Yes Physical Activity Frequency: Daily Physical Activity Frequency Comment: bike and gardening Seatbelt Use: always Sunscreen Use: Yes Assistive Devices: Glasses Allergies Allergies Allergy/AdvReac Type Severity Reaction Status Date / Time acetaminophen Allergy Intermediate Joint Verified 07/28/23 12:52 Pain, Headache asparagus Allergy Intermediate Joint Pain Verified 07/28/23 12:52 azithromycin Allergy Intermediate Joint Verified 07/28/23 12:52 Pain, Headache spinach Allergy Intermediate Joint Pain Verified 07/28/23 12:52 Dsehlzy-FVQ-HtT Reductase Allergy Intermediate lethargy,muscle Verified 07/28/23 12:52 Inhibitor weakness [Bsrdqnq-Lhv-Ycq Reductase Inhibitor] alprazolam AdvReac Intermediate Joint Verified 07/28/23 12:52 Pain, Headache cephalexin [From Keflex] AdvReac Intermediate Abdominal Verified 07/28/23 20:04 Pain ciprofloxacin AdvReac Intermediate Joint Verified 07/28/23 12:52 Pain, Headache Home Meds Home Medications Medication Instructions Recorded Confirmed digestive enzymes (Enzyme Digest 1 cap PO BIDM 12/02/18 07/28/23 capsule) melatonin 3 mg tablet 3 mg PO HS PRN Sleep 12/02/18 07/28/23 multivitamin 1 tab PO QAM 12/02/18 07/28/23 omega 1-wmn-taz-fish oil 1,000 mg 1 cap PO QAM 12/02/18 07/28/23 (120 mg-180 mg) capsule (Fish Oil) aspirin 81 mg tablet,delayed 81 mg PO QAM 10/09/20 07/28/23 release cholecalciferol (vitamin D3) 25 4,000 unit PO QAM 10/23/21 07/28/23 mcg (1,000 unit) capsule (Vitamin D3) Arnicare Pain Relieving Cream 1 applic topical DAILY PRN Pain 12/14/22 07/28/23 nitroglycerin 0.4 mg sublingual 0.4 mg sublingual Q5M PRN Chest 04/28/23 07/28/23 tablet Pain clopidogrel 75 mg tablet (Plavix) 37.5 mg PO QAM 06/19/23 07/28/23 estradiol 0.01% (0.1 mg/gram) 1 g vaginal 3XWK 06/19/23 07/28/23 vaginal cream Results & Data (ED) Vital Signs Vital Signs - 24 hr 07/28/23 14:18 07/28/23 14:21 07/28/23 14:21 Temperature 36.5 C Temperature Source Oral Pulse Rate 76 Pulse Rate [Apical] Pulse Rhythm Regular Pulse Strength Normal Respiratory Rate 20 Respiratory Effort / Characteristics Non-Labored Spontaneous Respiratory Depth Normal Respiratory Pattern Regular Blood Pressure 127/73 Blood Pressure [Right Arm] Blood Pressure Mean 91 Blood Pressure Mean [Right Arm] Blood Pressure Position Sitting Pulse Oximetry 100 100 100 Oxygen Delivery Method Room Air Room Air Room Air Sepsis Recent Fever Within 48 Hours No Sepsis New/Unexplained Change in Mental Status No Sepsis Action Taken by Nursing No Action Required 07/28/23 14:23 07/28/23 15:30 Temperature Temperature Source Pulse Rate 68 Pulse Rate [Apical] 51 L Pulse Rhythm Pulse Strength Respiratory Rate 18 Respiratory Effort / Characteristics Respiratory Depth Respiratory Pattern Blood Pressure Blood Pressure [Right Arm] 122/73 Blood Pressure Mean Blood Pressure Mean [Right Arm] 89 Blood Pressure Position Pulse Oximetry 100 Oxygen Delivery Method Room Air Sepsis Recent Fever Within 48 Hours Sepsis New/Unexplained Change in Mental Status Sepsis Action Taken by Nursing Laboratory Data 07/28/23 14:24 07/28/23 19:22 Lab Results 07/28/23 07/28/23 Range/Units 14:24 16:53 WBC 5.82 (4.8-10.8) K/ul RBC 3.75 L (4.20-5.40) M/uL Hgb 12.5 (12.0-16.0) g/dl Hct 34.5 L (37.0-47.0) % MCV 92.0 (80.0-100.0) fL MCH 33.3 (25.0-34.0) pg MCHC 36.2 H (32.0-36.0) g/dL RDW Std Deviation 44.3 (36.4-46.3) fL RDW Coeff of Jorge Luis 13.1 (11.5-14.5) % Plt Count 178 (130-400) K/uL MPV 9.1 L (9.4-12.4) fL Immature Gran % (Auto) 0.3 % Neut % (Auto) 73.7 % Lymph % (Auto) 16.0 % [place] % (Auto) 9.5 % Eos % (Auto) 0.2 % Baso % (Auto) 0.3 % Neut # (Auto) 4.29 (1.40-6.50) K/uL Lymph # (Auto) 0.93 L (1.20-3.40) K/uL [place] # (Auto) 0.55 (0.11-0.59) K/uL Eos # (Auto) 0.01 (0.00-0.50) K/uL Baso # (Auto) 0.02 (0.00-0.20) K/uL Immature Gran # (Auto) 0.02 (0.01-0.20) K/uL PT 12.0 (9.0-12.0) Seconds INR 1.1 (0.9-1.1) Sodium 130 L (136-145) mmol/L Potassium 3.0 L (3.5-5.1) mmol/L Chloride 91 L (98-107) mmol/L Carbon Dioxide 31 (21-32) mmol/L Anion Gap 8 (3-11) BUN 13 (6-23) mg/dl Creatinine 0.54 L (0.6-1.2) mg/dl Est Cr Clr Drug Dosing 68.5 ml/min Est GFR ( Amer) 100.4 ml/min Est GFR (Non-Af Amer) 86.7 ml/min BUN/Creatinine Ratio 24.1 H (10-20) Glucose 100 H (70-99(Fasting)) mg/dl Calcium 9.0 (8.6-10.3) mg/dl Magnesium 2.1 (1.7-2.4) mg/dl Total Bilirubin 0.9 (0.2-1.0) mg/dl AST 26 (13-39) U/L ALT 20 (7-52) U/L Alkaline Phosphatase 85 (34-104) U/L Troponin I High Sens 11.7 (0-14) pg/ml Total Protein 6.5 (6.0-8.3) gm/dl Albumin 3.9 (3.4-5.0) gm/dl Globulin 2.6 (2.5-4.0) gm/dl Albumin/Globulin Ratio 1.5 (0.9-2) Lipase 65 (11-82) U/L TSH 0.787 (0.300-4.500) uIu/ml Urine Color Yellow Urine Appearance Clear (Clear) Urine pH 7.5 (4.5-7.5) Ur Specific [place] 1.006 (1.000-1.030) Urine Protein Negative (Negative) Urine Glucose (UA) Negative (Negative) Urine Ketones Negative (Negative) Urine Blood Negative (Negative) Urine Nitrite Negative (Negative) Urine Bilirubin Negative (Negative) Urine Urobilinogen Negative (Negative) Ur Leukocyte Esterase Negative (Negative) Administered Medications Discontinued Medications Sodium Chloride (Nss) 500 mls @ 999 mls/hr IV .Q31M STA Stop: 07/28/23 14:51 Last Infusion: 07/28/23 15:44 Dose: Infused Documented By: Admin: 07/28/23 14:32 Dose: 999 mls/hr Documented By: DORI Morphine Sulfate (Morphine Sulfate 4 Mg/Ml 1 Ml Carp\\Vial) 4 mg IV NOW STA Stop: 07/28/23 14:23 Last Admin: 07/28/23 14:32 Dose: Not Given Documented By: DORI Ondansetron HCl (Ondansetron Inj 2 Mg/Ml 2 Ml Vial) 4 mg IV NOW STA Stop: 07/28/23 14:23 Last Admin: 07/28/23 14:33 Dose: Not Given Documented By: DORI Imaging Data Radiologist's Impression: Abdomen/Pelvis CT 07/28/23 14:22 CT abd pelvis wo con CLINICAL HISTORY: R lower back pain TECHNIQUE: Helical axial images of the abdomen and pelvis were obtained. Automated dose lowering techniques and/or adjustment according to patient size were utilized for this exam. This exam was performed without intravenous contrast. CT DOSE: 261.62 mGy.cm COMPARISON: Comparison is made to CT abdomen pelvis 07/15/2023 FINDINGS: Lower chest: Bibasilar atelectasis versus scarring is seen. [place] blood pool is seen compatible with anemia. There is pericardial fluid compatible with a small effusion. Liver: Unremarkable. No focal lesions are seen. Gallbladder and biliary tree: No calcified gallstones. Normal caliber wall. No intra- or extrahepatic biliary ductal dilation. Pancreas: Unremarkable, no focal lesions. Spleen: Unremarkable. Adrenals: Unremarkable. Kidneys and ureters: Unremarkable. Bladder: Unremarkable. Reproductive organs: Unremarkable. Bowel: Unremarkable. Lymph nodes Retroperitoneal: Unremarkable. Pelvic: Unremarkable. Mesenteric: Unremarkable. Peritoneum: Evaluation is limited by a possibility of peritoneal fat. No pneumoperitoneum or other acute abnormality. Vessels: Atherosclerotic calcifications are seen. Abdominal wall: Unremarkable. Bones: Increased compression deformity of L1 compatible with acute on chronic fracture. IMPRESSION: 1. Acute on chronic compression fracture of L1. Otherwise no acute abnormalities are seen. 2. Redemonstration of prominent pericardial fluid which may represent a small effusion. ACT 112: Negative or not required by law. Electronically signed by: Shen Bergeron M.D. 07/28/2023 4:07 PM Discharge Plan Visit Data Chief Complaint: Shortness of Breath/Dyspnea Stated Complaint: SOB, BACK PAIN ED Provider: Luis Noel Discharge Problem: Compression fracture of L1 lumbar vertebra Discharge Instructions Interventions: ED Discharge Assessment Last Done: 07/28/23 19:58 Discharge Problem: Compression fracture of L1 lumbar vertebra Qualifiers: Encounter type: initial encounter Qualified Code(s): S32.010A - Wedge compression fracture of first lumbar vertebra, initial encounter for closed fracture
[2023-07-28] MEDS: MoRPHine SULFATE 4 MG/ML 1 ML CARP\\VIAL IV STA (14:32)
[2023-07-28] MEDS: SODIUM CHLORIDE 0.9% 500 ML IV STA (14:32)
[2023-07-28] MEDS: ONDANSETRON INJ 2 MG/ML 2 ML VIAL IV STA (14:33)
[2023-07-28 14:52] LABS: Basophils # (auto) 0.02 K/uL (0.00-0.20); Basophils % (auto) 0.3 %; Eosinophils # (auto) 0.01 K/uL (0.00-0.50); Eosinophils % (auto) 0.2 %; Hematocrit (blood only) 34.5 % (37.0-47.0); Hemoglobin 12.5 g/dl (12.0-16.0); Immature Granulocytes # (auto) 0.02 K/uL (0.01-0.20); Immature Granulocytes % (auto) 0.3 %; Lymphocytes # (auto) 0.93 K/uL (1.20-3.40); Mean Corpuscular Hemoglobin 33.3 pg (25.0-34.0); Mean Corpuscular Hgb Conc 36.2 g/dL (32.0-36.0); Mean Platelet Volume 9.1 fL (9.4-12.4); Monocytes # (auto) 0.55 K/uL (0.11-0.59); Monocytes % (auto) 9.5 %; Neutrophils # (auto) 4.29 K/uL (1.40-6.50); Neutrophils % (auto) 73.7 %; Platelet Count 178 K/uL (130-400); RDW Coefficient of Variation 13.1 % (11.5-14.5); RDW Standard Deviation 44.3 fL (36.4-46.3); Red Blood Count 3.75 M/uL (4.20-5.40); White Blood Count 5.82 K/ul (4.8-10.8)
[2023-07-28 15:08] LABS: Albumin Globulin Ratio 1.5 (0.9-2); Albumin Level 3.9 gm/dl (3.4-5.0); BUN Creatinine Ratio 24.1 (10-20); Bilirubin,Total 0.9 mg/dl (0.2-1.0); Creatinine Clr Calc Pharmacy 68.5 ml/min; Est GFR (African American) 100.4 ml/min; Est GFR (Non-African American) 86.7 ml/min; Globulin 2.6 gm/dl (2.5-4.0); Magnesium 2.1 mg/dl (1.7-2.4); Total Protein 6.5 gm/dl (6.0-8.3)
[2023-07-28 15:14] LABS: Troponin I High Sensitivity 11.7 pg/ml (0-14)
[2023-07-28 15:17] LABS: INR 1.1 (0.9-1.1)
[2023-07-28 15:22] LABS: Thyroid Stimulating Hormone 0.787 uIu/ml (0.300-4.500)
--- NOTE | 2023-07-28 16:08 | CT Scan Report ---
CT abd pelvis wo con CLINICAL HISTORY: R lower back pain TECHNIQUE: Helical axial images of the abdomen and pelvis were obtained. Automated dose lowering tech niques and/or adjustment according to patient size were utilized for this exam. This exam was perfor med without intravenous contrast. CT DOSE: 261.62 mGy.cm COMPARISON: Comparison is made to CT abdomen pelvis 07/15/2023 FINDINGS: Lower chest: Bibasilar atelectasis versus scarring is seen. Hypodense blood pool is seen compatible with anemia. There is pericardial fluid compatible with a small effusion. Liver: Unremarkable. No focal lesions are seen. Gallbladder and biliary tree: No calcified gallstones. Normal caliber wall. No intra- or extrahepatic biliary ductal dilation. Pancreas: Unremarkable, no focal lesions. Spleen: Unremarkable. Adrenals: Unremarkable. Kidneys and ureters: Unremarkable. Bladder: Unremarkable. Reproductive organs: Unremarkable. Bowel: Unremarkable. Lymph nodes Retroperitoneal: Unremarkable. Pelvic: Unremarkable. Mesenteric: Unremarkable. Peritoneum: Evaluation is limited by a possibility of peritoneal fat. No pneumoperitoneum or other ac [place] abnormality. Vessels: Atherosclerotic calcifications are seen. Abdominal wall: Unremarkable. Bones: Increased compression deformity of L1 compatible with acute on chronic fracture. IMPRESSION: 1. Acute on chronic compression fracture of L1. Otherwise no acute abnormalities are seen. 2. Redemonstration of prominent pericardial fluid which may represent a small effusion. ACT 112: Negative or not required by law. Electronically signed by: Shen Bergeron M.D. 07/28/2023 4:07 PM
[2023-07-28 17:10] LABS: Appearance Urine Clear (Clear); Bilirubin Urine Negative (Negative); Blood Urine Negative (Negative); Color Urine Yellow; Glucose Urine UA Negative (Negative); Ketones Urine Negative (Negative); Leukocyte Esterase Urine Negative (Negative); Nitrite Urine Negative (Negative); Protein Urine Negative (Negative); Specific Gravity Urine 1.006 (1.000-1.030); Urobilinogen Urine Negative (Negative); pH Urine 7.5 (4.5-7.5)
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
[2023-07-28] MEDS ORDERED: ACETAMINOPHEN 325 MG TAB PO PRN ×2 (19:58)
[2023-07-28] MEDS ORDERED: MoRPHine SULFATE 2 MG/ML CARP IV PRN (19:58)
[2023-07-28] MEDS ORDERED: MoRPHine SULFATE 4 MG/ML 1 ML CARP\\VIAL IV PRN (19:58)
[2023-07-28 20:10] LABS: BUN Creatinine Ratio 20.4 (10-20); Calcium 8.9 mg/dl (8.6-10.3); Creatinine Clr Calc Pharmacy 75.4 ml/min; Est GFR (African American) 103.7 ml/min; Est GFR (Non-African American) 89.5 ml/min; Potassium 2.8 mmol/L (3.5-5.1)
[2023-07-28] MEDS: POTASSIUM CHLORIDE CRTAB 20 MEQ TABCR PO STA (20:21)
[2023-07-28] MEDS: POTASSIUM CHLORIDE / WTR 10 MEQ/100 ML PLCT IV SCH (23:09)
[2023-07-28 23:24] LABS: BUN Creatinine Ratio 21.2 (10-20); Calcium 8.6 mg/dl (8.6-10.3); Creatinine Clr Calc Pharmacy 46.5 ml/min; Est GFR (African American) 101.7 ml/min; Est GFR (Non-African American) 87.7 ml/min; Potassium 2.9 mmol/L (3.5-5.1)
[2023-07-29] MEDS: MELATONIN 3 MG TAB PO PRN (00:51)
[2023-07-29 01:44] LABS: D Dimer 1930 ug/L FEU (0-500)
[2023-07-29] MEDS ORDERED: POTASSIUM CHLORIDE / WTR 10 MEQ/100 ML PLCT IV SCH (02:00)
[2023-07-29] MEDS: POTASSIUM CHLORIDE CRTAB 20 MEQ TABCR PO STA (03:02)
[2023-07-29] MEDS: POTASSIUM CHLORIDE / WTR 10 MEQ/100 ML PLCT IV SCH (03:52)
[2023-07-29 04:16] LABS: Basophils # (auto) 0.03 K/uL (0.00-0.20); Basophils % (auto) 0.5 %; Eosinophils # (auto) 0.02 K/uL (0.00-0.50); Eosinophils % (auto) 0.3 %; Hematocrit (blood only) 35.8 % (37.0-47.0); Hemoglobin 12.8 g/dl (12.0-16.0); Immature Granulocytes # (auto) 0.02 K/uL (0.01-0.20); Immature Granulocytes % (auto) 0.3 %; Lymphocytes # (auto) 1.04 K/uL (1.20-3.40); Lymphocytes % (auto) 16.9 %; Mean Corpuscular Hemoglobin 33.1 pg (25.0-34.0); Mean Corpuscular Hgb Conc 35.8 g/dL (32.0-36.0); Mean Corpuscular Volume 92.5 fL (80.0-100.0); Monocytes # (auto) 0.43 K/uL (0.11-0.59); Neutrophils # (auto) 4.61 K/uL (1.40-6.50); Platelet Count 187 K/uL (130-400); RDW Coefficient of Variation 13.3 % (11.5-14.5); RDW Standard Deviation 45.1 fL (36.4-46.3); Red Blood Count 3.87 M/uL (4.20-5.40); White Blood Count 6.15 K/ul (4.8-10.8)
[2023-07-29 04:34] LABS: BUN Creatinine Ratio 19.1 (10-20); Calcium 8.8 mg/dl (8.6-10.3); Creatinine Clr Calc Pharmacy 51.5 ml/min; Est GFR (African American) 105.1 ml/min; Est GFR (Non-African American) 90.7 ml/min; Potassium 3.5 mmol/L (3.5-5.1)
[2023-07-29] MEDS: LIDOCAINE 5% 1 PATCH TD PRN (05:20)
--- NOTE | 2023-07-29 07:45 | XRay Report ---
XR chest 1V portable HISTORY: 83 years-old Female LE acute shortness of breath COMPARISON: 06/26/2023 TECHNIQUE: AP view of the chest FINDINGS: Cardiac silhouette is enlarged. No pneumothorax, pleural effusion or pulmonary edema. No airspace con solidation to suggest pneumonia. Bones appear grossly intact. IMPRESSION: Cardiomegaly without acute process. ACT 112: Negative or not required by law. The above report was generated using voice recognition software. It may contain grammatical, syntax o r spelling errors. Electronically signed by: David Khan M.D. 07/29/2023 7:43 AM
[2023-07-29] MEDS: CLOPIDOGREL BISULFATE 75 MG TAB PO SCH (09:02)
[2023-07-29] MEDS: ASPIRIN 81 MG ECTAB PO SCH (09:03)
[2023-07-29] MEDS: ACETAMINOPHEN 500 MG TAB PO SCH (09:03)
[2023-07-29] MEDS: ESCITALOPRAM OXALATE 10 MG TAB PO SCH (09:03)
[2023-07-29] MEDS: OPTIRAY 320 125ml IV ONE (12:55)
[2023-07-29] MEDS: CALCITONIN SALMON NA 200 IU/AC 3.7 ML BTL SCH (13:02)
--- NOTE | 2023-07-29 15:00 | CT Scan Report ---
CHEST CTA for PULMONARY ARTERIES CT DOSE: 206.88 mGy.cm HISTORY: Shortness of breath. TECHNIQUE: Multiaxial CT images of the chest were performed following the intravenous administration of contrast to evaluate the pulmonary arteries. 3D/Maximal intensity projection images were also obta ined. Sagittal and coronal reformations were also reviewed. A dose lowering technique was utilized a dhering to the principles of ALARA. COMPARISON STUDY: Chest CT 05/12/2021. FINDINGS: Normal caliber thoracic aorta with no evidence for a dissection. The heart is mildly enlarg ed. There is a small to moderate pericardial effusion and a trace left pleural effusion. No filling d efects within the pulmonary arteries to suggest a pulmonary embolus. The patient is cachectic. Limite d views of the upper abdomen demonstrate a normal liver and spleen. Normal esophagus. No mediastinal or hilar lymphadenopathy. L1 burst fracture again noted with 3 mm of retropulsion. This demonstrates up to 50% loss of height. No additional fractures within the chest. No suspicious lytic or blastic os seous lesions. Stable lucent lesion within the right humeral head. This is likely benign. No pneumoth orax. Mild biapical pleural-parenchymal scarring. The central airways are patent. Stable 1.6 cm cyst within the left upper lobe. No focal lung consolidations to suggest a pneumonia. No evidence for pulm onary edema. Bilateral lower lobe linear densities favor subsegmental atelectasis/scarring. IMPRESSION: 1. No evidence for a pulmonary embolus. 2. Small to moderate pericardial effusion and a trace left pleural effusion. 3. Mild cardiomegaly. 4. No focal lung consolidations to suggest a pneumonia. 5. Redemonstration of the L1 burst fracture demonstrating up to 50% loss of height. ACT 112: Negative or not required by law. Electronically signed by: Julien Neff M.D. 07/29/2023 2:59 PM
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
[2023-07-30 06:19] LABS: BUN Creatinine Ratio 21.8 (10-20); Calcium 9.1 mg/dl (8.6-10.3); Est GFR (African American) 99.8 ml/min; Est GFR (Non-African American) 86.1 ml/min; Magnesium 2.2 mg/dl (1.7-2.4); Phosphorus 2.6 mg/dl (2.5-4.9); Potassium 4.5 mmol/L (3.5-5.1)
[2023-07-30 06:25] LABS: Basophils # (auto) 0.03 K/uL (0.00-0.20); Basophils % (auto) 0.6 %; Eosinophils # (auto) 0.03 K/uL (0.00-0.50); Eosinophils % (auto) 0.6 %; Hematocrit (blood only) 35.2 % (37.0-47.0); Hemoglobin 12.8 g/dl (12.0-16.0); Immature Granulocytes # (auto) 0.01 K/uL (0.01-0.20); Immature Granulocytes % (auto) 0.2 %; Lymphocytes % (auto) 27.5 %; Mean Corpuscular Hgb Conc 36.4 g/dL (32.0-36.0); Mean Corpuscular Volume 93.4 fL (80.0-100.0); Mean Platelet Volume 9.3 fL (9.4-12.4); Monocytes # (auto) 0.43 K/uL (0.11-0.59); Monocytes % (auto) 8.4 %; Neutrophils % (auto) 62.7 %; Platelet Count 182 K/uL (130-400); RDW Coefficient of Variation 13.5 % (11.5-14.5); RDW Standard Deviation 46.4 fL (36.4-46.3); Red Blood Count 3.77 M/uL (4.20-5.40)
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
--- NOTE | 2023-07-31 06:00 | Electrocardiogram Report ---
Test Reason : Blood Pressure : / mmHG Vent. Rate : 072 BPM Atrial Rate : 072 BPM P-R Int : 178 ms QRS Dur : 126 ms QT Int : 422 ms P-R-T Axes : 082 -55 095 degrees QTc Int : 462 ms Sinus rhythm with Premature atrial complexes with Aberrant conduction Left axis deviation Left bundle branch block , possibly rate related Abnormal ECG When compared with ECG of 26-JUN-2023 17:44, Aberrant conduction is now Present Premature atrial complexes are now Present Confirmed by Parveen Sanchez ([id number]) on 07/31/2023 5:59:47 AM Referred By: REFERRED SELF Confirmed By:Parveen Sanchez
[2023-07-31 07:14] LABS: Hematocrit (blood only) 34.4 % (37.0-47.0); Hemoglobin 12.3 g/dl (12.0-16.0); Mean Corpuscular Hemoglobin 33.3 pg (25.0-34.0); Mean Corpuscular Hgb Conc 35.8 g/dL (32.0-36.0); Mean Corpuscular Volume 93.2 fL (80.0-100.0); Mean Platelet Volume 9.2 fL (9.4-12.4); Platelet Count 185 K/uL (130-400); RDW Coefficient of Variation 13.4 % (11.5-14.5); RDW Standard Deviation 45.9 fL (36.4-46.3); Red Blood Count 3.69 M/uL (4.20-5.40); White Blood Count 5.56 K/ul (4.8-10.8)
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
[2023-07-31 07:39] LABS: Calcium 9.2 mg/dl (8.6-10.3); Creatinine Clr Calc Pharmacy 37.7 ml/min; Est GFR (Non-African American) 83.7 ml/min; Magnesium 2.1 mg/dl (1.7-2.4); Potassium 4.9 mmol/L (3.5-5.1)
--- NOTE | 2023-07-31 16:27 | Discharge Summary ---
Date of Service July 31, 2023 Admission HPI Per Admitting Provider Mallika is an 83yo female with PMH of NSTEMI, osteoporosis, CAD, LVH, SIADH, and LBBB. She presented from her PCPs office for exertional SOB and lower back pain on 07/27. PCPs note mentions concern for loss of 9 pounds since June, and failure to thrive. Patient reports she has been having some dyspnea on exertion since her surgery on 06/29; had a D&C for vaginal bleeding. She notes she has been having lower back pain as well, which she attributes to her severe osteoporosis of her spine. Difficulty with sitting. She takes homeopathic medicine at home, and applies Arnica 12 cream every few hours, which she reports helps. She does not take acetaminophen. She reports she has been taking her regular morning medications and took her morning medications today. Patient has been using a cane at home for ambulatory dysfunction, which is new for her. She denies any recent falls, injuries, or trauma to the head neck or pelvis. She denies leg weakness. Patient was recently prescribed Keflex outpatient for increased urinary frequency and UTI symptoms; she reports that this upset her stomach, and she was switched to amoxicillin 3 times daily. She has no new urinary complaints at this time. Of note, the patient has had a difficult relationship with her recently (who has Parkinson's and dementia), and is concerned about both his ability to take care of himself, as well is her own ability for care. Patient reports she does feel safe at home. She reports no recent changes in diet. She reports she had a BM yesterday which was "large and painful". She denies smoking, alcohol use, and tobacco use. No supplemental oxygen at home. Patient is mildly bradycardic at 51 bpm; vitals otherwise stable at time of admission; SpO2 100% on RA. ED course: NSS 500 mL IV Morphine sulfate 4 mg IV Zofran 4 mg IV Potassium chloride 40mEq p.o. ROS: Patient endorses recent weight loss (80-->70lb; over two years, per patient), GUILLORY, lower back pain, LE, and difficulty with BM. Patient denies fever, chills, nightsweats, chest pain, chest palpitations, pleuritic CP, cough, abdominal pain, N/V, urinary s/s, burning with urination, blood in the urine/stool, or pain/numbness/tingling/weakness in legs. Principal Diagnosis Mechanical fall with L1 compression fracture and intractable pain Referral to [facility] once pain has been controlled Chronic stable hyponatremia Discharge Exam Awake and appropriate pain was controlled examination was benign patient was able to sit up in bed without much discomfort Discharge Data Allergies Allergy/AdvReac Type Severity Reaction Status Date / Time acetaminophen Allergy Intermediate Joint Verified 07/28/23 12:52 Pain, Headache asparagus Allergy Intermediate Joint Pain Verified 07/28/23 12:52 azithromycin Allergy Intermediate Joint Verified 07/28/23 12:52 Pain, Headache spinach Allergy Intermediate Joint Pain Verified 07/28/23 12:52 Baobgej-UMX-YrS Reductase Allergy Intermediate lethargy,muscle Verified 07/28/23 12:52 Inhibitor weakness [Uhnjzip-Nzy-Htk Reductase Inhibitor] alprazolam AdvReac Intermediate Joint Verified 07/28/23 12:52 Pain, Headache cephalexin [From Keflex] AdvReac Intermediate Abdominal Verified 07/28/23 20:04 Pain ciprofloxacin AdvReac Intermediate Joint Verified 07/28/23 12:52 Pain, Headache Consultations 07/28/23 16:31 ED Decision to Admit Stat Ordered Studies 07/28/23 14:22 CT abd pelvis wo con Stat 07/29/23 10:57 CT angio chest PE protocol Urgent Hospital Course (1) Compression fracture of L1 lumbar vertebra: A/P CT revealed acute on chronic compression fracture of L1 Acetaminophen scheduled 500 q 6 Patient not required any parenteral morphine for breakthrough pain or she required oxycodone and Ultram. Daily lidocaine patch application as needed added calcitonin spray. Pain appears controlled. Transition to [facility] on 07/31/2023 (2) Failure to thrive in adult: Severe protein-calorie malnutrition Patient lives with her who has advanced Parkinson's and dementia She currently has concerns about ability to care for herself, as well as her Dietitian consult for nutritional assessment,AHA diet with protein supplementation hopeful this can be continued at rehab (3) Presence of stent in LAD coronary artery: Chronic stable coronary artery disease s/p LAD and ramus stents in 2004 History of NSTEMI in November 2022 Continue aspirin, Plavix (4) Anxiety: started patient on Lexapro 5 mg daily (5) Electrolyte abnormality: hyponatremia, mild and chronic with h/o SIADH hypokalemia replete Plan DNR/DNI Total Time Total Time Spent Total Time Spent (In Minutes): It required greater than 30 minutes to prepare this patient for discharge. Discharge Plan Discharge Items Patient Disposition: Transfer Inpatient Rehab Fac Reason For Visit: LUMBAR COMPRESSION FRACTURE Discharge Diagnosis: Lumbar Compression fracture chronic stable depression chronic stable SIADH Activity: Per Instructions section Activity Comment: per rehab instructions Non-emergency contact: Primary Care Provider Call non-emergency contact if: your symptoms worsen Follow-up/Referrals: ProMichael MD [Primary Care Provider] - Diet: Regular Addtl Attending Provider Instructions: pt has had good pain control with scheduled Tylenol, Lidoderm, and Miacalcin nasal spray She had not required opiates Pending Studies at Discharge: No Stand-Alone Forms: My [facility] Skilled Items Patient informed of condition?: Yes DNR: Yes Discharge Level of Care: Acute rehab Communicable Disease: No Discharge Prognosis: Stable Lines: None Urinary Catheter: No Medications and DC Order Prescriptions: New acetaminophen [Tylenol Extra Strength] 500 mg Tablet 500 mg PO QID Qty: 30 0RF calcitonin (salmon) 200 unit/actuation [place],Non-Aerosol 1 spray NA DAILY Qty: 1 0RF lidocaine 5 % Adhesive Patch,Medicated 1 patch transdermal QAM Qty: 15 0RF escitalopram oxalate 10 mg Tablet 5 mg PO QAM Qty: 60 0RF Continued nitroglycerin 0.4 mg tablet, sublingual 0.4 mg sublingual Q5M PRN (Reason: Chest Pain) Rx Instructions: do not exceed 3 doses per episode multivitamin Tablet 1 tab PO QAM Enzyme Digest Capsule 1 cap PO BIDM melatonin 3 mg Tablet 3 mg PO HS PRN (Reason: Sleep) omega 2-utb-jdf-fish oil [Fish Oil] 1,000 mg (120 mg-180 mg) Capsule 1 cap PO QAM cholecalciferol (vitamin D3) [Vitamin D3] 25 mcg (1,000 unit) capsule 4,000 unit PO QAM Rx Instructions: Pt breaks open capsule and pours it into applesauce aspirin 81 mg Tablet,Delayed Release (Dr/Ec) 81 mg PO QAM estradiol 0.01 % (0.1 mg/gram) Cream 1 g VAGINAL [id number] Rx Instructions: for 14 days clopidogrel [Plavix] 75 mg tablet 37.5 mg PO QAM Discontinued Arnicare Pain Relieving Cream 1 applic topical DAILY PRN (Reason: Pain) Discharge Orders: Discharge Order (Routine); Ordered 07/31/23 Ordered By: Jas Pierce Admission Data Admit Date/Time: 07/29/23 22:34 Attending Provider: Jas Pierce Admit Provider: Chriss Salamanca Primary Care Provider: Michael Corley Other Providers: [facility]; Chriss Salamanca Coding Level of Care Code 87926 INP/OBS DISCH >30 MIN Diagnoses Compression fracture of L1 lumbar vertebra S32.010A Encounter type: initial encounter Failure to thrive in adult R62.7 Presence of stent in LAD coronary artery Z95.5 Anxiety F41.9 Electrolyte abnormality E87.8
== END 2023-07-31 16:47 | DRG 551 ==
LOC: EDINP 14:10 → ED 14:10 → SUATTDRO 18:15 → 2N 19:58 → SUATTDRO 07-29 22:34
DX: Z95.5 Presence of coronary angioplasty implant and graft; Z66 Do not resuscitate; R26.9 Unspecified abnormalities of gait and mobility; R63.4 Abnormal weight loss; R62.7 Adult failure to thrive; M81.0 Age-related osteoporosis without current pathological fracture; R06.00 Dyspnea, unspecified; E78.00 Pure hypercholesterolemia, unspecified; E87.6 Hypokalemia; I25.2 Old myocardial infarction; I25.10 Atherosclerotic heart disease of native coronary artery without angina pectoris; S32.010A Wedge compression fracture of first lumbar vertebra, initial encounter for closed fracture; I44.7 Left bundle-branch block, unspecified; Z79.899 Other long term (current) drug therapy; F41.9 Anxiety disorder, unspecified; Z91.018 Allergy to other foods; W19.XXXA Unspecified fall, initial encounter; T74.31XA Adult psychological abuse, confirmed, initial encounter; Z88.1 Allergy status to other antibiotic agents; E43 Unspecified severe protein-calorie malnutrition; E87.1 Hypo-osmolality and hyponatremia; R00.1 Bradycardia, unspecified

== ENCOUNTER 2023-09-17 16:12 | Inpatient (IN) ==
--- NOTE | 2023-09-17 16:20 | ED Triage Note ---
Date of Service September 17, 2023 Provider in Triage Author: Chrissie Laurent History of Present Illness This patient was briefly evaluated while in triage. An abbreviated physical exam was performed. This patient is a 83-year-old Female who presents to the ED for evaluation of a head injury and UTI symptoms. The patient states that she thinks she has a UTI. Has been having urinary urgency and getting up a lot to go to the bathroom. She states that she got up at 1 am to go to the bathroom and fell and hit the right side of her face and head. No LOC. She is on Plavix. Having pain to the right side of her face and lower back. Also feels weak. Saw her PCP who said her urine looked infected. Denies fevers, abdominal pain, nausea, or vomiting. Denies chest pain or SOB. Physical Exam GENERAL: Non-toxic and in no acute distress. HEENT: Pupils equal. No obvious scleral icterus. Tender over the right zygomatic process. HEART: Regular rate and rhythm. LUNGS: Clear to auscultation. No accessory muscle use. ABDOMEN: Soft, non-tender to palpation. NEURO: Alert and oriented. No obvious neurological deficits on quick neuro exam. MUSCULOSKELETAL: Tender to palpation over the lumbar spine and paraspinal muscles. Initial orders for labs and / or imaging were placed and patient was placed in the waiting area until a bed is available. Please see further documentation for the full ED course. MDM / Impression Impression Impression: Weakness, Hyponatremia, Closed lumbar vertebral fracture, Elevated troponin Impression: Closed lumbar vertebral fracture Qualifiers: Encounter type: initial encounter Lumbar vertebra fracture level: L2 Fracture morphology: unspecified fracture morphology Qualified Code(s): S32.029A - Unspecified fracture of second lumbar vertebra, initial encounter for closed fracture
[2023-09-17] MEDS: SODIUM CHLORIDE 0.9% 500 ML IV STA (16:47)
[2023-09-17 17:06] LABS: Basophils # (auto) 0.02 K/uL (0.00-0.20); Basophils % (auto) 0.3 %; Eosinophils # (auto) 0.03 K/uL (0.00-0.50); Eosinophils % (auto) 0.5 %; Hematocrit (blood only) 30.7 % (37.0-47.0); Immature Granulocytes # (auto) 0.01 K/uL (0.01-0.20); Immature Granulocytes % (auto) 0.2 %; Lymphocytes # (auto) 0.92 K/uL (1.20-3.40); Lymphocytes % (auto) 14.5 %; Mean Corpuscular Hemoglobin 33.8 pg (25.0-34.0); Mean Corpuscular Hgb Conc 35.8 g/dL (32.0-36.0); Mean Corpuscular Volume 94.5 fL (80.0-100.0); Mean Platelet Volume 9.3 fL (9.4-12.4); Monocytes # (auto) 0.53 K/uL (0.11-0.59); Monocytes % (auto) 8.3 %; Neutrophils # (auto) 4.85 K/uL (1.40-6.50); Neutrophils % (auto) 76.2 %; Platelet Count 192 K/uL (130-400); RDW Coefficient of Variation 13.2 % (11.5-14.5); RDW Standard Deviation 46.1 fL (36.4-46.3); Red Blood Count 3.25 M/uL (4.20-5.40); White Blood Count 6.36 K/ul (4.8-10.8)
--- NOTE | 2023-09-17 17:09 | XRay Report ---
SINGLE VIEW CHEST CLINICAL HISTORY: Atypical chest pain FINDINGS: A PA chest radiograph is compared to study dated 07/28/2023 and correlated with chest CT date d 07/29/2023. The heart is enlarged noting atherosclerotic calcification of the thoracic aorta. The pul monary vasculature is noncongested. Chronic interstitial thickening is similar to previous. There is mild bibasilar scarring/atelectasis. The lungs and pleural spaces are otherwise clear. No pneumothora x is seen. The skeletal structures are osteopenic. The bony thorax is grossly intact. IMPRESSION: Cardiomegaly with no active disease in the chest. ACT 112: Negative or not required by law. Electronically signed by: Holden Decker M.D. 09/17/2023 5:07 PM
[2023-09-17 17:14] LABS: Alanine Aminotransferase 35 U/L (7-52); Albumin Globulin Ratio 1.5 (0.9-2); Albumin Level 3.9 gm/dl (3.4-5.0); Alkaline Phosphatase 74 U/L (34-104); Anion Gap 7 (3-11); Aspartate Aminotransferase 39 U/L (13-39); BUN Creatinine Ratio 28.8 (10-20); Bilirubin,Total 0.8 mg/dl (0.2-1.0); Blood Urea Nitrogen 19 mg/dl (6-23); Calcium 8.8 mg/dl (8.6-10.3); Carbon Dioxide 29 mmol/L (21-32); Chloride 91 mmol/L (98-107); Est GFR (Non-African American) 81.1 ml/min; Globulin 2.6 gm/dl (2.5-4.0); Glucose 93 mg/dl (70-99(Fasting)); Lipase 84 U/L (11-82); Magnesium 1.8 mg/dl (1.7-2.4); Potassium 3.7 mmol/L (3.5-5.1); Sodium 127 mmol/L (136-145); Total Protein 6.5 gm/dl (6.0-8.3)
--- NOTE | 2023-09-17 17:15 | CT Scan Report ---
CT SCAN OF THE BRAIN WITHOUT IV CONTRAST CLINICAL HISTORY: Trauma. COMPARISON STUDY: CT of the brain dated 05/12/2021. TECHNIQUE: Unenhanced axial CT scan of the brain is performed from the vertex to the skull base. A do se lowering technique was utilized adhering to the principles of ALARA. CT DOSE: 1892.21 mGy.cm FINDINGS: Brain parenchyma: There is age-related involutional change noting moderate to advanced subcortical an d periventricular microangiopathic disease. There is no hemorrhage, mass effect, or evidence of acute territorial ischemia by CT criteria. Martin-white matter differentiation is preserved. No extra-axial fluid collection is seen. Ventricles, sulci, cisterns: Prominent secondary to involutional change. Intracranial vasculature: There is atherosclerotic calcification of the cavernous carotid and vertebr al artery. Calvarium: The skeletal structures are osteopenic. No depressed calvarial fracture is identified. Sinuses and mastoids: A 12 mm retention cyst is noted in the left maxillary antrum. The visualized pa ranasal sinuses are otherwise clear. The mastoid air cells are well pneumatized. Orbits: The bony orbits are grossly intact. There are bilateral ocular lens implants. IMPRESSION: There is no hemorrhage, mass effect, or evidence of acute territorial ischemia by CT daisy alonso. ACT 112: Negative or not required by law. Electronically signed by: Holden Decker M.D. 09/17/2023 5:14 PM
--- NOTE | 2023-09-17 17:19 | CT Scan Report ---
CT SCAN OF THE CERVICAL SPINE CLINICAL HISTORY: Fall. COMPARISON STUDY: Cervical spine CT dated 05/12/2021. TECHNIQUE: CT scan of the cervical spine is performed from the skull base to the upper thoracic spine . Images are reviewed in the axial, sagittal, and coronal planes. IV contrast was not administered fo r this examination. A dose lowering technique was utilized adhering to the principles of ALARA. FINDINGS: Skeletal structures: The skeletal structures are osteopenic. There is no evidence of fracture or subl uxation involving the cervical spine. Vertebral body height is maintained. There is minimal anterolis thesis at C4-C5. Alignment is otherwise preserved. Anterior osteophytes are seen throughout. Mild hyp erlordosis is noted. The odontoid process and lateral masses are intact. The atlantoaxial articulatio n is preserved noting mild productive degenerative change. The spinous processes appear intact. There is mild to moderate multilevel cervical spondylosis. Uncovertebral and facet arthropathy contribute to neural foraminal narrowing at several levels. Intervertebral discs: There is moderate disc space narrowing at C6-C7. Mild disc space narrowing is n oted at the remaining cervical levels. Central canal: Posterior disc osteophyte complexes at C5-C6 and C6-C7 may contribute to mild acquired compromise of the central canal. Soft tissues: The prevertebral and paraspinous soft tissues are within normal limits. Calcified sialo liths are noted in the right parotid gland. There is atherosclerotic calcification of the carotid bul bs. Calvarium: The visualized calvarium at the skull base appears intact. Brain parenchyma: Partially visualized brain parenchyma at the skull base is within normal limits. Sinuses and mastoids: A retention cyst is partially visualized in the left maxillary antrum. The mast oid air cells are well pneumatized. Lung apices: Clear as visualized. IMPRESSION: 1. There is no evidence of fracture or subluxation involving the cervical spine. 2. Osteopenia and spondylotic change as above. ACT 112: Negative or not required by law. Electronically signed by: Holden Decker M.D. 09/17/2023 5:17 PM
[2023-09-17 17:21] LABS: Troponin I High Sensitivity 21.2 pg/ml (0-14)
[2023-09-17 17:24] LABS: INR 1.1 (0.9-1.1); Partial Thromboplastin Time 26 Seconds (21-31); Prothrombin Time 11.6 Seconds (9.0-12.0)
--- NOTE | 2023-09-17 17:44 | CT Scan Report ---
CT SCAN OF THE LUMBAR SPINE WITHOUT IV CONTRAST CLINICAL HISTORY: Trauma. Fall yesterday. COMPARISON STUDY: Lumbar spine CT dated 05/12/2021. Chest CT dated 07/29/2023. TECHNIQUE: CT scan of the lumbar spine is performed from the lower thoracic spine to the sacrum. Imag es are reviewed in the axial, sagittal, and coronal planes. IV contrast was not administered for this examination. A dose lowering technique was utilized adhering to the principles of ALARA. FINDINGS: The skeletal structures are osteopenic. Again seen is a subacute/healing burst type yanira angi fracture of L1. There is moderate loss of height, which has modestly progressed from the chest CT. Fragments are retropulsed by up to 5 mm. This does not contribute to significant central canal stenosis. There is an acute superior endplate compression fracture of L2 with mild loss of heig ht. This is new from 07/29/2023. Fragments are retropulsed by up to 5.5 mm. This does not contribute to significant central canal stenosis. No additional acute fracture is seen involving the lumbar spine. Vertebral body height is maintained from L3 through S1. Alignment is preserved. The transverse and s pinous processes are intact. There is no spondylolysis. No lytic or blastic lesion is seen. Tiny ante rior and lateral marginal osteophytes are seen throughout. The intervertebral disc spaces are maintai natty. There is no CT evidence of large disc herniation or high-grade central canal stenosis. The visua lized sacrum and bony pelvis appear intact. The paraspinous soft tissues are within normal limits. A trace left pleural effusion is partially visualized. IMPRESSION: 1. There is an acute superior endplate compression fracture of L2, which is new from 07/29/2023. There is mild loss of height. Fragments are retropulsed by up to 5.5 mm. This does not contribute to signif icant central canal stenosis. 2. Again seen is a subacute burst type compression fracture of L1. Loss of height is modestly progres sed as compared to 07/29/2023. 3. No additional acute fracture is seen involving the lumbar spine. 4. A trace left pleural effusion is partially visualized. ACT 112: Negative or not required by law. Dictated: 09/17/2023 5:18 PM Transcribed: 09/17/2023 5:42 PM Geo [id number] [facility] Electronically signed by: Holden Decker M.D. 09/17/2023 5:43 PM
--- NOTE | 2023-09-17 18:07 | CT Scan Report ---
CT SCAN OF THE FACIAL BONES WITHOUT IV CONTRAST CLINICAL HISTORY: Recent fall. Right-sided facial injury. COMPARISON STUDY: CT scan of the paranasal sinuses dated 01/31/2014. TECHNIQUE: High-resolution CT scan of the facial bones is performed. Images are reviewed in the axia l, sagittal, and coronal planes. IV contrast was not administered for this examination. A dose lower ing technique was utilized adhering to the principles of ALARA. FINDINGS: The skeletal structures are osteopenic. There is no evidence of facial bone fracture. The b tato orbits are intact and the orbital contents are within normal limits noting bilateral ocular lens implants. The zygomatic arches, nasal bones, and pterygoid plates are preserved. The maxilla and saji ible are intact. Severe arthritic change is noted in the temporomandibular joints. There are no layer ing blood products within the paranasal sinuses. A 12 mm retention cyst is noted in the left maxillar y antrum. The paranasal sinuses are otherwise clear. The mastoid air cells are well pneumatized. The visualized calvarium and upper cervical spine are maintained. Partially imaged brain parenchyma is wi thin normal limits. IMPRESSION: There is no evidence of facial bone fracture. ACT 112: Negative or not required by law. Electronically signed by: Holden Decker M.D. 09/17/2023 6:05 PM
--- NOTE | 2023-09-17 18:13 | Emergency Department Note ---
Impression & Plan Weakness, Hyponatremia, Closed lumbar vertebral fracture, Elevated troponin ED Provider Note NAME: ROBER CELESTIN AGE: 83 SEX: F : 1940 ARRIVES VIA: Walk-In INFORMANT: Patient ED PROVIDER(S): Meet Aguirre DO CHIEF COMPLAINT: Fall HPI: Patient is an 83-year-old female who fell last night out of bed. She notes that she hit her head. She had some back pain at that time but that has gone away. She denies any tingling or numbness or weakness in the legs. She admits to right-sided head pain. No chest pain or shortness of breath. No belly pain, nausea, vomiting, or diarrhea. No dysuria, urgency, or frequency. No other exacerbating or remitting factors. ADDITIONAL HISTORY OBTAINED: Per HPI Chronic Medical/Social Conditions Affecting Care: Per HPI PAST MEDICAL HISTORY:See Below PAST SURGICAL HISTORY:See Below FAMILY HISTORY:See Below SOCIAL HISTORY:See Below HOME MEDICATIONS:See Below ALLERGIES:See Below VITALS:See Below PHYSICAL EXAMINATION: GENERAL: Sitting up in bed, alert, well appearing, well nourished, no distress, non-toxic HEAD: NC/AT EYE EXAM: normal conjunctiva. PERRL and EOM's grossly intact. OROPHARYNX: no exudate, no erythema, lips, buccal mucosa, and tongue normal and mucous membranes are moist NECK: supple, no nuchal rigidity, no adenopathy, non-tender LUNGS: Clear to auscultation. Normal chest wall mechanics HEART: no murmurs, S1 normal and S2 normal ABDOMEN: abdomen soft, non-tender, normo-active bowel sounds, no masses, no rebound or guarding. BACK: Back is symmetrical on inspection and there is no deformity, no midline tenderness, no CVA tenderness. UPPER EXTREMITIES: upper extremities are grossly normal. LOWER EXTREMITIES: Flexion-extension bilateral hips knees ankles and EHL intact. NEURO EXAM: Normal sensorium, cranial nerves II-XII grossly intact, normal speech, no gross weakness of arms, no gross weakness of legs. MEDICAL DECISION MAKING: Patient is an 83-year-old female who presents ER for above-stated complaint. IV was established blood work was obtained. Labs show no significant leukocytosis. Mild anemia 11. INR unremarkable. BMP with a hyponatremia at 127. Lactic acid was unremarkable. LFTs bilirubin was normal. Troponin was negative. Lipase negative. UA was clean. CT of the head face cervical spine showed no acute fractures. CT lumbar spine showed L2 fracture with 5.5 mm of retropulsion. Patient has no weakness or numbness. Discussed with Dr. Montalvo from orthopedic spine and he was agreeable to evaluating her in the morning. Discussed with case with the hospitalist for further evaluation management treatment. Consults/Care Managements Discussions: Per MDM Triage Nursing notes reviewed. Limited review of prior medical records performed Vital Signs: reviewed and remarkable for hypotension Differential diagnosis: Differential diagnoses include major intracranial, cervical, spinal, thoracic, abdominal, pelvic and neurologic injury. Fracture, contusion, sprain, strain, laceration, abrasions included as well. ER treatment provided: See below Diagnostics interpreted by me include EKG and cardiac monitoring as listed below: -Cardiac Monitoring: An order was placed for continuous cardiac monitoring. The monitor shows a rate of 60 with sinus rhythm. -ECG: Sinus rhythm rate 64 Left axis Bundle branch block QTc [address] wave changes in the high lateral leads -Laboratory studies:Interpreted by me as stated above in MDM and shown below. Imaging studies: Xrays: As interpreted by me: Portable AP upright 1 view of the chest shows atelectasis at the bases CTs show: CT of the head face lumbar spine and cervical spine as described above Procedures:none Critical Care: None Past Med/Surg History Problem List (Updated 09/17/23 @ 21:16 by Meet Aguirre DO) Elevated troponin (Acute) Closed lumbar vertebral fracture (Acute) Hyponatremia (Acute) Weakness (Acute) Cognitive impairment Weight loss, unintentional Post-operative state Compression fracture of L1 lumbar vertebra (Acute ~07/28/23) Encounter for pre-operative examination Change in hearing Urethral caruncle Stented coronary artery Non-ST elevated myocardial infarction (Acute) History of rib fracture (05/12/21) fractures of the left posterior 11th and 12th ribs Esophageal dysphagia Encounter for pre-operative laboratory testing CAD (coronary artery disease) Laryngopharyngeal reflux (LPR) Chronic laryngitis Post-menopausal bleeding Prolapsed urethral mucosa Urinary frequency LBBB (left bundle branch block) Presence of orthotic device 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 Bowen 12/14/22 > NSTEMI, drug eluding stent prox to mid RCA at [facility] Medical History Electrolyte abnormality Anxiety Presence of stent in LAD coronary artery Hyponatremia GERD (gastroesophageal reflux disease) Abnormal uterine bleeding History of frequent urinary tract infections SIADH (syndrome of inappropriate ADH production) History of diverticulitis of colon Arteriosclerosis of coronary artery Surgical History History of surgery on arm History of surgery on left wrist Hx of cardiac catheterization Hx of bilateral cataract extraction H/O colonoscopy with polypectomy History of tooth extraction History of heart artery stent S/P dilation and curettage Family History Father Myocardial infarction Mother Cardiac disorder Other Dysuria No family history of adverse response to anesthesia Denies family history of Ovarian cancer Prostate cancer Breast cancer Colorectal cancer Social History Smoking Status: Never smoker Second Hand Exposure: No; Do You Dip or Chew Tobacco: No; Hx Alcohol Use: No Hx Substance Use: No Preferred Language: Estonian Communication Ability: Effective Visual Impairment: No Limitations Hearing Ability: Normal Sound Assistant Required: No Beliefs That Will Affect Care: None marital status: Current Living Situation: Spouse current occupational status: retired current occupation: worked in sales How many Children do You have: 1 Feels Safe at Home: Yes Childhood Exposure to Second-Hand Smoke: No Diet: regular Dental Care, Regularly: Yes Physical Activity Frequency: Daily Physical Activity Frequency Comment: bike and gardening Seatbelt Use: always Sunscreen Use: Yes Assistive Devices: Cane and Glasses Allergies Allergies Allergy/AdvReac Type Severity Reaction Status Date / Time acetaminophen Allergy Intermediate Joint Verified 09/17/23 15:16 Pain, Headache asparagus Allergy Intermediate Joint Pain Verified 09/17/23 15:16 azithromycin Allergy Intermediate Joint Verified 09/17/23 15:16 Pain, Headache spinach Allergy Intermediate Joint Pain Verified 09/17/23 15:16 [id number] Reductase Allergy Intermediate lethargy,muscle Verified 09/17/23 15:16 Inhibitor weakness [Ltyknqs-Eqd-Wos Reductase Inhibitor] alprazolam AdvReac Intermediate Joint Verified 09/17/23 15:16 Pain, Headache cephalexin [From Keflex] AdvReac Intermediate Abdominal Verified 09/17/23 15:16 Pain ciprofloxacin AdvReac Intermediate Joint Verified 09/17/23 15:16 Pain, Headache Home Meds Home Medications Medication Instructions Recorded Confirmed melatonin 3 mg tablet 3 mg PO HS PRN Sleep 12/02/18 09/17/23 multivitamin 1 tab PO QAM 12/02/18 09/17/23 omega [id number]-jbo-[id number]-fish oil 1,000 mg 1 cap PO QAM 12/02/18 09/17/23 (120 mg-180 mg) capsule (Fish Oil) aspirin 81 mg tablet,delayed 81 mg PO QAM 10/09/20 09/17/23 release cholecalciferol (vitamin D3) 25 4,000 unit PO QAM 10/23/21 09/17/23 mcg (1,000 unit) capsule (Vitamin D3) clopidogrel 75 mg tablet (Plavix) 37.5 mg PO QAM 06/19/23 09/17/23 docusate sodium 100 mg capsule 100 mg PO BID 08/12/23 09/17/23 escitalopram oxalate 5 mg tablet 5 mg PO QAM 09/17/23 09/17/23 Previous Rx's Medication Instructions Recorded calcitonin (salmon) 200 1 spray NA DAILY #1 inhaler 08/13/23 unit/actuation nasal spray nitroglycerin 0.4 mg sublingual 0.4 mg sublingual Q5M PRN Chest 09/10/23 tablet Pain #25 tabs Results & Data (ED) Vital Signs Vital Signs - 24 hr 09/17/23 16:17 09/17/23 18:13 09/17/23 18:15 Temperature 36.8 C Temperature Source Temporal Artery Scan Pulse Rate 72 64 Pulse Rate [Right Finger] 62 Pulse Rate from SpO2 Sensor Pulse Rhythm Pulse Rhythm [Right Finger] Regular Pulse Strength [Right Finger] Normal Respiratory Rate 20 16 14 Respiratory Depth Normal Blood Pressure 96/65 L Blood Pressure [Right Arm] 143/71 H Blood Pressure Mean 75 Blood Pressure Mean [Right Arm] 95 Pulse Oximetry 100 99 Oxygen Delivery Method Room Air Room Air Sepsis Recent Fever Within 48 Hours No Sepsis New/Unexplained Change in Mental Status N/A Sepsis Action Taken by Nursing No Action Required 09/17/23 18:15 09/17/23 18:16 09/17/23 18:20 Temperature Temperature Source Pulse Rate 60 61 70 Pulse Rate [Right Finger] Pulse Rate from SpO2 Sensor Pulse Rhythm Regular Pulse Rhythm [Right Finger] Pulse Strength [Right Finger] Respiratory Rate 14 19 Respiratory Depth Blood Pressure Blood Pressure [Right Arm] Blood Pressure Mean Blood Pressure Mean [Right Arm] Pulse Oximetry 99 Oxygen Delivery Method Room Air Sepsis Recent Fever Within 48 Hours Sepsis New/Unexplained Change in Mental Status Sepsis Action Taken by Nursing 09/17/23 18:20 09/17/23 18:30 09/17/23 18:31 Temperature Temperature Source Pulse Rate 85 Pulse Rate [Right Finger] Pulse Rate from SpO2 Sensor Pulse Rhythm Pulse Rhythm [Right Finger] Pulse Strength [Right Finger] Respiratory Rate 16 Respiratory Depth Blood Pressure 160/78 H 143/71 H Blood Pressure [Right Arm] Blood Pressure Mean 100 85 Blood Pressure Mean [Right Arm] Pulse Oximetry Oxygen Delivery Method Sepsis Recent Fever Within 48 Hours Sepsis New/Unexplained Change in Mental Status Sepsis Action Taken by Nursing 09/17/23 18:31 09/17/23 18:40 09/17/23 18:50 Temperature Temperature Source Pulse Rate 57 L 61 65 Pulse Rate [Right Finger] Pulse Rate from SpO2 Sensor Pulse Rhythm Pulse Rhythm [Right Finger] Pulse Strength [Right Finger] Respiratory Rate 14 17 17 Respiratory Depth Blood Pressure Blood Pressure [Right Arm] Blood Pressure Mean Blood Pressure Mean [Right Arm] Pulse Oximetry Oxygen Delivery Method Sepsis Recent Fever Within 48 Hours Sepsis New/Unexplained Change in Mental Status Sepsis Action Taken by Nursing 09/17/23 19:00 09/17/23 19:00 09/17/23 19:10 Temperature Temperature Source Pulse Rate 74 73 Pulse Rate [Right Finger] Pulse Rate from SpO2 Sensor Pulse Rhythm Pulse Rhythm [Right Finger] Pulse Strength [Right Finger] Respiratory Rate 20 21 Respiratory Depth Blood Pressure 155/75 H Blood Pressure [Right Arm] Blood Pressure Mean 95 Blood Pressure Mean [Right Arm] Pulse Oximetry Oxygen Delivery Method Sepsis Recent Fever Within 48 Hours Sepsis New/Unexplained Change in Mental Status Sepsis Action Taken by Nursing 09/17/23 19:20 09/17/23 19:30 09/17/23 19:40 Temperature Temperature Source Pulse Rate 63 64 67 Pulse Rate [Right Finger] Pulse Rate from SpO2 Sensor 63 65 65 Pulse Rhythm Pulse Rhythm [Right Finger] Pulse Strength [Right Finger] Respiratory Rate 20 14 16 Respiratory Depth Blood Pressure 149/76 H Blood Pressure [Right Arm] Blood Pressure Mean 100 Blood Pressure Mean [Right Arm] Pulse Oximetry 100 100 100 Oxygen Delivery Method Room Air Sepsis Recent Fever Within 48 Hours Sepsis New/Unexplained Change in Mental Status Sepsis Action Taken by Nursing 09/17/23 19:50 09/17/23 20:00 09/17/23 20:01 Temperature Temperature Source Pulse Rate 66 75 73 Pulse Rate [Right Finger] Pulse Rate from SpO2 Sensor 65 Pulse Rhythm Pulse Rhythm [Right Finger] Pulse Strength [Right Finger] Respiratory Rate 19 17 16 Respiratory Depth Blood Pressure 133/85 Blood Pressure [Right Arm] Blood Pressure Mean 101 Blood Pressure Mean [Right Arm] Pulse Oximetry 99 100 Oxygen Delivery Method Room Air Sepsis Recent Fever Within 48 Hours Sepsis New/Unexplained Change in Mental Status Sepsis Action Taken by Nursing 09/17/23 20:10 09/17/23 20:20 09/17/23 20:30 Temperature Temperature Source Pulse Rate 75 76 71 Pulse Rate [Right Finger] Pulse Rate from SpO2 Sensor Pulse Rhythm Pulse Rhythm [Right Finger] Pulse Strength [Right Finger] Respiratory Rate 16 23 21 Respiratory Depth Blood Pressure 107/57 L Blood Pressure [Right Arm] Blood Pressure Mean 73 Blood Pressure Mean [Right Arm] Pulse Oximetry 99 Oxygen Delivery Method Room Air Sepsis Recent Fever Within 48 Hours Sepsis New/Unexplained Change in Mental Status Sepsis Action Taken by Nursing 09/17/23 20:40 Temperature Temperature Source Pulse Rate 77 Pulse Rate [Right Finger] Pulse Rate from SpO2 Sensor Pulse Rhythm Pulse Rhythm [Right Finger] Pulse Strength [Right Finger] Respiratory Rate 22 Respiratory Depth Blood Pressure Blood Pressure [Right Arm] Blood Pressure Mean Blood Pressure Mean [Right Arm] Pulse Oximetry Oxygen Delivery Method Sepsis Recent Fever Within 48 Hours Sepsis New/Unexplained Change in Mental Status Sepsis Action Taken by Nursing Laboratory Data 09/17/23 16:40 09/17/23 16:40 Lab Results 09/17/23 09/17/23 09/17/23 Range/Units 16:40 19:09 19:27 WBC 6.36 (4.8-10.8) K/ul RBC 3.25 L (4.20-5.40) M/uL Hgb 11.0 L (12.0-16.0) g/dl Hct 30.7 L (37.0-47.0) % MCV 94.5 (80.0-100.0) fL MCH 33.8 (25.0-34.0) pg MCHC 35.8 (32.0-36.0) g/dL RDW Std Deviation 46.1 (36.4-46.3) fL RDW Coeff of Jorge Luis 13.2 (11.5-14.5) % Plt Count 192 (130-400) K/uL MPV 9.3 L (9.4-12.4) fL Immature Gran % (Auto) 0.2 % Neut % (Auto) 76.2 % Lymph % (Auto) 14.5 % [place] % (Auto) 8.3 % Eos % (Auto) 0.5 % Baso % (Auto) 0.3 % Neut # (Auto) 4.85 (1.40-6.50) K/uL Lymph # (Auto) 0.92 L (1.20-3.40) K/uL [place]ando # (Auto) 0.53 (0.11-0.59) K/uL Eos # (Auto) 0.03 (0.00-0.50) K/uL Baso # (Auto) 0.02 (0.00-0.20) K/uL Immature Gran # (Auto) 0.01 (0.01-0.20) K/uL PT 11.6 (9.0-12.0) Seconds INR 1.1 (0.9-1.1) APTT 26 (21-31) Seconds PTT Ratio 1.0 Sodium 127 L (136-145) mmol/L Potassium 3.7 (3.5-5.1) mmol/L Chloride 91 L (98-107) mmol/L Carbon Dioxide 29 (21-32) mmol/L Anion Gap 7 (3-11) BUN 19 (6-23) mg/dl Creatinine 0.66 (0.6-1.2) mg/dl Est Cr Clr Drug Dosing Not Reportable Est GFR ( Amer) 94.0 ml/min Est GFR (Non-Af Amer) 81.1 ml/min BUN/Creatinine Ratio 28.8 H (10-20) Glucose 93 (70-99(Fasting)) mg/dl Lactate 0.8 (0.4-2.0) mmol/L Calcium 8.8 (8.6-10.3) mg/dl Magnesium 1.8 (1.7-2.4) mg/dl Total Bilirubin 0.8 (0.2-1.0) mg/dl AST 39 (13-39) U/L ALT 35 (7-52) U/L Alkaline Phosphatase 74 (34-104) U/L Troponin I High Sens 21.2 H 19.4 H (0-14) pg/ml Total Protein 6.5 (6.0-8.3) gm/dl Albumin 3.9 (3.4-5.0) gm/dl Globulin 2.6 (2.5-4.0) gm/dl Albumin/Globulin Ratio 1.5 (0.9-2) Lipase 84 H (11-82) U/L Urine Color Yellow Urine Appearance Clear (Clear) Urine pH 7.0 (4.5-7.5) Ur Specific [place] 1.009 (1.000-1.030) Urine Protein Negative (Negative) Urine Glucose (UA) Negative (Negative) Urine Ketones Negative (Negative) Urine Blood Negative (Negative) Urine Nitrite Negative (Negative) Urine Bilirubin Negative (Negative) Urine Urobilinogen Negative (Negative) Ur Leukocyte Esterase Trace H (Negative) Urine WBC (Auto) 0-5 (0-5) /hpf Urine RBC (Auto) 0-2 (0-2) /hpf U Hyaline Cast (Auto) 0-2 (0-2) /lpf U Epithel Cells (Auto) 0-2 (0-2) /hpf Urine Bacteria (Auto) None Seen (None Seen) Administered Medications Discontinued Medications Sodium Chloride (Nss) 500 mls @ 999 mls/hr IV .Q31M STA Stop: 09/17/23 16:51 Last Infusion: 09/17/23 18:34 Dose: Infused Documented By: Admin: 09/17/23 16:47 Dose: 999 mls/hr Documented By: SKYLER Ceftriaxone Sodium (Rocephin) 2,000 mg in 50 mls @ 100 mls/hr IV NOW STA Stop: 09/17/23 18:39 Last Admin: 09/17/23 18:38 Dose: Not Given Documented By: VIKAS Sodium Chloride (Nss) 1,000 mls @ 999 mls/hr IV .Q1H1M ONE Stop: 09/17/23 19:10 Last Infusion: 09/17/23 19:22 Dose: Infused Documented By: Admin: 09/17/23 18:29 Dose: 999 mls/hr Documented By: VIKAS Ampicillin Sodium/Sulbactam Sodium 3,000 mg/ Sodium Chloride 100 mls @ 200 mls/hr IV NOW STA Stop: 09/17/23 19:03 Last Infusion: 09/17/23 19:58 Dose: Infused Documented By: Admin: 09/17/23 19:18 Dose: 200 mls/hr Documented By: SAMI Imaging Data Radiologist's Impression: Cervical Spine CT 09/17/23 16:21 CT SCAN OF THE CERVICAL SPINE CLINICAL HISTORY: Fall. COMPARISON STUDY: Cervical spine CT dated 05/12/2021. TECHNIQUE: CT scan of the cervical spine is performed from the skull base to the upper thoracic spine. Images are reviewed in the axial, sagittal, and coronal planes. IV contrast was not administered for this examination. A dose lowering technique was utilized adhering to the principles of ALARA. FINDINGS: Skeletal structures: The skeletal structures are osteopenic. There is no evidence of fracture or subluxation involving the cervical spine. Vertebral body height is maintained. There is minimal anterolisthesis at C4-C5. Alignment is otherwise preserved. Anterior osteophytes are seen throughout. Mild hyperlordosis is noted. The odontoid process and lateral masses are intact. The atlantoaxial articulation is preserved noting mild productive degenerative change. The spinous processes appear intact. There is mild to moderate multilevel cervical spondylosis. Uncovertebral and facet arthropathy contribute to neural foraminal narrowing at several levels. Intervertebral discs: There is moderate disc space narrowing at C6-C7. Mild disc space narrowing is noted at the remaining cervical levels. Central canal: Posterior disc osteophyte complexes at C5-C6 and C6-C7 may contribute to mild acquired compromise of the central canal. Soft tissues: The prevertebral and paraspinous soft tissues are within normal limits. Calcified sialoliths are noted in the right parotid gland. There is atherosclerotic calcification of the carotid bulbs. Calvarium: The visualized calvarium at the skull base appears intact. Brain parenchyma: Partially visualized brain parenchyma at the skull base is within normal limits. Sinuses and mastoids: A retention cyst is partially visualized in the left maxillary antrum. The mastoid air cells are well pneumatized. Lung apices: Clear as visualized. IMPRESSION: 1. There is no evidence of fracture or subluxation involving the cervical spine. 2. Osteopenia and spondylotic change as above. ACT 112: Negative or not required by law. Electronically signed by: Holden Decker M.D. 09/17/2023 5:17 PM Chest X-Ray 09/17/23 16:21 SINGLE VIEW CHEST CLINICAL HISTORY: Atypical chest pain FINDINGS: A PA chest radiograph is compared to study dated 07/28/2023 and correlated with chest CT dated 07/29/2023. The heart is enlarged noting atherosclerotic calcification of the thoracic aorta. The pulmonary vasculature is noncongested. Chronic interstitial thickening is similar to previous. There is mild bibasilar scarring/atelectasis. The lungs and pleural spaces are otherwise clear. No pneumothorax is seen. The skeletal structures are osteopenic. The bony thorax is grossly intact. IMPRESSION: Cardiomegaly with no active disease in the chest. ACT 112: Negative or not required by law. Electronically signed by: Holden Decker M.D. 09/17/2023 5:[address] 09/17/23 16:21 CT SCAN OF THE BRAIN WITHOUT IV CONTRAST CLINICAL HISTORY: Trauma. COMPARISON STUDY: CT of the brain dated 05/12/2021. TECHNIQUE: Unenhanced axial CT scan of the brain is performed from the vertex to the skull base. A dose lowering technique was utilized adhering to the principles of ALARA. CT DOSE: 1892.21 mGy.cm FINDINGS: Brain parenchyma: There is age-related involutional change noting moderate to advanced subcortical and periventricular microangiopathic disease. There is no hemorrhage, mass effect, or evidence of acute territorial ischemia by CT criteria. Martin-white matter differentiation is preserved. No extra-axial fluid collection is seen. Ventricles, sulci, cisterns: Prominent secondary to involutional change. Intracranial vasculature: There is atherosclerotic calcification of the cavernous carotid and vertebral artery. Calvarium: The skeletal structures are osteopenic. No depressed calvarial fracture is identified. Sinuses and mastoids: A 12 mm retention cyst is noted in the left maxillary antrum. The visualized paranasal sinuses are otherwise clear. The mastoid air cells are well pneumatized. Orbits: The bony orbits are grossly intact. There are bilateral ocular lens implants. IMPRESSION: There is no hemorrhage, mass effect, or evidence of acute territorial ischemia by CT criteria. ACT 112: Negative or not required by law. Electronically signed by: Holden Decker M.D. 09/17/2023 5:[address] 09/17/23 16:21 CT SCAN OF THE LUMBAR SPINE WITHOUT IV CONTRAST CLINICAL HISTORY: Trauma. Fall yesterday. COMPARISON STUDY: Lumbar spine CT dated 05/12/2021. Chest CT dated 07/29/2023. TECHNIQUE: CT scan of the lumbar spine is performed from the lower thoracic spine to the sacrum. Images are reviewed in the axial, sagittal, and coronal planes. IV contrast was not administered for this examination. A dose lowering technique was utilized adhering to the principles of ALARA. FINDINGS: The skeletal structures are osteopenic. Again seen is a subacute/healing burst type compression fracture of L1. There is moderate loss of height, which has modestly progressed from the 07/29/[address] Fragments are retropulsed by up to 5 mm. This does not contribute to significant central canal stenosis. There is an acute superior endplate compression fracture of L2 with mild loss of height. This is new from 07/29/2023. Fragments are retropulsed by up to 5.5 mm. This does not contribute to significant central canal stenosis. No additional acute fracture is seen involving the lumbar spine. Vertebral body height is maintained from L3 through S1. Alignment is preserved. The transverse and spinous processes are intact. There is no spondylolysis. No lytic or blastic lesion is seen. Tiny anterior and lateral marginal osteophytes are seen throughout. The intervertebral disc spaces are maintained. There is no CT evidence of large disc herniation or high-grade central canal stenosis. The visualized sacrum and bony pelvis appear intact. The paraspinous soft tissues are within normal limits. A trace left pleural effusion is partially visualized. IMPRESSION: 1. There is an acute superior endplate compression fracture of L2, which is new from 07/29/2023. There is mild loss of height. Fragments are retropulsed by up to 5.5 mm. This does not contribute to significant central canal stenosis. 2. Again seen is a subacute burst type compression fracture of L1. Loss of height is modestly progressed as compared to 07/29/2023. 3. No additional acute fracture is seen involving the lumbar spine. 4. A trace left pleural effusion is partially visualized. ACT 112: Negative or not required by law. Dictated: 09/17/2023 5:18 PM Transcribed: 09/17/2023 5:42 PM Geo [id number] Electronically signed by: Holden Decker M.D. 09/17/2023 5:[address] 09/17/23 16:22 CT SCAN OF THE FACIAL BONES WITHOUT IV CONTRAST CLINICAL HISTORY: Recent fall. Right-sided facial injury. COMPARISON STUDY: CT scan of the paranasal sinuses dated 01/31/2014. TECHNIQUE: High-resolution CT scan of the facial bones is performed. Images are reviewed in the axial, sagittal, and coronal planes. IV contrast was not administered for this examination. A dose lowering technique was utilized adhering to the principles of ALARA. FINDINGS: The skeletal structures are osteopenic. There is no evidence of facial bone fracture. The bony orbits are intact and the orbital contents are within normal limits noting bilateral ocular lens implants. The zygomatic arches, nasal bones, and pterygoid plates are preserved. The maxilla and mandible are intact. Severe arthritic change is noted in the temporomandibular joints. There are no layering blood products within the paranasal sinuses. A 12 mm retention cyst is noted in the left maxillary antrum. The paranasal sinuses are otherwise clear. The mastoid air cells are well pneumatized. The visualized calvarium and upper cervical spine are maintained. Partially imaged brain parenchyma is within normal limits. IMPRESSION: There is no evidence of facial bone fracture. ACT 112: Negative or not required by law. Electronically signed by: Holden Decker M.D. 09/17/2023 6:05 PM Discharge Plan Visit Data Chief Complaint: Head Injury, Minor Stated Complaint: UTI, FELL/HIT HEAD, CONFUSION,DIZZY,COVID,EYE PAIN ED Provider: Meet Aguirre Discharge Problem: Weakness, Hyponatremia, Closed lumbar vertebral fracture, Elevated troponin Patient Disposition: Admitted As Inpatient Discharge Instructions Interventions: ED Discharge Assessment Last Done: 09/17/23 20:48 Forms Stand Alone Forms: ticketea Prescriptions Prescriptions: No Action nitroglycerin 0.4 mg tablet, sublingual 0.4 mg sublingual Q5M PRN (Reason: Chest Pain) Qty: 25 1RF Rx Instructions: do not exceed 3 doses per episode calcitonin (salmon) 200 unit/actuation spray,non-aerosol 1 spray NA DAILY Qty: 1 11RF docusate sodium 100 mg capsule 100 mg PO BID multivitamin Tablet 1 tab PO QAM melatonin 3 mg Tablet 3 mg PO HS PRN (Reason: Sleep) omega 6-jvq-yly-fish oil [Fish Oil] 1,000 mg (120 mg-180 mg) Capsule 1 cap PO QAM cholecalciferol (vitamin D3) [Vitamin D3] 25 mcg (1,000 unit) capsule 4,000 unit PO QAM Rx Instructions: Pt breaks open capsule and pours it into applesauce aspirin 81 mg Tablet,Delayed Release (Dr/Ec) 81 mg PO QAM clopidogrel [Plavix] 75 mg tablet 37.5 mg PO QAM escitalopram oxalate 5 mg tablet 5 mg PO QAM Referrals Referrals: Michael Corley MD [Primary Care Provider] - Discharge Problem: Closed lumbar vertebral fracture Qualifiers: Encounter type: initial encounter Lumbar vertebra fracture level: L2 Fracture morphology: unspecified fracture morphology Qualified Code(s): S32.029A - Unspecified fracture of second lumbar vertebra, initial encounter for closed fracture
[2023-09-17] MEDS: SODIUM CHLORIDE 0.9% 1,000 ML IV ONE (18:29)
[2023-09-17] MEDS: cefTRIAXone SODIUM 2,000 MG/50 ML BAG IV STA (18:38)
[2023-09-17] MEDS: AMPICILLIN SOD/SULBACTAM SOD 3,000 MG in SODIUM CHLOR 0.9% MINI-B 100 ML IV STA (19:18)
--- NOTE | 2023-09-17 19:30 | History & Physical Report ---
"Date of Service September 17, 2023 Assessment & Plan (1) Urinary tract infection: (2) Closed lumbar vertebral fracture: (3) Hyponatremia: (4) Weakness: (5) Elevated troponin: (6) Esophageal dysphagia: (7) CAD (coronary artery disease): (8) Laryngopharyngeal reflux (LPR): (9) Gait instability: (10) SIADH (syndrome of inappropriate ADH production): (11) Hypercholesterolemia: (12) Hypertension: (13) Anemia: Plan Mallika is an 83F w/ PMH of cognitive impairment, gait instability, L1 compression fracture, osteoporosis, CAD s/p stenting, LBBB, dysphagia, laryngopharyngeal reflux, SIADH, HLD, HTN, anemia, and headaches who presents for evaluation of a fall at home. Patient was noted to have a UTI as well as a new L2 fraction on-top of her chronic L1 fracture. Urinary Tract Infection - 2-3 days of urinary frequency and lightheadedness w/o dysuria - Urinalysis w/ positive leukocyte esterase - Patient w/ long history of UTIs, largely cummins-sensitive (intermediate to fluoroquinolones) - Hemodynamically stable and afebrile, no acute concern for pyelonephritis - Started on IV Unasyn in ED, continued on admission, opportunity to transition to Augmentin PO for discharge Counselled about risk of diarrhea, probiotics added - Urinary tract infection & sequelae likely provoking factor for fall Acute L2 Fracture | Chronic L1 Compression Fracture - Lumbar Spine CT w/ Chronic L1 compression fracture, now with acute L2 fracture, potentially 2/2 fall - Orthopedics consulted - Pain currently controlled Fall | Chronic Gait Instability - Patient with likely mechanical fall at home during overnight trip to the bathroom Notes she hit her face, Face CT negative on presentation - Patient with chronic gait instability and cognitive impairment Currently living independently and caring for her w/ help of aids - PT/OT consulted - Placed on telemetry to monitor for arrhythmia Hyponatremia | Chronic SIADH - Patient with chronic SIADH, no acute changes in diet - Patient received 1.5 L NSS In ED, hold additional fluids - Salt tabs provided - Follow symptoms clinically Chronic Conditions: - Osteoporosis: continue calcitonin and Vitamin D3 - CAD s/p stenting/LBBB: continue [place] 3, nitroglycerin PRN, aspirin, and Plavix - HLD: no home therapy - HTN: no home therapy - Anemia: chronic, stable - Chronic Headaches: no home therapy FEN: Regular (heart history but want to avoid salt restriction) Code status: DNR/DNI DVT ppx: SCD/Ambulation Isolation: None Dispo:Med/Surg w/ Tele History of Present Illness Chief Complaint: Fall Primary Care Provider: Michael Corley MD Mallika is an 83F w/ PMH of cognitive impairment, gait instability, L1 compression fracture, osteoporosis, CAD s/p stenting, LBBB, dysphagia, laryngopharyngeal reflux, SIADH, HLD, HTN, anemia, and headaches who presents for evaluation of a fall at home. Patient was noted to have a UTI as well as a new L2 fraction on-top of her chronic L1 fracture. Patient states that over the last 2-3 days she has been experiencing an increased frequency of urination w/o suprapubic pain, CVA pain, or flank pain. She does note increased lightheadedness and dizziness w/o fevers, chills, nausea, or emesis. She notes that when she went to bed she took her melatonin to help her sleep and then woke up around 1:30 AM, thought she had to use the bathroom, she fell out of bed onto her face (pain on right side). She was able to get herself up from the floor slowly. notes. Her was there and encouraged her to be seen. Of note, patient is caregiver for her who has dementia and Parkinson disease. Patient attempted to ice hear head at home, but eventually presented at her 's insistence. She endorses mild frontal headache where she hit her head. No blurred vision or acute hearing change. N otes she has been eating and drinking normally. Patient notes a long history of UTIs, 2-3 times per year. In addition, she had a D&C in June for post-menopausal bleeding over the last year, no abnormalities were found. She lives alone with . Now has someone scheduled to come to their home to help her . Notes she also has a [facility] [employer] that comes to help her. Allergies Allergy/AdvReac Type Severity Reaction Status Date / Time acetaminophen Allergy Intermediate Joint Verified 09/17/23 15:16 Pain, Headache asparagus Allergy Intermediate Joint Pain Verified 09/17/23 15:16 azithromycin Allergy Intermediate Joint Verified 09/17/23 15:16 Pain, Headache spinach Allergy Intermediate Joint Pain Verified 09/17/23 15:16 Jwjtzsf-LMT-SqG Reductase Allergy Intermediate lethargy,muscle Verified 09/17/23 15:16 Inhibitor weakness [Xvqucso-Nsg-Trl Reductase Inhibitor] alprazolam AdvReac Intermediate Joint Verified 09/17/23 15:16 Pain, Headache cephalexin [From Keflex] AdvReac Intermediate Abdominal Verified 09/17/23 15:16 Pain ciprofloxacin AdvReac Intermediate Joint Verified 09/17/23 15:16 Pain, Headache Home Medications Medication Instructions Recorded Confirmed Type melatonin 3 mg tablet 3 mg PO HS PRN Sleep 12/02/18 09/17/23 History multivitamin 1 tab PO QAM 12/02/18 09/17/23 History omega 1-ira-iel-fish oil 1,000 mg 1 cap PO QAM 12/02/18 09/17/23 History (120 mg-180 mg) capsule (Fish Oil) aspirin 81 mg tablet,delayed 81 mg PO QAM 10/09/20 09/17/23 History release cholecalciferol (vitamin D3) 25 4,000 unit PO QAM 10/23/21 09/17/23 History mcg (1,000 unit) capsule (Vitamin D3) clopidogrel 75 mg tablet (Plavix) 37.5 mg PO QAM 06/19/23 09/17/23 History docusate sodium 100 mg capsule 100 mg PO BID 08/12/23 09/17/23 History calcitonin (salmon) 200 1 spray NA DAILY #1 inhaler 08/13/23 09/17/23 Rx unit/actuation nasal spray nitroglycerin 0.4 mg sublingual 0.4 mg sublingual Q5M PRN Chest 09/10/23 09/17/23 Rx tablet Pain #25 tabs escitalopram oxalate 5 mg tablet 5 mg PO QAM 09/17/23 09/17/23 History Past Med/Surg History Problem List (Updated 09/17/23 @ 22:01 by Isa Henley DO) Urinary tract infection Elevated troponin (Acute) Closed lumbar vertebral fracture (Acute) Hyponatremia (Acute) Weakness (Acute) Cognitive impairment Weight loss, unintentional Post-operative state Compression fracture of L1 lumbar vertebra (Acute ~07/28/23) Encounter for pre-operative examination Change in hearing Urethral caruncle Stented coronary artery Non-ST elevated myocardial infarction (Acute) History of rib fracture (05/12/21) fractures of the left posterior 11th and 12th ribs Esophageal dysphagia Encounter for pre-operative laboratory testing CAD (coronary artery disease) Laryngopharyngeal reflux (LPR) Chronic laryngitis Post-menopausal bleeding Prolapsed urethral mucosa Urinary frequency LBBB (left bundle branch block) Presence of orthotic device Gait instability (Chronic) SIADH (syndrome of inappropriate ADH production) (Chronic) Neck pain (Acute) Syncope (Acute) Hypercholesterolemia statin intolerant per cardio records Esophageal reflux Skin tag Lateral epicondylitis Osteoporosis (Chronic) Health care maintenance Vitamin D deficiency LVH (left ventricular hypertrophy) CAD (coronary artery disease) Hypertension Epigastric pain Anemia (Acute) Headache (Acute 01/31/14) Osteoporosis Myocardial infarction x2: 2005 > 2 stents at [facility], follows with Dr. Bowen 12/14/22 > NSTEMI, drug eluding stent prox to mid RCA at [facility] Medical History Electrolyte abnormality Anxiety Presence of stent in LAD coronary artery Hyponatremia GERD (gastroesophageal reflux disease) Abnormal uterine bleeding History of frequent urinary tract infections SIADH (syndrome of inappropriate ADH production) History of diverticulitis of colon Arteriosclerosis of coronary artery Surgical History History of surgery on arm History of surgery on left wrist Hx of cardiac catheterization Hx of bilateral cataract extraction H/O colonoscopy with polypectomy History of tooth extraction History of heart artery stent S/P dilation and curettage Family History Father Myocardial infarction Mother Cardiac disorder Other Dysuria No family history of adverse response to anesthesia Denies family history of Ovarian cancer Prostate cancer Breast cancer Colorectal cancer Social History Smoking Status: Never smoker Second Hand Exposure: No; Do You Dip or Chew Tobacco: No; Hx Alcohol Use: Yes Alcohol type: beer Alcohol Intake Frequency: Monthly or Less Hx Substance Use: No Preferred Language: Kittitian Communication Ability: Effective Visual Impairment: No Limitations Hearing Ability: Normal Cotton Tipper Required: No Beliefs That Will Affect Care: None marital status: Current Living Situation: Spouse current occupational status: retired current occupation: worked in sales How many Children do You have: 1 Other Information That Helps Us Care for You: No Feels Safe at Home: Yes Safety Concerns: Feels Safe At This Time Childhood Exposure to Second-Hand Smoke: No Diet: regular Dental Care, Regularly: Yes Physical Activity Frequency: Daily Physical Activity Frequency Comment: bike and gardening Seatbelt Use: always Sunscreen Use: Yes Assistive Devices: Walker Physical Exam Physical Exam: Gen: NAD, alert, interactive, AO x 4 HEENT: Supple, no LAD, no thyromegaly, no JVD, PERRLA Resp:Non-labored, no wheezing/rhonchi/rales, CTAB CV:RRR, normal S1/S2, no M/R/G Abd: Soft, non-distended, no TTP, normoactive bowels, no masses Extr: 2+ dp bilaterally, no edema Skin: No rashes lesions or erythema Neuro: Strength 5/5 bilaterally, sensation intact, CN II-XII grossly intact Results & Data Results & Data Vital Signs (Past 12 Hours) Vital Signs Temp Pulse Pulse Resp BP BP Pulse Ox 09/17/23 18:16 61 09/17/23 18:15 60 14 99 09/17/23 18:15 62 14 143/71 H 99 09/17/23 16:17 36.8 C 72 20 96/65 L 100 O2 Del Method 09/17/23 18:16 09/17/23 18:15 Room Air 09/17/23 18:15 Room Air 09/17/23 16:17 Room Air Supervising Physician Co-Signing Physician Notes Attending addendum: I have physically seen this patient, have supervised the medical residents activities, and agree with the H&P unless as otherwise noted. Assessment and Plan: Elevated troponin/CAD- The patient will be admitted to telemetry for serial cardiac enzymes, serial EKG's, cardiac rhythm monitoring and a 2-D echocardiogram with Dopplers. Troponin 21.2 on admission Continue aspirin and clopidogrel Nitroglycerin sublingual as needed as outpatient Recurrent urinary tract infection- Follow urine culture and sensitivity Multiple episodes of E. coli UTI, pansensitive except intermediate to fluoroquinolones Continue IV Unasyn begun in the ED Status post fall/acute superior endplate compression fracture at L2/subacute burst compression fracture at L1- Likely secondary to urinary tract infection To be seen by orthopedic spine surgery Dr. Gem Pain control as noted Ambulatory dysfunction- Chronic gait instability, accentuated by cognitive impairment Consulting PT/OT Will likely need inpatient rehab upon discharge Hyponatremia/SIADH- Sodium 127 on admission, with range 128-133 Has received 1.5 L normal saline from the ED, and further will be discontinued Sodium chloride 1 g p.o. twice daily Follow serial laboratories Could consider tolvaptan Remaining orders and notations as noted Resident Activity Tracking Resident Involvement: Resident Care Provided Care Provided: Adult Hospital Medicine (Night) (2) Closed lumbar vertebral fracture Encounter type: initial encounter Fracture morphology: unspecified fracture morphology Lumbar vertebra fracture level: L2 Qualified Code(s): S32.029A - Unspecified fracture of second lumbar vertebra, initial encounter for closed fracture"
[2023-09-17 20:01] LABS: Appearance Urine Clear (Clear); Bacteria Urine Automated None Seen (None Seen); Bilirubin Urine Negative (Negative); Blood Urine Negative (Negative); Cast Urine Automated 0-2 /lpf (0-2); Color Urine Yellow; Epithelial Cell Urine Auto 0-2 /hpf (0-2); Glucose Urine UA Negative (Negative); Ketones Urine Negative (Negative); Leukocyte Esterase Urine Trace (Negative); Nitrite Urine Negative (Negative); Protein Urine Negative (Negative); RBC Urine Automated 0-2 /hpf (0-2); Specific Gravity Urine 1.009 (1.000-1.030); Urobilinogen Urine Negative (Negative); WBC Urine Automated 0-5 /hpf (0-5)
[2023-09-17] MEDS ORDERED: ACETAMINOPHEN 325 MG TAB PO PRN (21:47)
[2023-09-17] MEDS ORDERED: ONDANSETRON INJ 2 MG/ML 2 ML VIAL IV PRN (21:47)
[2023-09-17] MEDS ORDERED: NITROGLYCERIN SL 0.4 MG/TAB TAB SL PRN (21:47)
[2023-09-17] MEDS ORDERED: POLYETHYLENE (MIRALAX) 17 GM PACK PO PRN (21:47)
[2023-09-17] MEDS ORDERED: Patient's HEIGHT &/or WEIGHT Needed SCH (22:15)
[2023-09-17] MEDS: SODIUM CHLORIDE 1 GM TABLET PO SCH (22:53)
[2023-09-17] MEDS: DOCUSATE SODIUM 100 MG CAP PO SCH (22:53)
[2023-09-17] MEDS: MELATONIN 3 MG TAB PO PRN (23:23)
[2023-09-18] MEDS: AMPICILLIN/SULBACTAM SOD 3,000 MG in SODIUM CHLOR 0.9% MINI-B 100 ML IV SCH (01:02)
[2023-09-18] MEDS ORDERED: AMPICILLIN SOD/SULBACTAM SOD 3 GM VIAL IV SCH (03:00)
--- NOTE | 2023-09-18 07:51 | Electrocardiogram Report ---
Test Reason : Blood Pressure : / mmHG Vent. Rate : 064 BPM Atrial Rate : 064 BPM P-R Int : 150 ms QRS Dur : 118 ms QT Int : 432 ms P-R-T Axes : 070 -57 090 degrees QTc Int : 445 ms Normal sinus rhythm Left bundle branch block Abnormal ECG When compared with ECG of 28-JUL-2023 14:17, Premature atrial complexes no longer present Confirmed by Armani Rojas ([id number]) on 09/18/2023 7:50:52 AM Referred By: REFERRED SELF Confirmed By:Armani Rojas
[2023-09-18] MEDS: OMEGA-3 (PURIFIED FISH OIL) 1 GM CAP PO SCH (08:25)
[2023-09-18] MEDS: MULTIVITAMIN TAB PO SCH (08:25)
[2023-09-18] MEDS: ESCITALOPRAM OXALATE 10 MG TAB PO SCH (08:25)
[2023-09-18] MEDS: CLOPIDOGREL BISULFATE 75 MG TAB PO SCH (08:26)
[2023-09-18] MEDS: CALCITONIN SALMON NA 200 IU/AC 3.7 ML BTL SCH (08:26)
[2023-09-18] MEDS: ADVANCED PROBIOTIC 625 MG CAPSULE PO SCH (08:26)
[2023-09-18] MEDS: CHOLECALCIFEROL 25 MCG (1000 UNITS) TAB PO SCH (08:26)
[2023-09-18] MEDS: ASPIRIN 81 MG ECTAB PO SCH (08:26)
--- NOTE | 2023-09-18 19:57 | Billing Data ---
Date of Service September 18, 2023 Coding Level of Care Code 28212 INT INP/OBS CARE
--- NOTE | 2023-09-18 22:12 | Hospitalist Progress Note ---
"Date of Service September 18, 2023 Assessment & Plan (1) Urinary tract infection: (2) Closed lumbar vertebral fracture: (3) Hyponatremia: (4) Weakness: (5) Elevated troponin: (6) Esophageal dysphagia: (7) CAD (coronary artery disease): (8) Laryngopharyngeal reflux (LPR): (9) Gait instability: (10) SIADH (syndrome of inappropriate ADH production): (11) Hypercholesterolemia: (12) Hypertension: (13) Anemia: Plan Mallika is an 83F w/ PMH of cognitive impairment, gait instability, L1 compression fracture, osteoporosis, CAD s/p stenting, LBBB, dysphagia, laryngopharyngeal reflux, SIADH, HLD, HTN, anemia, and headaches who presents for evaluation of a fall at home. Patient was noted to have a UTI as well as a new L2 fraction on-top of her chronic L1 fracture. Urinary Tract Infection - 2-3 days of urinary frequency and lightheadedness w/o dysuria - Urinalysis w/ positive leukocyte esterase - Patient w/ long history of UTIs, largely cummins-sensitive (intermediate to fluoroquinolones) - Hemodynamically stable and afebrile, no acute concern for pyelonephritis - Started on IV Unasyn in ED, continued on admission, opportunity to transition to Augmentin PO for discharge Counselled about risk of diarrhea, probiotics added - Urinary tract infection & sequelae likely provoking factor for fall -Patient appears to be symptomaticsally improving with her antibiotics. will continue to monitor Acute L2 Fracture | Chronic L1 Compression Fracture - Lumbar Spine CT w/ Chronic L1 compression fracture, now with acute L2 fracture, potentially 2/2 fall - Orthopedics consulted - Pain currently controlled Fall | Chronic Gait Instability - Patient with likely mechanical fall at home during overnight trip to the bathroom Notes she hit her face, Face CT negative on presentation - Patient with chronic gait instability and cognitive impairment Currently living independently and caring for her w/ help of aids - PT/OT consulted - Placed on telemetry to monitor for arrhythmia Hyponatremia | Chronic SIADH - Patient with chronic SIADH, no acute changes in diet - Patient received 1.5 L NSS In ED, hold additional fluids - Salt tabs provided - Follow symptoms clinically Chronic Conditions: - Osteoporosis: continue calcitonin and Vitamin D3 - CAD s/p stenting/LBBB: continue [place] 3, nitroglycerin PRN, aspirin, and Plavix - HLD: no home therapy - HTN: no home therapy - Anemia: chronic, stable - Chronic Headaches: no home therapy FEN: Regular (heart history but want to avoid salt restriction) Code status: DNR/DNI DVT ppx: SCD/Ambulation Isolation: None Dispo:Med/Surg w/ Tele Admission and Anticipated Discharge Date Admission Date: September 17, 2023 Subjective 83 yo female reports feeling improved from when she first came in.Her urine is clearer, reports less frequency, less generalized malaise. Review of Systems Review of Systems: All systems reviewed & are unremarkable except as noted in HPI & below Physical Exam Physical Exam: Gen: NAD, alert, interactive, AO x 4 (but did not remember president) abd: soft, non tender Results & Data Results & Data Vital Signs (Past 12 Hours) Vital Signs Temp Pulse Resp BP Pulse Ox O2 Del Method 09/18/23 19:55 36.6 C 65 18 145/63 H 99 Room Air 09/18/23 18:25 36.6 C 71 18 116/57 L 97 Room Air PG Care Time/CCT Total # of Minutes Spent Total Time Spent with Patient: Total time spent is greater than 50% in coordination of care (as documented) at patient's floor/unit and/or counseling patient: Coding Level of Care Code 37436 SUB INP/OBS CARE 2/35MIN Diagnoses Urinary tract infection N39.0 Closed lumbar vertebral fracture S32.029A Encounter type: initial encounter Fracture morphology: unspecified fracture morphology Lumbar vertebra fracture level: L2 Hyponatremia E87.1 Weakness R53.1 Elevated troponin R79.89 Esophageal dysphagia R13.19 CAD (coronary artery disease) I25.10 Laryngopharyngeal reflux (LPR) K21.9 Gait instability R26.81 SIADH (syndrome of inappropriate ADH production) E22.2 Hypercholesterolemia E78.00 Hypertension I10 Anemia D64.9 (2) Closed lumbar vertebral fracture Encounter type: initial encounter Fracture morphology: unspecified fracture morphology Lumbar vertebra fracture level: L2 Qualified Code(s): S32.029A - Unspecified fracture of second lumbar vertebra, initial encounter for closed fracture"
[2023-09-19 06:21] LABS: Hematocrit (blood only) 32.9 % (37.0-47.0); Hemoglobin 11.9 g/dl (12.0-16.0); Mean Corpuscular Hgb Conc 36.2 g/dL (32.0-36.0); Mean Platelet Volume 9.3 fL (9.4-12.4); Platelet Count 203 K/uL (130-400); RDW Coefficient of Variation 13.1 % (11.5-14.5); RDW Standard Deviation 45.2 fL (36.4-46.3); White Blood Count 5.47 K/ul (4.8-10.8)
[2023-09-19 06:37] LABS: BUN Creatinine Ratio 26.9 (10-20); Calcium 8.3 mg/dl (8.6-10.3); Creatinine Clr Calc Pharmacy 40.4 ml/min; Est GFR (African American) 101.7 ml/min; Est GFR (Non-African American) 87.7 ml/min; Potassium 3.2 mmol/L (3.5-5.1)
[2023-09-19] MEDS: DICLOFENAC SOD 1% GEL 100 GM TUBE EXT SCH (09:14)
[2023-09-19 17:10] LABS: Hematocrit (blood only) 31.7 % (37.0-47.0); Hemoglobin 11.7 g/dl (12.0-16.0); Mean Corpuscular Hemoglobin 34.3 pg (25.0-34.0); Mean Corpuscular Hgb Conc 36.9 g/dL (32.0-36.0); Mean Platelet Volume 9.5 fL (9.4-12.4); Platelet Count 206 K/uL (130-400); RDW Coefficient of Variation 13.1 % (11.5-14.5); RDW Standard Deviation 44.1 fL (36.4-46.3); Red Blood Count 3.41 M/uL (4.20-5.40)
[2023-09-19 17:12] LABS: BUN Creatinine Ratio 33.3 (10-20); Calcium 8.4 mg/dl (8.6-10.3); Creatinine Clr Calc Pharmacy 46.7 ml/min; Est GFR (African American) 106.6 ml/min; Potassium 3.5 mmol/L (3.5-5.1)
--- NOTE | 2023-09-19 21:33 | Hospitalist Progress Note ---
"Date of Service September 19, 2023 Assessment & Plan (1) Urinary tract infection: (2) Closed lumbar vertebral fracture: (3) Hyponatremia: (4) Weakness: (5) Elevated troponin: (6) Esophageal dysphagia: (7) CAD (coronary artery disease): (8) Laryngopharyngeal reflux (LPR): (9) Gait instability: (10) SIADH (syndrome of inappropriate ADH production): (11) Hypercholesterolemia: (12) Hypertension: (13) Anemia: Plan Mallika is an 83F w/ PMH of cognitive impairment, gait instability, L1 compression fracture, osteoporosis, CAD s/p stenting, LBBB, dysphagia, laryngopharyngeal reflux, SIADH, HLD, HTN, anemia, and headaches who presents for evaluation of a fall at home. Patient was noted to have a UTI as well as a new L2 fraction on-top of her chronic L1 fracture. Urinary Tract Infection - 2-3 days of urinary frequency and lightheadedness w/o dysuria - Urinalysis w/ positive leukocyte esterase - Patient w/ long history of UTIs, largely cummins-sensitive (intermediate to fluoroquinolones) - Hemodynamically stable and afebrile, no acute concern for pyelonephritis - Started on IV Unasyn in ED, continued on admission, opportunity to transition to Augmentin PO for discharge Counselled about risk of diarrhea, probiotics added - Urinary tract infection & sequelae likely provoking factor for fall -Patient appears to be symptomaticsally improving with her antibiotics. will continue to monitor Plan is for patient to go to [facility] [employer] Increased lexapro dose. Acute L2 Fracture | Chronic L1 Compression Fracture - Lumbar Spine CT w/ Chronic L1 compression fracture, now with acute L2 fracture, potentially 2/2 fall - Orthopedics consulted - Pain currently controlled Fall | Chronic Gait Instability - Patient with likely mechanical fall at home during overnight trip to the bathroom Notes she hit her face, Face CT negative on presentation - Patient with chronic gait instability and cognitive impairment Currently living independently and caring for her w/ help of aids - PT/OT consulted - Placed on telemetry to monitor for arrhythmia Hyponatremia | Chronic SIADH - Patient with chronic SIADH, no acute changes in diet - Patient received 1.5 L NSS In ED, hold additional fluids - Salt tabs provided - Follow symptoms clinically Chronic Conditions: - Osteoporosis: continue calcitonin and Vitamin D3 - CAD s/p stenting/LBBB: continue [place] 3, nitroglycerin PRN, aspirin, and Plavix - HLD: no home therapy - HTN: no home therapy - Anemia: chronic, stable - Chronic Headaches: no home therapy FEN: Regular (heart history but want to avoid salt restriction) Code status: DNR/DNI DVT ppx: SCD/Ambulation Isolation: None Dispo:Med/Surg w/ Tele Admission and Anticipated Discharge Date Admission Date: September 17, 2023 Subjective Patient is slightly confused today. Discussed with son, on phone, he would like patient [facility] go to [facility] as it appears she sundowns at home. She has been aggressive at home. No issues about aggresi veness during hospital stay. Review of Systems Review of Systems: All systems reviewed & are unremarkable except as noted in HPI & below Physical Exam Physical Exam: Gen: NAD, alert, interactive, AO x 4 (but did not remember president) abd: soft, non tender Results & Data Results & Data Vital Signs (Past 12 Hours) Vital Signs Temp Pulse Pulse Resp BP Pulse Ox O2 Del Method 09/19/23 15:13 36.5 C 79 16 94/53 L 98 Room Air 09/19/23 12:03 36.4 C L 70 66 15 110/70 95 Room Air PG Care Time/CCT Total # of Minutes Spent Total Time Spent with Patient: Total time spent is greater than 50% in coordination of care (as documented) at patient's floor/unit and/or counseling patient: Coding Level of Care Code 28675 SUB INP/OBS CARE 2/35MIN Diagnoses Urinary tract infection N39.0 Closed lumbar vertebral fracture S32.029A Encounter type: initial encounter Fracture morphology: unspecified fracture morphology Lumbar vertebra fracture level: L2 Hyponatremia E87.1 Weakness R53.1 Elevated troponin R79.89 Esophageal dysphagia R13.19 CAD (coronary artery disease) I25.10 Laryngopharyngeal reflux (LPR) K21.9 Gait instability R26.81 SIADH (syndrome of inappropriate ADH production) E22.2 Hypercholesterolemia E78.00 Hypertension I10 Anemia D64.9 (2) Closed lumbar vertebral fracture Encounter type: initial encounter Fracture morphology: unspecified fracture morphology Lumbar vertebra fracture level: L2 Qualified Code(s): S32.029A - Unspecified fracture of second lumbar vertebra, initial encounter for closed fracture"
[2023-09-20 07:32] LABS: Hematocrit (blood only) 31.3 % (37.0-47.0); Hemoglobin 11.2 g/dl (12.0-16.0); Mean Corpuscular Hemoglobin 33.3 pg (25.0-34.0); Mean Corpuscular Hgb Conc 35.8 g/dL (32.0-36.0); Mean Corpuscular Volume 93.2 fL (80.0-100.0); Mean Platelet Volume 9.3 fL (9.4-12.4); Platelet Count 205 K/uL (130-400); RDW Coefficient of Variation 13.1 % (11.5-14.5); RDW Standard Deviation 44.4 fL (36.4-46.3); Red Blood Count 3.36 M/uL (4.20-5.40); White Blood Count 4.91 K/ul (4.8-10.8)
[2023-09-20] MEDS: ESCITALOPRAM OXALATE 10 MG TAB PO SCH (08:34)
--- NOTE | 2023-09-20 08:42 | Nephrology Consultation ---
Date of Consultation September 20, 2023 Assessment & Plan (1) Hyponatremia: * Mild, asymptomatic. Has chronic hyponatremia w/ serum Na 127-135 mmol/L dating back to 2017 * TSH wnl, no evidence of adrenal insufficiency. Clinically euvolemic. No evidence of CHF, nephrosis, cirrhosis. 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 Spine surgery is monitoring History of Present Illness Reason for Consultation: Hyponatremia Attending Physician: Ravi Flores History of Present Illness Mrs. Brown is an 83 year old white female who is seen at the request of Dr. Flores for evaluation of hyponatremia. Information for the HPI is obtained from direct patient interview and review of the EMR. HPI is summarized as follows: Mrs. Brown has a known h/o hyponatremia. Her baseline Na has been 127-135 mmol/L dating back to 2016 in the EMR. She has not undergone Nephrology evaluation in the past. Her PCP has been monitoring her sodium levels and had noted that they were mild, asymptomatic and stable. She has not required specific therapy. Her medical history is also significant for ASCVD, osteoporosis, L1 compression fracture, HLD, HTN, anemia and GUILLORY. Mrs. Brown was admitted to [facility] 09/17/23 following a mechanical fall from resulting in a new L2 fracture. Surgical intervention was not needed. Serum Na was 128 mmol/L at the time of admission Allergies Allergy/AdvReac Type Severity Reaction Status Date / Time acetaminophen Allergy Intermediate Joint Verified 09/17/23 15:16 Pain, Headache asparagus Allergy Intermediate Joint Pain Verified 09/17/23 15:16 azithromycin Allergy Intermediate Joint Verified 09/17/23 15:16 Pain, Headache spinach Allergy Intermediate Joint Pain Verified 09/17/23 15:16 Ymwyrsq-JCY-PoA Reductase Allergy Intermediate lethargy,muscle Verified 09/17/23 15:16 Inhibitor weakness [Zxkyuaj-Vcs-Rwa Reductase Inhibitor] alprazolam AdvReac Intermediate Joint Verified 09/17/23 15:16 Pain, Headache cephalexin [From Keflex] AdvReac Intermediate Abdominal Verified 09/17/23 15:16 Pain ciprofloxacin AdvReac Intermediate Joint Verified 09/17/23 15:16 Pain, Headache Home Medications Medication Instructions Recorded Confirmed Type melatonin 3 mg tablet 3 mg PO HS PRN Sleep 12/02/18 09/17/23 History multivitamin 1 tab PO QAM 12/02/18 09/17/23 History omega 7-hcg-pbn-fish oil 1,000 mg 1 cap PO QAM 12/02/18 09/17/23 History (120 mg-180 mg) capsule (Fish Oil) aspirin 81 mg tablet,delayed 81 mg PO QAM 10/09/20 09/17/23 History release cholecalciferol (vitamin D3) 25 4,000 unit PO QAM 10/23/21 09/17/23 History mcg (1,000 unit) capsule (Vitamin D3) clopidogrel 75 mg tablet (Plavix) 37.5 mg PO QAM 06/19/23 09/17/23 History docusate sodium 100 mg capsule 100 mg PO BID 08/12/23 09/17/23 History calcitonin (salmon) 200 1 spray NA DAILY #1 inhaler 08/13/23 09/17/23 Rx unit/actuation nasal spray nitroglycerin 0.4 mg sublingual 0.4 mg sublingual Q5M PRN Chest 09/10/23 09/17/23 Rx tablet Pain #25 tabs escitalopram oxalate 5 mg tablet 5 mg PO QAM 09/17/23 09/17/23 History Patient History Medical History Electrolyte abnormality Anxiety Presence of stent in LAD coronary artery s/p LAD and Ramus stents 2004 Hyponatremia GERD (gastroesophageal reflux disease) per pt., well controlled Abnormal uterine bleeding History of frequent urinary tract infections SIADH (syndrome of inappropriate ADH production) History of diverticulitis of colon Arteriosclerosis of coronary artery s/p two stents (LAD and ramus) 2004 s/p [place] x4 to mid RCA 12/14/22 Surgical History History of surgery on arm rt humerous, fx History of surgery on left wrist due to fx Hx of cardiac catheterization x 2: 2004 > 2 stents at [facility], follows with Dr. Bowen 12/14/22 > NSTEMI, drug eluding stent prox to mid RCA at [facility]/[place] Hx of bilateral cataract extraction H/O colonoscopy with polypectomy History of tooth extraction History of heart artery stent x2: 2004 > 2 stents at [facility], follows with Dr. Bowen 12/14/22 > NSTEMI, drug eluding stent prox to mid RCA at [facility] S/P dilation and curettage Family History Father Myocardial infarction Mother Cardiac disorder Other Dysuria No family history of adverse response to anesthesia Denies family history of Ovarian cancer Prostate cancer Breast cancer Colorectal cancer Social History Smoking Status: Never smoker Second Hand Exposure: No; Do You Dip or Chew Tobacco: No; Hx Alcohol Use: Yes Alcohol type: beer Alcohol Intake Frequency: Monthly or Less Hx Substance Use: No Preferred Language: Croatian Communication Ability: Effective Visual Impairment: No Limitations Hearing Ability: Normal A/C Technician Required: No Beliefs That Will Affect Care: None marital status: Current Living Situation: Spouse current occupational status: retired current occupation: worked in sales How many Children do You have: 1 Other Information That Helps Us Care for You: No Feels Safe at Home: Yes Safety Concerns: Feels Safe At This Time Childhood Exposure to Second-Hand Smoke: No Diet: regular Dental Care, Regularly: Yes Physical Activity Frequency: Daily Physical Activity Frequency Comment: bike and gardening Seatbelt Use: always Sunscreen Use: Yes Assistive Devices: Walker Review of Systems Constitutional: no fever Eyes: no problem reported Ear, Nose, Mouth, Throat: no problem reported Respiratory: no cough and no dyspnea Cardiovascular: no chest pain Gastrointestinal: no abdominal pain, no nausea, no vomiting and no diarrhea/loose stools Genitourinary: no dysuria Integumentary: no rash Physical Exam Constitutional: not in distress Eyes: PERRL, conjunctivae normal, anicteric sclerae ENMT: external ear and nose normal, oropharynx normal Neck: trachea midline, no thyromegaly Respiratory: normal respiratory effort, lungs clear to auscultation Cardiovascular: RRR, no murmur, no edema Gastrointestinal (Abdomen): normal bowel sounds, soft, nontender, no hepatosplenomegaly Skin: + turgor decreased Neurologic: Speech / Cognition: normal speech and normal cognition Psychiatric: Affect: euthymic affect Results & Data Vital Signs (Past 12 Hours) Vital Signs Temp Pulse Resp BP Pulse Ox O2 Del Method 09/20/23 07:02 36.6 C 71 16 112/68 97 Room Air 09/19/23 22:20 36.6 C 56 L 20 105/56 L 95 Room Air Laboratory Results Laboratory Results WBC 4.91 K/ul (4.8-10.8) 09/20/23 06:40 RBC 3.36 M/uL (4.20-5.40) L 09/20/23 06:40 Hgb 11.2 g/dl (12.0-16.0) L 09/20/23 06:40 Hct 31.3 % (37.0-47.0) L 09/20/23 06:40 MCV 93.2 fL (80.0-100.0) 09/20/23 06:40 MCH 33.3 pg (25.0-34.0) 09/20/23 06:40 MCHC 35.8 g/dL (32.0-36.0) 09/20/23 06:40 RDW Std Deviation 44.4 fL (36.4-46.3) 09/20/23 06:40 RDW Coeff of Jorge Luis 13.1 % (11.5-14.5) 09/20/23 06:40 Plt Count 205 K/uL (130-400) 09/20/23 06:40 MPV 9.3 fL (9.4-12.4) L 09/20/23 06:40 Immature Gran % (Auto) 0.2 % 09/17/23 16:40 Neut % (Auto) 76.2 % 09/17/23 16:40 Lymph % (Auto) 14.5 % 09/17/23 16:40 [place] % (Auto) 8.3 % 09/17/23 16:40 Eos % (Auto) 0.5 % 09/17/23 16:40 Baso % (Auto) 0.3 % 09/17/23 16:40 Neut # (Auto) 4.85 K/uL (1.40-6.50) 09/17/23 16:40 Lymph # (Auto) 0.92 K/uL (1.20-3.40) L 09/17/23 16:40 [place] # (Auto) 0.53 K/uL (0.11-0.59) 09/17/23 16:40 Eos # (Auto) 0.03 K/uL (0.00-0.50) 09/17/23 16:40 Baso # (Auto) 0.02 K/uL (0.00-0.20) 09/17/23 16:40 Immature Gran # (Auto) 0.01 K/uL (0.01-0.20) 09/17/23 16:40 PT 11.6 Seconds (9.0-12.0) 09/17/23 16:40 INR 1.1 (0.9-1.1) 09/17/23 16:40 APTT 26 Seconds (21-31) 09/17/23 16:40 PTT Ratio 1.0 09/17/23 16:40 Sodium 126 mmol/L (136-145) L 09/19/23 16:35 Potassium 3.5 mmol/L (3.5-5.1) 09/19/23 16:35 Chloride 91 mmol/L (98-107) L 09/19/23 16:35 Carbon Dioxide 30 mmol/L (21-32) 09/19/23 16:35 Anion Gap 5 (3-11) 09/19/23 16:35 BUN 15 mg/dl (6-23) 09/19/23 16:35 Creatinine 0.45 mg/dl (0.6-1.2) L 09/19/23 16:35 Est Cr Clr Drug Dosing 46.7 ml/min 09/19/23 16:35 Est GFR ( Amer) 106.6 ml/min 09/19/23 16:35 Est GFR (Non-Af Amer) 92.0 ml/min 09/19/23 16:35 BUN/Creatinine Ratio 33.3 (10-20) H 09/19/23 16:35 Glucose 130 mg/dl (70-99(Fasting)) H 09/19/23 16:35 Lactate 0.8 mmol/L (0.4-2.0) 09/17/23 19:09 Calcium 8.4 mg/dl (8.6-10.3) L 09/19/23 16:35 Magnesium 1.8 mg/dl (1.7-2.4) 09/17/23 16:40 Total Bilirubin 0.8 mg/dl (0.2-1.0) 09/17/23 16:40 AST 39 U/L (13-39) 09/17/23 16:40 ALT 35 U/L (7-52) 09/17/23 16:40 Alkaline Phosphatase 74 U/L (34-104) 09/17/23 16:40 Troponin I High Sens 19.4 pg/ml (0-14) H 09/17/23 19:09 Total Protein 6.5 gm/dl (6.0-8.3) 09/17/23 16:40 Albumin 3.9 gm/dl (3.4-5.0) 09/17/23 16:40 Globulin 2.6 gm/dl (2.5-4.0) 09/17/23 16:40 Albumin/Globulin Ratio 1.5 (0.9-2) 09/17/23 16:40 Lipase 84 U/L (11-82) H 09/17/23 16:40 Urine Color Yellow 09/17/23 19:27 Urine Appearance Clear (Clear) 09/17/23 19:27 Urine pH 7.0 (4.5-7.5) 09/17/23 19:27 Ur Specific [place] 1.009 (1.000-1.030) 09/17/23 19:27 Urine Protein Negative (Negative) 09/17/23 19:27 Urine Glucose (UA) Negative (Negative) 09/17/23 19:27 Urine Ketones Negative (Negative) 09/17/23 19:27 Urine Blood Negative (Negative) 09/17/23 19: Urine Nitrite Negative (Negative) 09/17/23 19: Urine Bilirubin Negative (Negative) 09/17/23 19:27 Urine Urobilinogen Negative (Negative) 09/17/23 19:27 Ur Leukocyte Esterase Trace (Negative) H 09/17/23 19:27 Urine WBC (Auto) 0-5 /hpf (0-5) 09/17/23 19:27 Urine RBC (Auto) 0-2 /hpf (0-2) 09/17/23 19:27 U Hyaline Cast (Auto) 0-2 /lpf (0-2) 09/17/23 19:27 U Epithel Cells (Auto) 0-2 /hpf (0-2) 09/17/23 19:27 Urine Bacteria (Auto) None Seen (None Seen) 09/17/23 19:[address] 09/17/23 16:21 CT SCAN OF THE CERVICAL SPINE CLINICAL HISTORY: Fall. COMPARISON STUDY: Cervical spine CT dated 05/12/2021. TECHNIQUE: CT scan of the cervical spine is performed from the skull base to the upper thoracic spine. Images are reviewed in the axial, sagittal, and coronal planes. IV contrast was not administered for this examination. A dose lowering technique was utilized adhering to the principles of ALARA. FINDINGS: Skeletal structures: The skeletal structures are osteopenic. There is no evidence of fracture or subluxation involving the cervical spine. Vertebral body height is maintained. There is minimal anterolisthesis at C4-C5. Alignment is otherwise preserved. Anterior osteophytes are seen throughout. Mild hyperlordosis is noted. The odontoid process and lateral masses are intact. The atlantoaxial articulation is preserved noting mild productive degenerative change. The spinous processes appear intact. There is mild to moderate multilevel cervical spondylosis. Uncovertebral and facet arthropathy contribute to neural foraminal narrowing at several levels. Intervertebral discs: There is moderate disc space narrowing at C6-C7. Mild disc space narrowing is noted at the remaining cervical levels. Central canal: Posterior disc osteophyte complexes at C5-C6 and C6-C7 may contribute to mild acquired compromise of the central canal. Soft tissues: The prevertebral and paraspinous soft tissues are within normal limits. Calcified sialoliths are noted in the right parotid gland. There is atherosclerotic calcification of the carotid bulbs. Calvarium: The visualized calvarium at the skull base appears intact. Brain parenchyma: Partially visualized brain parenchyma at the skull base is within normal limits. Sinuses and mastoids: A retention cyst is partially visualized in the left maxillary antrum. The mastoid air cells are well pneumatized. Lung apices: Clear as visualized. IMPRESSION: 1. There is no evidence of fracture or subluxation involving the cervical spine. 2. Osteopenia and spondylotic change as above. ACT 112: Negative or not required by law. Electronically signed by: Holden Decker M.D. 09/17/2023 5:17 PM Chest X-Ray 09/17/23 16:21 SINGLE VIEW CHEST CLINICAL HISTORY: Atypical chest pain FINDINGS: A PA chest radiograph is compared to study dated 07/28/2023 and correlated with chest CT dated 07/29/2023. The heart is enlarged noting atherosclerotic calcification of the thoracic aorta. The pulmonary vasculature is noncongested. Chronic interstitial thickening is similar to previous. There is mild bibasilar scarring/atelectasis. The lungs and pleural spaces are otherwise clear. No pneumothorax is seen. The skeletal structures are osteopenic. The bony thorax is grossly intact. IMPRESSION: Cardiomegaly with no active disease in the chest. ACT 112: Negative or not required by law. Electronically signed by: Holden Decker M.D. 09/17/2023 5:[address] 09/17/23 16:21 CT SCAN OF THE BRAIN WITHOUT IV CONTRAST CLINICAL HISTORY: Trauma. COMPARISON STUDY: CT of the brain dated 05/12/2021. TECHNIQUE: Unenhanced axial CT scan of the brain is performed from the vertex to the skull base. A dose lowering technique was utilized adhering to the principles of ALARA. CT DOSE: 1892.21 mGy.cm FINDINGS: Brain parenchyma: There is age-related involutional change noting moderate to advanced subcortical and periventricular microangiopathic disease. There is no hemorrhage, mass effect, or evidence of acute territorial ischemia by CT criteria. Martin-white matter differentiation is preserved. No extra-axial fluid collection is seen. Ventricles, sulci, cisterns: Prominent secondary to involutional change. Intracranial vasculature: There is atherosclerotic calcification of the cavernous carotid and vertebral artery. Calvarium: The skeletal structures are osteopenic. No depressed calvarial fracture is identified. Sinuses and mastoids: A 12 mm retention cyst is noted in the left maxillary ant rum. The visualized paranasal sinuses are otherwise clear. The mastoid air cells are well pneumatized. Orbits: The bony orbits are grossly intact. There are bilateral ocular lens implants. IMPRESSION: There is no hemorrhage, mass effect, or evidence of acute territorial ischemia by CT criteria. ACT 112: Negative or not required by law. Electronically signed by: Holden Decker M.D. 09/17/2023 5:[address] 09/17/23 16:21 CT SCAN OF THE LUMBAR SPINE WITHOUT IV CONTRAST CLINICAL HISTORY: Trauma. Fall yesterday. COMPARISON STUDY: Lumbar spine CT dated 05/12/2021. Chest CT dated 07/29/2023. TECHNIQUE: CT scan of the lumbar spine is performed from the lower thoracic spine to the sacrum. Images are reviewed in the axial, sagittal, and coronal planes. IV contrast was not administered for this examination. A dose lowering technique was utilized adhering to the principles of ALARA. FINDINGS: The skeletal structures are osteopenic. Again seen is a subacute/healing burst type compression fracture of L1. There is moderate loss of height, which has modestly progressed from the 07/29/[address] Fragments are retropulsed by up to 5 mm. This does not contribute to significant central canal stenosis. There is an acute superior endplate compression fracture of L2 with mild loss of height. This is new from 07/29/2023. Fragments are retropulsed by up to 5.5 mm. This does not contribute to significant central canal stenosis. No additional acute fracture is seen involving the lumbar spine. Vertebral body height is maintained from L3 through S1. Alignment is preserved. The transverse and spinous processes are intact. There is no spondylolysis. No lytic or blastic lesion is seen. Tiny anterior and lateral marginal osteophytes are seen throughout. The intervertebral disc spaces are maintained. There is no CT evidence of large disc herniation or high-grade central canal stenosis. The visualized sacrum and bony pelvis appear intact. The paraspinous soft tissues are within normal limits. A trace left pleural effusion is partially visualized. IMPRESSION: 1. There is an acute superior endplate compression fracture of L2, which is new from 07/29/2023. There is mild loss of height. Fragments are retropulsed by up to 5.5 mm. This does not contribute to significant central canal stenosis. 2. Again seen is a subacute burst type compression fracture of L1. Loss of height is modestly progressed as compared to 07/29/2023. 3. No additional acute fracture is seen involving the lumbar spine. 4. A trace left pleural effusion is partially visualized. ACT 112: Negative or not required by law. Dictated: 09/17/2023 5:18 PM Transcribed: 09/17/2023 5:42 PM Geo [id number] Electronically signed by: Holden Decker M.D. 09/17/2023 5:[address] 09/17/23 16:22 CT SCAN OF THE FACIAL BONES WITHOUT IV CONTRAST CLINICAL HISTORY: Recent fall. Right-sided facial injury. COMPARISON STUDY: CT scan of the paranasal sinuses dated 01/31/2014. TECHNIQUE: High-resolution CT scan of the facial bones is performed. Images are reviewed in the axial, sagittal, and coronal planes. IV contrast was not administered for this examination. A dose lowering technique was utilized adhering to the principles of ALARA. FINDINGS: The skeletal structures are osteopenic. There is no evidence of facial bone fracture. The bony orbits are intact and the orbital contents are within normal limits noting bilateral ocular lens implants. The zygomatic arches, nasal bones, and pterygoid plates are preserved. The maxilla and mandible are intact. Severe arthritic change is noted in the temporomandibular joints. There are no layering blood products within the paranasal sinuses. A 12 mm retention cyst is noted in the left maxillary antrum. The paranasal sinuses are otherwise clear. The mastoid air cells are well pneumatized. The visualized calvarium and upper cervical spine are maintained. Partially imaged brain parenchyma is within normal limits. IMPRESSION: There is no evidence of facial bone fracture. ACT 112: Negative or not required by law. Electronically signed by: Holden Decker M.D. 09/17/2023 6:05 PM PG Care Time/CCT Total # of Minutes Spent Total Time Spent with Patient: Total time spent is greater than 50% in coordination of care (as documented) at patient's floor/unit and/or counseling patient: Coding Level of Care Code 34047 IN/OBS CONSULT LVL 5,80M Diagnoses Hyponatremia E87.1 Closed lumbar vertebral fracture S32.029A Encounter type: initial encounter Fracture morphology: unspecified fracture morphology Lumbar vertebra fracture level: L2 (2) Closed lumbar vertebral fracture Encounter type: initial encounter Fracture morphology: unspecified fracture morphology Lumbar vertebra fracture level: L2 Qualified Code(s): S32.029A - Unspecified fracture of second lumbar vertebra, initial encounter for closed fracture
[2023-09-20 08:50] LABS: Calcium 8.2 mg/dl (8.6-10.3); Potassium 3.7 mmol/L (3.5-5.1)
[2023-09-20 08:56] LABS: BUN Creatinine Ratio 38.6 (10-20); Creatinine Clr Calc Pharmacy 47.8 ml/min; Est GFR (African American) 107.4 ml/min; Est GFR (Non-African American) 92.7 ml/min
[2023-09-20] MEDS: FUROSEMIDE 20 MG TAB PO SCH (11:33)
--- NOTE | 2023-09-20 20:46 | Hospitalist Progress Note ---
"Date of Service September 20, 2023 Assessment & Plan (1) Urinary tract infection: (2) Closed lumbar vertebral fracture: (3) Hyponatremia: (4) Weakness: (5) Elevated troponin: (6) Esophageal dysphagia: (7) CAD (coronary artery disease): (8) Laryngopharyngeal reflux (LPR): (9) Gait instability: (10) SIADH (syndrome of inappropriate ADH production): (11) Hypercholesterolemia: (12) Hypertension: (13) Anemia: Plan Mallika is an 83F w/ PMH of cognitive impairment, gait instability, L1 compression fracture, osteoporosis, CAD s/p stenting, LBBB, dysphagia, laryngopharyngeal reflux, SIADH, HLD, HTN, anemia, and headaches who presents for evaluation of a fall at home. Patient was noted to have a UTI as well as a new L2 fraction on-top of her chronic L1 fracture. Urinary Tract Infection - 2-3 days of urinary frequency and lightheadedness w/o dysuria - Urinalysis w/ positive leukocyte esterase - Patient w/ long history of UTIs, largely cummins-sensitive (intermediate to fluoroquinolones) - Hemodynamically stable and afebrile, no acute concern for pyelonephritis - Started on IV Unasyn in ED, continued on admission, opportunity to transition to Augmentin PO for discharge Counselled about risk of diarrhea, probiotics added - Urinary tract infection & sequelae likely provoking factor for fall -Patient appears to be symptomaticsally improving with her antibiotics. will continue to monitor Plan is for patient to go to [facility] Increased lexapro dose on 09/18 Patient hemodynamically stable, reviewed cbc and bmp on 09/19 Acute L2 Fracture | Chronic L1 Compression Fracture - Lumbar Spine CT w/ Chronic L1 compression fracture, now with acute L2 fracture, potentially 2/2 fall - Orthopedics consulted - Pain currently controlled -Now with [employer] brace Fall | Chronic Gait Instability - Patient with likely mechanical fall at home during overnight trip to the bathroom Notes she hit her face, Face CT negative on presentation - Patient with chronic gait instability and cognitive impairment Currently living independently and caring for her w/ help of aids - PT/OT consulted - Placed on telemetry to monitor for arrhythmia Hyponatremia | Chronic SIADH - Patient with chronic SIADH, no acute changes in diet - Patient received 1.5 L NSS In ED, hold additional fluids - Salt tabs provided - Follow symptoms clinically Chronic Conditions: - Osteoporosis: continue calcitonin and Vitamin D3 - CAD s/p stenting/LBBB: continue [place] 3, nitroglycerin PRN, aspirin, and Plavix - HLD: no home therapy - HTN: no home therapy - Anemia: chronic, stable - Chronic Headaches: no home therapy FEN: Regular (heart history but want to avoid salt restriction) Code status: DNR/DNI DVT ppx: SCD/Ambulation Isolation: None Dispo:Med/Surg w/ Tele Admission and Anticipated Discharge Date Admission Date: September 17, 2023 Subjective 83 yo female reports no new symptoms. Review of Systems Review of Systems: All systems reviewed & are unremarkable except as noted in HPI & below Physical Exam Physical Exam: Gen: NAD, alert, interactive, AO x 4 (but did not remember president) abd: soft, non tender Results & Data Results & Data Vital Signs (Past 12 Hours) Vital Signs Temp Pulse Resp BP Pulse Ox O2 Del Method 09/20/23 14:38 36.3 C L 75 16 94/57 L 99 Room Air PG Care Time/CCT Total # of Minutes Spent Total Time Spent with Patient: Total time spent is greater than 50% in coordination of care (as documented) at patient's floor/unit and/or counseling patient: Coding Level of Care Code 17845 SUB INP/OBS CARE 2/35MIN Diagnoses Urinary tract infection N39.0 Closed lumbar vertebral fracture S32.029A Encounter type: initial encounter Fracture morphology: unspecified fracture morphology Lumbar vertebra fracture level: L2 Hyponatremia E87.1 Weakness R53.1 Elevated troponin R79.89 Esophageal dysphagia R13.19 CAD (coronary artery disease) I25.10 Laryngopharyngeal reflux (LPR) K21.9 Gait instability R26.81 SIADH (syndrome of inappropriate ADH production) E22.2 Hypercholesterolemia E78.00 Hypertension I10 Anemia D64.9 (2) Closed lumbar vertebral fracture Encounter type: initial encounter Fracture morphology: unspecified fracture morphology Lumbar vertebra fracture level: L2 Qualified Code(s): S32.029A - Unspecified fracture of second lumbar vertebra, initial encounter for closed fracture"
[2023-09-21 06:08] LABS: Calcium 8.2 mg/dl (8.6-10.3); Creatinine Clr Calc Pharmacy 46.7 ml/min; Est GFR (African American) 106.6 ml/min
--- NOTE | 2023-09-21 09:07 | Nephrology Progress Note ---
Date of Service September 21, 2023 Assessment & Plan (1) Hyponatremia: Plan: * Mild, asymptomatic. Has chronic hyponatremia w/ serum Na 127-135 mmol/L dating back to 2017 * TSH wnl, no evidence of adrenal insufficiency. Clinically euvolemic. No evidence of CHF, nephrosis, cirrhosis. Clinically suspect SIADH * Serum sodium has improved from 126 to 129 mmol/L * Uosm is inappropriately elevated at 498 * Continue NaCl 1g po daily * Continue Furosemide 20 mg daily to lower Uosm * Monitor PRP (2) Closed lumbar vertebral fracture: Plan: * Patient is wearing brace. Spine surgery is monitoring (3) Confusion: Plan: * Consider advancing activity, PT evaluation Admission and Anticipated Discharge Date Admission Date: September 17, 2023 Subjective Ms. Brown was evaluated in her hospital room this morning. She reports confusion and anxiety overnight. She thought that she was back home but the awoke in an unfamiliar place and became upset. Ms. Brown reports that she is tolerating salt tablet and low dose loop diuretic without GI upset or muscle cramping Review of Systems Constitutional: no fever Eyes: no problem reported Ear, Nose, Mouth, Throat: no problem reported Respiratory: no cough and no dyspnea Cardiovascular: no chest pain Gastrointestinal: no abdominal pain, no nausea, no vomiting and no diarrhea/loose stools Genitourinary: no dysuria Integumentary: no rash Physical Exam Constitutional: not in distress Eyes: PERRL, conjunctivae normal, anicteric sclerae ENMT: external ear and nose normal, oropharynx normal Neck: trachea midline, no thyromegaly Respiratory: normal respiratory effort, lungs clear to auscultation Cardiovascular: RRR, no murmur, no edema Gastrointestinal (Abdomen): normal bowel sounds, soft, nontender, no hepatosplenomegaly Skin: + turgor decreased Neurologic: Speech / Cognition: normal speech and normal cognition Psychiatric: Affect: euthymic affect Results & Data Vital Signs (Past 12 Hours) Vital Signs Temp Pulse Pulse Resp BP Pulse Ox O2 Del Method 09/21/23 07:23 36.7 C 60 16 132/81 96 Room Air 09/20/23 21:39 36.3 C L 70 16 124/65 98 Room Air Laboratory Results Laboratory Results - last 24 hr 09/20/23 09/21/23 09/21/23 11:02 05:35 Unknown Sodium 129 L Potassium 4.0 Chloride 95 L Carbon Dioxide 30 Anion Gap 4 BUN 18 Creatinine 0.45 L Est Cr Clr Drug Dosing 46.7 Est GFR ( Amer) 106.6 Est GFR (Non-Af Amer) 92.0 BUN/Creatinine Ratio 40.0 H Glucose 85 Calcium 8.2 L Urine Osmolality 508 498 L PG Care Time/CCT Total # of Minutes Spent Total Time Spent with Patient: Total time spent is greater than 50% in coordination of care (as documented) at patient's floor/unit and/or counseling patient: Coding Level of Care Code 29283 SUB INP/OBS CARE 350MIN Diagnoses Hyponatremia E87.1 Closed lumbar vertebral fracture S32.029A Encounter type: initial encounter Fracture morphology: unspecified fracture morphology Lumbar vertebra fracture level: L2 Confusion R41.0 (2) Closed lumbar vertebral fracture Encounter type: initial encounter Fracture morphology: unspecified fracture morphology Lumbar vertebra fracture level: L2 Qualified Code(s): S32.029A - Unspecified fracture of second lumbar vertebra, initial encounter for closed fracture
--- NOTE | 2023-09-21 20:39 | Hospitalist Progress Note ---
"Date of Service September 21, 2023 Assessment & Plan (1) Urinary tract infection: (2) Closed lumbar vertebral fracture: (3) Hyponatremia: (4) Weakness: (5) Elevated troponin: (6) Esophageal dysphagia: (7) CAD (coronary artery disease): (8) Laryngopharyngeal reflux (LPR): (9) Gait instability: (10) SIADH (syndrome of inappropriate ADH production): (11) Hypercholesterolemia: (12) Hypertension: (13) Anemia: Plan Mallika is an 83F w/ PMH of cognitive impairment, gait instability, L1 compression fracture, osteoporosis, CAD s/p stenting, LBBB, dysphagia, laryngopharyngeal reflux, SIADH, HLD, HTN, anemia, and headaches who presents for evaluation of a fall at home. Patient was noted to have a UTI as well as a new L2 fraction on-top of her chronic L1 fracture. Urinary Tract Infection - 2-3 days of urinary frequency and lightheadedness w/o dysuria - Urinalysis w/ positive leukocyte esterase - Patient w/ long history of UTIs, largely cummins-sensitive (intermediate to fluoroquinolones) - Hemodynamically stable and afebrile, no acute concern for pyelonephritis - Started on IV Unasyn in ED, continued on admission, opportunity to transition to Augmentin PO for discharge Counselled about risk of diarrhea, probiotics added - Urinary tract infection & sequelae likely provoking factor for fall -Patient appears to be symptomaticsally improving with her antibiotics. will continue to monitor Plan is for patient to go to [place]./ Increased lexapro dose on 09/18 Patient hemodynamically stable, reviewed cbc and bmp on 09/19 Acute L2 Fracture | Chronic L1 Compression Fracture - Lumbar Spine CT w/ Chronic L1 compression fracture, now with acute L2 fracture, potentially 2/2 fall - Orthopedics consulted - Pain currently controlled -Now with [employer] brace Fall | Chronic Gait Instability - Patient with likely mechanical fall at home during overnight trip to the bathroom Notes she hit her face, Face CT negative on presentation - Patient with chronic gait instability and cognitive impairment Currently living independently and caring for her w/ help of aids - PT/OT consulted - Placed on telemetry to monitor for arrhythmia Hyponatremia | Chronic SIADH - Patient with chronic SIADH, no acute changes in diet - Patient received 1.5 L NSS In ED, hold additional fluids - appreciate input from Nephrology - Follow symptoms clinically -sodium improved to 129 Chronic Conditions: - Osteoporosis: continue calcitonin and Vitamin D3 - CAD s/p stenting/LBBB: continue [place] 3, nitroglycerin PRN, aspirin, and Plavix - HLD: no home therapy - HTN: no home therapy - Anemia: chronic, stable - Chronic Headaches: no home therapy FEN: Regular (heart history but want to avoid salt restriction) Code status: DNR/DNI DVT ppx: SCD/Ambulation Isolation: None Dispo:Med/Surg w/ Tele Admission and Anticipated Discharge Date Admission Date: September 17, 2023 Subjective 83 yo female reports no new symptoms. She states her pain is under control. Review of Systems Review of Systems: All systems reviewed & are unremarkable except as noted in HPI & below Physical Exam Physical Exam: Gen: NAD, alert, interactive, AO x 4 (but did not remember president) abd: soft, non tender Results & Data Results & Data Vital Signs (Past 12 Hours) Vital Signs Temp Pulse Resp BP Pulse Ox O2 Del Method 09/21/23 20:30 36.3 C L 63 18 123/73 99 Room Air 09/21/23 14:38 36.4 C L 84 16 100/64 98 Room Air PG Care Time/CCT Total # of Minutes Spent Total Time Spent with Patient: Total time spent is greater than 50% in coordination of care (as documented) at patient's floor/unit and/or counseling patient: Coding Level of Care Code 24335 SUB INP/OBS CARE 2/35MIN Diagnoses Urinary tract infection N39.0 Closed lumbar vertebral fracture S32.029A Encounter type: initial encounter Fracture morphology: unspecified fracture morphology Lumbar vertebra fracture level: L2 Hyponatremia E87.1 Weakness R53.1 Elevated troponin R79.89 Esophageal dysphagia R13.19 CAD (coronary artery disease) I25.10 Laryngopharyngeal reflux (LPR) K21.9 Gait instability R26.81 SIADH (syndrome of inappropriate ADH production) E22.2 Hypercholesterolemia E78.00 Hypertension I10 Anemia D64.9 (2) Closed lumbar vertebral fracture Encounter type: initial encounter Fracture morphology: unspecified fracture morphology Lumbar vertebra fracture level: L2 Qualified Code(s): S32.029A - Unspecified fracture of second lumbar vertebra, initial encounter for closed fracture"
[2023-09-22 07:06] LABS: Hematocrit (blood only) 29.1 % (37.0-47.0); Hemoglobin 10.7 g/dl (12.0-16.0); Mean Corpuscular Hemoglobin 34.4 pg (25.0-34.0); Mean Corpuscular Hgb Conc 36.8 g/dL (32.0-36.0); Mean Corpuscular Volume 93.6 fL (80.0-100.0); Mean Platelet Volume 9.3 fL (9.4-12.4); Platelet Count 191 K/uL (130-400); RDW Coefficient of Variation 13.4 % (11.5-14.5); RDW Standard Deviation 46.3 fL (36.4-46.3); Red Blood Count 3.11 M/uL (4.20-5.40); White Blood Count 5.11 K/ul (4.8-10.8)
[2023-09-22 07:39] LABS: BUN Creatinine Ratio 29.8 (10-20); Calcium 8.1 mg/dl (8.6-10.3); Creatinine Clr Calc Pharmacy 44.7 ml/min; Est GFR (African American) 105.1 ml/min; Est GFR (Non-African American) 90.7 ml/min; Potassium 3.6 mmol/L (3.5-5.1)
--- NOTE | 2023-09-22 08:34 | Nephrology Progress Note ---
Date of Service September 22, 2023 Assessment & Plan (1) Hyponatremia: Plan: * Mild, asymptomatic. Has chronic hyponatremia w/ serum Na 127-135 mmol/L dating back to 2017 * TSH wnl, no evidence of adrenal insufficiency. Clinically euvolemic. No evidence of CHF, nephrosis, cirrhosis. Clinically suspect SIADH * Serum sodium has improved from 126 to 130 mmol/L * Uosm is mildly improved to 396 this am while on low dose loop diuretic * Continue NaCl 1g po daily * Continue Furosemide 20 mg daily to lower Uosm * Monitor PRP (2) Closed lumbar vertebral fracture: Plan: * Patient is wearing brace. Spine surgery is monitoring (3) Confusion: Plan: * Improved. Continue PT for ambulation/strengthening Admission and Anticipated Discharge Date Admission Date: September 17, 2023 Subjective Ms. Brown was evaluated in her hospital room this morning. She had just finished walking w/ PT. She voiced no new medical concerns Review of Systems Constitutional: no fever Eyes: no problem reported Ear, Nose, Mouth, Throat: no problem reported Respiratory: no cough and no dyspnea Cardiovascular: no chest pain Gastrointestinal: no abdominal pain, no nausea, no vomiting and no diarrhea/lo ose stools Genitourinary: no dysuria Integumentary: no rash Physical Exam Constitutional: not in distress Eyes: PERRL, conjunctivae normal, anicteric sclerae ENMT: external ear and nose normal, oropharynx normal Neck: trachea midline, no thyromegaly Respiratory: normal respiratory effort, lungs clear to auscultation Cardiovascular: RRR, no murmur, no edema Gastrointestinal (Abdomen): normal bowel sounds, soft, nontender, no hepatosplenomegaly Skin: + turgor decreased Neurologic: Speech / Cognition: normal speech and normal cognition Psychiatric: Affect: euthymic affect Results & Data Vital Signs (Past 12 Hours) Vital Signs Temp Pulse Resp BP Pulse Ox O2 Del Method 09/22/23 07:35 36.4 C L 65 16 122/78 97 Room Air Laboratory Results Laboratory Results - last 24 hr 09/22/23 09/22/23 05:15 06:25 WBC 5.11 RBC 3.11 L Hgb 10.7 L Hct 29.1 L MCV 93.6 MCH 34.4 H MCHC 36.8 H RDW Std Deviation 46.3 RDW Coeff of Jorge Luis 13.4 Plt Count 191 MPV 9.3 L Sodium 130 L Potassium 3.6 Chloride 93 L Carbon Dioxide 32 Anion Gap 5 BUN 14 Creatinine 0.47 L Est Cr Clr Drug Dosing 44.7 Est GFR ( Amer) 105.1 Est GFR (Non-Af Amer) 90.7 BUN/Creatinine Ratio 29.8 H Glucose 79 Calcium 8.1 L Urine Osmolality 396 L PG Care Time/CCT Total # of Minutes Spent Total Time Spent with Patient: Total time spent is greater than 50% in coordination of care (as documented) at patient's floor/unit and/or counseling patient: Coding Level of Care Code 26367 SUB INP/OBS CARE 3/50MIN Diagnoses Hyponatremia E87.1 Closed lumbar vertebral fracture S32.029A Encounter type: initial encounter Fracture morphology: unspecified fracture morphology Lumbar vertebra fracture level: L2 Confusion R41.0 (2) Closed lumbar vertebral fracture Encounter type: initial encounter Fracture morphology: unspecified fracture morphology Lumbar vertebra fracture level: L2 Qualified Code(s): S32.029A - Unspecified fracture of second lumbar vertebra, initial encounter for closed fracture
--- NOTE | 2023-09-22 23:10 | Hospitalist Progress Note ---
"Date of Service September 22, 2023 Assessment & Plan (1) Urinary tract infection: (2) Closed lumbar vertebral fracture: (3) Hyponatremia: (4) Weakness: (5) Elevated troponin: (6) Esophageal dysphagia: (7) CAD (coronary artery disease): (8) Laryngopharyngeal reflux (LPR): (9) Gait instability: (10) SIADH (syndrome of inappropriate ADH production): (11) Hypercholesterolemia: (12) Hypertension: (13) Anemia: Plan Mallika is an 83F w/ PMH of cognitive impairment, gait instability, L1 compression fracture, osteoporosis, CAD s/p stenting, LBBB, dysphagia, laryngopharyngeal reflux, SIADH, HLD, HTN, anemia, and headaches who presents for evaluation of a fall at home. Patient was noted to have a UTI as well as a new L2 fraction on-top of her chronic L1 fracture. Urinary Tract Infection - 2-3 days of urinary frequency and lightheadedness w/o dysuria - Urinalysis w/ positive leukocyte esterase - Patient w/ long history of UTIs, largely cummins-sensitive (intermediate to fluoroquinolones) - Hemodynamically stable and afebrile, no acute concern for pyelonephritis - Started on IV Unasyn in ED, continued on admission, opportunity to transition to Augmentin PO for discharge Counselled about risk of diarrhea, probiotics added - Urinary tract infection & sequelae likely provoking factor for fall -Patient appears to be symptomaticsally improving with her antibiotics. will continue to monitor Plan is for patient to go to home with home health Increased lexapro dose on 09/18 Patient hemodynamically stable, Acute L2 Fracture | Chronic L1 Compression Fracture Age-related osteoporosis with current pathologic fracture, L2 vertebra - Lumbar Spine CT w/ Chronic L1 compression fracture, now with acute L2 fracture, potentially 2/2 fall - Orthopedics consulted - Pain currently controlled -Now with TLSO brace Fall | Chronic Gait Instability - Patient with likely mechanical fall at home during overnight trip to the bathroom Notes she hit her face, Face CT negative on presentation - Patient with chronic gait instability and cognitive impairment Currently living independently and caring for her w/ help of aids - PT/OT consulted - Placed on telemetry to monitor for arrhythmia Hyponatremia | Chronic SIADH - Patient with chronic SIADH, no acute changes in diet - Patient received 1.5 L NSS In ED, hold additional fluids - appreciate input from Nephrology - Follow symptoms clinically -sodium improved to 130 Chronic Conditions: - Osteoporosis: continue calcitonin and Vitamin D3 - CAD s/p stenting/LBBB: continue [place] 3, nitroglycerin PRN, aspirin, and P lavix - HLD: no home therapy - HTN: no home therapy - Anemia: chronic, stable - Chronic Headaches: no home therapy -severe malnutrition: recommend life style changes. improved diet intake. FEN: Regular (heart history but want to avoid salt restriction) Code status: DNR/DNI DVT ppx: SCD/Ambulation Isolation: None Dispo:Med/Surg w/ Tele Admission and Anticipated Discharge Date Admission Date: September 17, 2023 Subjective Patient reports no new symptoms. updated family Review of Systems Review of Systems: All systems reviewed & are unremarkable except as noted in HPI & below Physical Exam Physical Exam: Gen: NAD, alert, interactive, AO x 4 (but did not remember president) abd: soft, non tender Results & Data Results & Data Vital Signs (Past 12 Hours) Vital Signs Temp Pulse Resp BP Pulse Ox O2 Del Method 09/22/23 19:32 36.7 C 81 14 119/68 95 Room Air 09/22/23 14:52 36.5 C 69 16 93/57 L 96 Room Air PG Care Time/CCT Total # of Minutes Spent Total Time Spent with Patient: Total time spent is greater than 50% in coordination of care (as documented) at patient's floor/unit and/or counseling patient: Coding Level of Care Code 69212 SUB INP/OBS CARE 2/35MIN Diagnoses Urinary tract infection N39.0 Closed lumbar vertebral fracture S32.029A Encounter type: initial encounter Fracture morphology: unspecified fracture morphology Lumbar vertebra fracture level: L2 Hyponatremia E87.1 Weakness R53.1 Elevated troponin R79.89 Esophageal dysphagia R13.19 CAD (coronary artery disease) I25.10 Laryngopharyngeal reflux (LPR) K21.9 Gait instability R26.81 SIADH (syndrome of inappropriate ADH production) E22.2 Hypercholesterolemia E78.00 Hypertension I10 Anemia D64.9 (2) Closed lumbar vertebral fracture Encounter type: initial encounter Fracture morphology: unspecified fracture morphology Lumbar vertebra fracture level: L2 Qualified Code(s): S32.029A - Unspecified fracture of second lumbar vertebra, initial encounter for closed fracture"
[2023-09-23 07:50] LABS: Hematocrit (blood only) 30.9 % (37.0-47.0); Hemoglobin 11.4 g/dl (12.0-16.0); Mean Corpuscular Hemoglobin 34.3 pg (25.0-34.0); Mean Corpuscular Hgb Conc 36.9 g/dL (32.0-36.0); Mean Corpuscular Volume 93.1 fL (80.0-100.0); Mean Platelet Volume 9.2 fL (9.4-12.4); Platelet Count 194 K/uL (130-400); RDW Coefficient of Variation 13.2 % (11.5-14.5); RDW Standard Deviation 45.1 fL (36.4-46.3); Red Blood Count 3.32 M/uL (4.20-5.40); White Blood Count 4.46 K/ul (4.8-10.8)
[2023-09-23 08:16] LABS: BUN Creatinine Ratio 26.9 (10-20); Calcium 8.5 mg/dl (8.6-10.3); Creatinine Clr Calc Pharmacy 40.4 ml/min; Est GFR (African American) 101.7 ml/min; Est GFR (Non-African American) 87.7 ml/min; Potassium 4.1 mmol/L (3.5-5.1)
--- NOTE | 2023-09-23 08:53 | Nephrology Progress Note ---
Date of Service September 23, 2023 Assessment & Plan (1) Hyponatremia: Plan: * Mild, asymptomatic. Has chronic hyponatremia w/ serum Na 127-135 mmol/L dating back to 2017 * TSH wnl, no evidence of adrenal insufficiency. Clinically euvolemic. No evidence of CHF, nephrosis, cirrhosis. Clinically suspect SIADH * Serum sodium is unchanged at 129 mmol/L * Increase NaCl to 2g po BID * Continue Furosemide 20 mg daily to lower Uosm * Monitor PRP (2) Closed lumbar vertebral fracture: Plan: * Patient is wearing brace. Spine surgery is monitoring (3) Confusion: Plan: * Improved. Continue PT for ambulation/strengthening Admission and Anticipated Discharge Date Admission Date: September 17, 2023 Subjective Ms. Brown was evaluated in her hospital room this morning. She voiced no new medical concerns Review of Systems Constitutional: no fever Eyes: no problem reported Ear, Nose, Mouth, Throat: no problem reported Respiratory: no cough and no dyspnea Cardiovascular: no chest pain Gastrointestinal: no abdominal pain, no nausea, no vomiting and no diarrhea/loose stools Genitourinary: no dysuria Integumentary: no rash Physical Exam Constitutional: not in distress Eyes: PERRL, conjunctivae normal, anicteric sclerae ENMT: external ear and nose normal, oropharynx normal Neck: trachea midline, no thyromegaly Respiratory: normal respiratory effort, lungs clear to auscultation Cardiovascular: RRR, no murmur, no edema Gastrointestinal (Abdomen): normal bowel sounds, soft, nontender, no hepatosplenomegaly Skin: + turgor decreased Neurologic: Speech / Cognition: normal speech and normal cognition Psychiatric: Affect: euthymic affect Results & Data Vital Signs (Past 12 Hours) Vital Signs Temp Pulse Resp BP Pulse Ox O2 Del Method 09/23/23 08:00 36.8 C 61 16 101/67 98 Room Air Laboratory Results Laboratory Results - last 24 hr 09/23/23 07:20 WBC 4.46 L RBC 3.32 L Hgb 11.4 L Hct 30.9 L MCV 93.1 MCH 34.3 H MCHC 36.9 H RDW Std Deviation 45.1 RDW Coeff of Jorge Luis 13.2 Plt Count 194 MPV 9.2 L Sodium 129 L Potassium 4.1 Chloride 93 L Carbon Dioxide 32 Anion Gap 4 BUN 14 Creatinine 0.52 L Est Cr Clr Drug Dosing 40.4 Est GFR ( Amer) 101.7 Est GFR (Non-Af Amer) 87.7 BUN/Creatinine Ratio 26.9 H Glucose 88 Calcium 8.5 L PG Care Time/CCT Total # of Minutes Spent Total Time Spent with Patient: Total time spent is greater than 50% in coordination of care (as documented) at patient's floor/unit and/or counseling patient: Coding Level of Care Code 80449 SUB INP/OBS CARE 3/50MIN Diagnoses Hyponatremia E87.1 Closed lumbar vertebral fracture S32.029A Encounter type: initial encounter Fracture morphology: unspecified fracture morphology Lumbar vertebra fracture level: L2 Confusion R41.0 (2) Closed lumbar vertebral fracture Encounter type: initial encounter Fracture morphology: unspecified fracture morphology Lumbar vertebra fracture level: L2 Qualified Code(s): S32.029A - Unspecified fracture of second lumbar vertebra, initial encounter for closed fracture
--- NOTE | 2023-09-23 08:54 | Hospitalist Progress Note ---
"Date of Service September 23, 2023 Assessment & Plan (1) Urinary tract infection: Plan: Mallika is an 83F w/ PMH of cognitive impairment, gait instability, L1 compression fracture, osteoporosis, CAD s/p stenting, LBBB, dysphagia, laryngopharyngeal reflux, SIADH, HLD, HTN, anemia, and headaches who presents for evaluation of a fall at home. Patient was noted to have a UTI as well as a new L2 fraction on-top of her chronic L1 fracture. Urinary Tract Infection - 2-3 days of urinary frequency and lightheadedness w/o dysuria - Urinalysis w/ positive leukocyte esterase , culture was contaminated specimen with > 3 organisms - Patient w/ long history of UTIs, largely cummins-sensitive (intermediate to fluoroquinolones) - Started on IV Unasyn in ED, continued on admission, opportunity to transition to Augmentin PO for discharge (2) Closed lumbar vertebral fracture: Plan: Acute L2 Fracture | Chronic L1 Compression Fracture Age-related osteoporosis with current pathologic fracture, L2 vertebra - Lumbar Spine CT w/ Chronic L1 compression fracture, now with acute L2 fracture, potentially 2/2 fall - Orthopedics consulted, non surgical management -Now with TLSO brace Fall | Chronic Gait Instability - Patient with likely mechanical fall at home during overnight trip to the bathroom Notes she hit her face, Face CT negative on presentation - Patient with chronic gait instability and cognitive impairment Currently living independently and caring for her w/ help of aids - PT/OT consulted, Plan is for patient to go to home with home health (3) Hyponatremia: Plan: Hyponatremia | Chronic SIADH - Patient with chronic SIADH, no acute changes in diet - Patient received 1.5 L NSS In ED, no additional fluids - appreciate input from Nephrology - Follow symptoms clinically -sodium improved (4) Elevated troponin: Plan: troponin 21-> 19, do not suspect active coronary disease Plan Chronic Conditions: - Osteoporosis: continue calcitonin and Vitamin D3 - CAD s/p stenting/LBBB: continue [place] 3, nitroglycerin PRN, aspirin, and Plavix - HLD: no home therapy - HTN: no home therapy - Anemia: chronic, stable - Chronic Headaches: no home therapy -severe malnutrition: recommend life style changes. improved diet intake. Code status: DNR/DNI DVT ppx: SCD/Ambulation Admission and Anticipated Discharge Date Admission Date: September 17, 2023 Subjective pt is pleasant does not like her torso brace, is unsure about going home not sure how much help her will give her Physical Exam Physical Exam: Some mild confusion does have some back pain is wearing a brace Card exam is regular lungs are clear Abdomen NABS soft nontender Results & Data Results & Data Vital Signs (Past 12 Hours) Vital Signs Temp Pulse Resp BP Pulse Ox O2 Del Method 09/23/23 08:00 98.2 F 61 16 101/67 98 Room Air Laboratory Results Reviewed CBC reviewed chemistry PG Care Time/CCT Total # of Minutes Spent Total Time Spent with Patient: Total time spent is greater than 50% in coordination of care (as documented) at patient's floor/unit and/or counseling patient: Coding Level of Care Code 11883 SUB INP/OBS CARE 2/35MIN Diagnoses Urinary tract infection N39.0 Closed lumbar vertebral fracture S32.029A Encounter type: initial encounter Fracture morphology: unspecified fracture morphology Lumbar vertebra fracture level: L2 Hyponatremia E87.1 Elevated troponin R79.89 (2) Closed lumbar vertebral fracture Encounter type: initial encounter Fracture morphology: unspecified fracture morphology Lumbar vertebra fracture level: L2 Qualified Code(s): S32.029A - Unspecified fracture of second lumbar vertebra, initial encounter for closed fracture"
[2023-09-23] MEDS ORDERED: SODIUM CHLORIDE 1 GM TABLET PO SCH (09:00)
[2023-09-23] MEDS: SODIUM CHLORIDE 1 GM TABLET PO SCH (09:48)
[2023-09-24 08:23] LABS: BUN Creatinine Ratio 39.1 (10-20); Calcium 8.1 mg/dl (8.6-10.3); Creatinine Clr Calc Pharmacy 45.7 ml/min; Est GFR (African American) 105.9 ml/min; Est GFR (Non-African American) 91.3 ml/min; Potassium 3.9 mmol/L (3.5-5.1)
--- NOTE | 2023-09-24 08:40 | Nephrology Progress Note ---
Date of Service September 24, 2023 Assessment & Plan (1) Hyponatremia: Plan: * Mild, asymptomatic. Has chronic hyponatremia w/ serum Na 127-135 mmol/L dating back to 2017 * TSH wnl, no evidence of adrenal insufficiency. Clinically euvolemic. No evidence of CHF, nephrosis, cirrhosis. 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 Spine surgery is monitoring (3) Confusion: Plan: * Improved. Continue PT for ambulation/strengthening Admission and Anticipated Discharge Date Admission Date: September 17, 2023 Subjective Ms. Brown was evaluated in her hospital room this morning. She voiced no new medical concerns and anticipates discharge today Review of Systems Constitutional: no fever Eyes: no problem reported Ear, Nose, Mouth, Throat: no problem reported Respiratory: no cough and no dyspnea Cardiovascular: no chest pain Gastrointestinal: no abdominal pain, no nausea, no vomiting and no diarrhea/loose stools Genitourinary: no dysuria Integumentary: no rash Physical Exam Constitutional: not in distress Eyes: PERRL, conjunctivae normal, anicteric sclerae ENMT: external ear and nose normal, oropharynx normal Neck: trachea midline, no thyromegaly Respiratory: normal respiratory effort, lungs clear to auscultation Cardiovascular: RRR, no murmur, no edema Gastrointestinal (Abdomen): normal bowel sounds, soft, nontender, no hepatosplenomegaly Skin: + turgor decreased Neurologic: Speech / Cognition: normal speech and normal cognition Psychiatric: Affect: euthymic affect Results & Data Vital Signs (Past 12 Hours) Vital Signs Temp Pulse Resp BP Pulse Ox O2 Del Method 09/24/23 08:17 36.7 C 68 14 111/69 96 Room Air 09/24/23 07:05 36.4 C L 66 14 158/89 H 94 Room Air Laboratory Results Laboratory Results - last 24 hr 09/24/23 07:44 Sodium 128 L Potassium 3.9 Chloride 93 L Carbon Dioxide 29 Anion Gap 6 BUN 18 Creatinine 0.46 L Est Cr Clr Drug Dosing 45.7 Est GFR ( Amer) 105.9 Est GFR (Non-Af Amer) 91.3 BUN/Creatinine Ratio 39.1 H Glucose 85 Calcium 8.1 L PG Care Time/CCT Total # of Minutes Spent Total Time Spent with Patient: Total time spent is greater than 50% in coordination of care (as documented) at patient's floor/unit and/or counseling patient: Coding Level of Care Code 15712 SUB INP/OBS CARE 3/50MIN Diagnoses Hyponatremia E87.1 Closed lumbar vertebral fracture S32.029A Encounter type: initial encounter Fracture morphology: unspecified fracture morphology Lumbar vertebra fracture level: L2 Confusion R41.0 (2) Closed lumbar vertebral fracture Encounter type: initial encounter Fracture morphology: unspecified fracture morphology Lumbar vertebra fracture level: L2 Qualified Code(s): S32.029A - Unspecified fracture of second lumbar vertebra, initial encounter for closed fracture
--- NOTE | 2023-09-24 16:00 | Discharge Summary ---
"Discharge Summary Date of Service September 24, 2023 Principal Dx & Hospital Course #1 = Principal Diagnosis (1) Urinary tract infection: Mallika is an 83F w/ PMH of cognitive impairment, gait instability, L1 compression fracture, osteoporosis, CAD s/p stenting, LBBB, dysphagia, laryngopharyngeal reflux, SIADH, HLD, HTN, anemia, and headaches who presents for evaluation of a fall at home. Patient was noted to have a UTI as well as a new L2 fraction on-top of her chronic L1 fracture. Urinary Tract Infection - 2-3 days of urinary frequency and lightheadedness w/o dysuria - Urinalysis w/ positive leukocyte esterase , culture was contaminated specimen with > 3 organisms - Patient w/ long history of UTIs, largely cummins-sensitive (intermediate to fluoroquinolones) - Started on IV Unasyn in ED, completed 7 days (2) Closed lumbar vertebral fracture: Acute L2 Fracture | Chronic L1 Compression Fracture Age-related osteoporosis with current pathologic fracture, L2 vertebra - Lumbar Spine CT w/ Chronic L1 compression fracture, now with acute L2 fracture, potentially 2/2 fall - Orthopedics consulted, non surgical management -Now with TLSO brace Fall | Chronic Gait Instability - Patient with likely mechanical fall at home during overnight trip to the bathroom Notes she hit her face, Face CT negative on presentation - Patient with chronic gait instability and cognitive impairment Currently living independently and caring for her w/ help of aids - PT/OT consulted, Plan is for patient to go to home with home health (3) Hyponatremia: Hyponatremia | Chronic SIADH - Patient with chronic SIADH, no acute changes in diet - Patient received 1.5 L NSS In ED, no additional fluids - appreciate input from Nephrology - on sodium tablets , outpt chemistry ordered for next week -sodium improved (4) Elevated troponin: troponin 21-> 19, do not suspect active coronary disease Plan Chronic Conditions: - Osteoporosis: continue calcitonin and Vitamin D3 - CAD s/p stenting/LBBB: continue [place] 3, nitroglycerin PRN, aspirin, and Plavix - HLD: no home therapy - HTN: no home therapy - Anemia: chronic, stable - Chronic Headaches: no home therapy -severe malnutrition: recommend life style changes. improved diet intake. Code status: DNR/DNI Admission HPI Per Admitting Provider Mallika is an 83F w/ PMH of cognitive impairment, gait instability, L1 compression fracture, osteoporosis, CAD s/p stenting, LBBB, dysphagia, laryngopharyngeal reflux, SIADH, HLD, HTN, anemia, and headaches who presents for evaluation of a fall at home. Patient was noted to have a UTI as well as a new L2 fraction on-top of her chronic L1 fracture. Patient states that over the last 2-3 days she has been experiencing an increased frequency of urination w/o suprapubic pain, CVA pain, or flank pain. She does note increased lightheadedness and dizziness w/o fevers, chills, nausea, or emesis. She notes that when she went to bed she took her melatonin to help her sleep and then woke up around 1:30 AM, thought she had to use the bat hroom, she fell out of bed onto her face (pain on right side). She was able to get herself up from the floor slowly. notes. Her was there and encouraged her to be seen. Of note, patient is caregiver for her who has dementia and Parkinson disease. Patient attempted to ice hear head at home, but eventually presented at her 's insistence. She endorses mild frontal headache where she hit her head. No blurred vision or acute hearing change. Notes she has been eating and drinking normally. Patient notes a long history of UTIs, 2-3 times per year. In addition, she had a D&C in June for post-menopausal bleeding over the last year, no abnormalities were found. She lives alone with . Now has someone scheduled to come to their home to help her . Notes she also has a [facility] that comes to help her. Discharge Exam Patient is awake and alert she is much more engaging in 1 day prior. She is agreeable to going home with home health. She has no neurological compromise card exam is regular lungs are clear Updated Medication List Medication Instructions Recorded Confirmed Type melatonin 3 mg tablet 3 mg PO HS PRN Sleep 12/02/18 09/17/23 History multivitamin 1 tab PO QAM 12/02/18 09/17/23 History omega 0-ynl-cyh-fish oil 1,000 mg 1 cap PO QAM 12/02/18 09/17/23 History (120 mg-180 mg) capsule (Fish Oil) aspirin 81 mg tablet,delayed 81 mg PO QAM 10/09/20 09/17/23 History release cholecalciferol (vitamin D3) 25 4,000 unit PO QAM 10/23/21 09/17/23 History mcg (1,000 unit) capsule (Vitamin D3) clopidogrel 75 mg tablet (Plavix) 37.5 mg PO QAM 06/19/23 09/17/23 History docusate sodium 100 mg capsule 100 mg PO BID 08/12/23 09/17/23 History calcitonin (salmon) 200 1 spray NA DAILY #1 inhaler 08/13/23 09/17/23 Rx unit/actuation nasal spray nitroglycerin 0.4 mg sublingual 0.4 mg sublingual Q5M PRN Chest 09/10/23 09/17/23 Rx tablet Pain #25 tabs escitalopram oxalate 5 mg tablet 5 mg PO QAM 09/17/23 09/17/23 History diclofenac sodium 1 % topical gel 4 g EXT QID #100 grams 09/24/23 Rx (Voltaren Arthritis Pain) furosemide 20 mg tablet 20 mg PO QAM #30 tabs 09/24/23 Rx sodium chloride 1,000 mg soluble 1,000 mg PO BID #60 tabs 09/24/23 Rx tablet Hospital Stay Data Consultations 09/17/23 18:11 ED Decision to Admit Stat 09/19/23 21:33 Consult Nephrology Routine Diagnostic Imagining Performed 09/17/23 16:21 CT cervical spine wo con Stat CT head/brain wo con Stat CT lumbar spine wo con Stat 09/17/23 16:22 CT face [CT facial bones wo con] Stat Pending Results Patient Have Any Pending Studies at Discharge: No Discharge Instructions Given to Patient (Per Discharging Provider) please continue to moving with home health and walk as much as you are able follow up with your primary care provider Total Time Total Time Spent Total Time Spent (In Minutes): It required greater than 30 minutes to prepare this patient for discharge. Coding Level of Care Code 16530 INP/OBS DISCH >30 MIN Diagnoses Urinary tract infection N39.0 Closed lumbar vertebral fracture S32.029A Encounter type: initial encounter Fracture morphology: unspecified fracture morphology Lumbar vertebra fracture level: L2 Hyponatremia E87.1 Elevated troponin R79.89"
--- NOTE | 2023-09-24 17:15 | Orthopedic Consultation ---
Date of Consultation September 24, 2023 Assessment & Plan (1) Closed lumbar vertebral fracture: (2) Cognitive impairment: (3) Weakness: (4) Confusion: (5) Compression fracture of L1 lumbar vertebra: Plan 1. Recommend continuing with LSO/TLSO brace that is currently at patient's bedside and to work with orthotics and PT/OT for proper fitment. * Brace can be off when sedentary or in bed, and really only needs to be used for comfort purposes. * Patient requests training on the device, so recommend this occur prior to discharge. 2. No orthopedic spine surgical intervention indicated/recommended at this time. 3. May follow-up outpatient with Dr. López in 4-6 weeks. History of Present Illness Reason for Consultation: Acute L2 compression fracture Attending Physician: Jas Pierce MD History of Present Illness Patient is an 83-year-old female with a history of chronic L1 compression f racture, now with an acute superior endplate L2 compression fracture after a reported fall from bed. There is some at least mild cognitive impairment present, but reportedly the patient has had a chronic gait instability and she had been living independently and caring for her with the assistance of aides, and she apparently had a mechanical fall at home during an overnight trip to the bathroom. Orthospine was previously consulted for recommendations and further management. Allergies Allergy/AdvReac Type Severity Reaction Status Date / Time acetaminophen Allergy Intermediate Joint Verified 09/17/23 15:16 Pain, Headache asparagus Allergy Intermediate Joint Pain Verified 09/17/23 15:16 azithromycin Allergy Intermediate Joint Verified 09/17/23 15:16 Pain, Headache spinach Allergy Intermediate Joint Pain Verified 09/17/23 15:16 Zrbaklx-ZRA-IuH Reductase Allergy Intermediate lethargy,muscle Verified 09/17/23 15:16 Inhibitor weakness [Pzdrhfj-Qzb-Mbz Reductase Inhibitor] alprazolam AdvReac Intermediate Joint Verified 09/17/23 15:16 Pain, Headache cephalexin [From Keflex] AdvReac Intermediate Abdominal Verified 09/17/23 15:16 Pain ciprofloxacin AdvReac Intermediate Joint Verified 09/17/23 15:16 Pain, Headache Home Medications Medication Instructions Recorded Confirmed Type melatonin 3 mg tablet 3 mg PO HS PRN Sleep 12/02/18 09/17/23 History multivitamin 1 tab PO QAM 12/02/18 09/17/23 History omega 2-rvn-gxl-fish oil 1,000 mg 1 cap PO QAM 12/02/18 09/17/23 History (120 mg-180 mg) capsule (Fish Oil) aspirin 81 mg tablet,delayed 81 mg PO QAM 10/09/20 09/17/23 History release cholecalciferol (vitamin D3) 25 4,000 unit PO QAM 10/23/21 09/17/23 History mcg (1,000 unit) capsule (Vitamin D3) clopidogrel 75 mg tablet (Plavix) 37.5 mg PO QAM 06/19/23 09/17/23 History docusate sodium 100 mg capsule 100 mg PO BID 08/12/23 09/17/23 History calcitonin (salmon) 200 1 spray NA DAILY #1 inhaler 08/13/23 09/17/23 Rx unit/actuation nasal spray nitroglycerin 0.4 mg sublingual 0.4 mg sublingual Q5M PRN Chest 09/10/23 09/17/23 Rx tablet Pain #25 tabs escitalopram oxalate 5 mg tablet 5 mg PO QAM 09/17/23 09/17/23 History diclofenac sodium 1 % topical gel 4 g EXT QID #100 grams 09/24/23 Rx (Voltaren Arthritis Pain) furosemide 20 mg tablet 20 mg PO QAM #30 tabs 09/24/23 Rx sodium chloride 1,000 mg soluble 1,000 mg PO BID #60 tabs 09/24/23 Rx tablet Patient History Medical History Electrolyte abnormality Anxiety Presence of stent in LAD coronary artery s/p LAD and Ramus stents 2004 Hyponatremia GERD (gastroesophageal reflux disease) per pt., well controlled Abnormal uterine bleeding History of frequent urinary tract infections SIADH (syndrome of inappropriate ADH production) History of diverticulitis of colon Arteriosclerosis of coronary artery s/p two stents (LAD and ramus) 2004 s/p [place] x4 to mid RCA 12/14/22 Surgical History History of surgery on arm rt humerous, fx History of surgery on left wrist due to fx Hx of cardiac catheterization x 2: 2004 > 2 stents at [facility], follows with Dr. Bowen 12/14/22 > NSTEMI, drug eluding stent prox to mid RCA at [facility] Hx of bilateral cataract extraction H/O colonoscopy with polypectomy History of tooth extraction History of heart artery stent x2: 2004 > 2 stents at [facility], follows with Dr. Bowen 12/14/22 > NSTEMI, drug eluding stent prox to mid RCA at [facility] S/P dilation and curettage Family History Father Myocardial infarction Mother Cardiac disorder Other Dysuria No family history of adverse response to anesthesia Denies family history of Ovarian cancer Prostate cancer Breast cancer Colorectal cancer Social History Smoking Status: Never smoker Second Hand Exposure: No; Do You Dip or Chew Tobacco: No; Hx Alcohol Use: Yes Alcohol type: beer Alcohol Intake Frequency: Monthly or Less Hx Substance Use: No Preferred Language: Pakistani Communication Ability: Effective Visual Impairment: No Limitations Hearing Ability: Normal Manager Of Business Operations Required: No Beliefs That Will Affect Care: None marital status: Current Living Situation: Spouse current occupational status: retired current occupation: worked in sales How many Children do You have: 1 Feels Safe at Home: Yes Childhood Exposure to Second-Hand Smoke: No Diet: regular Dental Care, Regularly: Yes Physical Activity Frequency: Daily Physical Activity Frequency Comment: bike and gardening Seatbelt Use: always Sunscreen Use: Yes Assistive Devices: Walker Physical Exam Physical Exam: GENERAL: Speech and cognition is relatively intact. Mood and affect is appropriate. Patient is frail. Does not appear in acute distress. HEAD: Normocephalic; atraumatic. NECK: Trachea is midline. CHEST: Regular chest respiration and excursion. EXTREMITIES: Distal sensation and pulses intact bilaterally. BACK: Diminished ROM.+ TTP lumbar/lumbosacral/sacral. NEURO: Awake, alert. + Ankle plantar/dorsiflexion intact. Results & Data Vital Signs (Past 12 Hours) Vital Signs Temp Pulse Resp BP Pulse Ox O2 Del Method 09/24/23 12:48 36.7 C 65 14 126/76 97 Room Air 09/24/23 08:17 36.7 C 68 14 111/69 96 Room Air 09/24/23 07:05 36.4 C L 66 14 158/89 H 94 Room Air Diagnostic Findings Cervical Spine CT 09/17/23 16:21 CT SCAN OF THE CERVICAL SPINE CLINICAL HISTORY: Fall. COMPARISON STUDY: Cervical spine CT dated 05/12/2021. TECHNIQUE: CT scan of the cervical spine is performed from the skull base to the upper thoracic spine. Images are reviewed in the axial, sagittal, and coronal planes. IV contrast was not administered for this examination. A dose lowering technique was utilized adhering to the principles of ALARA. FINDINGS: Skeletal structures: The skeletal structures are osteopenic. There is no evidence of fracture or subluxation involving the cervical spine. Vertebral body height is maintained. There is minimal anterolisthesis at C4-C5. Alignment is otherwise preserved. Anterior osteophytes are seen throughout. Mild hyperlordosis is noted. The odontoid process and lateral masses are intact. The atlantoaxial articulation is preserved noting mild productive degenerative change. The spinous processes appear intact. There is mild to moderate multilevel cervical spondylosis. Uncovertebral and facet arthropathy contribute to neural foraminal narrowing at several levels. Intervertebral discs: There is moderate disc space narrowing at C6-C7. Mild disc space narrowing is noted at the remaining cervical levels. Central canal: Posterior disc osteophyte complexes at C5-C6 and C6-C7 may contribute to mild acquired compromise of the central canal. Soft tissues: The prevertebral and paraspinous soft tissues are within normal limits. Calcified sialoliths are noted in the right parotid gland. There is atherosclerotic calcification of the carotid bulbs. Calvarium: The visualized calvarium at the skull base appears intact. Brain parenchyma: Partially visualized brain parenchyma at the skull base is within normal limits. Sinuses and mastoids: A retention cyst is partially visualized in the left maxillary antrum. The mastoid air cells are well pneumatized. Lung apices: Clear as visualized. IMPRESSION: 1. There is no evidence of fracture or subluxation involving the cervical spine. 2. Osteopenia and spondylotic change as above. ACT 112: Negative or not required by law. Electronically signed by: Holden Decker M.D. 09/17/2023 5:[address] 09/17/23 16:21 CT SCAN OF THE LUMBAR SPINE WITHOUT IV CONTRAST CLINICAL HISTORY: Trauma. Fall yesterday. COMPARISON STUDY: Lumbar spine CT dated 05/12/2021. Chest CT dated 07/29/2023. TECHNIQUE: CT scan of the lumbar spine is performed from the lower thoracic spine to the sacrum. Images are reviewed in the axial, sagittal, and coronal planes. IV contrast was not administered for this examination. A dose lowering technique was utilized adhering to the principles of ALARA. FINDINGS: The skeletal structures are osteopenic. Again seen is a subacute/healing burst type compression fracture of L1. There is moderate loss of height, which has modestly progressed from the 07/29/[address] Fragments are retropulsed by up to 5 mm. This does not contribute to significant central canal stenosis. There is an acute superior endplate compression fracture of L2 with mild loss of height. This is new from 07/29/2023. Fragments are retropulsed by up to 5.5 mm. This does not contribute to significant central canal stenosis. No additional acute fracture is seen involving the lumbar spine. Vertebral body height is maintained from L3 through S1. Alignment is preserved. The transverse and spinous processes are intact. There is no spondylolysis. No lytic or blastic lesion is seen. Tiny anterior and lateral marginal osteophytes are seen throughout. The intervertebral disc spaces are maintained. There is no CT evidence of large disc herniation or high-grade central canal stenosis. The visualized sacrum and bony pelvis appear intact. The paraspinous soft tissues are within normal limits. A trace left pleural effusion is partially visualized. IMPRESSION: 1. There is an acute superior endplate compression fracture of L2, which is new from 07/29/2023. There is mild loss of height. Fragments are retropulsed by up to 5.5 mm. This does not contribute to significant central canal stenosis. 2. Again seen is a subacute burst type compression fracture of L1. Loss of height is modestly progressed as compared to 07/29/2023. 3. No additional acute fracture is seen involving the lumbar spine. 4. A trace left pleural effusion is partially visualized. ACT 112: Negative or not required by law. Dictated: 09/17/2023 5:18 PM Transcribed: 09/17/2023 5:42 PM Geo [id number] [email or web address] Electronically signed by: Holden Decker M.D. 09/17/2023 5:43 PM (1) Closed lumbar vertebral fracture Encounter type: initial encounter Fracture morphology: unspecified fracture morphology Lumbar vertebra fracture level: L2 Qualified Code(s): S32.029A - Unspecified fracture of second lumbar vertebra, initial encounter for closed fracture (5) Compression fracture of L1 lumbar vertebra Encounter type: initial encounter Qualified Code(s): S32.010A - Wedge compression fracture of first lumbar vertebra, initial encounter for closed fracture
[2023-09-24] MEDS ORDERED: SODIUM CHLORIDE 1 GM TABLET PO SCH (21:00)
== END 2023-09-24 14:41 | disposition home health service (06) | DRG 689 ==
LOC: ED 16:12 → 3W 20:11 → SUATTDRO 20:11 → 3W 20:48

== ENCOUNTER 2024-01-20 18:39 | Inpatient (IN) ==
[2024-01-20 19:40] LABS: Basophils # (auto) 0.03 K/uL (0.00-0.20); Basophils % (auto) 0.3 %; Hemoglobin 10.7 g/dl (12.0-16.0); Immature Granulocytes # (auto) 0.04 K/uL (0.01-0.20); Immature Granulocytes % (auto) 0.4 %; Lymphocytes # (auto) 0.78 K/uL (1.20-3.40); Mean Corpuscular Hemoglobin 34.3 pg (25.0-34.0); Mean Corpuscular Hgb Conc 35.7 g/dL (32.0-36.0); Mean Corpuscular Volume 96.2 fL (80.0-100.0); Mean Platelet Volume 9.3 fL (9.4-12.4); Monocytes # (auto) 0.83 K/uL (0.11-0.59); Monocytes % (auto) 7.5 %; Neutrophils # (auto) 9.39 K/uL (1.40-6.50); Neutrophils % (auto) 84.8 %; Platelet Count 189 K/uL (130-400); RDW Coefficient of Variation 13.2 % (11.5-14.5); RDW Standard Deviation 46.8 fL (36.4-46.3); Red Blood Count 3.12 M/uL (4.20-5.40); White Blood Count 11.07 K/ul (4.8-10.8)
[2024-01-20 19:45] LABS: Alanine Aminotransferase 32 U/L (7-52); Albumin Globulin Ratio 1.3 (0.9-2); Alkaline Phosphatase 57 U/L (34-104); Anion Gap 8 (3-11); Aspartate Aminotransferase 34 U/L (13-39); BUN Creatinine Ratio 31.8 (10-20); Bilirubin,Total 1.2 mg/dl (0.2-1.0); Blood Urea Nitrogen 14 mg/dl (6-23); Calcium 8.8 mg/dl (8.6-10.3); Carbon Dioxide 26 mmol/L (21-32); Chloride 94 mmol/L (98-107); Est GFR (African American) 107.4 ml/min; Est GFR (Non-African American) 92.7 ml/min; Glucose 96 mg/dl (70-99(Fasting)); Magnesium 1.6 mg/dl (1.7-2.4); Potassium 3.9 mmol/L (3.5-5.1); Sodium 128 mmol/L (136-145)
[2024-01-20 20:02] LABS: Partial Thromboplastin Ratio 0.9; Partial Thromboplastin Time 25 Seconds (21-31); Prothrombin Time 11.1 Seconds (9.0-12.0)
--- NOTE | 2024-01-20 20:02 | Emergency Department Note ---
Impression & Plan Subdural hematoma, Headache, Acute confusion, Leukocytosis, Anemia, Hypomagnesemia ED Provider Note NAME: ROBER CELESTIN AGE: 83 SEX: F : 1940 ARRIVES VIA: Walk-In INFORMANT: [Patient][personal care aide] ED PROVIDER(S): [Holden Borges MD] CHIEF COMPLAINT: Confusion HISTORY OF PRESENT ILLNESS: The patient is an 83-year-old female whose had a headache, sinus congestion, ear pain and some confusion for a few days. She was noted to be febrile at the outpatient office and she was referred to the ER. Patient does have urinary frequency. No burning. No vomiting or diarrhea. She has not had cough. She has a scratchy throat but not a sore throat. She has no abdominal pain. No reported trauma. The patient is here with her caregiver. Of note, the patient does not take any strong blood thinning agents. PMHx/PSHx/Social Hx: See Below PHYSICAL EXAM: GENERAL: Patient is in no acute distress. Quite thin. HEENT: No acute trauma, normocephalic atraumatic, mucous membranes moist, no nasal congestion. No throat erythema or exudate. TMs clear without infection. Patient does have some erythema to the right upper eyelid, no tearing or conjunctivitis. NECK: No stridor, no adenopathy, no meningismus, trachea is midline. LUNGS: Clear to auscultation bilaterally, no wheeze, no rhonchi, breath sounds equal. HEART: Without murmurs gallops or rubs, regular rate and rhythm. ABDOMEN: Soft, nontender, no peritonitis. EXTREMITIES: No cyanosis, full range of motion of all the joints without pain or difficulty. NEUROLOGIC: Awake and alert, no acute motor or sensory deficits, no focal weakness. No speech slur. Poor historian. SKIN: No jaundice, no diaphoresis. DIFFERENTIAL DIAGNOSIS: Viral illness, pneumonia, UTI, dehydration, stroke, intracranial bleeding, among others. EMERGENCY DEPARTMENT PROCEDURES: MEDICAL DECISION MAKING: There is a mild leukocytosis, this could be consistent with infection or just her pain and stress of this presentation. The patient was anemic but this is a chronic finding. There was a normal platelet count. No coagulopathy. Sodium was low however, this is a chronic issue for her. There is no renal failure. Magnesium somewhat low at 1.6. No concerning liver enzyme elevation. The patient appeared to be in a euthyroid state. Urinalysis did not show findings of infection. Respiratory bio fire was negative. Chest x-ray shows some chronic change, no focal pneumonia. Brain CT showed a small subdural hematoma without midline shift. On exam, the patient was awake. Her vital signs were quite stable. The patient was given IV magnesium, she did not require anything for pain. I spoke to the patient and her caregiver about the findings on CT imaging. I did speak with [facility] given the subdural findings. I spoke with the neurologist on-call as well as the ICU attending non licensed nuclear equipment operator, neither physician felt the patient required transfer to their facility. There is no intervention required for the size of subdural. The patient can be kept at our facility for repeat CT imaging in 24 hours to ensure stability. I do believe the subdural explains her headache and confusion. There is no history of fall recently, but, the patient is a somewhat poor historian. There are no traumatic findings noted to her scalp. I spoke with the patient at length, I spoke with the caregiver. I did speak with case management, the on-call hospitalist was consulted. Prior/Outside records/notes reviewed: Today's outpatient notes describing her presentation, their concerns and the need for an ER referral. ECG per my interpretation: Indication was weakness and confusion. The ECG shows what appears to be a normal sinus rhythm with a rate of 71. LVH is present. There is a potential old septal infarct. There is no concerning ST elevation. No PVCs. QTc is 439. Continuous Cardiac Monitoring per my interpretation: An order was placed for continuous cardiac monitoring. The monitor shows a rate of 75 with normal sinus rhythm. Imaging/x-ray results per my interpretation: Chest x-ray shows some chronic changes, no focal pneumonia, no CHF. Chronic Medical/Social conditions affecting care: Advanced age. Care/Management discussed with: Case management, the on-call hospitalist. [facility]-Dr. Dumont of neurology and Dr. Jaimes of intensive care Level of care consideration(s): After review of the information above and other included data: --I believe the patient requires escalation of care to admission Critical Care Note: I have personally spent 43 minutes of critical care time in the direct management of this patient. This includes bedside care, interpretation of diagnostic studies, and testing, discussion with consultants, patient, and family members, and other required patient management activities. This 43 minutes is in excess of all separately billable procedures. DISPOSITION: Admission Past Med/Surg History Problem List (Updated 01/21/24 @ 01:07 by Holden Borges MD) Hypomagnesemia (Acute) Anemia (Acute) Leukocytosis (Acute) Acute confusion (Acute) Headache (Acute) Subdural hematoma (Acute) Subdural hematoma Closed lumbar vertebral fracture (Acute 09/16/23) acute superior endplate compression fracture of L2- from a fall out of bed Cognitive impairment Weight loss, unintentional Post-operative state Compression fracture of L1 lumbar vertebra (Acute ~07/28/23) Encounter for pre-operative examination Change in hearing Urethral caruncle Stented coronary artery Non-ST elevated myocardial infarction (Acute) History of rib fracture (05/12/21) fractures of the left posterior 11th and 12th ribs Esophageal dysphagia Encounter for pre-operative laboratory testing CAD (coronary artery disease) Chronic laryngitis Post-menopausal bleeding Prolapsed urethral mucosa Urinary frequency LBBB (left bundle branch block) Presence of orthotic device SIADH (syndrome of inappropriate ADH production) (Chronic) Neck pain (Acute) Syncope (Acute) Hypercholesterolemia statin intolerant per cardio records Esophageal reflux Skin tag Lateral epicondylitis Osteoporosis (Chronic) Health care maintenance Vitamin D deficiency LVH (left ventricular hypertrophy) CAD (coronary artery disease) Hypertension Epigastric pain Anemia (Acute) Headache (Acute 01/31/14) Osteoporosis Myocardial infarction x2: 2005 > 2 stents at [facility], follows with Dr. Bowen 12/14/22 > NSTEMI, drug eluding stent prox to mid RCA at [facility] Medical History Hyponatremia Laryngopharyngeal reflux (LPR) Electrolyte abnormality Anxiety Presence of stent in LAD coronary artery s/p LAD and Ramus stents 2004 Hyponatremia GERD (gastroesophageal reflux disease) per pt., well controlled Abnormal uterine bleeding History of frequent urinary tract infections SIADH (syndrome of inappropriate ADH production) History of diverticulitis of colon Arteriosclerosis of coronary artery s/p two stents (LAD and ramus) 2005 s/p [place] x4 to mid RCA 12/14/22 Surgical History History of surgery on arm rt humerous, fx History of surgery on left wrist due to fx Hx of cardiac catheterization x 2: 2004 > 2 stents at [facility], follows with Dr. Bowen 12/14/22 > NSTEMI, drug eluding stent prox to mid RCA at [facility] Hx of bilateral cataract extraction H/O colonoscopy with polypectomy History of tooth extraction History of heart artery stent x2: 2004 > 2 stents at [facility], follows with Dr. Bowen 12/14/22 > NSTEMI, drug eluding stent prox to mid RCA at [facility] S/P dilation and curettage Family History Father Myocardial infarction Mother Cardiac disorder Other Dysuria No family history of adverse response to anesthesia Denies family history of Ovarian cancer Prostate cancer Breast cancer Colorectal cancer Social History Smoking Status: Never smoker Second Hand Exposure: No; Do You Dip or Chew Tobacco: No; Hx Alcohol Use: Yes Alcohol type: beer Alcohol Intake Frequency: Monthly or Less Hx Substance Use: No Preferred Language: Japanese Communication Ability: Effective Visual Impairment: No Limitations Hearing Ability: Normal Seamless Tube Drawer Required: No Beliefs That Will Affect Care: None marital status: Current Living Situation: Spouse current occupational status: retired current occupation: worked in [employer] How many Children do You have: 1 Feels Safe at Home: Yes Safety Concerns: Feels Safe At This Time Childhood Exposure to Second-Hand Smoke: No Diet: regular Dental Care, Regularly: Yes Physical Activity Frequency: Daily Physical Activity Frequency Comment: bike and gardening Seatbelt Use: always Sunscreen Use: Yes Assistive Devices: Glasses and Walker Allergies Allergies Allergy/AdvReac Type Severity Reaction Status Date / Time acetaminophen Allergy Intermediate Joint Verified 01/20/24 16:50 Pain, Headache asparagus Allergy Intermediate Joint Pain Verified 01/20/24 16:50 azithromycin Allergy Intermediate Joint Verified 01/20/24 16:50 Pain, Headache spinach Allergy Intermediate Joint Pain Verified 01/20/24 16:50 Nnqcffg-IBY-JnI Reductase Allergy Intermediate lethargy,muscle Verified 01/20/24 16:50 Inhibitor weakness [Yitvnvo-Edb-Zyy Reductase Inhibitor] alprazolam AdvReac Intermediate Joint Verified 01/20/24 16:50 Pain, Headache cephalexin [From Keflex] AdvReac Intermediate Abdominal Verified 01/20/24 16:50 Pain ciprofloxacin AdvReac Intermediate Joint Verified 01/20/24 16:50 Pain, Headache Home Meds Home Medications Medication Instructions Recorded Confirmed melatonin 3 mg tablet 3 mg PO HS PRN Sleep 12/02/18 01/21/24 multivitamin 1 tab PO QAM 12/02/18 01/20/24 omega 2-vxb-xry-fish oil 1,000 mg 1 cap PO QAM 12/02/18 01/21/24 (120 mg-180 mg) capsule (Fish Oil) aspirin 81 mg tablet,delayed 81 mg PO PM 10/09/20 01/21/24 release cholecalciferol (vitamin D3) 25 4,000 unit PO QAM 10/23/21 01/20/24 mcg (1,000 unit) capsule (Vitamin D3) docusate sodium 100 mg capsule 100 mg PO BID 08/12/23 01/21/24 Previous Rx's Medication Instructions Recorded calcitonin (salmon) 200 1 spray NA DAILY #1 inhaler 08/13/23 unit/actuation nasal spray diclofenac sodium 1 % topical gel 4 g EXT QID #100 grams 09/24/23 (Voltaren Arthritis Pain) clopidogrel 75 mg tablet (Plavix) 37.5 mg (1/2 x 75 mg) PO QAM #45 11/19/23 tabs escitalopram oxalate 10 mg tablet 10 mg PO DAILY #90 tabs 11/19/23 sodium chloride 1,000 mg soluble 1,000 mg PO BID 7 days #14 tabs 01/15/24 tablet Results & Data (ED) Vital Signs Vital Signs - 24 hr 01/20/24 18:44 01/20/24 20:15 01/20/24 20:15 Temperature 36.4 C L Temperature Source Temporal Artery Scan Pulse Rate 75 69 Pulse Rate [Right Finger] 66 Pulse Rhythm Regular Regular Pulse Rhythm [Right Finger] Regular Pulse Strength Normal Pulse Strength [Right Finger] Normal Respiratory Rate 20 16 16 Respiratory Effort / Characteristics Non-Labored Spontaneous Non-Labored Respiratory Depth Normal Normal Respiratory Pattern Regular Regular Blood Pressure 141/82 H Blood Pressure [Right Arm] 135/95 Blood Pressure Mean 101 Blood Pressure Mean [Right Arm] 108 Blood Pressure Position Sitting Blood Pressure Position [Right Arm] Lying Pulse Oximetry 97 98 99 Oxygen Delivery Method Room Air Room Air Room Air Sepsis Recent Fever Within 48 Hours No Sepsis New/Unexplained Change in Mental Status No Sepsis Action Taken by Nursing No Action Required 01/20/24 21:23 01/20/24 21:28 Temperature Temperature Source Pulse Rate 69 Pulse Rate [Right Finger] 71 Pulse Rhythm Pulse Rhythm [Right Finger] Pulse Strength Pulse Strength [Right Finger] Respiratory Rate 12 Respiratory Effort / Characteristics Non-Labored Spontaneous Respiratory Depth Normal Respiratory Pattern Blood Pressure Blood Pressure [Right Arm] 137/80 Blood Pressure Mean Blood Pressure Mean [Right Arm] 99 Blood Pressure Position Blood Pressure Position [Right Arm] Pulse Oximetry 98 Oxygen Delivery Method Room Air Sepsis Recent Fever Within 48 Hours Sepsis New/Unexplained Change in Mental Status Sepsis Action Taken by Usp Medications Current Medication List: was personally reviewed by me Laboratory Data Attestation: I reviewed the patient's lab results. 01/20/24 19:07 01/20/24 19:07 Lab Results 01/20/24 01/20/24 01/20/24 Range/Units 19:07 19:19 20:21 WBC 11.07 H (4.8-10.8) K/ul RBC 3.12 L (4.20-5.40) M/uL Hgb 10.7 L (12.0-16.0) g/dl Hct 30.0 L (37.0-47.0) % MCV 96.2 (80.0-100.0) fL MCH 34.3 H (25.0-34.0) pg MCHC 35.7 (32.0-36.0) g/dL RDW Std Deviation 46.8 H (36.4-46.3) fL RDW Coeff of Jorge Luis 13.2 (11.5-14.5) % Plt Count 189 (130-400) K/uL MPV 9.3 L (9.4-12.4) fL Immature Gran % (Auto) 0.4 % Neut % (Auto) 84.8 % Lymph % (Auto) 7.0 % [place] % (Auto) 7.5 % Eos % (Auto) 0.0 % Baso % (Auto) 0.3 % Neut # (Auto) 9.39 H (1.40-6.50) K/uL Lymph # (Auto) 0.78 L (1.20-3.40) K/uL [place] # (Auto) 0.83 H (0.11-0.59) K/uL Eos # (Auto) 0.00 (0.00-0.50) K/uL Baso # (Auto) 0.03 (0.00-0.20) K/uL Immature Gran # (Auto) 0.04 (0.01-0.20) K/uL PT 11.1 (9.0-12.0) Seconds INR 1.0 (0.9-1.1) APTT 25 (21-31) Seconds PTT Ratio 0.9 Sodium 128 L (136-145) mmol/L Potassium 3.9 (3.5-5.1) mmol/L Chloride 94 L (98-107) mmol/L Carbon Dioxide 26 (21-32) mmol/L Anion Gap 8 (3-11) BUN 14 (6-23) mg/dl Creatinine 0.44 L (0.6-1.2) mg/dl Est Cr Clr Drug Dosing Not Reportable Est GFR ( Amer) 107.4 ml/min Est GFR (Non-Af Amer) 92.7 ml/min BUN/Creatinine Ratio 31.8 H (10-20) Glucose 96 (70-99(Fasting)) mg/dl Calcium 8.8 (8.6-10.3) mg/dl Magnesium 1.6 L (1.7-2.4) mg/dl Total Bilirubin 1.2 H (0.2-1.0) mg/dl AST 34 (13-39) U/L ALT 32 (7-52) U/L Alkaline Phosphatase 57 (34-104) U/L Troponin I High Sens 11.0 (0-14) pg/ml Total Protein 7.0 (6.0-8.3) gm/dl Albumin 4.0 (3.4-5.0) gm/dl Globulin 3.0 (2.5-4.0) gm/dl Albumin/Globulin Ratio 1.3 (0.9-2) TSH 0.600 (0.300-4.500) uIu/ml Urine Color Yellow Urine Appearance Cloudy A (Clear) Urine pH 8.5 H (4.5-7.5) Ur Specific [place] 1.021 (1.000-1.030) Urine Protein Trace H (Negative) Urine Glucose (UA) Negative (Negative) Urine Ketones 1+ H (Negative) Urine Blood Negative (Negative) Urine Nitrite Negative (Negative) Urine Bilirubin Negative (Negative) Urine Urobilinogen Negative (Negative) Ur Leukocyte Esterase Negative (Negative) Urine WBC (Auto) 0-5 (0-5) /hpf Urine RBC (Auto) 3-5 H (0-2) /hpf U Hyaline Cast (Auto) 0-2 (0-2) /lpf U Epithel Cells (Auto) 0-2 (0-2) /hpf Urine Bacteria (Auto) None Seen (None Seen) Adenovirus (PCR) Not Detected (NotDetected) B. pertussis DNA (PCR) Not Detected (NotDetected) B.parapertussis DNA PCR Not Detected (NotDetected) C. pneumoniae DNA (PCR) Not Detected (NotDetected) Coronavirus OC43 (PCR) Not Detected (NotDetected) Coronavirus HKU1 (PCR) Not Detected (NotDetected) Coronavirus 229E (PCR) Not Detected (NotDetected) SARS-CoV-2 (PCR) Not Detected (NotDetected) Coronavirus NL63 (PCR) Not Detected (NotDetected) Human Metapneumovir PCR Not Detected (NotDetected) Influenza Type A (PCR) Not Detected (NotDetected) Influenza Type B (PCR) Not Detected (NotDetected) M. pneumoniae (PCR) Not Detected (NotDetected) Parainfluenza 1 (PCR) Not Detected (NotDetected) Parainfluenza 2 (PCR) Not Detected (NotDetected) Parainfluenza 3 (PCR) Not Detected (NotDetected) Parainfluenza 4 (PCR) Not Detected (NotDetected) RSV (PCR) Not Detected (NotDetected) Entero/Rhino (PCR) Not Detected (NotDetected) Administered Medications Discontinued Medications Magnesium Sulfate/Dextrose (Magnesium Sulfate / D5w) 1 gm in 100 mls @ 100 mls/hr IV NOW STA Stop: 01/20/24 20:50 Last Infusion: 01/20/24 21:17 Dose: Infused Documented By: Admin: 01/20/24 20:11 Dose: 100 mls/hr Documented By: SHWillam Imaging Data Radiologist's Impression: Head CT 01/20/24 19:16 CR Exam(s): CT HEAD Without Contrast EXAM: CT Head Without Intravenous Contrast CLINICAL HISTORY: Reason for exam: confusion. TECHNIQUE: Axial computed tomography images of the head/brain without intravenous contrast. Automated exposure control was utilized for the study. A dose lowering technique was utilized adhering to the principles of ALARA. COMPARISON: CT brain: 09/25/2023 FINDINGS: Motion and beam hardening artifacts limits the diagnostic sensitivity of the exam. Brain: There is up to 7 mm thick interhemispheric mixed density subdural hemorrhage is seen mostly anteriorly (series 2 image 24). A 4.5 mm thick acute subdural hemorrhage present anterior to the left frontal lobe (series 2 image 20). There is no significant mass-effect or midline shift. Martin-white matter differentiation is maintained. Age-related cerebral atrophy with widening of the extra-axial spaces and ventricular dilatation. There are areas of decreased attenuation within the white matter tracts, nonspecific but can be seen with chronic small vessel ischemic disease/age related white matter degeneration. Bones/joints: Unremarkable. No acute fracture. Soft tissues: Unremarkable. Sinuses: Medially a 1.3 cm mucosal retention cyst of the left maxillary sinus. No acute sinusitis. Mastoid air cells: Unremarkable as visualized. No mastoid effusion. IMPRESSION: Interhemispheric and left frontal acute subdural hemorrhages are seen. No significant mass-effect or midline shift of structures. Chronic involutional and ischemic changes of the brain. . Communications: Call Doctor Intracranial Hemorrhage Electronically signed by: Lucrecia Higuera MD, DABR 01/20/24 21:09 PM Discharge Plan Visit Data Chief Complaint: Confusion Stated Complaint: VIRAL RESP, FATIGUE, CONFUSION ED Provider: Holden Borges Discharge Problem: Subdural hematoma, Headache, Acute confusion, Leukocytosis, Anemia, Hypomagnesemia Patient Disposition: Admitted As Inpatient Condition: Fair Discharge Problem: Headache Qualifiers: Headache type: unspecified Headache chronicity pattern: acute headache I ntractability: intractable Qualified Code(s): R51.9 - Headache, unspecified Leukocytosis Qualifiers: Leukocytosis type: unspecified Qualified Code(s): D72.829 - Elevated white blood cell count, unspecified Anemia Qualifiers: Anemia type: unspecified type Qualified Code(s): D64.9 - Anemia, unspecified
[2024-01-20] MEDS: MAGNESIUM SULFATE / D5W 1 GM/100 ML BAG IV STA (20:11)
[2024-01-20 20:15] LABS: Adenovirus PCR Not Detected (NotDetected); Bordetella parapertussis PCR Not Detected (NotDetected); Bordetella pertussis PCR Not Detected (NotDetected); Chlamydia pneumoniae PCR Not Detected (NotDetected); Coronavirus 229E PCR Not Detected (NotDetected); Coronavirus CoV-2 (COVID19)PCR Not Detected (NotDetected); Coronavirus HKU1 PCR Not Detected (NotDetected); Coronavirus NL63 PCR Not Detected (NotDetected); Coronavirus OC43PCR Not Detected (NotDetected); Human Metapneumovirus PCR Not Detected (NotDetected); Influenza A PCR Not Detected (NotDetected); Influenza B PCR Not Detected (NotDetected); Mycoplasma pneumoniae PCR Not Detected (NotDetected); Parainfluenza Virus 1 PCR Not Detected (NotDetected); Parainfluenza Virus 2 PCR Not Detected (NotDetected); Parainfluenza Virus 3 PCR Not Detected (NotDetected); Parainfluenza Virus 4 PCR Not Detected (NotDetected); Respiratory Syncytial VirusPCR Not Detected (NotDetected); Rhinovirus/Enterovirus PCR Not Detected (NotDetected)
[2024-01-20 20:32] LABS: Appearance Urine Cloudy (Clear); Bacteria Urine Automated None Seen (None Seen); Bilirubin Urine Negative (Negative); Blood Urine Negative (Negative); Cast Urine Automated 0-2 /lpf (0-2); Color Urine Yellow; Epithelial Cell Urine Auto 0-2 /hpf (0-2); Glucose Urine UA Negative (Negative); Ketones Urine 1+ (Negative); Leukocyte Esterase Urine Negative (Negative); Nitrite Urine Negative (Negative); Protein Urine Trace (Negative); Specific Gravity Urine 1.021 (1.000-1.030); Urobilinogen Urine Negative (Negative); WBC Urine Automated 0-5 /hpf (0-5); pH Urine 8.5 (4.5-7.5)
--- NOTE | 2024-01-20 21:10 | CT Scan Report ---
Exam(s): CT HEAD Without Contrast EXAM: CT Head Without Intravenous Contrast CLINICAL HISTORY: Reason for exam: confusion. TECHNIQUE: Axial computed tomography images of the head/brain without intravenous contrast. Automated exposure control was utilized for the study. A dose lowering technique was utilized adhering to the principles of ALARA. COMPARISON: CT brain: 09/25/2023 FINDINGS: Motion and beam hardening artifacts limits the diagnostic sensitivity of the exam. Brain: There is up to 7 mm thick interhemispheric mixed density subdural hemorrhage is seen mostly anteriorly (series 2 image 24). A 4.5 mm thick acute subdural hemorrhage present anterior to the left frontal lobe (series 2 image 20). There is no significant mass-effect or midline shift. Martin-white matter differentiation is maintained. Age-related cerebral atrophy with widening of the extra-axial spaces and ventricular dilatation. There are areas of decreased attenuation within the white matter tracts, nonspecific but can be seen with chronic small vessel ischemic disease/age related white matter degeneration. Bones/joints: Unremarkable. No acute fracture. Soft tissues: Unremarkable. Sinuses: Medially a 1.3 cm mucosal retention cyst of the left maxillary sinus. No acute sinusitis. Mastoid air cells: Unremarkable as visualized. No mastoid effusion. IMPRESSION: Interhemispheric and left frontal acute subdural hemorrhages are seen. No significant mass-effect or midline shift of structures. Chronic involutional and ischemic changes of the brain. . Communications: Call Doctor Intracranial Hemorrhage Electronically signed by: Lucrecia Higuera MD, DABR 01/20/24 21:09 PM
--- NOTE | 2024-01-20 22:10 | History & Physical Report ---
Date of Service January 20, 2024 Assessment & Plan (1) Subdural hematoma: Plan: 83yo female presenting with several days of progressive headache, episodes of confusion noted by caregiver throughout the day. No neurological deficits appreciated on exam. GSC=[address] of the head as above with interhemispheric and left frontal acute SDH with no significant mass-effect or midline shift. Also with chronic involutional ischemic changes. Patient is on ASA 81mg po daily as well as Plavix 37.5mg po daily - reportedly did not take her medication today. Uncertain when her last dose was taken. Case was discussed with Neurology and ICU at [facility] [place] - no need for transfer at this time. -Admit to medical with telemetry -Neuro checks with GCS q 4 hours -Hold ASA and Plavix -Repeat CT head in 24 hours (ordered for 01/21/24 at 21:00) -Maintain fall precautions, aspiration precautions (2) SIADH (syndrome of inappropriate ADH production): Plan: Patient with history of SIADH. Na today = 128, near baseline -Fluid restriction 1200mL/day -BMP in AM Plan Chronic Medical Conditions: Anxiety - stable -Continue Escitalopram -Nasal calcitonin daily -Back brace to be worn during the day History of Present Illness Chief Complaint: headache Primary Care Provider: Michael Corley MD Mallika Brown is an 83yo female presenting with headache. Patient's caregiver is at bedside and assists with history. She reports that several days ago she developed a right frontal headache and left ear pain. Her pain has been progressive. She was taken to urgent care today and told that she has a sinus infection. Patient's caregiver reports patient has some forgetfulness at baseline, however, today she had some intermittent episodes of confusion. She forgot to take her medications today which is not typical also became confused while at the Urgent Care thinking that she was in the hospital. Uncertain history of trauma - several days ago the patient slid off the chair. Unwitnessed, uncertain of head trauma. In the ER she is afebrile, HD stable, NAD ER Course: Magnesium x 1gm Allergies Allergy/AdvReac Type Severity Reaction Status Date / Time acetaminophen Allergy Intermediate Joint Verified 01/20/24 16:50 Pain, Headache asparagus Allergy Intermediate Joint Pain Verified 01/20/24 16:50 azithromycin Allergy Intermediate Joint Verified 01/20/24 16:50 Pain, Headache spinach Allergy Intermediate Joint Pain Verified 01/20/24 16:50 Spavmdi-XMM-GwY Reductase Allergy Intermediate lethargy,muscle Verified 01/20/24 16:50 Inhibitor weakness [Zjvjakl-Vkd-Bwe Reductase Inhibitor] alprazolam AdvReac Intermediate Joint Verified 01/20/24 16:50 Pain, Headache cephalexin [From Keflex] AdvReac Intermediate Abdominal Verified 01/20/24 16:50 Pain ciprofloxacin AdvReac Intermediate Joint Verified 01/20/24 16:50 Pain, Headache Home Medications Medication Instructions Recorded Confirmed Type melatonin 3 mg tablet 3 mg PO HS PRN Sleep 12/02/18 01/21/24 History multivitamin 1 tab PO QAM 12/02/18 01/20/24 History omega 9-apm-mqx-fish oil 1,000 mg 1 cap PO QAM 12/02/18 01/21/24 History (120 mg-180 mg) capsule (Fish Oil) aspirin 81 mg tablet,delayed 81 mg PO PM 10/09/20 01/21/24 History release cholecalciferol (vitamin D3) 25 4,000 unit PO QAM 10/23/21 01/20/24 History mcg (1,000 unit) capsule (Vitamin D3) docusate sodium 100 mg capsule 100 mg PO BID 08/12/23 01/21/24 History calcitonin (salmon) 200 1 spray NA DAILY #1 inhaler 08/13/23 01/21/24 Rx unit/actuation nasal spray diclofenac sodium 1 % topical gel 4 g EXT QID #100 grams 09/24/23 01/20/24 Rx (Voltaren Arthritis Pain) clopidogrel 75 mg tablet (Plavix) 37.5 mg (1/2 x 75 mg) PO QAM #45 11/19/23 01/21/24 Rx tabs escitalopram oxalate 10 mg tablet 10 mg PO DAILY #90 tabs 11/19/23 01/21/24 Rx sodium chloride 1,000 mg soluble 1,000 mg PO BID 7 days #14 tabs 01/15/24 01/20/24 Rx tablet Past Med/Surg History Problem List (Updated 01/21/24 @ 00:39 by Connie Amaro DO) Subdural hematoma Closed lumbar vertebral fracture (Acute 09/16/23) acute superior endplate compression fracture of L2- from a fall out of bed Cognitive impairment Weight loss, unintentional Post-operative state Compression fracture of L1 lumbar vertebra (Acute ~07/28/23) Encounter for pre-operative examination Change in hearing Urethral caruncle Stented coronary artery Non-ST elevated myocardial infarction (Acute) History of rib fracture (05/12/21) fractures of the left posterior 11th and 12th ribs Esophageal dysphagia Encounter for pre-operative laboratory testing CAD (coronary artery disease) Chronic laryngitis Post-menopausal bleeding Prolapsed urethral mucosa Urinary frequency LBBB (left bundle branch block) Presence of orthotic device SIADH (syndrome of inappropriate ADH production) (Chronic) Neck pain (Acute) Syncope (Acute) Hypercholesterolemia statin intolerant per cardio records Esophageal reflux Skin tag Lateral epicondylitis Osteoporosis (Chronic) Health care maintenance Vitamin D deficiency LVH (left ventricular hypertrophy) CAD (coronary artery disease) Hypertension Epigastric pain Anemia (Acute) Headache (Acute 01/31/14) Osteoporosis Myocardial infarction x2: 2005 > 2 stents at [facility], follows with Dr. Bowen 12/14/22 > NSTEMI, drug eluding stent prox to mid RCA at [facility] Medical History Hyponatremia Laryngopharyngeal reflux (LPR) Electrolyte abnormality Anxiety Presence of stent in LAD coronary artery s/p LAD and Ramus stents 2004 Hyponatremia GERD (gastroesophageal reflux disease) per pt., well controlled Abnormal uterine bleeding History of frequent urinary tract infections SIADH (syndrome of inappropriate ADH production) History of diverticulitis of colon Arteriosclerosis of coronary artery s/p two stents (LAD and ramus) 2004 s/p [place] x4 to mid RCA 12/14/22 Surgical History History of surgery on arm rt humerous, fx History of surgery on left wrist due to fx Hx of cardiac catheterization x 2: 2004 > 2 stents at [facility], follows with Dr. Bowen 12/14/22 > NSTEMI, drug eluding stent prox to mid RCA at [facility] Hx of bilateral cataract extraction H/O colonoscopy with polypectomy History of tooth extraction History of heart artery stent x2: 2004 > 2 stents at [facility], follows with Dr. Bowen 12/14/22 > NSTEMI, drug eluding stent prox to mid RCA at [facility] S/P dilation and curettage Family History Father Myocardial infarction Mother Cardiac disorder Other Dysuria No family history of adverse response to anesthesia Denies family history of Ovarian cancer Prostate cancer Breast cancer Colorectal cancer Social History Smoking Status: Never smoker Second Hand Exposure: No; Do You Dip or Chew Tobacco: No; Hx Alcohol Use: Yes Alcohol type: beer Alcohol Intake Frequency: Monthly or Less Hx Substance Use: No Preferred Language: Polish Communication Ability: Effective Visual Impairment: No Limitations Hearing Ability: Normal Refuse Laborer Required: No Beliefs That Will Affect Care: None marital status: Current Living Situation: Spouse current occupational status: retired current occupation: worked in [employer] How many Children do You have: 1 Feels Safe at Home: Yes Childhood Exposure to Second-Hand Smoke: No Diet: regular Dental Care, Regularly: Yes Physical Activity Frequency: Daily Physical Activity Frequency Comment: bike and gardening Seatbelt Use: always Sunscreen Use: Yes Assistive Devices: Walker Review of Systems Review of Systems: All systems reviewed & are unremarkable except as noted in HPI & below Physical Exam Physical Exam: General: patient resting in bed, uncomfortable due to headache, non-toxic in appearance, AA&O x 4 Skin: warm, dry, intact, no rashes or lesions HEENT: NC/AT, PERRL, EOMI, anicteric sclera, conjunctiva without injection, external ear normal to inspection and nontender, nares patent, moist mucus membranes, dentition intact, no oropharyngeal lesions, neck supple, trachea midline, no LAD, no thyromegaly, no JVD Heart: +S1/S2, regular, no m/r/g Lungs: equal air entry bilaterally, no rales/rhonchi/wheezes Abd: +BS, soft, NT/ND, no masses/organomegaly/ascites Ext: warm, 2+ pulses in UE/LE bilaterally, no clubbing/cyanosis or edema Neuro: nonfocal, patient AA&O x 4, speech intact, no facial droop, moving all extremities on command with equal strength 5/5, GSC=15 Results & Data Results & Data Vital Signs (Past 12 Hours) Vital Signs Temp Pulse Pulse Resp BP BP Pulse Ox 01/20/24 21:28 69 01/20/24 21:23 71 12 137/80 98 01/20/24 20:15 69 16 99 01/20/24 20:15 66 16 135/95 98 01/20/24 18:44 36.4 C L 75 20 141/82 H 97 O2 Del Method 01/20/24 21:28 01/20/24 21:23 Room Air 01/20/24 20:15 Room Air 01/20/24 20:15 Room Air 01/20/24 18:44 Room Air Laboratory Results Laboratory Results WBC 11.07 K/ul (4.8-10.8) H 01/20/24 19:07 RBC 3.12 M/uL (4.20-5.40) L 01/20/24 19:07 Hgb 10.7 g/dl (12.0-16.0) L 01/20/24 19:07 Hct 30.0 % (37.0-47.0) L 01/20/24 19:07 MCV 96.2 fL (80.0-100.0) 01/20/24 19:07 MCH 34.3 pg (25.0-34.0) H 01/20/24 19:07 MCHC 35.7 g/dL (32.0-36.0) 01/20/24 19:07 RDW Std Deviation 46.8 fL (36.4-46.3) H 01/20/24 19:07 RDW Coeff of Jorge Luis 13.2 % (11.5-14.5) 01/20/24 19:07 Plt Count 189 K/uL (130-400) 01/20/24 19:07 MPV 9.3 fL (9.4-12.4) L 01/20/24 19:07 Immature Gran % (Auto) 0.4 % 01/20/24 19:07 Neut % (Auto) 84.8 % 01/20/24 19:07 Lymph % (Auto) 7.0 % 01/20/24 19:07 [place] % (Auto) 7.5 % 01/20/24 19:07 Eos % (Auto) 0.0 % 01/20/24 19:07 Baso % (Auto) 0.3 % 01/20/24 19:07 Neut # (Auto) 9.39 K/uL (1.40-6.50) H 01/20/24 19:07 Lymph # (Auto) 0.78 K/uL (1.20-3.40) L 01/20/24 19:07 [place] # (Auto) 0.83 K/uL (0.11-0.59) H 01/20/24 19:07 Eos # (Auto) 0.00 K/uL (0.00-0.50) 01/20/24 19:07 Baso # (Auto) 0.03 K/uL (0.00-0.20) 01/20/24 19:07 Immature Gran # (Auto) 0.04 K/uL (0.01-0.20) 01/20/24 19:07 PT 11.1 Seconds (9.0-12.0) 01/20/24 19:07 INR 1.0 (0.9-1.1) 01/20/24 19:07 APTT 25 Seconds (21-31) 01/20/24 19:07 PTT Ratio 0.9 01/20/24 19:07 Sodium 128 mmol/L (136-145) L 01/20/24 19:07 Potassium 3.9 mmol/L (3.5-5.1) 01/20/24 19:07 Chloride 94 mmol/L (98-107) L 01/20/24 19:07 Carbon Dioxide 26 mmol/L (21-32) 01/20/24 19:07 Anion Gap 8 (3-11) 01/20/24 19:07 BUN 14 mg/dl (6-23) 01/20/24 19:07 Creatinine 0.44 mg/dl (0.6-1.2) L 01/20/24 19:07 Est Cr Clr Drug Dosing Not Reportable 01/20/24 19:07 Est GFR ( Amer) 107.4 ml/min 01/20/24 19:07 Est GFR (Non-Af Amer) 92.7 ml/min 01/20/24 19:07 BUN/Creatinine Ratio 31.8 (10-20) H 01/20/24 19:07 Glucose 96 mg/dl (70-99(Fasting)) 01/20/24 19:07 Calcium 8.8 mg/dl (8.6-10.3) 01/20/24 19:07 Magnesium 1.6 mg/dl (1.7-2.4) L 01/20/24 19:07 Total Bilirubin 1.2 mg/dl (0.2-1.0) H 01/20/24 19:07 AST 34 U/L (13-39) 01/20/24 19:07 ALT 32 U/L (7-52) 01/20/24 19:07 Alkaline Phosphatase 57 U/L (34-104) 01/20/24 19:07 Troponin I High Sens 11.0 pg/ml (0-14) 01/20/24 19:07 Total Protein 7.0 gm/dl (6.0-8.3) 01/20/24 19:07 Albumin 4.0 gm/dl (3.4-5.0) 01/20/24 19:07 Globulin 3.0 gm/dl (2.5-4.0) 01/20/24 19:07 Albumin/Globulin Ratio 1.3 (0.9-2) 01/20/24 19:07 TSH 0.600 uIu/ml (0.300-4.500) 01/20/24 19:07 Urine Color Yellow 01/20/24 20:21 Urine Appearance Cloudy (Clear) A 01/20/24 20:21 Urine pH 8.5 (4.5-7.5) H 01/20/24 20:21 Ur Specific [place] 1.021 (1.000-1.030) 01/20/24 20:21 Urine Protein Trace (Negative) H 01/20/24 20:21 Urine Glucose (UA) Negative (Negative) 01/20/24 20:21 Urine Ketones 1+ (Negative) H 01/20/24 20:21 Urine Blood Negative (Negative) 01/20/24 20:21 Urine Nitrite Negative (Negative) 01/20/24 20:21 Urine Bilirubin Negative (Negative) 01/20/24 20:21 Urine Urobilinogen Negative (Negative) 01/20/24 20:21 Ur Leukocyte Esterase Negative (Negative) 01/20/24 20:21 Urine WBC (Auto) 0-5 /hpf (0-5) 01/20/24 20:21 Urine RBC (Auto) 3-5 /hpf (0-2) H 01/20/24 20:21 U Hyaline Cast (Auto) 0-2 /lpf (0-2) 01/20/24 20:21 U Epithel Cells (Auto) 0-2 /hpf (0-2) 01/20/24 20:21 Urine Bacteria (Auto) None Seen (None Seen) 01/20/24 20:21 Adenovirus (PCR) Not Detected (NotDetected) 01/20/24 19:19 B. pertussis DNA (PCR) Not Detected (NotDetected) 01/20/24 19:19 B.parapertussis DNA PCR Not Detected (NotDetected) 01/20/24 19:19 C. pneumoniae DNA (PCR) Not Detected (NotDetected) 01/20/24 19:19 Coronavirus OC43 (PCR) Not Detected (NotDetected) 01/20/24 19:19 Coronavirus HKU1 (PCR) Not Detected (NotDetected) 01/20/24 19:19 Coronavirus 229E (PCR) Not Detected (NotDetected) 01/20/24 19:19 SARS-CoV-2 (PCR) Not Detected (NotDetected) 01/20/24 19:19 Coronavirus NL63 (PCR) Not Detected (NotDetected) 01/20/24 19:19 Human Metapneumovir PCR Not Detected (NotDetected) 01/20/24 19:19 Influenza Type A (PCR) Not Detected (NotDetected) 01/20/24 19:19 Influenza Type B (PCR) Not Detected (NotDetected) 01/20/24 19:19 M. pneumoniae (PCR) Not Detected (NotDetected) 01/20/24 19:19 Parainfluenza 1 (PCR) Not Detected (NotDetected) 01/20/24 19:19 Parainfluenza 2 (PCR) Not Detected (NotDetected) 01/20/24 19:19 Parainfluenza 3 (PCR) Not Detected (NotDetected) 01/20/24 19:19 Parainfluenza 4 (PCR) Not Detected (NotDetected) 01/20/24 19:19 RSV (PCR) Not Detected (NotDetected) 01/20/24 19:19 Entero/Rhino (PCR) Not Detected (NotDetected) 01/20/24 19:[address] 01/20/24 19:16 CR Exam(s): CT HEAD Without Contrast EXAM: CT Head Without Intravenous Contrast CLINICAL HISTORY: Reason for exam: confusion. TECHNIQUE: Axial computed tomography images of the head/brain without intravenous contrast. Automated exposure control was utilized for the study. A dose lowering technique was utilized adhering to the principles of ALARA. COMPARISON: CT brain: 09/25/2023 FINDINGS: Motion and beam hardening artifacts limits the diagnostic sensitivity of the exam. Brain: There is up to 7 mm thick interhemispheric mixed density subdural hemorrhage is seen mostly anteriorly (series 2 image 24). A 4.5 mm thick acute subdural hemorrhage present anterior to the left frontal lobe (series 2 image 20). There is no significant mass-effect or midline shift. Martin-white matter differentiation is maintained. Age-related cerebral atrophy with widening of the extra-axial spaces and ventricular dilatation. There are areas of decreased attenuation within the white matter tracts, nonspecific but can be seen with chronic small vessel ischemic disease/age related white matter degeneration. Bones/joints: Unremarkable. No acute fracture. Soft tissues: Unremarkable. Sinuses: Medially a 1.3 cm mucosal retention cyst of the left maxillary sinus. No acute sinusitis. Mastoid air cells: Unremarkable as visualized. No mastoid effusion. IMPRESSION: Interhemispheric and left frontal acute subdural hemorrhages are seen. No significant mass-effect or midline shift of structures. Chronic involutional and ischemic changes of the brain. . Communications: Call Doctor Intracranial Hemorrhage Electronically signed by: Lucrecia Higuera MD, DABR 01/20/24 21:09 PM Diagnostic Findings CXR - per my assessment, image with mild cardiomegaly, aortic calcification, no obvious infiltrate, edema or pneumothorax. ECG Additional Comments: EKG with NSR at 71bpm, CX=425, IOZ=095, ERr=861, likely LVH PG Care Time/CCT Total # of Minutes Spent Total Time Spent with Patient: Total time spent is greater than 50% in coordination of care (as documented) at patient's floor/unit and/or counseling patient: Coding Level of Care Code 02750 INT INP/OBS CARE 3/75MIN Diagnoses Subdural hematoma S06.5XAA SIADH (syndrome of inappropriate ADH production) E22.2
[2024-01-20] MEDS ORDERED: ONDANSETRON INJ 2 MG/ML 2 ML VIAL IV PRN (23:54)
[2024-01-21 06:15] LABS: Calcium 8.6 mg/dl (8.6-10.3); Hematocrit (blood only) 28.2 % (37.0-47.0); Mean Corpuscular Hemoglobin 33.8 pg (25.0-34.0); Mean Corpuscular Hgb Conc 35.5 g/dL (32.0-36.0); Mean Corpuscular Volume 95.3 fL (80.0-100.0); Mean Platelet Volume 9.5 fL (9.4-12.4); Platelet Count 180 K/uL (130-400); Potassium 3.8 mmol/L (3.5-5.1); RDW Coefficient of Variation 12.9 % (11.5-14.5); RDW Standard Deviation 44.5 fL (36.4-46.3); Red Blood Count 2.96 M/uL (4.20-5.40); White Blood Count 9.24 K/ul (4.8-10.8)
[2024-01-21 06:20] LABS: BUN Creatinine Ratio 32.4 (10-20); Est GFR (African American) 113.7 ml/min; Est GFR (Non-African American) 98.1 ml/min
--- NOTE | 2024-01-21 07:20 | XRay Report ---
XR chest 1V not portable CLINICAL HISTORY: Weakness COMPARISON STUDY: Chest CT July 29, 2023. Chest radiograph September 25, 2023. FINDINGS: There is no pneumothorax or pleural effusion. Cardiomegaly is noted. There is no evidence f or pulmonary edema. There is no consolidation to suggest pneumonia. IMPRESSION: No acute cardiopulmonary findings. Cardiomegaly. ACT 112: Negative or not required by law. Electronically signed by: Hugh Saini M.D. 01/21/2024 7:18 AM
[2024-01-21] MEDS: DOCUSATE SODIUM 100 MG CAP PO SCH (08:56)
[2024-01-21] MEDS: CALCITONIN SALMON NA 200 IU/AC 3.7 ML BTL SCH (08:59)
[2024-01-21] MEDS ORDERED: ESCITALOPRAM OXALATE 10 MG TAB PO SCH (09:00)
[2024-01-21] MEDS: INFLUENZA VACC TS2024-25(65y+)/PF (IIV3) 0.5mL Syr IM ONE (09:02)
[2024-01-21] MEDS: ACETAMINOPHEN 325 MG TAB PO PRN (11:26)
--- NOTE | 2024-01-21 11:46 | Hospitalist Progress Note ---
<Statement entered by Enriqueta Warren MD - 01/21/24 17:34> I have reviewed vital signs, chart notes, labs and imaging. I have personally seen, evaluated and examined the patient. I have also discussed the management of the patient with the EVAN and I agree with the exam findings documented in the history and physical examination and the documented assessment and plan unless otherwise stated below. Mallika lacks any history of head trauma but presents with 2 very small subdural hematomas while on aspirin and Plavix. these are not causing any mass effect or midline shift are very unlikely to require neurosurgical intervention.. Her case was discussed with neurosurgery at [facility] recommended treatment here at [facility] follow-up CT tonight to make sure they are not enlarging. Aspirin and Plavix are held. I am not clear on the indication for DAPT but I do not have any evidence that she has had a recent stenting procedure. she has SIADH I reviewed previous labs and urine sodiums have been inappropriately elevated. It is worth a trial of holding her SSRI to see if this is a big contributor. Otherwise we will continue salt tabs. I think fluid restriction will be relatively ineffective because she does not drink much fluids at baseline. Twice a day protein supplement will also be helpful in maintaining her sodium. we will check BMP in a.m. Date of Service January 21, 2024 Assessment & Plan (1) Subdural hematoma: Plan: Several days of progressive headache, episodes of confusion noted by caregiver throughout the day. No neurological deficits appreciated on exam. GSC=[address] of the head with interhemispheric and left frontal acute SDH with no significant mass-effect or midline shift, chronic involutional ischemic changes. Patient is on ASA 81mg po daily as well as Plavix 37.5mg po daily. Uncertain when her last dose was taken. -Neuro checks with GCS q 4 hours -Hold ASA and Plavix -Repeat CT head (01/21/24 at 21:00) -Maintain fall precautions, aspiration precautions -Still experiencing headaches, however they have improved. -Reviewed patient's reaction to Tylenol; discussed that Tylenol would be the best medication to currently use for pain management versus IBU given SDH. Patient understood and agreeable, nursing informed. Will monitor. (2) SIADH (syndrome of inappropriate ADH production): Plan: Patient with history of SIADH. Na 128-> 126 -Fluid restriction 1200mL/day -Restarted NaCl tablets as prescribed at home -BMP in AM -On Escitalopram for anxiety; hold 2/2 history of SIADH Plan Chronic Medical Conditions: Anxiety - stable -Hold escitalopram -Nasal calcitonin daily -Back brace to be worn during the day Disposition: Pending repeat CT head results Code: DNR/DNI Admission and Anticipated Discharge Date Admission Date: January 20, 2024 Subjective Patient seen laying in her bed at the time of visit. States that her headache has improved, but she is experiencing mild pain. Denies change in vision, numbness or tingling, chest pain, shortness of breath, abdominal symptoms. Telemetry: NSR, rate 60s to 80s Review of Systems Eyes: no problem reported Respiratory: no dyspnea Cardiovascular: no chest pain and no palpitations Gastrointestinal: no abdominal pain, no nausea and no vomiting Genitourinary: no dysuria Neurologic: + headache(s) (Mild, improving); no ting ling, no numbness and no dizziness Physical Exam Constitutional: WD/WN, vitals as above Eyes: PERRL, conjunctivae normal, anicteric sclerae Right upper and middle eyelid slightly red, no discharge Respiratory: normal respiratory effort, lungs clear to auscultation Cardiovascular: RRR, no murmur, no edema Neurologic: PERRL, EOMI, accommodation nl, no face palsy, no dysarthria Sensation grossly intact Results & Data Results & Data Vital Signs (Past 12 Hours) Vital Signs Temp Pulse Pulse Resp BP BP Pulse Ox 01/21/24 11:30 36.8 C 82 18 102/46 L 96 01/21/24 08:05 37.1 C 69 16 105/55 L 97 01/21/24 07:00 74 01/21/24 04:11 36.8 C 64 20 130/63 98 01/21/24 02:34 01/21/24 00:00 01/21/24 00:00 36.8 C 66 16 123/61 96 01/20/24 23:54 67 O2 Del Method 01/21/24 11:30 Room Air 01/21/24 08:05 Room Air 01/21/24 07:00 01/21/24 04:11 Room Air 01/21/24 02:34 Room Air 01/21/24 00:00 Room Air 01/21/24 00:00 Room Air 01/20/24 23:54 Laboratory Results Abnormal lab results 01/20/24 01/20/24 01/21/24 Range/Units 19:07 20:21 05:20 WBC 11.07 H (4.8-10.8) K/ul RBC 3.12 L 2.96 L (4.20-5.40) M/uL Hgb 10.7 L 10.0 L (12.0-16.0) g/dl Hct 30.0 L 28.2 L (37.0-47.0) % MCH 34.3 H (25.0-34.0) pg RDW Std Deviation 46.8 H (36.4-46.3) fL MPV 9.3 L (9.4-12.4) fL Neut # (Auto) 9.39 H (1.40-6.50) K/uL Lymph # (Auto) 0.78 L (1.20-3.40) K/uL [place] # (Auto) 0.83 H (0.11-0.59) K/uL Sodium 128 L 126 L (136-145) mmol/L Chloride 94 L 94 L (98-107) mmol/L Creatinine 0.44 L 0.37 L (0.6-1.2) mg/dl BUN/Creatinine Ratio 31.8 H 32.4 H (10-20) Magnesium 1.6 L (1.7-2.4) mg/dl Total Bilirubin 1.2 H (0.2-1.0) mg/dl Urine Appearance Cloudy A (Clear) Urine pH 8.5 H (4.5-7.5) Urine Protein Trace H (Negative) Urine Ketones 1+ H (Negative) Urine RBC (Auto) 3-5 H (0-2) /hpf PG Care Time/CCT Total # of Minutes Spent Total Time Spent with Patient: Total time spent is greater than 50% in coordination of care (as documented) at patient's floor/unit and/or counseling patient: Coding Level of Care Code None Diagnoses Subdural hematoma S06.5XAA SIADH (syndrome of inappropriate ADH production) E22.2
--- NOTE | 2024-01-21 15:32 | Electrocardiogram Report ---
Test Reason : Blood Pressure : */* mmHG Vent. Rate : 71 BPM Atrial Rate : 71 BPM P-R Int : 176 ms QRS Dur : 120 ms QT Int : 404 ms P-R-T Axes : -25 -7 71 degrees QTcB Int : 439 ms Normal sinus rhythm with sinus arrhythmia Left bundle branch block When compared with ECG of 25-Sep-2023 11:25, Premature atrial complexes are no longer Present QRS axis Shifted right ST no longer elevated in Inferior leads ST more elevated in Anterior leads Nonspecific T wave abnormality now evident in Inferior leads Confirmed by Khanh Motta ([id number]) on 01/21/2024 3:31:48 PM Referred By: Confirmed By: Khanh Motta
[2024-01-21] MEDS: SODIUM CHLORIDE 1 GM TABLET PO SCH (15:39)
--- NOTE | 2024-01-21 17:39 | Billing Data ---
Date of Service January 21, 2024 Coding Level of Care Code 33674 INT INP/OBS CARE
--- NOTE | 2024-01-21 22:56 | CT Scan Report ---
Exam(s): CT HEAD Without Contrast EXAM: CT Head Without Intravenous Contrast CLINICAL HISTORY: Subdural hematoma. TECHNIQUE: Axial computed tomography images of the head/brain without intravenous contrast. CTDI is 35.65 mGy and DLP is 624.41 mGy-cm. Automated exposure control was utilized for the study. A dose lowering technique was utilized adhering to the principles of ALARA. COMPARISON: January 20, 2024 FINDINGS: Brain: There is no significant change in the parafalcine subdural hemorrhage layering along the left tentorium. No new or increasing hemorrhage is evident. There is no acute edema, intraparenchymal hemorrhage or abnormal mass-effect. There is no midline shift. Chronic small vessel ischemic changes are seen in the white matter. Ventricles: Unremarkable. No ventriculomegaly. Bones/joints: Unremarkable. No acute fracture. Soft tissues: Unremarkable. Sinuses: Unremarkable as visualized. No acute sinusitis. Mastoid air cells: Unremarkable as visualized. No mastoid effusion. IMPRESSION: No change in interhemispheric subdural hematoma. No new or increasing hemorrhage. Electronically signed by: Bon Rodriguez MD 01/21/24 22:55 PM
[2024-01-22 06:49] LABS: BUN Creatinine Ratio 26.1 (10-20); Calcium 8.6 mg/dl (8.6-10.3); Creatinine Clr Calc Pharmacy 45.8 ml/min; Potassium 3.7 mmol/L (3.5-5.1)
[2024-01-22 07:44] VITALS: RESP 18
[2024-01-22 11:32] VITALS: TEMP 98.1; O2SAT 95
--- NOTE | 2024-01-22 13:36 | Discharge Summary ---
<Statement entered by Enriqueta Warren MD - 01/22/24 18:35> I have reviewed vital signs, chart notes, labs and imaging. I have personally seen, evaluated and examined the patient. I have also discussed the management of the patient with the EVAN and I agree with the exam findings documented in the history and physical examination and the documented assessment and plan unless otherwise stated below. Mr. Daniel presented with very small subdural hematomas, she did not give a history of a fall other than sliding off of her chair within last few weeks but was on DAPT because of a history of cardiac stents, last stent was 1 year ago. Her care was discussed with neurosurgeon at [facility] and transfer was not recommended, neurological exam remained normal except for some forgetfulness which may be baseline, she was asymptomatic except for mild headache, serial head CT was unchanged at 24 hours. She was able to discharge home with her and usual caregivers who are there from 10 AM to 4 PM daily. We have held her aspirin and Plavix. Recommend following up in primary care within 2 weeks, aspirin can be resumed in 2 weeks if remaining asymptomatic and head CT stable. 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 This was corrected with fluid restriction and salt tablets. Urine sodium this admission was inappropriately elevated at 98 confirming ongoing SIADH. Subdural hematoma could make SIADH worse. I am concerned with her SSRI however it sounds that it is necessary for mood and anxiety. We held her escitalopram and replaced it with low-dose mirtazapine at at bedtime which is much lower risk of provoking hyponatremia. Recommend repeat chemistry panel upon follow-up in primary care on my exam today she is awake alert eating lunch, PERRL, face symmetric, speech intact, moves upper and lower extremities well and equally Discharge Summary Date of Service January 22, 2024 Principal Dx & Hospital Course #1 = Principal Diagnosis (1) Subdural hematoma: Patient presented for several days of progressive headache, episodes of confusion noted by caregiver throughout the day. No neurological deficits appreciated on admitting exam. GSC=[address] of the head with interhemispheric and left frontal acute SDH with no significant mass-effect or midline shift, chronic involutional ischemic changes. Patient is on ASA 81mg po daily as well as Plavix 37.5mg po daily. Uncertain when her last dose was taken at time of admission -Neuro checks with [facility] were completed q 4 hours; stable -Holding ASA and Plavix; aspirin to be restarted in 2 weeks, Plavix will be restarted at the discretion of the PCP and if clinically necessary at that time. -Head CT 01/19 revealed interhemispheric and left frontal acute SDH, no mass effect or midline shift. Repeat head CT 01/20 revealed stable SDH, no change in hematoma and no new or increasing hemorrhage. Followed recommendations per neurosurgery Kenzie rather than transferring patient. -Patient was on fall precautions and aspiration precautions. -Still experiencing headaches, however they have improved. May continue to experience mild headaches as condition resolves. -Reviewed patient's reaction to Tylenol, states that it makes her forget things; discussed that Tylenol would be the best medication to currently use for pain management versus IBU given SDH. No clinical evidence that Tylenol causes confusion. However patient should take it cautiously if this is a concern for her. Patient understood and agreeable. (2) SIADH (syndrome of inappropriate ADH production): Patient with history of SIADH. Na 128-> 126 -Was initially on fluid restriction of 1200 mL/day; patient has limited oral intake therefore fluid restriction was minimally effective and discontinued. -Continue NaCl tablets as prescribed at home -BMP 01/21: Na 128, improved throughout stay -On Escitalopram for anxiety; held 2/2 history of SIADH -Trial of Mirtazapine 7.5 mg qHS for mood; 1 month supply sent; will also help with appetite -Did start twice a day protein supplements (Boost) that may also be helpful in maintaining her sodium. Recommend continuing these at home. -Urine sodium pending. Plan Chronic Medical Conditions: Anxiety - stable -Stop escitalopram -Trial of Mirtazapine 7.5 mg qHS for mood; 1 month supply sent; will also help with appetite -Nasal calcitonin daily -Back brace to be worn during the day Disposition: Medically stable for discharge, discharged today Code: DNR/DNI Notes For Next Care Provider Patient to follow-up with primary care provider in 2 weeks. Needs to have repeat head CT completed to confirm that SDH improved. Patient currently having aspirin and Plavix held. Reason for DAPT was secondary to stenting in 2022. Aspirin may be restarted in 2 weeks s/p discharge, Plavix being restarted at discretion of PCP/when clinically appropriate. Repeat BMP outpatient to follow sodium levels. stopped Lexapro. Possible correlation to recurrence of SIADH and SSRI use. Started Mirtazapine 7.5 mg qHS for mood as it has lower incidence of SIADH; 1 month supply sent; will also help with noemi Admission HPI Per Admitting Provider Mallika Brown is an 83yo female presenting with headache. Patient's caregiver is at bedside and assists with history. She reports that several days ago she developed a right frontal headache and left ear pain. Her pain has been progressive. She was taken to urgent care today and told that she has a sinus infection. Patient's caregiver reports patient has some forgetfulness at baseline, however, today she had some intermittent episodes of confusion. She forgot to take her medications today which is not typical also became confused while at the Urgent Care thinking that she was in the hospital. Uncertain history of trauma - several days ago the patient slid off the chair. Unwitnessed, uncertain of head trauma. In the ER she is afebrile, HD stable, NAD ER Course: Magnesium x 1gm Admission Exam Per Admitting Provider General: patient resting in bed, uncomfortable due to headache, non-toxic in appearance, AA&O x 4 Skin: warm, dry, intact, no rashes or lesions HEENT: NC/AT, PERRL, EOMI, anicteric sclera, conjunctiva without injection, external ear normal to inspection and nontender, nares patent, moist mucus membr anes, dentition intact, no oropharyngeal lesions, neck supple, trachea midline, no LAD, no thyromegaly, no JVD Heart: +S1/S2, regular, no m/r/g Lungs: equal air entry bilaterally, no rales/rhonchi/wheezes Abd: +BS, soft, NT/ND, no masses/organomegaly/ascites Ext: warm, 2+ pulses in UE/LE bilaterally, no clubbing/cyanosis or edema Neuro: nonfocal, patient AA&O x 4, speech intact, no facial droop, moving all extremities on command with equal strength 5/5, GSC=15 Discharge Exam Constitutional + thin; no acute distress Eyes PERRL, conjunctivae normal, anicteric sclerae Respiratory normal respiratory effort, lungs clear to auscultation Cardiovascular RRR, no murmur, no edema Gastrointestinal (Abdomen) normal bowel sounds, soft, nontender, no hepatosplenomegaly Neurologic PERRL, EOMI, accommodation nl, no face palsy, no dysarthria Discharge Plan Discharge Items Patient Disposition: Home - Home Health Services Reason For Visit: CONFUSION Discharge Diagnosis: Subdural hematoma SIADH Condition on Discharge: Fair Activity: Resume your previous activity Non-emergency contact: Primary Care Provider Call non-emergency contact if: you have any medication questions, your symptoms worsen, your pain is not controlled, your pain is worsening, your pain is unusual for you and your pain is concerning for you Follow-up/Referrals: Michael Corley MD [Primary Care Provider] - 02/02/24 3:00 pm Diet: Regular Diet Texture: Easy to Chew Addtl Attending Provider Instructions: You were diagnosed and treated for bleeding that occurred between your brain and your skull (subdural hematoma). This was what caused you to have headaches, and have a slight change in your normal mental status. Additionally, you had low sodium levels in your blood which so we trialed fluid restrictions to increase these levels, and ultimately continued your at home salt tablets. Occasionally, mood medications (Lexapro) can cause sodium to decrease in the blood. For that reason, we are stopping Lexapro. Mood medication Mirtazapine 7.5 mg qHS will replace Lexapro and will also help with appetite. We completed two scans of your head, with the first scan identifying 2 small subdural bleeds, and the second scan supporting that the bleeding that had previously occurred was stable and there was no increased bleeding. Given the bleeding, aspirin was held as this can increase the bleeding. You can be expected to have mild headaches as the bleed resolves. To manage this pain, take Tylenol as it has no impact on mental status nor will cardiac rehabilitation specialist to bleeding. Medication such as ibuprofen and additional NSAIDs can increase the rate of bleeding and are not the best choice currently. May use Tylenol 650 mg every 4 hours as needed for headache. You are to return home, continue with home health; PT/OT. Please follow-up with your primary care provider in 2 weeks to have a repeat head CT. Have labs drawn 01/26/2024 to include BMP and fax results to PCP. Aspirin can be restarted in 2 weeks, or at the discretion of the PCP. Plavix should be at the discretion of the PCP and only restart if clinically necessary. If you begin to experience change in your mental status, confusion, severe pain, or headache that will not go away, please follow-up with PCP for advice. If you experience the worst headache of your life, significant change in mental status, or loss of consciousness, go to the ED. Pending Studies at Discharge: Yes Studies:: Urine sodium Stand-Alone Forms: [facility] [place], Smoking Cessation Medications and DC Order Prescriptions: New mirtazapine 7.5 mg tablet 7.5 mg PO HS 30 Days Qty: 30 0RF Continued sodium chloride 1,000 mg tablet,soluble 1,000 mg PO BID 7 Days Qty: 14 0RF calcitonin (salmon) 200 unit/actuation spray,non-aerosol 1 spray NA DAILY Qty: 1 11RF docusate sodium 100 mg capsule 100 mg PO BID multivitamin Tablet 1 tab PO QAM melatonin 3 mg Tablet 3 mg PO HS PRN (Reason: Sleep) omega 9-qkg-puj-fish oil [Fish Oil] 1,000 mg (120 mg-180 mg) Capsule 1 cap PO QAM cholecalciferol (vitamin D3) [Vitamin D3] 25 mcg (1,000 unit) capsule 4,000 unit PO QAM Rx Instructions: Pt breaks open capsule and pours it into applesauce diclofenac sodium [Voltaren Arthritis Pain] 1 % Gel 4 g EXT QID Qty: 100 0RF Rx Instructions: until pain resolved Held clopidogrel [Plavix] 75 mg tablet 37.5 mg PO QAM Qty: 45 3RF Hold Instructions: Resume on 02/09/24. At discretion of PCP. aspirin 81 mg Tablet,Delayed Release (Dr/Ec) 81 mg PO PM Hold Instructions: Resume on 02/05/24. At discretion of PCP. Recommend 2 weeks. Discontinued escitalopram oxalate 10 mg tablet 10 mg PO DAILY Qty: 90 2RF Hold Instructions: Resume on 02/16/24. At discretion of PCP. Possible correlation with recurrence of SIADH. Discharge Orders: Discharge Order (Routine); Ordered 01/22/24 Ordered By: Jose Antonio Alston Admission Data Admit Date/Time: 01/20/24 22:10 Attending Provider: Enriqueta Warren Admit Provider: Connie Amaro Primary Care Provider: Michael Corley Other Providers: Connie Amaro Other Interventions: Discharge Summary Assessment (RN) Last Done: 01/22/24 14:00 Hospital Stay Data Consultations 01/20/24 21:48 ED Decision to Admit Stat Diagnostic Imagining Performed 01/20/24 19:16 CT head/brain wo con Stat 01/21/24 21:00 CT head/brain wo con DAILY Pending Results Patient Have Any Pending Studies at Discharge: Yes Discharge Instructions Given to Patient (Per Discharging Provider) You were diagnosed and treated for bleeding that occurred between your brain and your skull (subdural hematoma). This was what caused you to have headaches, and have a slight change in your normal mental status. Additionally, you had low sodium levels in your blood which so we trialed fluid restrictions to increase these levels, and ultimately continued your at home salt tablets. Occasionally, mood medications (Lexapro) can cause sodium to decrease in the blood. For that reason, we are stopping Lexapro. Mood medication Mirtazapine 7.5 mg qHS will replace Lexapro and will also help with appetite. We completed two scans of your head, with the first scan identifying 2 small subdural bleeds, and the second scan supporting that the bleeding that had previously occurred was stable and there was no increased bleeding. Given the bleeding, aspirin was held as this can increase the bleeding. You can be expected to have mild headaches as the bleed resolves. To manage this pain, take Tylenol as it has no impact on mental status nor will cardiac rehabilitation specialist to bleeding. Medication such as ibuprofen and additional NSAIDs can increase the rate of bleeding and are not the best choice currently. May use Tylenol 650 mg every 4 hours as needed for headache. You are to return home, continue with home health; PT/OT. Please follow-up with your primary care provider in 2 weeks to have a repeat head CT. Have labs drawn 01/26/2024 to include BMP and fax results to PCP. Aspirin can be restarted in 2 weeks, or at the discretion of the PCP. Plavix should be at the discretion of the PCP and only restart if clinically necessary. If you begin to experience change in your mental status, confusion, severe pain, or headache that will not go away, please follow-up with PCP for advice. If you experience the worst headache of your life, significant change in mental status, or loss of consciousness, go to the ED. Total Time Total Time Spent Total Time Spent (In Minutes): 25 minutes Coding Level of Care Code None Diagnoses Subdural hematoma S06.5XAA SIADH (syndrome of inappropriate ADH production) E22.2
[2024-01-22 14:01] VITALS: BP 96/50; PULSE 74
--- NOTE | 2024-01-22 18:36 | Billing Data ---
Date of Service January 22, 2024 Coding Level of Care Code 10095 IN/OBS DISCH 30 MIN/LESS
== END 2024-01-22 15:44 | disposition home health service (06) | DRG 83 ==
LOC: ED 18:39 → 2N 22:10 → SUATTDRO 22:10 → 2N 01-21 02:34

== ENCOUNTER 2024-05-27 23:33 | Inpatient (IN) ==
--- NOTE | 2024-05-27 23:35 | Emergency Department Note ---
Impression & Plan ST elevation (STEMI) myocardial infarction Admission ED Provider Note HPI: History obtained from EMS The patient is a 84-year-old female who presents the emergency department with chest pain, heart alert activated from the field. Patient states that she had some diarrhea earlier in the day today and then tonight with dinner she had some nausea and developed substernal chest pain that felt similar to heart attack pain and she had in the past. EMS was contacted and the patient was brought to the ED from her nursing facility. Prior to arrival EKG was sent and EMS called in for medical command, heart alert was activated from the field after my review of EKG. On arrival here to the ED the patient is hemodynamically stable, she complains of substernal chest pain, she was given IV fluids as well as fentanyl and aspirin in the field. On arrival here to the ED the patient is saturating well on room air, she appears to be in no acute physical distress on my initial assessment. ROS: - Per HPI Differential Diagnosis: ST elevation RI, esophagitis, reflux, viral gastroenteritis, amongst other potential pathologies. *Outpatient medications and allergy history reviewed. PE: General: Alert, frail-appearing HEENT: Normocephalic, trachea midline Eyes: Extraocular eye movement is intact, no scleral erythema Pulmonary: Clear to auscultation bilaterally, no wheezing Cardio: Regular rate and rhythm GI: Abdomen is soft to palpation : No suprapubic tenderness MSK: No evidence of trauma or malformation of the extremities, no edema Skin: No evidence of rash Neuro: Alert, no focal deficits Psychiatric: Cooperative INDEPENDENT INTERPRETATIONS: quality eng: (As interpreted by myself): - An order was placed for continuous cardiac monitoring - Patient was noted to be in sinus rhythm with a rate of 70 EKG: (As interpreted by myself): Rate: 74 Rhythm: Sinus rhythm Intervals: FL interval 232 ms, QRS 124 ms, QTc within normal limits ST changes: ST elevation in inferior leads II, III, and aVF, ST depression in leads I and aVL, ST elevation noted in lead V3. Overall presentation consistent with ST elevation RI. Time: 2337 Medical Decision Making: Heart alert was activated from the field. On arrival here to the ED the patient is stable. IV was established, lab work was ordered, EKG per my interpretation does show evidence of ST elevation in the inferior leads. Patient states that this pain does feel similar to pain she had in the past with her heart attack. Patient was evaluated at the bedside by interventional cardiology, Dr. Amador, and the patient was transferred to the cardiac catheterization lab in stable condition for definitive care. Consultants/Discussions held with other healthcare providers: -Interventional cardiology, Dr. Amador -Hospitalist, Dr. Amaro Disposition discussion held by myself with: -Patient * CRITICAL CARE TIME: ( 34 ) minutes -Management of patient with ST elevation myocardial infarction, interpretation of diagnostic studies including multiple EKGs, time spent at the bedside, discussion with other physicians and arrangement of admission/transfer to cardiac catheterization lab. Diagnosis: 1. ST elevation myocardial infarction, acute 2. Chest pain, acute Disposition: Admission Luis Noel DO Emergency Medicine Past Med/Surg History Problem List (Updated 05/28/24 @ 00:13 by Luis Noel DO) ST elevation (STEMI) myocardial infarction (Acute) Sensorineural hearing loss, bilateral Anemia (Acute) Subdural hematoma Closed lumbar vertebral fracture (Acute 09/16/23) acute superior endplate compression fracture of L2- from a fall out of bed Cognitive impairment Weight loss, unintentional Post-operative state Compression fracture of L1 lumbar vertebra (Acute ~07/28/23) Encounter for pre-operative examination Change in hearing Urethral caruncle Stented coronary artery Non-ST elevated myocardial infarction (Acute) History of rib fracture (05/12/21) fractures of the left posterior 11th and 12th ribs Esophageal dysphagia Encounter for pre-operative laboratory testing CAD (coronary artery disease) Chronic laryngitis Post-menopausal bleeding Prolapsed urethral mucosa Urinary frequency LBBB (left bundle branch block) Presence of orthotic device SIADH (syndrome of inappropriate ADH production) (Chronic) Neck pain (Acute) Syncope (Acute) Hypercholesterolemia statin intolerant per cardio records Esophageal reflux Skin tag Lateral epicondylitis Osteoporosis (Chronic) Health care maintenance Vitamin D deficiency LVH (left ventricular hypertrophy) CAD (coronary artery disease) Hypertension Epigastric pain Anemia (Acute) Headache (Acute 01/31/14) Osteoporosis Myocardial infarction x2: 2005 > 2 stents at [facility], follows with Dr. Bowen 12/14/22 > NSTEMI, drug eluding stent prox to mid RCA at [facility] Medical History Hypomagnesemia Leukocytosis Acute confusion Headache Hyponatremia Laryngopharyngeal reflux (LPR) Electrolyte abnormality Anxiety Presence of stent in LAD coronary artery Hyponatremia GERD (gastroesophageal reflux disease) Abnormal uterine bleeding History of frequent urinary tract infections SIADH (syndrome of inappropriate ADH production) History of diverticulitis of colon Arteriosclerosis of coronary artery Surgical History History of surgery on arm History of surgery on left wrist Hx of cardiac catheterization Hx of bilateral cataract extraction H/O colonoscopy with polypectomy History of tooth extraction History of heart artery stent S/P dilation and curettage Family History Father Myocardial infarction Mother Cardiac disorder Other Dysuria No family history of adverse response to anesthesia Denies family history of Ovarian cancer Prostate cancer Breast cancer Colorectal cancer Social History Smoking Status: Never smoker Second Hand Exposure: No; Do You Dip or Chew Tobacco: No; Hx Alcohol Use: Yes Alcohol type: beer Alcohol Intake Frequency: Monthly or Less Hx Substance Use: No Preferred Language: Icelandic Communication Ability: Effective Visual Impairment: No Limitations Hearing Ability: Normal Stitch Wheeler Required: No Beliefs That Will Affect Care: None marital status: Current Living Situation: Spouse current occupational status: retired current occupation: worked in [employer] How many Children do You have: 1 Feels Safe at Home: Yes Childhood Exposure to Second-Hand Smoke: No Diet: regular Dental Care, Regularly: Yes Physical Activity Frequency: Daily Physical Activity Frequency Comment: bike and gardening Seatbelt Use: always Sunscreen Use: Yes Assistive Devices: Walker Allergies Allergies Allergy/AdvReac Type Severity Reaction Status Date / Time acetaminophen Allergy Intermediate Joint Verified 03/23/24 13:58 Pain, Headache asparagus Allergy Intermediate Joint Pain Verified 03/23/24 13:58 azithromycin Allergy Intermediate Joint Verified 03/23/24 13:58 Pain, Headache spinach Allergy Intermediate Joint Pain Verified 03/23/24 13:58 [id number]-[id number]-XrN Reductase Allergy Intermediate lethargy,muscle Verified 03/23/24 13:58 Inhibitor weakness [Ufzgydw-Mtc-Pyy Reductase Inhibitor] alprazolam AdvReac Intermediate Joint Verified 03/23/24 13:58 Pain, Headache cephalexin [From Keflex] AdvReac Intermediate Abdominal Verified 03/23/24 13:58 Pain ciprofloxacin AdvReac Intermediate Joint Verified 03/23/24 13:58 Pain, Headache Home Meds Home Medications Medication Instructions Recorded Confirmed melatonin 3 mg tablet 3 mg PO HS PRN Sleep 12/02/18 03/23/24 multivitamin 1 tab PO QAM 12/02/18 05/28/24 omega 3-pkr-tyg-fish oil 1,000 mg 1 cap PO QAM 12/02/18 05/28/24 (120 mg-180 mg) capsule (Fish Oil) aspirin 81 mg tablet,delayed 81 mg PO PM 10/09/20 03/23/24 release cholecalciferol (vitamin D3) 25 4,000 unit PO QAM 10/23/21 03/23/24 mcg (1,000 unit) capsule (Vitamin D3) docusate sodium 100 mg capsule 100 mg PO BID 08/12/23 03/23/24 Previous Rx's Medication Instructions Recorded calcitonin (salmon) 200 1 spray NA DAILY #1 inhaler 08/13/23 unit/actuation nasal spray diclofenac sodium 1 % topical gel 4 g EXT QID #100 grams 09/24/23 (Voltaren Arthritis Pain) clopidogrel 75 mg tablet (Plavix) 37.5 mg (1/2 x 75 mg) PO QAM #45 11/19/23 tabs sodium chloride 1,000 mg soluble 1,000 mg PO BID 7 days #14 tabs 01/15/24 tablet mirtazapine 7.5 mg tablet 7.5 mg PO HS 30 days #30 tabs 02/12/24 Results & Data (ED) Vital Signs Vital Signs - 24 hr 05/27/24 23:32 05/27/24 23:37 05/27/24 23:39 Temperature 36.8 C Temperature Source Oral Pulse Rate 71 74 Pulse Rate from SpO2 Sensor 74 Respiratory Rate 18 18 Respiratory Effort / Characteristics Non-Labored Spontaneous Non-Labored Spontaneous Respiratory Depth Normal Normal Respiratory Pattern Regular Blood Pressure 144/72 H 144/72 H Blood Pressure Mean 96 95 Blood Pressure Position Lying Pulse Oximetry 99 99 Oxygen Delivery Method Room Air Room Air Room Air Sepsis Recent Fever Within 48 Hours No Sepsis New/Unexplained Change in Mental Status N/A Sepsis Action Taken by Nursing No Action Required 05/27/24 23:39 05/27/24 23:39 02/06/25 23:42 Temperature Temperature Source Pulse Rate 75 Pulse Rate from SpO2 Sensor 73 Respiratory Rate 20 Respiratory Effort / Characteristics Respiratory Depth Respiratory Pattern Blood Pressure Blood Pressure Mean Blood Pressure Position Pulse Oximetry 99 99 95 Oxygen Delivery Method Room Air Room Air Room Air Sepsis Recent Fever Within 48 Hours Sepsis New/Unexplained Change in Mental Status Sepsis Action Taken by Nursing 05/27/24 23:45 05/27/24 23:45 05/27/24 23:57 Temperature Temperature Source Pulse Rate 69 80 71 Pulse Rate from SpO2 Sensor 69 73 Respiratory Rate 20 24 Respiratory Effort / Characteristics Respiratory Depth Respiratory Pattern Blood Pressure 135/65 119/71 Blood Pressure Mean 88 87 Blood Pressure Position Pulse Oximetry 97 98 Oxygen Delivery Method Room Air Room Air Sepsis Recent Fever Within 48 Hours Sepsis New/Unexplained Change in Mental Status Sepsis Action Taken by Nursing 05/28/24 00:04 Temperature 36.9 C Temperature Source Oral Pulse Rate Pulse Rate from SpO2 Sensor Respiratory Rate Respiratory Effort / Characteristics Respiratory Depth Respiratory Pattern Blood Pressure Blood Pressure Mean Blood Pressure Position Pulse Oximetry Oxygen Delivery Method Sepsis Recent Fever Within 48 Hours Sepsis New/Unexplained Change in Mental Status Sepsis Action Taken by Nursing Laboratory Data 05/27/24 23:52 05/27/24 23:52 Lab Results 05/27/24 05/27/24 Range/Units 23:52 23:57 WBC 10.38 (4.8-10.8) K/ul RBC 3.10 L (4.20-5.40) M/uL Hgb 10.3 L (12.0-16.0) g/dl POC Hgb 10.5 L (12.0-16.0) g/dl Hct 30.0 L (37.0-47.0) % POC Hct 31 L (37-47) % MCV 96.8 (80.0-100.0) fL MCH 33.2 (25.0-34.0) pg MCHC 34.3 (32.0-36.0) g/dL RDW Std Deviation 49.5 H (36.4-46.3) fL RDW Coeff of Jorge Luis 14.0 (11.5-14.5) % Plt Count 204 (130-400) K/uL MPV 9.4 (9.4-12.4) fL Immature Gran % (Auto) 0.5 % Neut % (Auto) 84.2 % Lymph % (Auto) 9.3 % [place] % (Auto) 5.3 % Eos % (Auto) 0.4 % Baso % (Auto) 0.3 % Neut # (Auto) 8.74 H (1.40-6.50) K/uL Lymph # (Auto) 0.97 L (1.20-3.40) K/uL [place] # (Auto) 0.55 (0.11-0.59) K/uL Eos # (Auto) 0.04 (0.00-0.50) K/uL Baso # (Auto) 0.03 (0.00-0.20) K/uL Immature Gran # (Auto) 0.05 (0.01-0.20) K/uL POC Sodium 137 (135-144) mmol/L POC Potassium 4.7 (3.3-5.0) mmol/L POC Chloride 100 L (101-112) mmol/L POC Total CO2 28 (24-31) mmol/L POC Anion Gap 15.0 L (16-25) mmol/L POC BUN 29 H (7-18) mg/dl POC Creatinine 0.8 (0.6-1.3) mg/dl POC Glucose (other) 166 H (70-99) mg/dl POC Ioniz Calcium [place] 1.16 (1.12-1.32) mmol/l Discharge Plan Visit Data Chief Complaint: Heart Alert Stated Complaint: Heart Alert ED Provider: Luis Noel Discharge Problem: ST elevation (STEMI) myocardial infarction Patient Disposition: Admitted As Inpatient Discharge Instructions Interventions: ED Discharge Assessment Last Done: 05/28/24 00:04 Forms Stand Alone Forms: My [facility] Prescriptions Prescriptions: No Action clopidogrel [Plavix] 75 mg tablet 37.5 mg PO QAM Qty: 45 3RF Hold Instructions: Resume on 02/09/24. At discretion of PCP. sodium chloride 1,000 mg tablet,soluble 1,000 mg PO BID 7 Days Qty: 14 0RF mirtazapine 7.5 mg tablet 7.5 mg PO HS 30 Days Qty: 30 6RF calcitonin (salmon) 200 unit/actuation spray,non-aerosol 1 spray NA DAILY Qty: 1 11RF docusate sodium 100 mg capsule 100 mg PO BID multivitamin Tablet 1 tab PO QAM melatonin 3 mg Tablet 3 mg PO HS PRN (Reason: Sleep) omega 4-hqt-pkf-fish oil [Fish Oil] 1,000 mg (120 mg-180 mg) Capsule 1 cap PO QAM cholecalciferol (vitamin D3) [Vitamin D3] 25 mcg (1,000 unit) capsule 4,000 unit PO QAM Rx Instructions: Pt breaks open capsule and pours it into applesauce aspirin 81 mg Tablet,Delayed Release (Dr/Ec) 81 mg PO PM Hold Instructions: Resume on 02/05/24. At discretion of PCP. Recommend 2 weeks. diclofenac sodium [Voltaren Arthritis Pain] 1 % Gel 4 g EXT QID Qty: 100 0RF Rx Instructions: until pain resolved Referrals Referrals: Pro,Michael Beck MD [Primary Care Provider] -
[2024-05-28 00:02] LABS: Basophils # (auto) 0.03 K/uL (0.00-0.20); Basophils % (auto) 0.3 %; Eosinophils # (auto) 0.04 K/uL (0.00-0.50); Eosinophils % (auto) 0.4 %; Hemoglobin 10.3 g/dl (12.0-16.0); Immature Granulocytes # (auto) 0.05 K/uL (0.01-0.20); Immature Granulocytes % (auto) 0.5 %; Lymphocytes # (auto) 0.97 K/uL (1.20-3.40); Lymphocytes % (auto) 9.3 %; Mean Corpuscular Hemoglobin 33.2 pg (25.0-34.0); Mean Corpuscular Hgb Conc 34.3 g/dL (32.0-36.0); Mean Corpuscular Volume 96.8 fL (80.0-100.0); Mean Platelet Volume 9.4 fL (9.4-12.4); Monocytes # (auto) 0.55 K/uL (0.11-0.59); Monocytes % (auto) 5.3 %; Neutrophils # (auto) 8.74 K/uL (1.40-6.50); Neutrophils % (auto) 84.2 %; Platelet Count 204 K/uL (130-400); RDW Standard Deviation 49.5 fL (36.4-46.3); White Blood Count 10.38 K/ul (4.8-10.8)
[2024-05-28 00:09] LABS: iSTAT Creatinine 0.8 mg/dl (0.6-1.3); iSTAT Hemoglobin 10.5 g/dl (12.0-16.0); iSTAT Ionized Calcium 1.16 mmol/l (1.12-1.32); iSTAT Potassium 4.7 mmol/L (3.3-5.0)
[2024-05-28 00:15] LABS: Prothrombin Time 11.1 Seconds (9.0-12.0)
[2024-05-28 00:17] LABS: Albumin Level 3.8 gm/dl (3.4-5.0); Bilirubin,Total 0.3 mg/dl (0.2-1.0); Calcium 9.2 mg/dl (8.6-10.3); Potassium 4.4 mmol/L (3.5-5.1)
[2024-05-28 00:23] LABS: Albumin Globulin Ratio 1.2 (0.9-2); BUN Creatinine Ratio 33.8 (10-20); Creatinine Clr Calc Pharmacy 35.9 ml/min; Globulin 3.2 gm/dl (2.5-4.0)
[2024-05-28] MEDS: niCARdipine 2,000 MCG/20 ML SYR ONE (00:27)
[2024-05-28] MEDS: NITROGLYCERIN/D5W 100MCG/ML 20ML SYR ONE (00:27)
[2024-05-28 00:28] LABS: Troponin I High Sensitivity 7.2 pg/ml (0-14)
[2024-05-28] MEDS: EPTIFIBATIDE 0.75 MG/ML 75MG VIAL (CATH LAB USE ONLY) IV ONE (01:04)
[2024-05-28] MEDS: EPTIFIBATIDE 2 MG/ML 10 ML VIAL (CATH LAB USE ONLY) IV ONE (01:05)
[2024-05-28] MEDS: IODIXANOL (VISIPAQUE) 320 MG/ML 100ML IV ONE (01:06)
--- NOTE | 2024-05-28 01:12 | XRay Report ---
EXAM: XR chest 1V portable CLINICAL HISTORY: Chest pain, nonspecific. TECHNIQUE: An X-ray image of the chest is obtained in AP projection. COMPARISON: Radiograph dated 01/20/2024. FINDINGS: Rottaed projection. Pulmonary Parenchyma: Emphysematous/hyperinflated lungs. Prominent bronchovascular and interstitial markings bilaterally. Subtle airspace opacification in the right upper zone. An elongated opacity in the right lower zone is probably related to a prominent costochondral junction. No evidence of pleural effusion or pleural thickening. Heart and Mediastinum: Cardiomegaly. No mediastinal widening or masses. No hilar or mediastinal lymphadenopathy. Bony Thorax: Degenerative changes in the visualized spine. Soft Tissues: Soft tissues overlying the chest wall are unremarkable. Multiple tubing artifacts are seen overlying the chest. IMPRESSION: 1. Stable cardiomegaly and COPD changes. 2. Subtle airspace opacification in the right upper zone may represent infective/inflammatory change. Clinical correlation is suggested(new). 3. Prominent broncho-vascular and interstitial markings bilaterally(stable). 4. An elongated opacity in the right lower zone is probably related to the prominent costochondral junction(stable). Electronically signed by Melissa Holland 05-28-2024 01:09 AM
--- NOTE | 2024-05-28 01:40 | Pre Anesthesia Assessment ---
Date of Service May 28, 2024 Pre Sedation Assessment Vital Signs Temp Pulse Resp BP Pulse Ox O2 Del Method 05/28/24 00:04 36.9 C 05/27/24 23:57 71 24 119/71 98 Room Air 05/27/24 23:45 80 20 135/65 97 Room Air 05/27/24 23:45 69 05/27/24 23:42 75 20 95 Room Air 05/27/24 23:39 99 Room Air 05/27/24 23:39 99 Room Air 05/27/24 23:39 Room Air 05/27/24 23:37 74 18 144/72 H 99 Room Air 05/27/24 23:32 36.8 C 71 18 144/72 H 99 Room Air Cardiovascular RRR, no murmur, no edema Pre-Sedation Airway Assessment Smoking Status: Never smoker Mallampati 2 ASA 4 Notes The planned sedation has been discussed with the patient. Informed Consent was obtained. I have identified the patient, determined the appropriateness of sedation and have assessed the patient immediately prior to the procedure. All medicine(s) and interventions are by my order.
[2024-05-28] MEDS ORDERED: ONDANSETRON INJ 2 MG/ML 2 ML VIAL IV PRN (01:41)
--- NOTE | 2024-05-28 01:57 | Post Anesthesia Assessment ---
Date of Service May 28, 2024 Post Sedation Assessment Vital Signs Temp Pulse Resp BP Pulse Ox O2 Del Method 05/28/24 00:04 36.9 C 05/27/24 23:57 71 24 119/71 98 Room Air 05/27/24 23:45 80 20 135/65 97 Room Air 05/27/24 23:45 69 05/27/24 23:42 75 20 95 Room Air 05/27/24 23:39 99 Room Air 05/27/24 23:39 99 Room Air 05/27/24 23:39 Room Air 05/27/24 23:37 74 18 144/72 H 99 Room Air 05/27/24 23:32 36.8 C 71 18 144/72 H 99 Room Air Recovery Score Activity: Moves 4 extremities Respiration: Deep Breath/Cough Circulation: +/-20% PreAnes Value Consciousness: Fully Awake Oxygen Saturation: > 92% On Room Air Discharge Sedation Level of Care: Fast Track Phase II Post Sedation Plan On clinical assessment, the patient appears to have tolerated the sedation without complications. Patient is recovering as anticipated. Patient will continue to be monitored by nursing and may be discharged when sedation discharge criteria are met per below protocol. Upon Completions of procedure up to 15 minutes continue every 5 minute vital signs and the P.A.R. score; then discharge to a Phase I or Fast Track to Phase II per the following guidelines: * Discharge Patient to appropriate Phase II area if PAR is 8 or greater or return to pre- procedure baseline. The post - procedure orders will be as directed. * If PAR score is less than 8 or not return to pre-procedure baseline then patient will follow Phase I monitoring till PAR is reached for Phase II. The Phase I may be done in procedure room or may call to secure a Phase I area. * If naloxone or flumazenil are used for reversal, hold in Phase I for continued monitoring from when last reversal dose was given for a minimum of 60 minutes or longer pending the nurse and/or physician discretion of patient condition before discharge to Phase II. Please call the Sedation Physician to re-evaluate and complete post-note for discharge to Phase II area. Do NOT discharge from procedure sedation or Phase 1 until post- sedation evaluation note is complete by procedure /sedation MD Sedation Discharge Instructions to be given to the patient at discharge to home. [facility] Procedure Codes (Charges) Indication for Procedure Indication for procedure: possible AMI hx of LBBB hx of extensive stents Sedation/Anesthesia Procedure 1: Sedation/Anesthesia: 64350 Mod Sedation by the same physician;Init15 Min Child Age 5 & Up (Initial 15 minutes, start time 0019) Total Sedation Time (minutes): 71 Procedure 2: Sedation/Anesthesia: 15018 Mod Sedation by the same physician; Ea [id number] Minutes (Additional 56 minutes, end time 0130) Total Sedation Time (minutes): 71
--- NOTE | 2024-05-28 02:07 | Cardiac Catheterization ---
[facility] Data: Assembly Inspector Helper Cardiac Status Clinical evaluation leading to the procedure CAD Presenation: Unstable angina Anginal Classification: CCS IV Heart Failure: No Cardiogenic Shock within 24 Hours: No Cardiac Arrest within 24 Hours: No Imaging Studies Past 6 Months: No Stress Studies Past 6 Months: No Coronary Anatomy Dominant: Right Left Main (% Stenosis): Distal (30%) LAD (% Stenosis): Ostial (Ostial to proximal 80%), Mid (Stent patent) and Distal (Up to 30 to 40%) D1 (% Stenosis): Normal D2 (% Stenosis): Normal Circumflex (% Stenosis): Proximal (Up to 50%) OM1 (% Stenosis): Normal OM2 (% Stenosis): Normal L PL1 (% Stenosis): Normal RCA (% Stenosis): Ostial (80%), Proximal (100% flush occlusion in-stent restenosis) and Distal (Faint collateralization from left) Ramus (% Stenosis): Ostial (50%), Proximal (Stent patent) and Mid (50%) Diagnostic Physicians Name: Geo Amador MD, PhD Closure Device Percutaneous Entry Location: Femoral Closure Device: None-Manual Hold Recommendations: Medical Therapy and/or Counseling and PCI without planned CABG PCI Indication: Angina despite med therapy Lesion Segment Name: Proximal RCA Culprit Artery: Yes Stenosis Prior to Rx (%): 100% Chronic Total Occlusion: Yes (Probably) Pre-Procedure JOSEFINA Flow: 0 Previously Treated Lesion: Yes Lesion Complexity: High/C Lesion Length (mm): 40 Thrombus Present: Yes (Unclear) Bifurcation Lesion: No Guidewire Across Lesion: Yes Intraprocedure Events Significant Disection: No Perforation: No Cardiac Cath Procedure Full Procedure Date May 28, 2024 Pre-Procedure Diagnosis Pre-Procedure Diagnosis: Acute Coronary Syndrome AUC Score AUC Score: 08 Post-Procedure Diagnosis Post-Procedure Diagnosis: Severe CAD Procedure(s) Performed Procedure(s) Performed: Coronary Angiography, PTCA and Ultrasound Guided Vascular Access Pmo Consultant Geo Amador MD, PhD Estimated Blood Loss Estimated Blood Loss: 10 cc Medication(s) Medication(s): Fentanyl, Heparin, Integrilin, Lidocaine 1%, Nicardipine, Nitroglycerin and Versed Summary of Findings Patient was brought emergently to the cardiac catheterization suite where she was shaved and prepped in a sterile fashion. Sedated using IV Versed and fentanyl. Soft tissue the right groin were anesthetized using 10 mL of 1% Xylocaine. Using ultrasound for guidance (image saved), the right femoral artery was accessed and a 5 [place] femoral artery sheath was placed. All catheters were exchanged over a 0.035 J-tip wire. Left coronary angiography in orthogonal views with a 5 [place] JL 4 diagnostic catheter. Right coronary angiography in orthogonal views with a 5 [place] JR4 diagnostic catheter. Diagnostic catheters were removed. Decision was made to attempt PCI of the RCA. A 6 [place] sheath was exchanged over the wire for the 5 [place] sheath in the femoral artery. ACT was checked and additional heparin was provided as needed to maintain therapeutic anticoagulation. A 6 [place] JR4 guide catheter was advanced to the ostium of the RCA. The previously placed stent is known to extend into the aorta. We had significant difficulty engaging the right coronary. We also had trouble with torquing the guide catheter. Therefore it was exchanged over the J-wire for a 6 [place] 3 DRC guide catheter. Could not engage the coronary but I was able to "float" a BMW guidewire across the ostium and down to the proximal part of the coronary. The ostium was then predilated with a 2.0 x 8 mm balloon at 14 sadie followed by a second inflation to 20 sadie. The balloon was then removed. [place] angiography was performed. A 2.5 x 12 mm [place] balloon was then advanced and we were able to advance the guidewire further down the stented segment with the balloon catheter as backup. The balloon was then positioned across the ostium and proximal portion of the RCA of the RCA and inflated to 18 atmospheres. The ball oon was then removed. We next utilized the guide liner over the wire and were able to advance the guide liner to the bend in the proximal vessel but we were unsuccessful in advancing any further balloons. We also had not really seen significant improvements despite angioplasty at the ostial to proximal segment and wire passage beyond the stent train did not yield improved flow. We decided to remove all of the equipment and try a different guide catheter. The patient was given Integrilin as a double bolus administration in addition to continued heparin as needed. An AR-1 was unsuccessful in engaging the RCA ostium. A hockey-stick 1 was also unsuccessful. We spent a lot of time trying to get the used to engage better than the 3 DRC but were unsuccessful. Final attempt was made downsizing to a 5 [place] JR4 hoping that this would allow us to engage the ostium but this was also unsuccessful. Patient was having no chest pain, no ischemic EKG changes on the monitor and the occluded stent segment was acting as if this was cold rather than new. We decided to abandon further attempts as there was no anticipated benefit and there was significant anticipated potential for harm. Therefore all the catheters were removed from the patient. Limited right femoral artery angiography was performed to evaluate for closure. Findings were not favorable and therefore ACT was checked. This was over 200 and we decided to suture the sheath in place with plan for removal once the ACT had become less than 160 seconds. Patient was hemodynamically stable and asymptomatic. She was therefore transferred to the ICU for further workup and management. This ended the case. Coronary angiography findings: WRW-oaijy-kbeirze vessel. Mild diffuse disease with moderate calcification. Distally appears up to 30% stenosis. JGV-aqpft-abbxjgw and transapical. Ostial to proximal calcification with a long eccentric 80% stenosis. Mid vessel stent is widely patent. Distally the LAD is tortuous with up to 35 to 40% stenosis. LAD gives a small first diagonal and a medium branching second diagonal. These findings are unchanged from prior cath. WMu-pjqwo-pjbijdz and nondominant. Travels in the AV groove where the proximal segment has up to 50% stenosis. There is 2 small obtuse marginal branches and the circumflex also gives 2 atrial branches before it terminates in a medium caliber posterolateral. Angiographically no change compared to prior catheterization. Ramus-medium caliber vessel with ostial to proximal 50% stenosis followed by a patent stent and then distal up to 50% stenosis. This is unchanged from prior catheterization. RCA-this is medium to large in caliber and known to be dominant. The ostium has a up to 80% stenosis in the early proximal vessel is a 100% occluded within the stent. This appears to be flush occlusion without significant contrast staining. JOSEFINA 0 flow. The long stent train is visualized but not opacified with contrast and is known to reach the early distal RCA. Beyond this the RCA is known to be very small caliber and on this study there is faint collaterals from the left to most distal branches of the right. PTCA of RCA- No significant improvement in the ostial to proximal in-stent restenosis No significant reestablishment of flow beyond the 100% occluded segment of the stent No evidence of dissection or perforation JOSEFINA 0 flow remains Summary- 1. Left coronary system is severely diseased but unchanged from prior. 2. Patient has reocclusion of the right coronary stent train. Acuity unclear. Suspect chronic. Unable to improve with attempted PCI. Patient is known to have been taking only half dose of Plavix for many months. Highly suspicious this represents chronic occlusion secondary to remote stent thrombosis. Sup ported by faint collateralization. 3. Patient has severe coronary disease. She is a very poor candidate for PCI. High risk for complication. She has been relatively stable on her current medical regimen. Unfortunately, she cannot tolerate a number of recommended medications including statin, beta-vaibhav, MONTSE inhibitor. She has tolerated low-dose aspirin and half dose Plavix (which is of unknown benefit). She had documented subdural hematoma in January. Taken as a whole I do not think there is much benefit in continuing any Plavix and certainly some risk as she continues to have risk of recurrent fall and therefore risk of intracranial hemorrhage. Hemodynamics Rest Ao:: 130/78 mm Final Ao: 152/87 mm LV: Not performed Recommendations Recommendations: Medical Therapy and/or Counseling and PCI without planned CABG Radiation Exposure (mGy) 553 mGy, fluoroscopy time 26.9 minutes Contrast (mls) 200 cc Anesthesia 1 mg Versed, 50 mcg fentanyl IV. Start time 0019, end time 0130 Procedural Complication(s) None Disposition ICU I attest to the content of the Intraoperative Record and any orders documented therein. Any exceptions are noted below. [facility] Card Cath Procedure Codes Cardiac Catheterization Procedure 1: Cardiovascular Cath Procedures: 38151 Coronaries Therapeutic Services & Ancillary Procedure 1: Cardiovascular Tx and Anc Procedures: 75004 Ultrasonic Guidance Vascular Access Moderate Sedation Procedure 1: Sedation/Anesthesia: 17814 Mod Sedation by the same physician;Init15 Min Child Age 5 & Up (Initial 15 minutes, start time 0019) Procedure 2: Sedation/Anesthesia: 82508 Mod Sedation by the same physician; Ea [id number] Minutes (Additional 56 minutes, end time 0130) Angioplasty Procedure 1: Cardiovascular Angioplasty Procedures: 36719 PTCA; Single mafor coronary artery or branch RC LC LD PG Care Time/CCT Total # of Minutes Spent Total Time Spent with Patient: Total time spent is greater than 50% in coordination of care (as documented) at patient's floor/unit and/or counseling patient:
--- NOTE | 2024-05-28 02:24 | Critical Care Consultation ---
Date of Consultation May 28, 2024 Assessment & Plan (1) ST elevation (STEMI) myocardial infarction: Plan Reason Critically Ill: STEMI Neuro - CAM ICU: Negative RASS GOAL 0 Cardiac - Post-procedure EKG WNL MAP goal > 65mmHg ASA tomorrow Taking half dose Plavix at home, per Dr. Amador she does not warrant continuation given her ICH and falls Lipid panel, A1c TTE Patient will benefit from Palliative Care discussion as inpatient or outpatient. DNR on last few admissions, will need clarification in AM. Respiratory - Possible opacity RUL on admit CXR. On room air. Follow clinically SpO2 goal > 92% IS/Flutter Patient denies vomiting or aspiration at home with episode of nausea GI - Diet: Advance diet as tolerated SUP: N/A Bowel regimen: Miralax RENAL/LYTES - Replete electrolytes as indicated Maintain net even to net negative ENDO - BG 140-180 per SCCM guidelines ISS if needed while inpatient HEME - No acute concerns ID - No acute concerns Trend fever curve, WBC No current indication for antibiotics LINES/TUBES/DRAINS - PIV x2 R femoral sheath in place (Day #1) DVT PROPHYLAXIS - Start tomorrow I have personally spent 30 minutes of critical care time in the direct management of this patient. This is a life/limb threatening event. This includes time spent evaluating patient, direct bedside care, chart review, placing orders, interpretation of diagnostic studies, discussion with consultants, patient, and family members, as well as other required patient management activities. This time is exclusive of all separately billable procedures, and teaching time and separate from and in addition to any other critical care service time. Thank you for allowing us to participate in the care of this patient. Please refer to my attending physician's documentation for any further recommendations. Supervising Physician Co-Signing Physician Notes Patient separately seen and examined. She is hemodynamically stable but has brief runs of ventricular tachycardia. Holding on beta-blockade at this time due to low normal blood pressures. Discussed goals of care with the patient, but she is not interested in pursuing further discussions with me at this time. Also discussed with palliative care provider who is going to see her later today to discuss goals of care and CODE STATUS. Will continue telemetry monitoring and aspirin per cardiology recommendations. History of Present Illness Reason for Consultation: STEMI Requesting Physician: Prem Attending Physician: Connie Amaro, DO History of Present Illness Ms. Mallika Brown is an 84YOF with a history of falls, SDH, CAD s/p PCI LAD, ramus (2004), mid-RCA (2022), HTN/HLD with statin intolerance, GERD, SIADH who presented to [facility] ED as a Heart Alert due to chest pain accompanied by nausea. Per report, patient developed diarrhea on 05/27/2024 and in the evening substernal chest pain as well as nausea. Received ASA and fentanyl en route to hospital. On arrival to ED patient was hemodynamically stable. Based on EKG based was transported to outside laborer. There was 100% proximal RCA in-stent restenosis which was suspected to be chronic. Balloon angioplasty did not show improvement in flow. She was admitted post-operatively to the ICU for continuation of care. Patient seen in ICU 110. She is AAOx3. No current complaints. R femoral sheath in place without bleeding or malpositioning. ROS negative, specifically no chest pain, headache, dizziness, nausea, shortness of breath, abdominal pain. Allergies Allergy/AdvReac Type Severity Reaction Status Date / Time acetaminophen Allergy Intermediate Joint Verified 03/23/24 13:58 Pain, Headache asparagus Allergy Intermediate Joint Pain Verified 03/23/24 13:58 azithromycin Allergy Intermediate Joint Verified 03/23/24 13:58 Pain, Headache spinach Allergy Intermediate Joint Pain Verified 03/23/24 13:58 Bmrftsu-MWY-KpR Reductase Allergy Intermediate lethargy,muscle Verified 03/23/24 13:58 Inhibitor weakness [Mtvplte-Dlj-Dmr Reductase Inhibitor] alprazolam AdvReac Intermediate Joint Verified 03/23/24 13:58 Pain, Headache cephalexin [From Keflex] AdvReac Intermediate Abdominal Verified 03/23/24 13:58 Pain ciprofloxacin AdvReac Intermediate Joint Verified 03/23/24 13:58 Pain, Headache Home Medications Medication Instructions Recorded Confirmed Type melatonin 3 mg tablet 3 mg PO HS PRN Sleep 12/02/18 03/23/24 History multivitamin 1 tab PO QAM 12/02/18 05/28/24 History omega 9-oxn-fwc-fish oil 1,000 mg 1 cap PO QAM 12/02/18 05/28/24 History (120 mg-180 mg) capsule (Fish Oil) aspirin 81 mg tablet,delayed 81 mg PO PM 10/09/20 03/23/24 History release cholecalciferol (vitamin D3) 25 4,000 unit PO QAM 10/23/21 03/23/24 History mcg (1,000 unit) capsule (Vitamin D3) docusate sodium 100 mg capsule 100 mg PO BID 08/12/23 03/23/24 History calcitonin (salmon) 200 1 spray NA DAILY #1 inhaler 08/13/23 05/28/24 Rx unit/actuation nasal spray diclofenac sodium 1 % topical gel 4 g EXT QID #100 grams 09/24/23 03/23/24 Rx (Voltaren Arthritis Pain) clopidogrel 75 mg tablet (Plavix) 37.5 mg (1/2 x 75 mg) PO QAM #45 11/19/23 03/23/24 Rx tabs sodium chloride 1,000 mg soluble 1,000 mg PO BID 7 days #14 tabs 01/15/24 05/28/24 Rx tablet mirtazapine 7.5 mg tablet 7.5 mg PO HS 30 days #30 tabs 02/12/24 05/28/24 Rx Patient History Medical History Hypomagnesemia Leukocytosis Acute confusion Headache Hyponatremia Laryngopharyngeal reflux (LPR) Electrolyte abnormality Anxiety Presence of stent in LAD coronary artery s/p LAD and Ramus stents 2004 Hyponatremia GERD (gastroesophageal reflux disease) per pt., well controlled Abnormal uterine bleeding History of frequent urinary tract infections SIADH (syndrome of inappropriate ADH production) History of diverticulitis of colon Arteriosclerosis of coronary artery s/p two stents (LAD and ramus) 2004 s/p [place] x4 to mid RCA 12/14/22 Surgical History History of surgery on arm rt humerous, fx History of surgery on left wrist due to fx Hx of cardiac catheterization x 2: 2004 > 2 stents at [facility], follows with Dr. Bowen 12/14/22 > NSTEMI, drug eluding stent prox to mid RCA at [facility]/[place] Hx of bilateral cataract extraction H/O colonoscopy with polypectomy History of tooth extraction History of heart artery stent x2: 2004 > 2 stents at [facility], follows with Dr. Bowen 12/14/22 > NSTEMI, drug eluding stent prox to mid RCA at [facility] S/P dilation and curettage Family History Father Myocardial infarction Mother Cardiac disorder Other Dysuria No family history of adverse response to anesthesia Denies family history of Ovarian cancer Prostate cancer Breast cancer Colorectal cancer Social History Smoking Status: Never smoker Second Hand Exposure: No; Do You Dip or Chew Tobacco: No; Tobacco Cessation Education Requested by Patient: No Hx Alcohol Use: No Hx Substance Use: No Preferred Language: Croatian Communication Ability: Effective Visual Impairment: No Limitations Hearing Ability: Normal Director Microbiology Required: No Beliefs That Will Affect Care: None marital status: Current Living Situation: Spouse current occupational status: retired current occupation: worked in [employer] How many Children do You have: 1 Other Information That Helps Us Care for You: No Feels Safe at Home: Yes Safety Concerns: Feels Safe At This Time Childhood Exposure to Second-Hand Smoke: No Diet: regular Dental Care, Regularly: Yes Physical Activity Frequency: Daily Physical Activity Frequency Comment: bike and gardening Seatbelt Use: always Sunscreen Use: Yes Assistive Devices: Glasses and Walker Review of Systems Review of Systems: All systems reviewed & are unremarkable except as noted in HPI & below Physical Exam Constitutional: WD/WN, vitals as above Eyes: PERRL, conjunctivae normal, anicteric sclerae Neck: trachea midline, no thyromegaly Respiratory: normal respiratory effort, lungs clear to auscultation Cardiovascular: RRR, no murmur, no edema Gastrointestinal (Abdomen): normal bowel sounds, soft, nontender, no hepatosplenomegaly Skin: no rashes, warm and dry Neurologic: PERRL, EOMI, accommodation nl, no face palsy, no dysarthria Results & Data Results & Data Vital Signs (Past 12 Hours) Vital Signs Temp Pulse Resp BP Pulse Ox O2 Del Method 05/28/24 00:04 36.9 C 05/27/24 23:57 71 24 119/71 98 Room Air 05/27/24 23:45 80 20 135/65 97 Room Air 05/27/24 23:45 69 05/27/24 23:42 75 20 95 Room Air 05/27/24 23:39 99 Room Air 05/27/24 23:39 99 Room Air 05/27/24 23:39 Room Air 05/27/24 23:37 74 18 144/72 H 99 Room Air 05/27/24 23:32 36.8 C 71 18 144/72 H 99 Room Air Laboratory Results Reviewed Diagnostic Findings Reviewed Medications Administered See [facility] Coding Level of Care Code 72056 CRITICAL CARE 1ST 30-74M Diagnoses ST elevation (STEMI) myocardial infarction I21.3 Time Spent (min) 30
[2024-05-28 02:50] LABS: BUN Creatinine Ratio 35.4 (10-20); Calcium 9.1 mg/dl (8.6-10.3); Creatinine Clr Calc Pharmacy 42.6 ml/min
[2024-05-28 03:01] LABS: Troponin I High Sensitivity 78.7 pg/ml (0-14)
[2024-05-28] MEDS: OPTIRAY 350 ONE (03:44)
[2024-05-28] MEDS: CLOPIDOGREL BISULFATE 300 MG TAB ONE (03:44)
[2024-05-28] MEDS: fentaNYL citrate PF 100 MCG/2 ML VIAL ONE (03:45)
[2024-05-28] MEDS: HEPARIN (PORCINE) 1000 UNIT/ML 10 ML (CATH LAB USE ONLY) ONE (03:45)
[2024-05-28] MEDS: MIDAZOLAM HCL 1 MG/ML 2ML VIAL ONE (03:45)
--- NOTE | 2024-05-28 03:48 | History & Physical Report ---
Date of Service May 28, 2024 Assessment & Plan (1) ST elevation (STEMI) myocardial infarction: Plan: 84yo female presenting with inferior STEMI s/p cardiac catheterization with balloon angioplasty performed to ostial/proximal RCA. -Admit to MICU -Trend troponin to peak -Check 2D echo -Complete bed rest -NV checks RLE -Continue ASA 81mg po daily -Patient does not take Plavix and is statin intolerant (2) Subdural hematoma: Plan: Patient was admitted to [facility] in January with confusion - she had a fall prior. Found to have interhemispheric and left frontal acute subdural hemorrhages on CT from 01/19. Repeat CT on 03/04 revealed resolution of SDH. 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 [id number]=[id number] -Continue Salt Tablets 1gm PO BID -Repeat BMP in AM Admission and Anticipated Discharge Date Admission Date: May 28, 2024 History of Present Illness Chief Complaint: chest pain Primary Care Provider: Michael Corley MD Mallika Brown is a pleasant 84yo female with history of CAD, HTN, DM, AF and SDH presenting as a CODE HEART. Patient reports being in her usual state of health until this evening after supper when she became very bloated with nausea and multiple episodes of non-bloody/non-bilious vomiting as well as diarrhea. She then became very diaph oretic and developed substernal chest pain and shortness of breath. Patient's initial EKG suggestive of inferior STEMI. Heart alert was activated and patient was taken urgently to the label drier. Patient found to have severely diseased left coronary system unchanged from prior. She had reocclusion of the right coronary stent with uncertain acuity but favor chronic in nature- unable to improve with attempted PCI. Patient had balloon angioplasty performed. No complications. Admitted to MICU. Patient reports some shortness of breath ongoing but overall feels improved. Allergies Allergy/AdvReac Type Severity Reaction Status Date / Time acetaminophen Allergy Intermediate Joint Verified 03/23/24 13:58 Pain, Headache asparagus Allergy Intermediate Joint Pain Verified 03/23/24 13:58 azithromycin Allergy Intermediate Joint Verified 03/23/24 13:58 Pain, Headache spinach Allergy Intermediate Joint Pain Verified 03/23/24 13:58 Ouedhmi-JDJ-XsR Reductase Allergy Intermediate lethargy,muscle Verified 03/23/24 13:58 Inhibitor weakness [Kkcrfzs-Uaa-Wjb Reductase Inhibitor] alprazolam AdvReac Intermediate Joint Verified 03/23/24 13:58 Pain, Headache cephalexin [From Keflex] AdvReac Intermediate Abdominal Verified 03/23/24 13:58 Pain ciprofloxacin AdvReac Intermediate Joint Verified 03/23/24 13:58 Pain, Headache Home Medications Medication Instructions Recorded Confirmed Type melatonin 3 mg tablet 3 mg PO HS PRN Sleep 12/02/18 03/23/24 History multivitamin 1 tab PO QAM 12/02/18 05/28/24 History omega 5-lvs-xqq-fish oil 1,000 mg 1 cap PO QAM 12/02/18 05/28/24 History (120 mg-180 mg) capsule (Fish Oil) aspirin 81 mg tablet,delayed 81 mg PO PM 10/09/20 03/23/24 History release cholecalciferol (vitamin D3) 25 4,000 unit PO QAM 10/23/21 03/23/24 History mcg (1,000 unit) capsule (Vitamin D3) docusate sodium 100 mg capsule 100 mg PO BID 08/12/23 03/23/24 History calcitonin (salmon) 200 1 spray NA DAILY #1 inhaler 08/13/23 05/28/24 Rx unit/actuation nasal spray diclofenac sodium 1 % topical gel 4 g EXT QID #100 grams 09/24/23 03/23/24 Rx (Voltaren Arthritis Pain) clopidogrel 75 mg tablet (Plavix) 37.5 mg (1/2 x 75 mg) PO QAM #45 11/19/23 03/23/24 Rx tabs sodium chloride 1,000 mg soluble 1,000 mg PO BID 7 days #14 tabs 01/15/24 05/28/24 Rx tablet mirtazapine 7.5 mg tablet 7.5 mg PO HS 30 days #30 tabs 02/12/24 05/28/24 Rx Past Med/Surg History Problem List ST elevation (STEMI) myocardial infarction (Acute) Sensorineural hearing loss, bilateral Anemia (Acute) Subdural hematoma Closed lumbar vertebral fracture (Acute 09/16/23) acute superior endplate compression fracture of L2- from a fall out of bed Cognitive impairment Weight loss, unintentional Post-operative state Compression fracture of L1 lumbar vertebra (Acute ~07/28/23) Encounter for pre-operative examination Change in hearing Urethral caruncle Stented coronary artery Non-ST elevated myocardial infarction (Acute) History of rib fracture (05/12/21) fractures of the left posterior 11th and 12th ribs Esophageal dysphagia Encounter for pre-operative laboratory testing CAD (coronary artery disease) Chronic laryngitis Post-menopausal bleeding Prolapsed urethral mucosa Urinary frequency LBBB (left bundle branch block) Presence of orthotic device SIADH (syndrome of inappropriate ADH production) (Chronic) Neck pain (Acute) Syncope (Acute) Hypercholesterolemia statin intolerant per cardio records Esophageal reflux Skin tag Lateral epicondylitis Osteoporosis (Chronic) Health care maintenance Vitamin D deficiency LVH (left ventricular hypertrophy) CAD (coronary artery disease) Hypertension Epigastric pain Anemia (Acute) Headache (Acute 01/31/14) Osteoporosis Myocardial infarction x2: 2004 > 2 stents at [facility], follows with Dr. Bowen 12/14/22 > NSTEMI, drug eluding stent prox to mid RCA at [facility] Medical History Hypomagnesemia Leukocytosis Acute confusion Headache Hyponatremia Laryngopharyngeal reflux (LPR) Electrolyte abnormality Anxiety Presence of stent in LAD coronary artery s/p LAD and Ramus stents 2004 Hyponatremia GERD (gastroesophageal reflux disease) per pt., well controlled Abnormal uterine bleeding History of frequent urinary tract infections SIADH (syndrome of inappropriate ADH production) History of diverticulitis of colon Arteriosclerosis of coronary artery s/p two stents (LAD and ramus) 2004 s/p [place] x4 to mid RCA 12/14/22 Surgical History History of surgery on arm rt humerous, fx History of surgery on left wrist due to fx Hx of cardiac catheterization x 2: 2004 > 2 stents at [facility], follows with Dr. Bowen 12/14/22 > NSTEMI, drug eluding stent prox to mid RCA at [facility] Hx of bilateral cataract extraction H/O colonoscopy with polypectomy History of tooth extraction History of heart artery stent x2: 2004 > 2 stents at [facility], follows with Dr. Bowen 12/14/22 > NSTEMI, drug eluding stent prox to mid RCA at [facility] S/P dilation and curettage Family History Father Myocardial infarction Mother Cardiac disorder Other Dysuria No family history of adverse response to anesthesia Denies family history of Ovarian cancer Prostate cancer Breast cancer Colorectal cancer Social History Smoking Status: Never smoker Second Hand Exposure: No; Do You Dip or Chew Tobacco: No; Tobacco Cessation Education Requested by Patient: No Hx Alcohol Use: No Hx Substance Use: No Preferred Language: Spanish Communication Ability: Effective Visual Impairment: No Limitations Hearing Ability: Normal Barrel Tester Required: No Beliefs That Will Affect Care: None marital status: Current Living Situation: Spouse current occupational status: retired current occupation: worked in sales How many Children do You have: 1 Other Information That Helps Us Care for You: No Feels Safe at Home: Yes Safety Concerns: Feels Safe At This Time Childhood Exposure to Second-Hand Smoke: No Diet: regular Dental Care, Regularly: Yes Physical Activity Frequency: Daily Physical Activity Frequency Comment: bike and gardening Seatbelt Use: always Sunscreen Use: Yes Assistive Devices: Glasses and Walker Review of Systems Review of Systems: All systems reviewed & are unremarkable except as noted in HPI & below Physical Exam Physical Exam: General: patient resting comfortably, NAD, non-toxic in appearance, AA&O x 4 Skin: warm, dry, intact, no rashes or lesions HEENT: NC/AT, PERRL, EOMI, anicteric sclera, conjunctiva without injection, external ear normal to inspection and nontender, nares patent, moist mucus membranes, dentition intact, no oropharyngeal lesions, neck supple, trachea midline, no LAD, no thyromegaly, no JVD Heart: +S1/S2, regular, no m/r/g Lungs: equal air entry bilaterally, no rales/rhonchi/wheezes Abd: +BS, soft, NT/ND, no masses/organomegaly/ascites Ext: warm, 2+ pulses in UE/LE bilaterally, no clubbing/cyanosis or edema, angiocath in place right femoral, no hematoma, NV intact Neuro: nonfocal, patient AA&O x 4, speech intact, no facial droop, moving all extremities on command with equal strength 5/5 Results & Data Results & Data Vital Signs (Past 12 Hours) Vital Signs Temp Pulse Pulse Resp BP BP BP 05/28/24 03:15 88 17 05/28/24 03:03 84 19 05/28/24 03:00 118/65 05/28/24 03:00 118/65 05/28/24 03:00 36.5 C 77 23 118/65 126/57 L 05/28/24 02:36 94 H 17 05/28/24 02:21 95 H 20 05/28/24 02:09 93 H 20 05/28/24 02:00 132/79 05/28/24 01:59 86 05/28/24 01:56 36.5 C 97 H 20 130/75 05/28/24 01:55 130/75 05/28/24 01:55 36.5 C 85 20 130/75 05/28/24 00:04 36.9 C 05/28/24 00:02 119/71 05/27/24 23:57 71 24 119/71 05/27/24 23:45 80 20 135/65 05/27/24 23:45 69 05/27/24 23:42 75 20 05/27/24 23:39 05/27/24 23:39 05/27/24 23:39 05/27/24 23:37 74 18 144/72 H 05/27/24 23:32 36.8 C 71 18 144/72 H Pulse Ox O2 Del Method 05/28/24 03:15 95 Room Air 05/28/24 03:03 97 05/28/24 03:00 05/28/24 03:00 05/28/24 03:00 97 Room Air 05/28/24 02:36 95 Room Air 05/28/24 02:21 98 Room Air 05/28/24 02:09 96 Room Air 05/28/24 02:00 05/28/24 01:59 05/28/24 01:56 97 Room Air 05/28/24 01:55 05/28/24 01:55 97 Room Air 05/28/24 00:04 05/28/24 00:02 05/27/24 23:57 98 Room Air 05/27/24 23:45 97 Room Air 05/27/24 23:45 05/27/24 23:42 95 Room Air 05/27/24 23:39 99 Room Air 05/27/24 23:39 99 Room Air 05/27/24 23:39 Room Air 05/27/24 23:37 99 Room Air 05/27/24 23:32 99 Room Air Laboratory Results Laboratory Results WBC 10.38 K/ul (4.8-10.8) 05/27/24 23:52 RBC 3.10 M/uL (4.20-5.40) L 05/27/24 23:52 Hgb 10.3 g/dl (12.0-16.0) L 05/27/24 23:52 POC Hgb 10.5 g/dl (12.0-16.0) L 05/27/24 23:57 Hct 30.0 % (37.0-47.0) L 05/27/24 23:52 POC Hct 31 % (37-47) L 05/27/24 23:57 MCV 96.8 fL (80.0-100.0) 05/27/24 23:52 MCH 33.2 pg (25.0-34.0) 05/27/24 23:52 MCHC 34.3 g/dL (32.0-36.0) 05/27/24 23:52 RDW Std Deviation 49.5 fL (36.4-46.3) H 05/27/24 23:52 RDW Coeff of Jorge Luis 14.0 % (11.5-14.5) 05/27/24 23:52 Plt Count 204 K/uL (130-400) 05/27/24 23:52 MPV 9.4 fL (9.4-12.4) 05/27/24 23:52 Immature Gran % (Auto) 0.5 % 05/27/24 23:52 Neut % (Auto) 84.2 % 05/27/24 23:52 Lymph % (Auto) 9.3 % 05/27/24 23:52 Grant % (Auto) 5.3 % 05/27/24 23:52 Eos % (Auto) 0.4 % 05/27/24 23:52 Baso % (Auto) 0.3 % 05/27/24 23:52 Neut # (Auto) 8.74 K/uL (1.40-6.50) H 05/27/24 23:52 Lymph # (Auto) 0.97 K/uL (1.20-3.40) L 05/27/24 23:52 Grant # (Auto) 0.55 K/uL (0.11-0.59) 05/27/24 23:52 Eos # (Auto) 0.04 K/uL (0.00-0.50) 05/27/24 23:52 Baso # (Auto) 0.03 K/uL (0.00-0.20) 05/27/24 23:52 Immature Gran # (Auto) 0.05 K/uL (0.01-0.20) 05/27/24 23:52 PT 11.1 Seconds (9.0-12.0) 05/27/24 23:52 INR 1.0 (0.9-1.1) 05/27/24 23:52 Activ Coag Time Kaolin 210 SECONDS (94-140) H 05/28/24 01:30 POC Sodium 137 mmol/L (135-144) 05/27/24 23:57 Sodium 136 mmol/L (136-145) 05/28/24 02:22 POC Potassium 4.7 mmol/L (3.3-5.0) 05/27/24 23:57 Potassium 4.0 mmol/L (3.5-5.1) 05/28/24 02:22 POC Chloride 100 mmol/L (101-112) L 05/27/24 23:57 Chloride 100 mmol/L (98-107) 05/28/24 02:22 Carbon Dioxide 29 mmol/L (21-32) 05/28/24 02:22 POC Total CO2 28 mmol/L (24-31) 05/27/24 23:57 Anion Gap 7 (3-11) 05/28/24 02:22 POC Anion Gap 15.0 mmol/L (16-25) L 05/27/24 23:57 POC BUN 29 mg/dl (7-18) H 05/27/24 23:57 BUN 23 mg/dl (6-23) 05/28/24 02:22 Creatinine 0.65 mg/dl (0.6-1.2) 05/28/24 02:22 POC Creatinine 0.8 mg/dl (0.6-1.3) 05/27/24 23:57 Est Cr Clr Drug Dosing 42.6 ml/min 05/28/24 02:22 eGFR 86.23 05/28/24 02:22 BUN/Creatinine Ratio 35.4 (10-20) H 05/28/24 02:22 Glucose 167 mg/dl (70-99(Fasting)) H 05/28/24 02:22 POC Glucose (other) 166 mg/dl (70-99) H 05/27/24 23:57 Calcium 9.1 mg/dl (8.6-10.3) 05/28/24 02:22 POC Ioniz Calcium Damaris 1.16 mmol/l (1.12-1.32) 05/27/24 23:57 Total Bilirubin 0.3 mg/dl (0.2-1.0) 05/27/24 23:52 AST 30 U/L (13-39) 05/27/24 23:52 ALT 29 U/L (7-52) 05/27/24 23:52 Alkaline Phosphatase 53 U/L (34-104) 05/27/24 23:52 Troponin I High Sens 78.7 pg/ml (0-14) H* D 05/28/24 02:22 Total Protein 7.0 gm/dl (6.0-8.3) 05/27/24 23:52 Albumin 3.8 gm/dl (3.4-5.0) 05/27/24 23:52 Globulin 3.2 gm/dl (2.5-4.0) 05/27/24 23:52 Albumin/Globulin Ratio 1.2 (0.9-2) 05/27/24 23:52 Lipase 47 U/L (11-82) 05/27/24 23:52 Nasal Screen MRSA (PCR) Negative (Negative) 05/28/24 02:22 Impressions Chest X-Ray 05/27/24 23:30 EXAM: XR chest 1V portable CLINICAL HISTORY: Chest pain, nonspecific. TECHNIQUE: An X-ray image of the chest is obtained in AP projection. COMPARISON: Radiograph dated 01/20/2024. FINDINGS: Rottaed projection. Pulmonary Parenchyma: Emphysematous/hyperinflated lungs. Prominent bronchovascular and interstitial markings bilaterally. Subtle airspace opacification in the right upper zone. An elongated opacity in the right lower zone is probably related to a prominent costochondral junction. No evidence of pleural effusion or pleural thickening. Heart and Mediastinum: Cardiomegaly. No mediastinal widening or masses. No hilar or mediastinal lymphadenopathy. Bony Thorax: Degenerative changes in the visualized spine. Soft Tissues: Soft tissues overlying the chest wall are unremarkable. Multiple tubing artifacts are seen overlying the chest. IMPRESSION: 1. Stable cardiomegaly and COPD changes. 2. Subtle airspace opacification in the right upper zone may represent infective/inflammatory change. Clinical correlation is suggested(new). 3. Prominent broncho-vascular and interstitial markings bilaterally(stable). 4. An elongated opacity in the right lower zone is probably related to the prominent costochondral junction(stable). Electronically signed by Melissa Holland 05-28-2024 01:09 AM PG Care Time/CCT Total # of Minutes Spent Total Time Spent with Patient: Total time spent is greater than 50% in coordination of care (as documented) at patient's floor/unit and/or counseling patient: Coding Level of Care Code 89587 INT INP/OBS CARE 3/75MIN Diagnoses ST elevation (STEMI) myocardial infarction I21.3 Subdural hematoma S06.5XAA SIADH (syndrome of inappropriate ADH production) E22.2
[2024-05-28 04:54] LABS: Hematocrit (blood only) 26.7 % (37.0-47.0); Hemoglobin 9.3 g/dl (12.0-16.0); Mean Corpuscular Hgb Conc 34.8 g/dL (32.0-36.0); Mean Corpuscular Volume 94.7 fL (80.0-100.0); Mean Platelet Volume 9.2 fL (9.4-12.4); Platelet Count 205 K/uL (130-400); RDW Coefficient of Variation 14.1 % (11.5-14.5); RDW Standard Deviation 48.8 fL (36.4-46.3); Red Blood Count 2.82 M/uL (4.20-5.40); White Blood Count 9.43 K/ul (4.8-10.8)
[2024-05-28 05:11] LABS: Basophils # (auto) 0.01 K/uL (0.00-0.20); Basophils % (auto) 0.1 %; Immature Granulocytes # (auto) 0.03 K/uL (0.01-0.20); Immature Granulocytes % (auto) 0.3 %; Lymphocytes # (auto) 0.49 K/uL (1.20-3.40); Lymphocytes % (auto) 5.2 %; Monocytes % (auto) 2.1 %; Neutrophils % (auto) 92.3 %
[2024-05-28 05:12] LABS: Magnesium 1.8 mg/dl (1.7-2.4); Phosphorus 4.1 mg/dl (2.5-4.9)
[2024-05-28 05:29] LABS: Troponin I High Sensitivity 582.3 pg/ml (0-14)
[2024-05-28] MEDS: ICU ELECTROLYTE REPLACEMENT PROTOCOL SCH (06:27)
[2024-05-28] MEDS: MAGNESIUM SULFATE / D5W 1 GM/100 ML BAG IV SCH (06:39)
[2024-05-28] MEDS ORDERED: ICU Protocol for HYPERglycemia SCH (07:30)
[2024-05-28] MEDS: ICU Protocol for HYPERglycemia SCH (08:15)
[2024-05-28] MEDS: ASPIRIN 81 MG ECTAB PO SCH (08:15)
[2024-05-28] MEDS: SODIUM CHLORIDE 1 GM TABLET PO SCH (08:16)
--- NOTE | 2024-05-28 08:54 | Electrocardiogram Report ---
Test Reason : Blood Pressure : */* mmHG Vent. Rate : 74 BPM Atrial Rate : 74 BPM P-R Int : 232 ms QRS Dur : 124 ms QT Int : 424 ms P-R-T Axes : 75 -54 93 degrees QTcB Int : 470 ms Sinus rhythm with sinus arrhythmia with 1st degree A-V block Left axis deviation Left bundle branch block ST elevation in Inferior leads Acute Inferior infarct Abnormal ECG When compared with ECG of 20-Jan-2024 19:17, DE interval has increased ST elevation in Inferior leads now present Confirmed by Armani Rojas ([id number]) on 05/28/2024 8:54:27 AM Referred By: REFERRED SELF Confirmed By: Armani Rojas
--- NOTE | 2024-05-28 09:03 | Electrocardiogram Report ---
Test Reason : Blood Pressure : */* mmHG Vent. Rate : 82 BPM Atrial Rate : 82 BPM P-R Int : 202 ms QRS Dur : 130 ms QT Int : 402 ms P-R-T Axes : 79 -58 101 degrees QTcB Int : 469 ms Normal sinus rhythm Left axis deviation Left bundle branch block ST elevation in Inferior leads Evolving Inferior infarct Abnormal ECG When compared with ECG of 27-May-2024 23:38, OR interval has decreased ST elevation in Inferior leads less pronounced Confirmed by Armani Rojas ([id number]) on 05/28/2024 9:03:22 AM Referred By: REFERRED SELF Confirmed By: Armani Rojas
--- NOTE | 2024-05-28 09:16 | XCELERA ---
[id number] \\[facility]\[id number]_PDF_[id number]
[2024-05-28 10:34] LABS: BUN Creatinine Ratio 43.6 (10-20); Calcium 8.7 mg/dl (8.6-10.3); Creatinine Clr Calc Pharmacy 45.5 ml/min; Potassium 3.9 mmol/L (3.5-5.1)
--- NOTE | 2024-05-28 12:54 | Palliative Care Consultation ---
Date of Consultation May 28, 2024 Assessment & Plan (1) Palliative care by specialist: Introduced Palliative Medicine and explained our role in advanced care planning, symptom management and navigation through the progression of life limiting disease. Patient and/or family were receptive to palliative services for goals of care discussions. Reviewed we are different from hospice, a home health nurse visiting service. (2) Counseling regarding advanced directives and goals of care: met with pt at bedside, no visitors present. held 45 minute GOC discussion (3) POLST (Physician Orders for Life-Sustaining Treatment): discussed code status, Advandced directive, and POLST. blank copies left with pt to review. Plan Patient has exhibited current possession of decisional capacity based on the ability to convey understanding of personal PMHx, current medical condition, treatment options as well as the risks / benefits of those options, and ability to make decisions based on such knowledge. Hospital does not have written documentation of patient wishes concerning his chosen proxy for medical decisio ns. Per [place] [id number], in absence of written documentation of patient wishes, pt's proxy for medical decisions would be her. . Pt does not require a proxy for medical decisions. Pt shared that her has early dementia and she would like her son Joaquin Brown( [phone] to serve) as her MDM Proxy. Discussed importance of documenting her wishes for MDM proxy to ensure her wishes will be followed. Blank document supplied for her to review. Discussed pts medical history, HPi and admission course. Helped pt understand the difficulty in following best practice guidelines for her heart disease given her recent SDH. Helped her understand CAD as a progressively debilitating disease. Discussed high risk of progression of her CAD due to inability to give adequate anticoagulation safely. She expressed understanding. Maude and her have lived independently until about 2 weeks ago when they moved into an [facility] due to his memory issues. They have been for 62y and have 2 sons. Joaquin Brown is their older son and has two homes, one in [place] and the other in [place]. She shared Joaquin is currentl y in [place]. The other son Wei Brown was adopted at a young age, he is mentally challenged and lives in [facility] with his . She expects Joaquin to visit this weekend. Discussed code status and helped her understand that CPR is only done after a person has and involves uncomfortable and invasive procedures that, if successful. have high risk of multiple complications including but not limited to rib fractures, pneumo/hemothorax, KAITY, ventilator dependence, anoxic brain injury, and [facility]/permanent cognitive and functional deficits. CPR survival: Only about 10% of patients who have jxo-oy-efdzhggh sudden cardiac arrest survive to hospital discharge, with many survivors having neurologic impairment. This rate is even lower among patients with serious coexisting conditions, ie chance of survival to hospital discharge for in- hospital CPR in older people is low to moderate (15%) and decreases with age, comorbidities, performance status and frailty: for pts > 70 yo, more than half of the patients who initially survived resuscitation in the hospital before hospital discharge. The pooled survival to discharge after in-hospital CPR was 18% for patients between 70 and 79 years old, 15% for patients between 80 and 89 years old and 11% for patients of 90 years and older. (Gallito ROBERTS, Ramon LJ, Kalina F, et al. Trends in short- and long-term survival among kyl-ff-hyagjakz cardiac arrest patients alive at hospital arrival. Circulation 2014;130:1883- 1890. AND Iebth C, Genoveva T, Williams R, et al. Performance of clinical risk scores to predict mortality and neurological outcome in cardiac arrest patients. Resuscitation 2019;136:21-29.) Pt shared that she would not want to be kept alive on machines, but she does not wish to make any [id number] without her family. She declined offer to contact her son or by phone. No changes in plan of care at this time. History of Present Illness Reason for Consultation: goals of care Requesting Physician: Khushi Hughes MD Attending Physician: Allen Bryant MD, PhD History of Present Illness Mallika Brown is a pleasant 84yo female with history of CAD, HTN, DM, AF and SDH presenting as a CODE HEART. Patient reports being in her usual state of health until this evening after supper when she became very bloated with nausea and multiple episodes of non-bloody/non-bilious vomiting as well as diarrhea. She then became very diaphoretic and developed substernal chest pain and shortness of breath. Patient's initial EKG suggestive of inferior STEMI. Heart alert was activated and patient was taken urgently to the laboratory chemist. Patient found to have severely diseased left coronary system unchanged from prior. She had reocclusion of the right coronary stent with uncertain acuity b ut favor chronic in nature- unable to improve with attempted PCI. Patient had balloon angioplasty performed. No complications. Allergies Allergy/AdvReac Type Severity Reaction Status Date / Time acetaminophen Allergy Intermediate Joint Verified 03/23/24 13:58 Pain, Headache asparagus Allergy Intermediate Joint Pain Verified 03/23/24 13:58 azithromycin Allergy Intermediate Joint Verified 03/23/24 13:58 Pain, Headache spinach Allergy Intermediate Joint Pain Verified 03/23/24 13:58 Oarjbyi-YIS-RjZ Reductase Allergy Intermediate lethargy,muscle Verified 03/23/24 13:58 Inhibitor weakness [Rzxjcum-Ehc-Rxa Reductase Inhibitor] alprazolam AdvReac Intermediate Joint Verified 03/23/24 13:58 Pain, Headache cephalexin [From Keflex] AdvReac Intermediate Abdominal Verified 03/23/24 13:58 Pain ciprofloxacin AdvReac Intermediate Joint Verified 03/23/24 13:58 Pain, Headache Home Medications Medication Instructions Recorded Confirmed Type melatonin 3 mg tablet 3 mg PO HS PRN Sleep 12/02/18 03/23/24 History multivitamin 1 tab PO QAM 12/02/18 05/28/24 History omega 6-yci-qmn-fish oil 1,000 mg 1 cap PO QAM 12/02/18 05/28/24 History (120 mg-180 mg) capsule (Fish Oil) aspirin 81 mg tablet,delayed 81 mg PO PM 10/09/20 03/23/24 History release cholecalciferol (vitamin D3) 25 4,000 unit PO QAM 10/23/21 03/23/24 History mcg (1,000 unit) capsule (Vitamin D3) docusate sodium 100 mg capsule 100 mg PO BID 08/12/23 03/23/24 History calcitonin (salmon) 200 1 spray NA DAILY #1 inhaler 08/13/23 05/28/24 Rx unit/actuation nasal spray diclofenac sodium 1 % topical gel 4 g EXT QID #100 grams 09/24/23 03/23/24 Rx (Voltaren Arthritis Pain) clopidogrel 75 mg tablet (Plavix) 37.5 mg (1/2 x 75 mg) PO QAM #45 11/19/23 03/23/24 Rx tabs sodium chloride 1,000 mg soluble 1,000 mg PO BID 7 days #14 tabs 01/15/24 05/28/24 Rx tablet mirtazapine 7.5 mg tablet 7.5 mg PO HS 30 days #30 tabs 02/12/24 05/28/24 Rx Patient History Medical History Hypomagnesemia Leukocytosis Acute confusion Headache Hyponatremia Laryngopharyngeal reflux (LPR) Electrolyte abnormality Anxiety Presence of stent in LAD coronary artery s/p LAD and Ramus stents 2004 Hyponatremia GERD (gastroesophageal reflux disease) per pt., well controlled Abnormal uterine bleeding History of frequent urinary tract infections SIADH (syndrome of inappropriate ADH production) History of diverticulitis of colon Arteriosclerosis of coronary artery s/p two stents (LAD and ramus) 2004 s/p [place] x4 to mid RCA 12/14/22 Surgical History History of surgery on arm rt humerous, fx History of surgery on left wrist due to fx Hx of cardiac catheterization x 2: 2004 > 2 stents at [facility] follows with Dr. Bowen 12/14/22 > NSTEMI, drug eluding stent prox to mid RCA at [facility] Hx of bilateral cataract extraction H/O colonoscopy with polypectomy History of tooth extraction History of heart artery stent x2: 2004 > 2 stents at [facility] ([place] follows with Dr. Bowen 12/14/22 > NSTEMI, drug eluding stent prox to mid RCA at [facility] [place] S/P dilation and curettage Family History Father Myocardial infarction Mother Cardiac disorder Other Dysuria No family history of adverse response to anesthesia Denies family history of Ovarian cancer Prostate cancer Breast cancer Colorectal cancer Social History Smoking Status: Never smoker Second Hand Exposure: No; Do You Dip or Chew Tobacco: No; Tobacco Cessation Education Requested by Patient: No Hx Alcohol Use: No Hx Substance Use: No Preferred Language: Prydeinig Communication Ability: Effective Visual Impairment: No Limitations Hearing Ability: Normal Medical Driver Required: No Beliefs That Will Affect Care: None marital status: Current Living Situation: Spouse current occupational status: retired current occupation: worked in sales How many Children do You have: 1 Other Information That Helps Us Care for You: No Feels Safe at Home: Yes Safety Concerns: Feels Safe At This Time Childhood Exposure to Second-Hand Smoke: No Diet: regular Dental Care, Regularly: Yes Physical Activity Frequency: Daily Physical Activity Frequency Comment: bike and gardening Seatbelt Use: always Sunscreen Use: Yes Assistive Devices: Walker Review of Systems Review of Systems: All systems reviewed & are unremarkable except as noted in HPI & below Physical Exam Constitutional: WD/WN, vitals as above Eyes: PERRL, conjunctivae normal, anicteric sclerae Neck: trachea midline, no thyromegaly Respiratory: normal respiratory effort, lungs clear to auscultation Cardiovascular: Rate/Rhythm: regular rate Heart Sounds: normal S1, normal S2 and + murmur Extremities: normal capillary refill and + edema Gastrointestinal (Abdomen): normal bowel sounds, soft, nontender, no hepato splenomegaly Skin: no rashes, warm and dry Neurologic: PERRL, EOMI, accommodation nl, no face palsy, no dysarthria Results & Data Vital Signs (Past 12 Hours) Vital Signs Temp Pulse Pulse Resp BP BP BP 05/28/24 11:49 37.1 C 05/28/24 11:11 95/53 L 05/28/24 11:06 78 14 05/28/24 11:00 100/55 L 05/28/24 10:54 80 18 05/28/24 10:03 86 19 05/28/24 10:00 100/57 L 05/28/24 09:45 102/50 L 05/28/24 09:36 82 21 05/28/24 09:15 102/58 L 05/28/24 09:06 79 22 05/28/24 09:00 84 23 05/28/24 09:00 95/53 L 05/28/24 08:45 91/52 L 05/28/24 08:45 77 20 05/28/24 08:30 93/49 L 05/28/24 08:15 88/54 L 05/28/24 08:12 79 21 05/28/24 08:00 05/28/24 08:00 05/28/24 07:43 73 05/28/24 07:30 112/61 05/28/24 07:20 101/57 L 05/28/24 07:18 84 19 05/28/24 07:15 98/56 L 05/28/24 07:10 97/54 L 05/28/24 07:09 76 24 05/28/24 07:06 70 23 05/28/24 07:05 95/53 L 05/28/24 07:03 101/57 L 05/28/24 07:00 36.6 C 05/28/24 07:00 96/46 L 05/28/24 06:00 74 21 103/63 122/56 L 05/28/24 05:00 36.5 C 78 20 93/53 L 121/57 L 05/28/24 04:00 74 20 96/57 L 122/54 L 05/28/24 03:15 88 17 05/28/24 03:03 84 19 05/28/24 03:00 118/65 05/28/24 03:00 118/65 05/28/24 03:00 36.5 C 77 23 118/65 126/57 L 05/28/24 02:36 94 H 17 05/28/24 02:21 95 H 20 05/28/24 02:09 93 H 20 05/28/24 02:00 132/79 05/28/24 01:59 86 05/28/24 01:56 36.5 C 97 H 20 130/75 05/28/24 01:55 130/75 05/28/24 01:55 36.5 C 85 20 130/75 Pulse Ox O2 Del Method 05/28/24 11:49 05/28/24 11:11 05/28/24 11:06 96 Room Air 05/28/24 11:00 05/28/24 10:54 95 05/28/24 10:03 94 05/28/24 10:00 05/28/24 09:45 05/28/24 09:36 95 05/28/24 09:15 05/28/24 09:06 92 05/28/24 09:00 92 Room Air 05/28/24 09:00 05/28/24 08:45 05/28/24 08:45 95 05/28/24 08:30 05/28/24 08:15 05/28/24 08:12 96 05/28/24 08:00 Room Air 05/28/24 08:00 Room Air 05/28/24 07:43 05/28/24 07:30 05/28/24 07:20 05/28/24 07:18 97 05/28/24 07:15 05/28/24 07:10 05/28/24 07:09 95 Room Air 05/28/24 07:06 96 05/28/24 07:05 05/28/24 07:03 05/28/24 07:00 05/28/24 07:00 05/28/24 06:00 94 Room Air 05/28/24 05:00 96 Room Air 05/28/24 04:00 96 Room Air 05/28/24 03:15 95 Room Air 05/28/24 03:03 97 05/28/24 03:00 05/28/24 03:00 05/28/24 03:00 97 Room Air 05/28/24 02:36 95 Room Air 05/28/24 02:21 98 Room Air 05/28/24 02:09 96 Room Air 05/28/24 02:00 05/28/24 01:59 05/28/24 01:56 97 Room Air 05/28/24 01:55 05/28/24 01:55 97 Room Air Laboratory Results Abnormal lab results 05/27/24 05/27/24 05/28/24 Range/Units 23:52 23:57 00:55 RBC 3.10 L (4.20-5.40) M/uL Hgb 10.3 L (12.0-16.0) g/dl POC Hgb 10.5 L (12.0-16.0) g/dl Hct 30.0 L (37.0-47.0) % POC Hct 31 L (37-47) % RDW Std Deviation 49.5 H (36.4-46.3) fL MPV (9.4-12.4) fL Neut # (Auto) 8.74 H (1.40-6.50) K/uL Lymph # (Auto) 0.97 L (1.20-3.40) K/uL Activ Coag Time Kaolin 302 H (94-140) SECONDS POC Chloride 100 L (101-112) mmol/L POC Anion Gap 15.0 L (16-25) mmol/L POC BUN 29 H (7-18) mg/dl BUN 26 H (6-23) mg/dl Creatinine (0.6-1.2) mg/dl BUN/Creatinine Ratio 33.8 H (10-20) Glucose 163 H (70-99(Fasting)) mg/dl POC Glucose (70-99) mg/dl POC Glucose (other) 166 H (70-99) mg/dl Troponin I High Sens (0-14) pg/ml 05/28/24 05/28/24 05/28/24 Range/Units 01:30 02:22 04:35 RBC 2.82 L (4.20-5.40) M/uL Hgb 9.3 L (12.0-16.0) g/dl POC Hgb (12.0-16.0) g/dl Hct 26.7 L (37.0-47.0) % POC Hct (37-47) % RDW Std Deviation 48.8 H (36.4-46.3) fL MPV 9.2 L (9.4-12.4) fL Neut # (Auto) 8.70 H (1.40-6.50) K/uL Lymph # (Auto) 0.49 L (1.20-3.40) K/uL Activ Coag Time Kaolin 210 H (94-140) SECONDS POC Chloride (101-112) mmol/L POC Anion Gap (16-25) mmol/L POC BUN (7-18) mg/dl BUN (6-23) mg/dl Creatinine (0.6-1.2) mg/dl BUN/Creatinine Ratio 35.4 H (10-20) Glucose 167 H (70-99(Fasting)) mg/dl POC Glucose (70-99) mg/dl POC Glucose (other) (70-99) mg/dl Troponin I High Sens 78.7 H* D 582.3 H* D (0-14) pg/ml 05/28/24 05/28/24 05/28/24 Range/Units 08:14 09:53 11:07 RBC (4.20-5.40) M/uL Hgb (12.0-16.0) g/dl POC Hgb (12.0-16.0) g/dl Hct (37.0-47.0) % POC Hct (37-47) % RDW Std Deviation (36.4-46.3) fL MPV (9.4-12.4) fL Neut # (Auto) (1.40-6.50) K/uL Lymph # (Auto) (1.20-3.40) K/uL Activ Coag Time Kaolin (94-140) SECONDS POC Chloride (101-112) mmol/L POC Anion Gap (16-25) mmol/L POC BUN (7-18) mg/dl BUN 24 H (6-23) mg/dl Creatinine 0.55 L (0.6-1.2) mg/dl BUN/Creatinine Ratio 43.6 H (10-20) Glucose 153 H (70-99(Fasting)) mg/dl POC Glucose 165 H 141 H (70-99) mg/dl POC Glucose (other) (70-99) mg/dl Troponin I High Sens 5576.7 H* D (0-14) pg/ml Diagnostic Findings Chest X-Ray 05/27/24 23:30 EXAM: XR chest 1V portable CLINICAL HISTORY: Chest pain, nonspecific. TECHNIQUE: An X-ray image of the chest is obtained in AP projection. COMPARISON: Radiograph dated 01/20/2024. FINDINGS: Rottaed projection. Pulmonary Parenchyma: Emphysematous/hyperinflated lungs. Prominent bronchovascular and interstitial markings bilaterally. Subtle airspace opacification in the right upper zone. An elongated opacity in the right lower zone is probably related to a prominent costochondral junction. No evidence of pleural effusion or pleural thickening. Heart and Mediastinum: Cardiomegaly. No mediastinal widening or masses. No hilar or mediastinal lymphadenopathy. Bony Thorax: Degenerative changes in the visualized spine. Soft Tissues: Soft tissues overlying the chest wall are unremarkable. Multiple tubing artifacts are seen overlying the chest. IMPRESSION: 1. Stable cardiomegaly and COPD changes. 2. Subtle airspace opacification in the right upper zone may represent infective/inflammatory change. Clinical correlation is suggested(new). 3. Prominent broncho-vascular and interstitial markings bilaterally(stable). 4. An elongated opacity in the right lower zone is probably related to the prominent costochondral junction(stable). Electronically signed by Melissa Holland 05-28-2024 01:09 AM Medications Administered Current Inpatient Medications Acetaminophen (Acetaminophen 325 Mg Tab) 650 mg PO Q4H PRN PRN Reason: MILD Pain (1,2,3) Stop: 06/27/24 01:40 Aspirin (Aspirin 81 Mg Ectab) 81 mg PO QAM [facility] Stop: 06/27/24 08:59 Last Admin: 05/28/24 08:15 Dose: 81 mg Miscellaneous ([facility] Protocol For Hyperglycemia) 1 each N/A ACHS ELIANA Stop: 05/30/24 07:29 Last Admin: 05/28/24 11:45 Dose: Not Given Miscellaneous ([facility] Electrolyte Replacement Protocol) 1 each N/A BID@06,18 ELIANA; Protocol Stop: 06/04/24 05:59 Last Admin: 05/28/24 06:27 Dose: 1 each Ondansetron HCl (Ondansetron Inj 2 Mg/Ml 2 Ml Vial) 4 mg IV Q6H PRN PRN Reason: Nausea Stop: 06/27/24 01:40 Sodium Chloride (Sodium Chloride 1 Gm Tablet) 1 gm PO BID [facility] Stop: 06/27/24 08:59 Last Admin: 05/28/24 08:16 Dose: 1 gm PG Care Time/CCT Total # of Minutes Spent Total Time Spent with Patient: Total time spent is greater than 50% in coordination of care (as documented) at patient's floor/unit and/or counseling patient: Advanced Care Planning 80166 Advanced Care Planning 30 [place] [address] IN/OBS CONSULT LVL 2,35M Patient Type New History Expanded Problem Focused Exam Expanded Problem Focused Medical Decision Making Low Complexity Diagnoses Palliative care by specialist Z51.5 Counseling regarding advanced directives and goals of care Z71.89 POLST (Physician Orders for Life-Sustaining Treatment) Z78.9 Additional Codes Advanced Care Planning - 25719 Advanced Care Planning 30 Min: 56881 Advanced Care Planning 30 Min ([id number])
--- NOTE | 2024-05-28 13:30 | Electrocardiogram Report ---
Test Reason : Blood Pressure : */* mmHG Vent. Rate : 95 BPM Atrial Rate : 95 BPM P-R Int : 224 ms QRS Dur : 134 ms QT Int : 396 ms P-R-T Axes : 77 -31 97 degrees QTcB Int : 497 ms Sinus rhythm with 1st degree A-V block Left axis deviation Left bundle branch block ST elevation in Inferior leads Serial changes of evolving Inferior infarct Abnormal ECG When compared with ECG of 27-May-2024 23:38, No significant change was found Confirmed by Armani Rojas ([id number]) on 05/28/2024 1:30:40 PM Referred By: REFERRED SELF Confirmed By: Armani Rojas
--- NOTE | 2024-05-28 17:19 | Hospitalist Progress Note ---
Date of Service May 28, 2024 Assessment & Plan (1) ST elevation (STEMI) myocardial infarction: Plan: 84 years old female with PMH of FULL CODE @ home, underweight with BMI 17.1 (height 149.9 cm; weight 38.5 kg), spinal osteoporosis, GERD, and CAD s/p 1st acute AR @ 64 years of age ([place], [place]) s/p stent x 1, s/p 2nd acute AR @ 83 years of age ([place]) s/p stents x 4, and "interhemispheric and left frontal acute subdural hemorrhages" (as reported on 01/20/2024, 7:16pm CT brain without contrast), who was admitted to the inpatient hospitalist service @ [facility] on 05/27/2024 with acute inferior wall STEMI, now s/p cardiac catheterization (05/28/2024, 2:01am, Interventional CARDS Dr. Geo Amador, who notes: "1. Left coronary system is severely diseased but unchanged from prior. 2. Patient has reocclusion of the right coronary stent train. Acuity unclear. Suspect chronic. Unable to improve with attempted PCI. Patient is known to have been taking only half dose of Plavix for many months. Highly suspicious this represents chronic occlusion secondary to remote stent thrombosis. Supported by faint collateralization. 3. Patient has severe coronary disease. She is a very poor candidate for PCI. High risk for complication. She has been relatively stable on her current medical regimen. Unfortunately, she cannot tolerate a number of recommended medications including statin, beta-vaibhav, MONTSE inhibitor. She has tolerated low-dose aspirin and half dose Plavix (which is of unknown benefit). She had documented subdural hematoma in January 2024. Taken as a whole I do not think there is much benefit in continuing any Plavix and certainly some risk as she continues to have risk of recurrent fall and therefore risk of intracranial hemorrhage. Hemodynamics Rest Ao:: 130/78 mm Final Ao: 152/87 mm LV: Not performed Recommendations Recommendations: Medical Therapy and/or Counseling and PCI without planned CABG" Hence, patient continues to receive her home-scheduled ASA 81mg PO daily to provide secondary prophylaxis against known CAD s/p stents x 5. On a separate note, patient does NOT receive any lipid lowering therapy given her allergy to statins, which cause lethargy and muscle weakness. In addition, patient was advised NOT to take plavix given her risk of recurrent falls with concomitant risk for intracranial hemorrhage, especially in this patient with a recent history of "interhemispheric and left frontal acute subdural hemorrhages" (as reported on 01/20/2024, 7:16pm CT brain without contrast). (2) Subdural hematoma: Plan: RESOLVED. cf., CT brain without contrast (01/19/2025, 7:16pm): 1. Interhemispheric and left frontal acute subdural hemorrhages are seen. 2. No significant mass-effect or midline shift of structures. Chronic involutional and ischemic changes of the brain. cf., CT brain without contrast (01/20/2025, 9:00pm): 1. No change in interhemispheric subdural hematoma. 2. No new or increasing hemorrhage. cf., CT brain without contrast (03/04/2014, 1:00pm): 1. No acute intracranial abnormality. 2. Resolution of the previously noted subdural hemorrhage. As stated above, patient continues to receive her home-scheduled ASA 81mg PO daily to provide secondary prophylaxis against known CAD s/p stents x 5. On a separate note, patient does NOT receive any lipid lowering therapy given her allergy to statins, which cause lethargy and muscle weakness. In addition, patient was advised NOT to take plavix given her risk of recurrent falls with concomitant risk for intracranial hemorrhage, especially in this patient with a recent history of "interhemispheric and left frontal acute subdural hemorrhages" (as reported on 01/20/2024, 7:16pm CT brain without contrast). (3) SIADH (syndrome of inappropriate ADH production): Plan: Chronic euvolemic hyponatremia with baseline Na range, 126-135 mmol/L (02/20/2022 - 01/26/2024). Due to SIADH. cf., admission Na 138 mmol/L (05/27/2024, 11:52pm). cf., current Na 136 mmol/L (05/28/2024, 9:53am). Asymptomatic on NaCl 1g PO bid. Observe. Plan Anticipate D/C back to home on 05/29/2024 am. Admission and Anticipated Discharge Date Admission Date: May 28, 2024 Anticipated date of discharge: 05/29/24 Subjective "I feel fine. I had the catheterization earlier this morning. No new stents were put in me today. I already have 5 stents. Hopefully, I can go home tomorrow." Review of Systems Constitutional: Negative for antecedent/coincident fevers, chills, diaphoresis, cough, wheeze, sore throat, hemoptysis, chest pains, palpitations, pleurisy, nausea, vomiting, diarrhea, abdominal pain, pelvic pain, hematemesis, hematochezia, melena, hematuria, dysuria, frequency, urgency, headaches, dizziness, lightheadedness, visual changes, hearing changes, weakness, falls, syncope, trauma, travel history, sick contacts, or food/drug ingestions novel or new. All other review of systems are reported as negative by the patient on 05/28/2024. Physical Exam Constitutional: General: comfortable, coherent, cooperative. Wide awake and alert. Not confused, lethargic, or obtunded. Patient speaks in complete, fluent, and articulate sentences without pause, interruption, cough, or wheeze. HEENT: NC/AT. EOMI, PERRL. No nystagmus, gaze paresis, anisocoria, miosis, mydriasis, hyphema, chemosis, scleral icterus, conjunctivitis, or pterygium. No otorrhea, no rhinorrhea. No pharyngeal discharge or erythema. Neck: Supple, no stridor, bruit, goiter, or hepatojugular reflux. Jugular venous pressure is estimated to be 8 cm above the sternal angle of Kg, which is typically 5 cm above the level of the right atrium. Hence, there is no jugular venous distention noted on 05/28/2024. Lymphatics: No pre-post auricular, anterior/posterior cervical, supraclavicular/infraclavicular, axillary, epitrochlear, or inguinal adenopathy. Chest: Symmetric rise and fall with respirations. Non-tender to palpation. Heart: RRR, S1 and S2 noted. No S3 or S4 summation gallop noted. No tripartite friction rub. Grade II/ early systolic murmur @ LLSB without radiation to the carotids, axilla, or back, and which remains invariant in regards to the respiratory cycle. Lungs: Clear to auscultation and percussion. No audible expiratory wheeze, egophony, pectoriloquy, increase in tactile fremitus, or flatness/dullness to percussion at the bases. Abdomen: Soft, non-tender, non-distended. No rebound, guarding, Holm's sign, or organomegaly. Bowel sounds auscultated in all 4 quadrants. Extremities: No clubbing, cyanosis, or edema. 2+ pedal pulses bilaterally. No ecchymosis or hematoma @ right femoral artery catheterization site on 05/28/2024. Skin: No decubitus ulcer, exanthem, or enanthem. Neurology: Alert and oriented in regards to person, place, time, and situation. DTR+ and symmetric. 5/5 motor strength in all 4 extremities, both proximally and distally. No pronator drift. No myoclonus, tremors, or tics. Urology: No chilel catheter. No urethral discharge. Psychiatry: Appropriate affect. Smiles occasionally. No homicidal/suicidal ideation. Results & Data Results & Data Vital Signs (Past 12 Hours) Vital Signs Temp Pulse Pulse Resp BP BP BP 05/28/24 16:47 37.5 C 05/28/24 16:06 74 91/45 L 05/28/24 16:00 78 05/28/24 14:03 74 05/28/24 14:00 102/54 L 05/28/24 13:57 77 05/28/24 13:00 113/65 05/28/24 12:51 77 22 05/28/24 12:06 81 22 05/28/24 11:49 37.1 C 05/28/24 11:18 77 21 05/28/24 11:11 95/53 L 05/28/24 11:06 78 14 05/28/24 11:00 100/55 L 05/28/24 10:54 80 18 05/28/24 10:03 86 19 05/28/24 10:00 100/57 L 05/28/24 09:45 102/50 L 05/28/24 09:36 82 21 05/28/24 09:15 102/58 L 05/28/24 09:06 79 22 05/28/24 09:00 84 23 05/28/24 09:00 95/53 L 05/28/24 08:45 91/52 L 05/28/24 08:45 77 20 05/28/24 08:30 93/49 L 05/28/24 08:15 88/54 L 05/28/24 08:12 79 21 05/28/24 08:00 05/28/24 08:00 05/28/24 07:43 73 05/28/24 07:30 112/61 05/28/24 07:20 101/57 L 05/28/24 07:18 84 19 05/28/24 07:15 98/56 L 05/28/24 07:10 97/54 L 05/28/24 07:09 76 24 05/28/24 07:06 70 23 05/28/24 07:05 95/53 L 05/28/24 07:03 101/57 L 05/28/24 07:00 36.6 C 05/28/24 07:00 96/46 L 05/28/24 06:00 74 21 103/63 122/56 L Pulse Ox O2 Del Method 05/28/24 16:47 05/28/24 16:06 96 Room Air 05/28/24 16:00 05/28/24 14:03 97 05/28/24 14:00 05/28/24 13:57 97 05/28/24 13:00 05/28/24 12:51 96 05/28/24 12:06 96 05/28/24 11:49 05/28/24 11:18 94 05/28/24 11:11 05/28/24 11:06 96 Room Air 05/28/24 11:00 05/28/24 10:54 95 05/28/24 10:03 94 05/28/24 10:00 05/28/24 09:45 05/28/24 09:36 95 05/28/24 09:15 05/28/24 09:06 92 05/28/24 09:00 92 Room Air 05/28/24 09:00 05/28/24 08:45 05/28/24 08:45 95 05/28/24 08:30 05/28/24 08:15 05/28/24 08:12 96 05/28/24 08:00 Room Air 05/28/24 08:00 Room Air 05/28/24 07:43 05/28/24 07:30 05/28/24 07:20 05/28/24 07:18 97 05/28/24 07:15 05/28/24 07:10 05/28/24 07:09 95 Room Air 05/28/24 07:06 96 05/28/24 07:05 05/28/24 07:03 05/28/24 07:00 05/28/24 07:00 05/28/24 06:00 94 Room Air Diagnostic Findings Cardiac catheterization (05/28/2024, 2:01am): Coronary Anatomy Dominant: Right Left Main (% Stenosis): Distal (30%) LAD (% Stenosis): Ostial (Ostial to proximal 80%), Mid (Stent patent) and Distal (Up to 30 to 40%) D1 (% Stenosis): Normal D2 (% Stenosis): Normal Circumflex (% Stenosis): Proximal (Up to 50%) OM1 (% Stenosis): Normal OM2 (% Stenosis): Normal L PL1 (% Stenosis): Normal RCA (% Stenosis): Ostial (80%), Proximal (100% flush occlusion in-stent restenosis) and Distal (Faint collateralization from left) Ramus (% Stenosis): Ostial (50%), Proximal (Stent patent) and Mid (50%) Diagnostic Physicians Name: Geo Amador MD, PhD Closure Device Percutaneous Entry Location: Femoral Closure Device: None-Manual Hold Recommendations: Medical Therapy and/or Counseling and PCI without planned CABG PCI Indication: Angina despite med therapy Lesion Segment Name: Proximal RCA Culprit Artery: Yes Stenosis Prior to Rx (%): 100% Chronic Total Occlusion: Yes (Probably) Pre-Procedure JOSEFINA Flow: 0 Previously Treated Lesion: Yes Lesion Complexity: High/C Lesion Length (mm): 40 Thrombus Present: Yes (Unclear) Bifurcation Lesion: No Guidewire Across Lesion: Yes Intraprocedure Events Significant Disection: No Perforation: No Cardiac Cath Procedure Full Procedure Date May 28, 2024 Pre-Procedure Diagnosis Pre-Procedure Diagnosis: Acute Coronary Syndrome AUC Score AUC Score: 08 Post-Procedure Diagnosis Post-Procedure Diagnosis: Severe CAD Procedure(s) Performed Procedure(s) Performed: Coronary Angiography, PTCA and Ultrasound Guided Vascular Access Air Breaker Operator Geo Amador MD, PhD Estimated Blood Loss Estimated Blood Loss: 10 cc Medication(s) Medication(s): Fentanyl, Heparin, Integrilin, Lidocaine 1%, Nicardipine, Nitroglycerin and Versed Summary of Findings Patient was brought emergently to the cardiac catheterization suite where she was shaved and prepped in a sterile fashion. Sedated using IV Versed and fentanyl. Soft tissue the right groin were anesthetized using 10 mL of 1% Xylocaine. Using ultrasound for guidance (image saved), the right femoral artery was accessed and a 5 Italian femoral artery sheath was placed. All catheters were exchanged over a 0.035 J-tip wire. Left coronary angiography in orthogonal views with a 5 Italian JL 4 diagnostic catheter. Right coronary angiography in orthogonal views with a 5 Italian JR4 diagnostic catheter. Diagnostic catheters were removed. Decision was made to attempt PCI of the RCA. A 6 Italian sheath was exchanged over the wire for the 5 Italian sheath in the femoral artery. ACT was checked and additional heparin was provided as needed to maintain therapeutic anticoagulation. A 6 Italian JR4 guide catheter was advanced to the ostium of the RCA. The previously placed stent is known to extend into the aorta. We had significant difficulty engaging the right coronary. We also had trouble with torquing the guide catheter. Therefore it was exchanged over the J-wire for a 6 Italian 3 DRC guide catheter. Could not engage the coronary but I was able to "float" a BMW guidewire across the ostium and down to the proximal part of the coronary. The ostium was then predilated with a 2.0 x 8 mm balloon at 14 sadie followed by a second inflation to 20 sadie. The balloon was then removed. Metal Grader angiography was performed. A 2.5 x 12 mm NC Hong balloon was then advanced and we were able to advance the guidewire further down the stented segment with the balloon catheter as backup. The balloon was then positioned across the ostium and proximal portion of the RCA of the RCA and inflated to 18 atmospheres. The balloon was then removed. We next utilized the guide liner over the wire and were able to advance the guide liner to the bend in the proximal vessel but we were unsuccessful in advancing any further balloons. We also had not really seen significant improvements despite angioplasty at the ostial to proximal segment and wire passage beyond the stent train did not yield improved flow. We decided to remove all of the equipment and try a different guide catheter. The patient was given Integrilin as a double bolus administration in addition to continued heparin as needed. An AR-1 was unsuccessful in engaging the RCA ostium. A hockey-stick 1 was also unsuccessful. We spent a lot of time trying to get the used to engage better than the 3 DRC but were unsuccessful. Final at tempt was made downsizing to a 5 Italian JR4 hoping that this would allow us to engage the ostium but this was also unsuccessful. Patient was having no chest pain, no ischemic EKG changes on the monitor and the occluded stent segment was acting as if this was cold rather than new. We decided to abandon further attempts as there was no anticipated benefit and there was significant anticipated potential for harm. Therefore all the catheters were removed from the patient. Limited right femoral artery angiography was performed to evaluate for closure. Findings were not favorable and therefore ACT was checked. This was over 200 and we decided to suture the sheath in place with plan for removal once the ACT had become less than 160 seconds. Patient was hemodynamically stable and asymptomatic. She was therefore transferred to the ICU for further workup and management. This ended the case. Coronary angiography findings: [id number]-[id number] vessel. Mild diffuse disease with moderate calcification. Distally appears up to 30% stenosis. [id number] and transapical. Ostial to proximal calcification with a long eccentric 80% stenosis. Mid vessel stent is widely patent. Distally the LAD is tortuous with up to 35 to 40% stenosis. LAD gives a small first diagonal and a medium branching second diagonal. These findings are unchanged from prior cath. RNc-wpkio-zrztoyw and nondominant. Travels in the AV groove where the proximal segment has up to 50% stenosis. There is 2 small obtuse marginal branches and the circumflex also gives 2 atrial branches before it terminates in a medium caliber posterolateral. Angiographically no change compared to prior catheterization. Ramus-medium caliber vessel with ostial to proximal 50% stenosis followed by a patent stent and then distal up to 50% stenosis. This is unchanged from prior catheterization. RCA-this is medium to large in caliber and known to be dominant. The ostium has a up to 80% stenosis in the early proximal vessel is a 100% occluded within the stent. This appears to be flush occlusion without significant contrast staining. JOSEFINA 0 flow. The long stent train is visualized but not opacified with contrast and is known to reach the early distal RCA. Beyond this the RCA is known to be very small caliber and on this study there is faint collaterals from the left to most distal branches of the right. PTCA of RCA- No significant improvement in the ostial to proximal in-stent restenosis No significant reestablishment of flow beyond the 100% occluded segment of the stent No evidence of dissection or perforation JOSEFINA 0 flow remains Summary- 1. Left coronary system is severely diseased but unchanged from prior. 2. Patient has reocclusion of the right coronary stent train. Acuity unclear. Suspect chronic. Unable to improve with attempted PCI. Patient is known to have been taking only half dose of Plavix for many months. Highly suspicious this represents chronic occlusion secondary to remote stent thrombosis. Supported by faint collateralization. 3. Patient has severe coronary disease. She is a very poor candidate for PCI. High risk for complication. She has been relatively stable on her current medical regimen. Unfortunately, she cannot tolerate a number of recommended medications including statin, beta-vaibhav, MONTSE inhibitor. She has tolerated low-dose aspirin and half dose Plavix (which is of unknown benefit). She had documented subdural hematoma in January 2024. Taken as a whole I do not think there is much benefit in continuing any Plavix and certainly some risk as she continues to have risk of recurrent fall and therefore risk of intracranial hemorrhage. Hemodynamics Rest Ao:: 130/78 mm Final Ao: 152/87 mm LV: Not performed Recommendations Recommendations: Medical Therapy and/or Counseling and PCI without planned CABG PG Care Time/CCT Total # of Minutes Spent Total Time Spent with Patient: Total time spent is greater than 50% in coordination of care (as documented) at patient's floor/unit and/or counseling patient: Coding Level of Care Code 11470 SUB INP/OBS CARE 2/35MIN Diagnoses ST elevation (STEMI) myocardial infarction I21.3 Subdural hematoma S06.5XAA SIADH (syndrome of inappropriate ADH production) E22.2
[2024-05-29 06:15] LABS: Basophils # (auto) 0.02 K/uL (0.00-0.20); Basophils % (auto) 0.2 %; Eosinophils # (auto) 0.03 K/uL (0.00-0.50); Eosinophils % (auto) 0.4 %; Hematocrit (blood only) 24.6 % (37.0-47.0); Hemoglobin 8.4 g/dl (12.0-16.0); Immature Granulocytes # (auto) 0.03 K/uL (0.01-0.20); Immature Granulocytes % (auto) 0.4 %; Lymphocytes # (auto) 1.37 K/uL (1.20-3.40); Lymphocytes % (auto) 16.7 %; Mean Corpuscular Hemoglobin 32.8 pg (25.0-34.0); Mean Corpuscular Hgb Conc 34.1 g/dL (32.0-36.0); Mean Corpuscular Volume 96.1 fL (80.0-100.0); Monocytes # (auto) 0.84 K/uL (0.11-0.59); Monocytes % (auto) 10.2 %; Neutrophils # (auto) 5.91 K/uL (1.40-6.50); Neutrophils % (auto) 72.1 %; Platelet Count 171 K/uL (130-400); RDW Coefficient of Variation 14.4 % (11.5-14.5); Red Blood Count 2.56 M/uL (4.20-5.40)
--- NOTE | 2024-05-29 13:15 | Cardiology Progress Note ---
Date of Service May 29, 2024 Assessment & Plan (1) ST elevation (STEMI) myocardial infarction: Plan: Status post PTCA without success of opening what is probably a chronic total occlusion of the previously stented RCA. She also has significant residual dise ase on the left coronary system as described. Fortunately, low normal EF. Plavix has been discontinued. She can remain on the low-dose aspirin. Does not tolerate or will not take beta-vaibhav, MONTSE inhibitor, or statin. (2) CAD (coronary artery disease): Plan: Significant residual disease. Poor candidate for revascularization for a number of reasons including frailty, history of intracranial hemorrhage, continued weight loss, history of frequent falls. She will essentially be on a palliative regimen for her coronary disease. Taking aspirin. If she develops any anginal symptoms a nitrate can be considered although her blood pressure may not tolerate it. In that case, Ranexa could be started. (3) Hypercholesterolemia: Plan: Intolerant to statin. Probably not a great candidate for PCSK9 inhibitor. Her diet is so restrictive that may be adequate but in the long-term her life expectancy is unlikely to be altered 1 way or the other by statin. (4) Hypertension: Plan: She is not having any hypertension at this point. If she develops hypertension then I would favor use of low-dose angiotensin receptor vaibhav. Plan I think she is going to have some difficulty with returning home. However, at this point it sounds like that is her plan. If her son is going to be her power of sales and marketing assistant or medical decision-maker then we will need to have him help us navigate what is going to work for her and her who has dementia. From a cardiology standpoint would keep her at least another 24 hours in the hospital and she should follow-up in the office within 1 to 3 weeks of discharge. I will make sure that she has instructions regarding care for her catheterization after discharge. Admission and Anticipated Discharge Date Admission Date: May 28, 2024 Subjective Patient doing well today. No recurrence of chest discomfort, nausea, or vomiting. No shortness of breath. Unfortunately, her son is unlikely to make it up to [place] to see her. Not clear what the plan will be for her care but she believes that she can get what she needs in the assisted living situation which she currently is in. She is tolerating her current medications. Her H&H are a bit low so possibly she needs additional workup for that but from a cardiac standpoint she is stable at this point. Not a good candidate for additional aggressive procedures at this point. Review of Systems Review of Systems: Negative except as per HPI Physical Exam Constitutional: Elderly, frail, cachectic. No acute distress. Neck: No JVD Respiratory: Clear to auscultation bilaterally. No wheezing, rhonchi, or rales. Cardiovascular: Regular rate and rhythm. S4 gallop. No edema. Neurologic: Cognition is intact. Speech is fluent. No focal deficits. Psychiatric: A+Ox3, euthymic affect Results & Data Vital Signs (Past 12 Hours) Vital Signs Temp Pulse Resp BP BP Pulse Ox O2 Del Method 05/29/24 11:30 36.6 C 79 18 103/64 98 Room Air 05/29/24 08:07 36.7 C 85 18 104/54 L 96 Room Air 05/29/24 03:35 37.0 C 69 18 95/57 L 94 Room Air PG Care Time/CCT Total # of Minutes Spent Total Time Spent with Patient: Total time spent is greater than 50% in coordination of care (as documented) at patient's floor/unit and/or counseling patient: Coding Level of Care Code 36208 SUB INP/OBS CARE 2/35MIN Diagnoses ST elevation (STEMI) myocardial infarction I21.3 CAD (coronary artery disease) I25.10 Hypercholesterolemia E78.00 Hypertension I10
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
[2024-05-29 19:14] LABS: Ferritin 48.2 ng/ml (8-388)
[2024-05-29] MEDS: ACETAMINOPHEN 325 MG TAB PO PRN (20:20)
[2024-05-29] MEDS: MELATONIN 3 MG TAB PO PRN (20:20)
[2024-05-30] MEDS: DICLOFENAC SOD 1% GEL 100 GM TUBE EXT PRN (06:03)
[2024-05-30 06:09] LABS: Basophils # (auto) 0.04 K/uL (0.00-0.20); Basophils % (auto) 0.6 %; Eosinophils # (auto) 0.14 K/uL (0.00-0.50); Eosinophils % (auto) 2.1 %; Hematocrit (blood only) 25.5 % (37.0-47.0); Hemoglobin 8.7 g/dl (12.0-16.0); Immature Granulocytes # (auto) 0.02 K/uL (0.01-0.20); Immature Granulocytes % (auto) 0.3 %; Lymphocytes # (auto) 1.55 K/uL (1.20-3.40); Lymphocytes % (auto) 23.3 %; Mean Corpuscular Hemoglobin 33.5 pg (25.0-34.0); Mean Corpuscular Hgb Conc 34.1 g/dL (32.0-36.0); Mean Corpuscular Volume 98.1 fL (80.0-100.0); Mean Platelet Volume 9.8 fL (9.4-12.4); Monocytes # (auto) 0.73 K/uL (0.11-0.59); Neutrophils # (auto) 4.18 K/uL (1.40-6.50); Neutrophils % (auto) 62.7 %; Platelet Count 176 K/uL (130-400); RDW Coefficient of Variation 14.4 % (11.5-14.5); RDW Standard Deviation 51.7 fL (36.4-46.3); White Blood Count 6.66 K/ul (4.8-10.8)
--- NOTE | 2024-05-30 09:52 | Discharge Summary ---
Discharge Summary Date of Service May 30, 2024 Principal Dx & Hospital Course #1 = Principal Diagnosis (1) ST elevation (STEMI) myocardial infarction: 84 years old female with PMH of FULL CODE @ [facility] ([place], [place]), underweight with BMI 17.1 (height 149.9 cm; weight 38.5 kg), spinal osteoporosis, GERD, chronic diastolic CHF with preserved LVEF 60-65% and grade II LV diastolic dysfunction (as noted on 12/03/2018, 5:31pm TTE, CARDS Dr. Parveen Sanchez), and CAD s/p 1st acute NH @ 64 years of age ([place], [place]) s/p stent x 1, s/p 2nd acute NH @ 83 years of age ([place], [place]) s/p stents x 4, and "interhemispheric and left frontal acute subdural hemorrhages" (as reported on 01/20/2024, 7:16pm CT brain without contrast), with no subsequent development of vascular dementia, chronic normocytic, normochromic anemia with progressive decline in baseline Hb range from 11.5 g/dL (01/26/2017, 12:10pm) to 10.9 g/dL (04/15/2024, 9:55am),and who currently serves as the primary caregiver of her severely demented , who lives with her @ [facility] ([place], [place]). Patient was admitted to the inpatient hospitalist service @ [facility] on 05/27/2024 with acute inferior wall STEMI, now s/p cardiac catheterization (05/28/2024, 2:01am, Interventional CARDS Dr. Geo Amador, who notes: "1. Left coronary system is severely diseased but unchanged from prior. 2. Patient has reocclusion of the right coronary stent train. Acuity unclear. Suspect chronic. Unable to improve with attempted PCI. Patient is known to have been taking only half dose of Plavix for many months. Highly suspicious this represents chronic occlusion secondary to remote stent thrombosis. Supported by faint collateralization. 3. Patient has severe coronary disease. She is a very poor candidate for PCI. High risk for complication. She has been relatively stable on her current medical regimen. Unfortunately, she cannot tolerate a number of recommended medications including statin, beta-vaibhav, MONTSE inhibitor. She has tolerated low-dose aspirin and half dose Plavix (which is of unknown benefit). She had documented subdural hematoma in January 2024. Taken as a whole I do not think there is much benefit in continuing any Plavix and certainly some risk as she continues to have risk of recurrent fall and therefore risk of intracranial hemorrhage. Hemodynamics Rest Ao:: 130/78 mm Final Ao: 152/87 mm LV: Not performed Recommendations Recommendations: Medical Therapy and/or Counseling and PCI without planned CABG" Hence, patient continues to receive her home-scheduled ASA 81mg PO daily to provide secondary prophylaxis against known CAD s/p stents x 5. On a separate note, patient does NOT receive any lipid lowering therapy given her allergy to statins, which cause lethargy and muscle weakness. In addition, patient was advised NOT to take plavix given her risk of recurrent falls with concomitant risk for intracranial hemorrhage, especially in this patient with a recent history of "interhemispheric and left frontal acute subdural hemorrhages" (as reported on 01/20/2024, 7:16pm CT brain without contrast). (2) Subdural hematoma: RESOLVED. cf., CT brain without contrast (01/19/2025, 7:16pm): 1. Interhemispheric and left frontal acute subdural hemorrhages are seen. 2. No significant mass-effect or midline shift of structures. Chronic involutional and ischemic changes of the brain. cf., CT brain without contrast (01/20/2025, 9:00pm): 1. No change in interhemispheric subdural hematoma. 2. No new or increasing hemorrhage. cf., CT brain without contrast (03/04/2014, 1:00pm): 1. No acute intracranial abnormality. 2. Resolution of the previously noted subdural hemorrhage. As stated above, patient continues to receive her home-scheduled ASA 81mg PO daily to provide secondary prophylaxis against known CAD s/p stents x 5. On a separate note, patient does NOT receive any lipid lowering therapy given her allergy to statins, which cause lethargy and muscle weakness. In addition, patient was advised NOT to take plavix given her risk of recurrent falls with concomitant risk for intracranial hemorrhage, especially in this patient with a recent history of "interhemispheric and left frontal acute subdural hemorrhages" (as reported on 01/20/2024, 7:16pm CT brain without contrast). (3) SIADH (syndrome of inappropriate ADH production): Chronic euvolemic hyponatremia with baseline Na range, 126-135 mmol/L (02/20/2022 - 01/26/2024). Due to SIADH. cf., admission Na 138 mmol/L (05/27/2024, 11:52pm). cf., current Na 136 mmol/L (05/28/2024, 9:53am). Asymptomatic on NaCl 1g PO bid. Observe. (4) Normocytic normochromic anemia: Chronic normocytic, normochromic anemia with progressive decline in baseline Hb range from 11.5 g/dL (01/26/2017, 12:10pm) to 10.9 g/dL (04/15/2024, 9:55am). cf., Hb 10.3 g/dL, MCV 96.8, MCHC 34.3 (05/27/2024, 11:52pm). cf., Hb 9.3 g/dL, MCV 94.7, MCHC 34.8 (05/28/2024, 4:35am). cf., Hb 8.4 g/dL, MCV 96.1, MCHC 34.1 (05/29/2024, 5:34am). Patient reports no mucosal bleeding and remains hemodynamically stable. Etiology of chronic normocytic, normochromic anemia remains unclear; patient underwent iron studies (cf., Fe, TIBC, and ferritin) to determine if patient s uffers from iron deficiency, thalassemia, sideroblastic anemia, or anemia of chronic disease. Iron studies were all normal (cf., Fe 38 ug/dL, TIBC 328 ug/dL, ferritin 48.2 ng/mL on 05/29/2024, 6:02pm), which is consistent only with thalassemia; however, patient's Mentzer (e.g., MCV/RBC) score is 98.1/2.60 = 37.7, which is not consistent with thalassemia, where Mentzer scores are typically less than 14. At this time, patient reports that she will forego any formal GI Service evaluation involving EGD/colonoscopy given her advanced age of 84 years, and her wish to be discharged in the 05/30/2024 am, back to [facility] ([place], [place]), where she also serves as the primary caregiver of her severely demented , who lives with her @ [facility] ([place], [place]). (5) Osteoporosis: Asymptomatic on calcitonin (Miacalcin) nasal spray, 200 units/spray, 1 spray to one nostril daily, at home. Patient did not receive this home-scheduled medication while in [facility]. Patient will resume this home-scheduled medication on hospital discharge back to [facility] ([place], [place]), today, 05/30/2024. (6) Chronic diastolic (congestive) heart failure: cf., TTE (05/28/2024, 6:36am): 1. LVEF 50-55%. Moderate concentric LVH. Inferobasal akinesis with mid inferior wall hypokinesis, all other heart move normally. 2. RV normal size and normal systolic function. 3. LA and RA sizes are normal. No evidence for ASD. 4. No . Mild AR. 5. No OK. 6. No MS. No MR. 7. Mild TR. RVSP normal. 8. No aortic dissection. Aortic root and aortic arch normal size. PA normal size. IVC mildly dilated. 9. Small pericardial effusion. Small (less than 1 cm maximum depth) nonhemodynamically significant, localized anterior pericardial effusion unchanged in size compared with 12/14/2022 study. 10.Grade I LV diastolic dysfunction. (as per CARDS Dr. Armani Rojas). Of note, patient has a past medical history of chronic diastolic CHF with preserved LVEF 60-65% and grade II LV diastolic dysfunction (as noted on 12/03/2018, 5:31pm TTE, CARDS Dr. Parveen Sanchez). When compared to 05/28/2024, 6:36am TTE, patient's LV diastolic dysfunction has improved; on the other hand, patient's LVEF has decreased from 60-65% to 50-55%, but 50-55% is still a normal LVEF range, so patient has not been diagnosed with acute systolic CHF as of 05/28/2024, 6:36am TTE. In addition, patient did NOT demonstrate an acute exacerbation of chronic diastolic CHF while patient remained in [facility] from admission date 05/28/2024 through discharge date 05/30/2024 as patient has no complaints of weight gain, paroxysmal nocturnal dyspnea, orthopnea, or platypnea while patient remained in [facility] from admission date 05/28/2024 through discharge date 05/30/2024. Observe. Plan Anticipate D/C back to [place] @ [facility] ([place], [place]) on 05/30/2024 am. Admission HPI Per Admitting Provider Mallika Brown is a pleasant 84yo female with history of CAD, HTN, DM, AF and SDH presenting as a CODE HEART. Patient reports being in her usual state of health until this evening after supper when she became very bloated with nausea and multiple episodes of non-bloody/non-bilious vomiting as well as diarrhea. She then became very diaphoretic and developed substernal chest pain and shortness of breath. Patient's initial EKG suggestive of inferior STEMI. Heart alert was activated and patient was taken urgently to the agriculture laboratory technician. Patient found to have severely diseased left coronary system unchanged from prior. She had reocclusion of the right coronary stent with uncertain acuity but favor chronic in nature- unable to improve with attempted PCI. Patient had balloon angioplasty performed. No complications. Admitted to MICU. Patient reports some shortness of breath ongoing but overall feels improved. Discharge Plan Discharge Items Patient Disposition: Transfer Shelter Fac Reason For Visit: STEMI Discharge Diagnosis: AMI CAD Condition on Discharge: Fair Activity: Per Instructions section Lifting: No more than 5 pounds Bathing: No limitations Exercise/Sports: None Weightbearing: Full weightbearing Non-emergency contact: Primary Care Provider and Construction Management Assistant Call non-emergency contact if: you have any medication questions, your symptoms worsen, your pain is not controlled, you have a fever, your wound has increased redness and your wound has increased drainage Follow-up/Referrals: Michael Corley MD [Primary Care Provider] - Diet: Heart Healthy, Low Fat and Low Sodium (2gm) Addtl Attending Provider Instructions: ACTIVITY RECOMMENDATIONS: It is common to feel weak and fatigue for a few days. * Do not drive or operate any motorized equipment for the next three days. * Limit stair usage (2 or 3 trips a day only) for the next three days. * Do not lift anything heavier than 10 pounds for the next three days. * Do not engage in vigorous exercise or any sports for the next five days. * You may shower the day after your procedure, but do not immerse the area for three days. Cleanse the site gently with soap and water. SPECIAL CARE INSTRUCTIONS: * You may replace the pressure dressing or band-aid the morning after the procedure. * After your procedure, it is normal to have a small bruise or small lump at the site. Examine your site daily for any change in the bruise or lump, redness, swelling, drainage or numbness. Notify your doctor if any change. BLEEDING: * If there is a small amount of bleeding at the site, lie down and apply firm pressure with a clean cloth for ten minutes. When the bleeding stops, lie quietly keeping the procedure limb straight for six hours. Notify your doctor as soon as possible. * If the bleeding does not stop after ten minutes or if there is a large amount of bleeding or spurting, call 911 immediately. Continue to lie down and hold firm pressure until help arrives. SKIN IRRITATION: * You may experience some redness and/or swelling in the area where radiation was administered. If any skin irritation occurs, please contact your family physician. FOLLOW UP VISIT: Keep any scheduled doctor appointments. Addtl Adzing And Boring Machine Feeder Provider Instructions: See your family doctor within 7 days of hospital discharge for routine follow up visit. Pending Studies at Discharge: No Stand-Alone Forms: My [facility] Skilled Items Patient informed of condition?: Yes DNR: No Discharge Level of Care: Skilled Communicable Disease: No Discharge Prognosis: Stable Lines: None Urinary Catheter: No Medications and DC Order Prescriptions: Continued sodium chloride 1,000 mg tablet,soluble 1,000 mg PO BID 7 Days Qty: 14 0RF mirtazapine 7.5 mg tablet 7.5 mg PO HS 30 Days Qty: 30 6RF calcitonin (salmon) 200 unit/actuation spray,non-aerosol 1 spray NA DAILY Qty: 1 11RF docusate sodium 100 mg capsule 100 mg PO BID multivitamin Tablet 1 tab PO QAM melatonin 3 mg Tablet 3 mg PO HS PRN (Reason: Sleep) omega 1-dsi-jaq-fish oil [Fish Oil] 1,000 mg (120 mg-180 mg) Capsule 1 cap PO QAM cholecalciferol (vitamin D3) [Vitamin D3] 25 mcg (1,000 unit) capsule 4,000 unit PO QAM Rx Instructions: Pt breaks open capsule and pours it into applesauce aspirin 81 mg Tablet,Delayed Release (Dr/Ec) 81 mg PO PM Hold Instructions: Resume on 02/05/24. At discretion of PCP. Recommend 2 weeks. diclofenac sodium [Voltaren Arthritis Pain] 1 % Gel 4 g EXT QID Qty: 100 0RF Rx Instructions: until pain resolved Discontinued clopidogrel [Plavix] 75 mg tablet 37.5 mg PO QAM Qty: 45 3RF Hold Instructions: Resume on 02/09/24. At discretion of PCP. Discharge Orders: Discharge Order (Routine); Ordered 05/30/24 Ordered By: Allen Bryant Discharge Order- CHF (Routine); Ordered 05/30/24 Ordered By: Allen Bryant Admission Data Admit Date/Time: 05/28/24 00:28 Attending Provider: Allen Bryant Admit Provider: Connie Amaro Primary Care Provider: Michael Corley Other Providers: Connie Amaro; Martin Hughes; Leesa Bah; Sylvia Cantrell Hospital Stay Data Consultations 05/27/24 23:44 ED Decision to Admit Stat 05/28/24 01:59 Consult Coding Machine Operator Routine 05/28/24 11:24 Consult Palliative Care Stat Procedures Performed Operation Date: 05/28/24 00:00 Actual Procedures p Cineradiography w/Routine Exam - Geo Amador MD, PhD p Aspiration/PCI w/[place] for Stemi - Geo Amador MD, PhD Diagnostic Imagining Performed 05/27/24 23:49 CL Cath Imgs for PACS use only Stat Pending Results Patient Have Any Pending Studies at Discharge: No Discharge Instructions Given to Patient (Per Discharging Provider) ACTIVITY RECOMMENDATIONS: It is common to feel weak and fatigue for a few days. * Do not drive or operate any motorized equipment for the next three days. * Limit stair usage (2 or 3 trips a day only) for the next three days. * Do not lift anything heavier than 10 pounds for the next three days. * Do not engage in vigorous exercise or any sports for the next five days. * You may shower the day after your procedure, but do not immerse the area for three days. Cleanse the site gently with soap and water. SPECIAL CARE INSTRUCTIONS: * You may replace the pressure dressing or band-aid the morning after the procedure. * After your procedure, it is normal to have a small bruise or small lump at the site. Examine your site daily for any change in the bruise or lump, redness, swelling, drainage or numbness. Notify your doctor if any change. BLEEDING: * If there is a small amount of bleeding at the site, lie down and apply firm pressure with a clean cloth for ten minutes. When the bleeding stops, lie quietly keeping the procedure limb straight for six hours. Notify your doctor as soon as possible. * If the bleeding does not stop after ten minutes or if there is a large amount of bleeding or spurting, call 911 immediately. Continue to lie down and hold firm pressure until help arrives. SKIN IRRITATION: * You may experience some redness and/or swelling in the area where radiation was administered. If any skin irritation occurs, please contact your family physician. FOLLOW UP VISIT: Keep any scheduled doctor appointments. Total Time Total Time Spent Total Time Spent (In Minutes): 35 minutes. Coding Level of Care Code 29221 INP/OBS DISCH >[address] elevation myocardial infarction involving right coronary artery I21.11 Involved coronary artery: right coronary artery Subdural hematoma S06.5XAA SIADH (syndrome of inappropriate ADH production) E22.2 Normocytic normochromic anemia D64.9 Osteoporosis M81.0 Chronic diastolic (congestive) heart failure I50.32
[2024-05-31 01:40] VITALS: O2SAT 99
[2024-05-31 08:07] VITALS: PULSE 81; RESP 18; TEMP 97.5
[2024-05-31 11:34] VITALS: BP 106/64
--- NOTE | 2024-05-31 15:44 | Discharge Summary ---
Date of Service May 31, 2024 Admission HPI Per Admitting Provider Mallika Brown is a pleasant 84yo female with history of CAD, HTN, DM, AF and SDH presenting as a CODE HEART. Patient reports being in her usual state of health until this evening after supper when she became very bloated with nausea and multiple episodes of non-bloody/non-bilious vomiting as well as diarrhea. She then became very diaphoretic and developed substernal chest pain and shortness of breath. Patient's initial EKG suggestive of inferior STEMI. Heart alert was activated and patient was taken urgently to the drop crew laborer. Patient found to have severely diseased left coronary system unchanged from prior. She had reocclusion of the right coronary stent with uncertain acuity but favor chronic in nature- unable to improve with attempted PCI. Patient had balloon angioplasty performed. No complications. Admitted to MICU. Patient reports some shortness of breath ongoing but overall feels improved. Admission Exam (Per Admitting) Constitutional The patient is awake, alert and oriented 3, well developed and well nourished, normocephalic and atraumatic, lying in bed and in no acute distress. HEENT--PERRL, EOMI, mucous membranes and oropharynx mildly dry Neck--supple. No JVD. No bruits. Thyroid normal, trachea midline, no adenopathy. Heart--normal S1 and S2. No murmurs, rubs or gallops. Lungs--clear bilaterally, no respiratory distress, no accessory muscle use. Abdomen--normal bowel sounds and soft. Extremities--no cyanosis or clubbing. No edema. Dermatologic--normal skin turgor, normal color, no abnormal lymph nodes, no rash. Neurologic--cranial nerves II through XII grossly intact. Rheumatologic--normal range of motion. Psychiatric--normal affect. Discharge Data Consultations 05/27/24 23:44 ED Decision to Admit Stat 05/28/24 01:59 Consult Skiing Instructor Routine 05/28/24 11:24 Consult Palliative Care Stat Procedures Performed Operation Date: 05/28/24 00:00 Actual Procedures p Cineradiography w/Routine Exam - Geo Amador MD, PhD p Aspiration/PCI w/[place] for Stemi - Geo Amador MD, PhD Hospital Course (1) ST elevation (STEMI) myocardial infarction: 84 years old female with PMH of FULL CODE @ [facility] ([place], [place]), underweight with BMI 17.1 (height 149.9 cm; weight 38.5 kg), spinal osteoporosis, GERD, chronic diastolic CHF with preserved LVEF 60-65% and grade II LV diastolic dysfunction (as noted on 12/03/2018, 5:31pm TTE, CARDS Dr. Parveen Sanchze), and CAD s/p 1st acute RI @ 64 years of age ([place]) s/p stent x 1, s/p 2nd acute RI @ 83 years of age [place]) s/p stents x 4, and "interhemispheric and left frontal acute subdural hemorrhages" (as reported on 01/20/2024, 7:16pm CT brain without contrast), with no subsequent development of vascular dementia, chronic normocytic, normochromic anemia with progressive decline in baseline Hb range from 11.5 g/dL (01/26/2017, 12:10pm) to 10.9 g/dL (04/15/2024, 9:55am),and who currently serves as the primary caregiver of her severely demented , who lives with her @ [facility] ([place], [place]). Patient was admitted to the inpatient hospitalist service @ [facility] on 05/27/2024 with acute inferior wall STEMI, now s/p cardiac catheterization (05/28/2024, 2:01am, Interventional CARDS Dr. Geo Amador, who notes: "1. Left coronary system is severely diseased but unchanged from prior. 2. Patient has reocclusion of the right coronary stent train. Acuity unclear. Suspect chronic. Unable to improve with attempted PCI. Patient is known to have been taking only half dose of Plavix for many months. Highly suspicious this represents chronic occlusion secondary to remote stent thrombosis. Supported by faint collateralization. 3. Patient has severe coronary disease. She is a very poor candidate for PCI. High risk for complication. She has been relatively stable on her current medical regimen. Unfortunately, she cannot tolerate a number of recommended medications including statin, beta-vaibhav, MONTSE inhibitor. She has tolerated low-dose aspirin and half dose Plavix (which is of unknown benefit). She had documented subdural hematoma in January 2024. Taken as a whole I do not think there is much benefit in continuing any Plavix and certainly some risk as she continues to have risk of recurrent fall and therefore risk of intracranial hemorrhage. Hemodynamics Rest Ao:: 130/78 mm Final Ao: 152/87 mm LV: Not performed Recommendations Recommendations: Medical Therapy and/or Counseling and PCI without planned CABG" Hence, patient continues to receive her home-scheduled ASA 81mg PO daily to provide secondary prophylaxis against known CAD s/p stents x 5. On a separate note, patient does NOT receive any lipid lowering therapy given her allergy to statins, which cause lethargy and muscle weakness. In addition, patient was advised NOT to take plavix given her risk of recurrent falls with concomitant risk for intracranial hemorrhage, especially in this patient with a recent history of "interhemispheric and left frontal acute subdural hemorrhages" (as reported on 01/20/2024, 7:16pm CT brain without contrast). (2) Subdural hematoma: RESOLVED. cf., CT brain without contrast (01/19/2025, 7:16pm): 1. Interhemispheric and left frontal acute subdural hemorrhages are seen. 2. No significant mass-effect or midline shift of structures. Chronic involutional and ischemic changes of the brain. cf., CT brain without contrast (01/20/2025, 9:00pm): 1. No change in interhemispheric subdural hematoma. 2. No new or increasing hemorrhage. cf., CT brain without contrast (03/04/2014, 1:00pm): 1. No acute intracranial abnormality. 2. Resolution of the previously noted subdural hemorrhage. As stated above, patient continues to receive her home-scheduled ASA 81mg PO daily to provide secondary prophylaxis against known CAD s/p stents x 5. On a separate note, patient does NOT receive any lipid lowering therapy given her allergy to statins, which cause lethargy and muscle weakness. In addition, patient was advised NOT to take plavix given her risk of recurrent falls with concomitant risk for intracranial hemorrhage, especially in this patient with a recent history of "interhemispheric and left frontal acute subdural hemorrhages" (as reported on 01/20/2024, 7:16pm CT brain without contrast). (3) SIADH (syndrome of inappropriate ADH production): Chronic euvolemic hyponatremia with baseline Na range, 126-135 mmol/L (02/20/2022 - 01/26/2024). Due to SIADH. cf., admission Na 138 mmol/L (05/27/2024, 11:52pm). cf., current Na 136 mmol/L (05/28/2024, 9:53am). Asymptomatic on NaCl 1g PO bid. Observe. (4) Normocytic normochromic anemia: Chronic normocytic, normochromic anemia with progressive decline in baseline Hb range from 11.5 g/dL (01/26/2017, 12:10pm) to 10.9 g/dL (04/15/2024, 9:55am). cf., Hb 10.3 g/dL, MCV 96.8, MCHC 34.3 (05/27/2024, 11:52pm). cf., Hb 9.3 g/dL, MCV 94.7, MCHC 34.8 (05/28/2024, 4:35am). cf., Hb 8.4 g/dL, MCV 96.1, MCHC 34.1 (05/29/2024, 5:34am). Patient reports no mucosal bleeding and remains hemodynamically stable. Etiology of chronic normocytic, normochromic anemia remains unclear; patient underwent iron studies (cf., Fe, TIBC, and ferritin) to determine if patient suffers from iron deficiency, thalassemia, sideroblastic anemia, or anemia of chronic disease. Iron studies were all normal (cf., Fe 38 ug/dL, TIBC 328 ug/dL, ferritin 48.2 ng/mL on 05/29/2024, 6:02pm), which is consistent only with thalassemia; however, patient's Mentzer (e.g., MCV/RBC) score is 98.1/2.60 = 37.7, which is not consistent with thalassemia, where Mentzer scores are typically less than 14. At this time, patient reports that she will forego any formal GI Service evaluation involving EGD/colonoscopy given her advanced age of 84 years, and her wish to be discharged in the 05/30/2024 am, back to [facility] ([place], [place]), where she also serves as the primary caregiver of her severely demented , who lives with her @ [facility] ([place], [place]). (5) Osteoporosis: Asymptomatic on calcitonin (Miacalcin) nasal spray, 200 units/spray, 1 spray to one nostril daily, at home. Patient did not receive this home-scheduled medication while in [facility]. Patient will resume this home-scheduled medication on hospital discharge back to [facility] ([place], [place]), today, 05/30/2024. (6) Chronic diastolic (congestive) heart failure: cf., TTE (05/28/2024, 6:36am): 1. LVEF 50-55%. Moderate concentric LVH. Inferobasal akinesis with mid inferior wall hypokinesis, all other heart move normally. 2. RV normal size and normal systolic function. 3. LA and RA sizes are normal. No evidence for ASD. 4. No . Mild AR. 5. No DC. 6. No MS. No MR. 7. Mild TR. RVSP normal. 8. No aortic dissection. Aortic root and aortic arch normal size. PA normal size. IVC mildly dilated. 9. Small pericardial effusion. Small (less than 1 cm maximum depth) nonhemodynamically significant, localized anterior pericardial effusion unchanged in size compared with 12/14/2022 study. 10.Grade I LV diastolic dysfunction. (as per CARDS Dr. Armani Rojas). Of note, patient has a past medical history of chronic diastolic CHF with preserved LVEF 60-65% and grade II LV diastolic dysfunction (as noted on 12/03/2018, 5:31pm TTE, CARDS Dr. Parveen Sanchez). When compared to 05/28/2024, 6:36am TTE, patient's LV diastolic dysfunction has improved; on the other hand, patient's LVEF has decreased from 60-65% to 50-55%, but 50-55% is still a normal LVEF range, so patient has not been diagnosed with acute systolic CHF as of 05/28/2024, 6:36am TTE. In addition, patient did NOT demonstrate an acute exacerbation of chronic diastolic CHF while patient remained in [facility] from admission date 05/28/2024 through discharge date 05/30/2024 as patient has no complaints of weight gain, paroxysmal nocturnal dyspnea, orthopnea, or platypnea while patient remained in [facility] from admission date 05/28/2024 through discharge date 05/30/2024. Observe. Plan d/c Coding Level of Care Code 28795 INP/OBS DISCH >[address] elevation myocardial infarction involving right coronary artery I21.11 Involved coronary artery: right coronary artery Subdural hematoma S06.5XAA SIADH (syndrome of inappropriate ADH production) E22.2 Normocytic normochromic anemia D64.9 Osteoporosis M81.0 Chronic diastolic (congestive) heart failure I50.32 Time Spent (min) 35
== END 2024-05-31 12:27 | DRG 251 ==
LOC: ED 23:33 → CC 05-28 00:06 → SUATTDRO 05-28 00:28 → 1E 05-28 00:28 → 2E 05-28 18:29

== ENCOUNTER 2024-06-09 17:06 | Observation (INO) ==
--- NOTE | 2024-06-09 17:54 | XRay Report ---
Clinical History: Chest pain Technique: A frontal view of the chest was obtained Comparison is made to the prior examination dated 05/27/2024 Findings: There are no confluent pulmonary infiltrates. The heart is mildly enlarged. No pleural effusion or pneumothorax is seen. There is no definite pulmonary nodule. No fracture is noted. No foreign body is seen Impression: 1. Mild cardiomegaly 2. No definite acute process Electronically signed by Olvin Wiggins 06-09-2024 5:46 PM
--- NOTE | 2024-06-09 18:11 | Emergency Department Note ---
Impression & Plan Chest pain ED Provider Note NAME: ROBER CELESTIN AGE: 84 SEX: F : 1940 ARRIVES VIA: Ambulance INFORMANT: Patient, ED PROVIDER(S): Mary Alice Bates MD CHIEF COMPLAINT: Chest pain HPI: This is an 84-year-old female presenting for chest pain. Patient was here about to 2 weeks ago with a STEMI. Patient states that she had indigestion type sensation after eating chili. She noted pain across the center of her chest going bilaterally across. She notes resolution of the pain however new pain of the right lower posterior back/flank pain. She reports no nausea or vomiting with this episode. No diaphoresis. ROS: See above HPI for pertinent positives & negatives. A total of 10 systems reviewed and were otherwise negative. PAST MEDICAL HISTORY: See Below PAST SURGICAL HISTORY: See Below FAMILY HISTORY: See Below SOCIAL HISTORY: See Below HOME MEDICATIONS: See Below ALLERGIES: See Below VITALS: See Below PHYSICAL EXAMINATION: General: resting comfortably in no acute distress Head: Normocephalic and atraumatic Eyes: Normal inspection, extraocular muscles intact Ear, nose, throat: Normal external exam Neck: Normal range of motion Respiratory: lungs clear to auscultation bilaterally Cardiovascular: Regular rate/rhythm, no murmur GI: soft, nontender, no guarding or rebound Extremities: nontender, moves all extremities Neuro: The patient awake and alert, appropriately conversive, no focal deficits, symmetric faces Skin: Warm, dry, and intact MEDICAL DECISION MAKING: This is a pleasant 84-year-old female presenting for chest pain. Upon record review the patient was here on 05/27 for STEMI. Patient arrived cardiac catheterization. Also reviewed outpatient records from patient's PCP visit on 06/03 as well as discharge summary from 05/31. Patient had unchanged severe left coronary system disease, reocclusion of the right coronary stent -EKG as below. Appears similar to previous EKG. Bloodwork is reviewed showing no significant leukocytosis, anemia, electrolyte or creatinine abnormality -troponin is elevated at 52.8 -due to recent STEMI, now new chest pain and elevated troponin, will admit for chest pain rule out -Discussed Dr. Amaro for admission Differential diagnosis: NSTEMI, STEMI, reocclusion, PE Diagnostics interpreted by me: ECG: ECG independently interpreted by me with normal sinus rhythm, rate of 71, left ax deviation, normal NC, left bundle branch block, normal QTc, no ST segment elevations consistent with STEMI criteria, similar to last EKG on 05/28/2024 Cardiac Monitoring: An order was placed for continuous cardiac monitoring. The monitor shows a rate of 71 with sinus rhythm. Past Med/Surg History Problem List (Updated 06/10/24 @ 02:00 by Mary Alice Bates MD) Chest pain (Acute) Chest pain Chronic diastolic (congestive) heart failure Osteoporosis Normocytic normochromic anemia POLST (Physician Orders for Life-Sustaining Treatment) Counseling regarding advanced directives and goals of care Palliative care by specialist ST elevation (STEMI) myocardial infarction (Acute) Sensorineural hearing loss, bilateral Anemia (Acute) Subdural hematoma Closed lumbar vertebral fracture (Acute 09/16/23) acute superior endplate compression fracture of L2- from a fall out of bed Cognitive impairment Weight loss, unintentional Post-operative state Compression fracture of L1 lumbar vertebra (Acute ~07/28/23) Encounter for pre-operative examination Change in hearing Urethral caruncle Stented coronary artery Non-ST elevated myocardial infarction (Acute) History of rib fracture (05/12/21) fractures of the left posterior 11th and 12th ribs Esophageal dysphagia Encounter for pre-operative laboratory testing CAD (coronary artery disease) Chronic laryngitis Post-menopausal bleeding Prolapsed urethral mucosa Urinary frequency LBBB (left bundle branch block) Presence of orthotic device SIADH (syndrome of inappropriate ADH production) (Chronic) Neck pain (Acute) Syncope (Acute) Hypercholesterolemia statin intolerant per cardio records Esophageal reflux Skin tag Lateral epicondylitis Osteoporosis (Chronic) Health care maintenance Vitamin D deficiency LVH (left ventricular hypertrophy) CAD (coronary artery disease) Hypertension Epigastric pain Anemia (Acute) Headache (Acute 01/31/14) Osteoporosis Myocardial infarction x2: 2005 > 2 stents at [facility], follows with Dr. Bowen 12/14/22 > NSTEMI, drug eluding stent prox to mid RCA at [facility] Medical History Hypomagnesemia Leukocytosis Acute confusion Headache Hyponatremia Laryngopharyngeal reflux (LPR) Electrolyte abnormality Anxiety Presence of stent in LAD coronary artery Hyponatremia GERD (gastroesophageal reflux disease) Abnormal uterine bleeding History of frequent urinary tract infections SIADH (syndrome of inappropriate ADH production) History of diverticulitis of colon Arteriosclerosis of coronary artery Surgical History History of surgery on arm History of surgery on left wrist Hx of cardiac catheterization Hx of bilateral cataract extraction H/O colonoscopy with polypectomy History of tooth extraction History of heart artery stent S/P dilation and curettage Family History Father Myocardial infarction Mother Cardiac disorder Other Dysuria No family history of adverse response to anesthesia Denies family history of Ovarian cancer Prostate cancer Breast cancer Colorectal cancer Social History Smoking Status: Never smoker Second Hand Exposure: No; Do You Dip or Chew Tobacco: No; Hx Alcohol Use: No Hx Substance Use: No Preferred Language: Slovenian Communication Ability: Effective Visual Impairment: No Limitations Hearing Ability: Normal 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 Beliefs That Will Affect Care: None marital status: Current Living Situation: Spouse Current Living Situation Comment: [facility] current occupational status: retired current occupation: worked in [employer] How many Children do You have: 1 Other Information That Helps Us Care for You: No Feels Safe at Home: Yes Safety Concerns: Feels Safe At This Time Childhood Exposure to Second-Hand Smoke: No Diet: regular Dental Care, Regularly: Yes Physical Activity Frequency: Daily Physical Activity Frequency Comment: bike and gardening Seatbelt Use: always Sunscreen Use: Yes Assistive Devices: Walker Allergies Allergies Allergy/AdvReac Type Severity Reaction Status Date / Time acetaminophen Allergy Intermediate Joint Verified 06/09/24 20:50 Pain, Headache asparagus Allergy Intermediate Joint Pain Verified 06/09/24 20:50 azithromycin Allergy Intermediate Joint Verified 06/09/24 20:50 Pain, Headache spinach Allergy Intermediate Joint Pain Verified 06/09/24 20:50 [id number] Reductase Allergy Intermediate lethargy,muscle Verified 06/09/24 20:50 Inhibitor weakness [Haknhbf-Vea-Jgk Reductase Inhibitor] alprazolam AdvReac Intermediate Joint Verified 06/09/24 20:50 Pain, Headache cephalexin [From Keflex] AdvReac Intermediate Abdominal Verified 06/09/24 20:50 Pain ciprofloxacin AdvReac Intermediate Joint Verified 06/09/24 20:50 Pain, Headache Home Meds Home Medications Medication Instructions Recorded Confirmed melatonin 3 mg tablet 3 mg PO HS PRN Sleep 12/02/18 06/09/24 multivitamin 1 tab PO QAM 12/02/18 06/09/24 omega 8-rcg-cpi-fish oil 1,000 mg 1 cap PO QAM 12/02/18 06/09/24 (120 mg-180 mg) capsule (Fish Oil) aspirin 81 mg tablet,delayed 81 mg PO PM 10/09/20 06/09/24 release cholecalciferol (vitamin D3) 25 4,000 unit PO QAM 10/23/21 06/09/24 mcg (1,000 unit) capsule (Vitamin D3) docusate sodium 100 mg capsule 100 mg PO BID 08/12/23 06/09/24 Previous Rx's Medication Instructions Recorded calcitonin (salmon) 200 1 spray NA DAILY #1 inhaler 08/13/23 unit/actuation nasal spray diclofenac sodium 1 % topical gel 4 g EXT QID #100 grams 09/24/23 (Voltaren Arthritis Pain) sodium chloride 1,000 mg soluble 1,000 mg PO BID 7 days #14 tabs 01/15/24 tablet mirtazapine 7.5 mg tablet 7.5 mg PO HS 30 days #30 tabs 02/12/24 Results & Data (ED) Vital Signs Vital Signs - 24 hr 06/09/24 16:59 06/09/24 17:14 06/09/24 17:19 Temperature 36.9 C Temperature Source Oral Pulse Rate 77 77 76 Pulse Rate from SpO2 Sensor Pulse Rhythm Regular Pulse Strength Normal Respiratory Rate 22 22 Respiratory Effort / Characteristics Non-Labored Respiratory Depth Normal Respiratory Pattern Regular Blood Pressure 151/89 H Blood Pressure Mean 109 Blood Pressure Position Sitting Pulse Oximetry 99 99 Oxygen Delivery Method Room Air Room Air Sepsis Recent Fever Within 48 Hours No Sepsis New/Unexplained Change in Mental Status No Sepsis Action Taken by Nursing No Action Required 06/09/24 17:26 06/09/24 17:29 06/09/24 17:30 Temperature Temperature Source Pulse Rate Pulse Rate from SpO2 Sensor Pulse Rhythm Pulse Strength Respiratory Rate Respiratory Effort / Characteristics Respiratory Depth Respiratory Pattern Blood Pressure 163/84 H 152/77 H Blood Pressure Mean 100 117 Blood Pressure Position Pulse Oximetry Oxygen Delivery Method Room Air Sepsis Recent Fever Within 48 Hours Sepsis New/Unexplained Change in Mental Status Sepsis Action Taken by Nursing 06/09/24 17:30 06/09/24 17:30 06/09/24 17:30 Temperature Temperature Source Pulse Rate Pulse Rate from SpO2 Sensor Pulse Rhythm Pulse Strength Respiratory Rate Respiratory Effort / Characteristics Respiratory Depth Respiratory Pattern Blood Pressure 152/77 H 152/77 H 152/77 H Blood Pressure Mean 117 117 117 Blood Pressure Position Pulse Oximetry Oxygen Delivery Method Sepsis Recent Fever Within 48 Hours Sepsis New/Unexplained Change in Mental Status Sepsis Action Taken by Nursing 06/09/24 17:30 06/09/24 17:32 06/09/24 18:00 Temperature Temperature Source Pulse Rate 71 Pulse Rate from SpO2 Sensor 71 Pulse Rhythm Pulse Strength Respiratory Rate 22 Respiratory Effort / Characteristics Respiratory Depth Respiratory Pattern Blood Pressure 152/77 H 142/79 H Blood Pressure Mean 117 117 Blood Pressure Position Pulse Oximetry 99 Oxygen Delivery Method Sepsis Recent Fever Within 48 Hours Sepsis New/Unexplained Change in Mental Status Sepsis Action Taken by Nursing 06/09/24 18:00 06/09/24 18:00 06/09/24 18:15 Temperature Temperature Source Pulse Rate 70 73 Pulse Rate from SpO2 Sensor 70 72 Pulse Rhythm Pulse Strength Respiratory Rate 22 17 Respiratory Effort / Characteristics Respiratory Depth Respiratory Pattern Blood Pressure 142/79 H Blood Pressure Mean 117 Blood Pressure Position Pulse Oximetry 98 99 Oxygen Delivery Method Sepsis Recent Fever Within 48 Hours Sepsis New/Unexplained Change in Mental Status Sepsis Action Taken by Nursing 06/09/24 18:21 06/09/24 18:30 06/09/24 18:33 Temperature Temperature Source Pulse Rate 70 68 Pulse Rate from SpO2 Sensor 71 69 Pulse Rhythm Pulse Strength Respiratory Rate 20 20 Respiratory Effort / Characteristics Respiratory Depth Respiratory Pattern Blood Pressure 141/76 H Blood Pressure Mean 111 Blood Pressure Position Pulse Oximetry 98 99 Oxygen Delivery Method Sepsis Recent Fever Within 48 Hours Sepsis New/Unexplained Change in Mental Status Sepsis Action Taken by Nursing 06/09/24 18:42 06/09/24 18:57 06/09/24 19:00 Temperature Temperature Source Pulse Rate 72 77 Pulse Rate from SpO2 Sensor 72 77 Pulse Rhythm Pulse Strength Respiratory Rate 18 22 Respiratory Effort / Characteristics Respiratory Depth Respiratory Pattern Blood Pressure 151/80 H Blood Pressure Mean 99 Blood Pressure Position Pulse Oximetry 98 99 Oxygen Delivery Method Sepsis Recent Fever Within 48 Hours Sepsis New/Unexplained Change in Mental Status Sepsis Action Taken by Nursing 06/09/24 19:00 06/09/24 20:00 Temperature Temperature Source Pulse Rate 72 Pulse Rate from SpO2 Sensor Pulse Rhythm Pulse Strength Respiratory Rate 20 Respiratory Effort / Characteristics Respiratory Depth Respiratory Pattern Blood Pressure 151/80 H 143/80 H Blood Pressure Mean 99 92 Blood Pressure Position Pulse Oximetry 98 Oxygen Delivery Method Sepsis Recent Fever Within 48 Hours Sepsis New/Unexplained Change in Mental Status Sepsis Action Taken by Nursing Laboratory Data 06/09/24 17:20 06/09/24 19:01 Lab Results 06/09/24 06/09/24 Range/Units 17:20 19:01 WBC 5.36 (4.8-10.8) K/ul RBC 3.00 L (4.20-5.40) M/uL Hgb 9.8 L (12.0-16.0) g/dl Hct 29.2 L (37.0-47.0) % MCV 97.3 (80.0-100.0) fL MCH 32.7 (25.0-34.0) pg MCHC 33.6 (32.0-36.0) g/dL RDW Std Deviation 50.9 H (36.4-46.3) fL RDW Coeff of Jorge Luis 14.4 (11.5-14.5) % Plt Count 230 (130-400) K/uL MPV 9.9 (9.4-12.4) fL Immature Gran % (Auto) 0.4 % Neut % (Auto) 61.1 % Lymph % (Auto) 25.6 % [place] % (Auto) 9.9 % Eos % (Auto) 2.4 % Baso % (Auto) 0.6 % Neut # (Auto) 3.28 (1.40-6.50) K/uL Lymph # (Auto) 1.37 (1.20-3.40) K/uL [place] # (Auto) 0.53 (0.11-0.59) K/uL Eos # (Auto) 0.13 (0.00-0.50) K/uL Baso # (Auto) 0.03 (0.00-0.20) K/uL Immature Gran # (Auto) 0.02 (0.01-0.20) K/uL Sodium TNP 138 Potassium TNP 4.0 Chloride 102 (98-107) mmol/L Carbon Dioxide 32 (21-32) mmol/L Anion Gap TNP BUN 20 (6-23) mg/dl Creatinine 0.60 (0.6-1.2) mg/dl Est Cr Clr Drug Dosing 46.8 ml/min eGFR 87.91 BUN/Creatinine Ratio 33.3 H (10-20) Glucose 93 (70-99(Fasting)) mg/dl Calcium 9.5 (8.6-10.3) mg/dl Total Bilirubin 0.2 (0.2-1.0) mg/dl AST TNP 23 ALT 20 (7-52) U/L Alkaline Phosphatase 48 (34-104) U/L Troponin I High Sens 52.8 H* 55.4 H* (0-14) pg/ml Total Protein 7.4 (6.0-8.3) gm/dl Albumin 4.0 (3.4-5.0) gm/dl Globulin 3.4 (2.5-4.0) gm/dl Albumin/Globulin Ratio 1.2 (0.9-2) Lipase 69 (11-82) U/L Administered Medications Melatonin (Melatonin 3 Mg Tab) 3 mg PO HS PRN PRN Reason: Insomnia Stop: 07/09/24 22:16 Last Admin: 06/10/24 01:31 Dose: 3 mg Documented By: Adam Imaging Data Radiologist's Impression: Chest X-Ray 06/09/24 17:14 Clinical History: Chest pain Technique: A frontal view of the chest was obtained Comparison is made to the prior examination dated 05/27/2024 Findings: There are no confluent pulmonary infiltrates. The heart is mildly enlarged. No pleural effusion or pneumothorax is seen. There is no definite pulmonary nodule. No fracture is noted. No foreign body is seen Impression: 1. Mild cardiomegaly 2. No definite acute process Electronically signed by Olvin Wiggins 06-09-2024 5:46 PM Discharge Plan Visit Data Chief Complaint: Chest Pain Stated Complaint: CHEST PAIN ED Provider: Mary Alice Bates Discharge Problem: Chest pain Patient Disposition: Admitted As Inpatient Discharge Instructions Interventions: ED Discharge Assessment Last Done: 06/09/24 21:58
[2024-06-09 18:22] LABS: Basophils # (auto) 0.03 K/uL (0.00-0.20); Basophils % (auto) 0.6 %; Eosinophils # (auto) 0.13 K/uL (0.00-0.50); Eosinophils % (auto) 2.4 %; Hematocrit (blood only) 29.2 % (37.0-47.0); Hemoglobin 9.8 g/dl (12.0-16.0); Immature Granulocytes # (auto) 0.02 K/uL (0.01-0.20); Immature Granulocytes % (auto) 0.4 %; Lymphocytes # (auto) 1.37 K/uL (1.20-3.40); Lymphocytes % (auto) 25.6 %; Mean Corpuscular Hemoglobin 32.7 pg (25.0-34.0); Mean Corpuscular Hgb Conc 33.6 g/dL (32.0-36.0); Mean Corpuscular Volume 97.3 fL (80.0-100.0); Mean Platelet Volume 9.9 fL (9.4-12.4); Monocytes # (auto) 0.53 K/uL (0.11-0.59); Monocytes % (auto) 9.9 %; Neutrophils # (auto) 3.28 K/uL (1.40-6.50); Neutrophils % (auto) 61.1 %; Platelet Count 230 K/uL (130-400); RDW Coefficient of Variation 14.4 % (11.5-14.5); RDW Standard Deviation 50.9 fL (36.4-46.3); White Blood Count 5.36 K/ul (4.8-10.8)
[2024-06-09 18:34] LABS: Alanine Aminotransferase 20 U/L (7-52); Albumin Globulin Ratio 1.2 (0.9-2); Alkaline Phosphatase 48 U/L (34-104); BUN Creatinine Ratio 33.3 (10-20); Bilirubin,Total 0.2 mg/dl (0.2-1.0); Blood Urea Nitrogen 20 mg/dl (6-23); Calcium 9.5 mg/dl (8.6-10.3); Carbon Dioxide 32 mmol/L (21-32); Chloride 102 mmol/L (98-107); Creatinine Clr Calc Pharmacy 46.8 ml/min; Globulin 3.4 gm/dl (2.5-4.0); Glucose 93 mg/dl (70-99(Fasting)); Lipase 69 U/L (11-82); Total Protein 7.4 gm/dl (6.0-8.3)
[2024-06-09 18:41] LABS: Troponin I High Sensitivity 52.8 pg/ml (0-14)
[2024-06-09 20:01] LABS: Troponin I High Sensitivity 55.4 pg/ml (0-14)
--- NOTE | 2024-06-09 20:53 | History & Physical Report ---
Date of Service June 09, 2024 Assessment & Plan (1) Chest pain: Plan 84-year-old female PMHx CAD, HTN, DM, AF, SDH, and prior STEMI presenting via EMS from [place] for chest pain starting at 1500 hrs. States that the symptoms are not similar to her last cardiac event. ED evaluation reveals no leukocytosis, H&H at 9.8/29.2, BUN/creatinine ratio 33.3, troponin 55.8 and repeat 55.4. CXR revealed mild cardiomegaly with no acute findings. #Chest pain/Chronic diastolic heart failure/CAD Indigestion and chest pain starting around 1500hr after eating chili, spread diffusely across chest, but did not have associated symptoms. Previously admitted to [facility] for inferior wall STEMI s/p cardiac catheterization (06/25/2024) with severe coronary disease and reocclusion of right coronary stent. Chest pain-free at time evaluation. Admitted from 05/28-05/30/2024 for STEMI. Suspect the majority of the symptoms are GI in nature but given prior severe cardiac disease, feel that is reasonable to evaluate cardiac status overnight. - EKG sinus rhythm with fusion complexes at a rate of 71 bpm without ischemic changes; will monitor on telemetry - Troponin initially 52.8, repeat 55.4; will trend until peak - CBC without signs of infection, H&H is 9.8/29.2 which is up from baseline, CMP BUN/creatinine ratio 33.3 but otherwise grossly WNL; CXR cardiomegaly but no acute findings - Echo from 05/28/2024 LVSF low normal, EF 50 to 55%, inferior basal akinesis with inferior wall hypokinesis, moderate concentric LVH, grade 1 diastolic dysfunction, mild AR, mild TR, IVC dilated, small nonhemodynamically significant localized anterior pericardial effusion unchanged from prior study - Lipid panel from 05/20/2023 total 181, LDL 79, HDL 89, triglycerides 67, unable to tolerate statin therapy - Maalox 30mL po q4hr as needed for indigestion - No cardio consult at time of admission; consider consult as appropriate Dispo: Admit, med/tele VTE prophylaxis: SCD- Avoid chemical prophylaxis given history of subdural hematoma 09/2023) and reported falls in prior notes This document was dictated utilizing [employer]. Please excuse any grammatical errors that may be secondary to use of this software. Admission and Anticipated Discharge Date Admission Date: 06/09/2024 History of Present Illness Chief Complaint: Chest pressure, indigestion Primary Care Provider: Michael Corley MD 84-year-old female PMHx CAD, HTN, DM, AF, SDH, and prior STEMI presenting via EMS from [place] for chest pain starting at 1500 hrs. Reportedly had 5 out of 10 chest pain starting 2 hours prior to arrival as well as right low back pain that was rated a 5 out of 10 on the pain scale. Upon arrival to the ER, patient denying any pain. Was provided with 4 baby aspirin en route and denied nitro. Initially reported that the symptoms were more likely indigestion, after eating chili and then had diffuse chest pressure which lasted for "less than 5 minutes" she started to "not feel good" which caused her to feel concerned. Did not have any shortness of breath, palpitations, diaphoresis, or N/B at the time of symptoms. States that the symptoms are not similar to her last cardiac event. ED evaluation reveals no leukocytosis, H&H at 9.8/29.2, BUN/creatinine ratio 33.3, troponin 55.8 and repeat 55.4. CXR revealed mild cardiomegaly with no acute findings. Please see Dr. Amaro's attestation for adjustments/additions to treatment plan. Allergies Allergy/AdvReac Type Severity Reaction Status Date / Time acetaminophen Allergy Intermediate Joint Verified 06/09/24 20:50 Pain, Headache asparagus Allergy Intermediate Joint Pain Verified 06/09/24 20:50 azithromycin Allergy Intermediate Joint Verified 06/09/24 20:50 Pain, Headache spinach Allergy Intermediate Joint Pain Verified 06/09/24 20:50 Pqljify-KXB-CxW Reductase Allergy Intermediate lethargy,muscle Verified 06/09/24 20:50 Inhibitor weakness [Pdzcujn-Quh-Mnb Reductase Inhibitor] alprazolam AdvReac Intermediate Joint Verified 06/09/24 20:50 Pain, Headache cephalexin [From Keflex] AdvReac Intermediate Abdominal Verified 06/09/24 20:50 Pain ciprofloxacin AdvReac Intermediate Joint Verified 06/09/24 20:50 Pain, Headache Home Medications Medication Instructions Recorded Confirmed Type melatonin 3 mg tablet 3 mg PO HS PRN Sleep 12/02/18 06/09/24 History multivitamin 1 tab PO QAM 12/02/18 06/09/24 History omega 6-scx-myr-fish oil 1,000 mg 1 cap PO QAM 12/02/18 06/09/24 History (120 mg-180 mg) capsule (Fish Oil) aspirin 81 mg tablet,delayed 81 mg PO PM 10/09/20 06/09/24 History release cholecalciferol (vitamin D3) 25 4,000 unit PO QAM 10/23/21 06/09/24 History mcg (1,000 unit) capsule (Vitamin D3) docusate sodium 100 mg capsule 100 mg PO BID 08/12/23 06/09/24 History calcitonin (salmon) 200 1 spray NA DAILY #1 inhaler 08/13/23 06/09/24 Rx unit/actuation nasal spray diclofenac sodium 1 % topical gel 4 g EXT QID #100 grams 09/24/23 06/09/24 Rx (Voltaren Arthritis Pain) sodium chloride 1,000 mg soluble 1,000 mg PO BID 7 days #14 tabs 01/15/24 06/09/24 Rx tablet mirtazapine 7.5 mg tablet 7.5 mg PO HS 30 days #30 tabs 02/12/24 06/09/24 Rx Past Med/Surg History Problem List (Updated 06/10/24 @ 02:00 by Mary Alice Bates MD) Chest pain (Acute) Chest pain Chronic diastolic (congestive) heart failure Osteoporosis Normocytic normochromic anemia POLST (Physician Orders for Life-Sustaining Treatment) Counseling regarding advanced directives and goals of care Palliative care by specialist ST elevation (STEMI) myocardial infarction (Acute) Sensorineural hearing loss, bilateral Anemia (Acute) Subdural hematoma Closed lumbar vertebral fracture (Acute 09/16/23) acute superior endplate compression fracture of L2- from a fall out of bed Cognitive impairment Weight loss, unintentional Post-operative state Compression fracture of L1 lumbar vertebra (Acute ~07/28/23) Encounter for pre-operative examination Change in hearing Urethral caruncle Stented coronary artery Non-ST elevated myocardial infarction (Acute) History of rib fracture (05/12/21) fractures of the left posterior 11th and 12th ribs Esophageal dysphagia Encounter for pre-operative laboratory testing CAD (coronary artery disease) Chronic laryngitis Post-menopausal bleeding Prolapsed urethral mucosa Urinary frequency LBBB (left bundle branch block) Presence of orthotic device SIADH (syndrome of inappropriate ADH production) (Chronic) Neck pain (Acute) Syncope (Acute) Hypercholesterolemia statin intolerant per cardio records Esophageal reflux Skin tag Lateral epicondylitis Osteoporosis (Chronic) Health care maintenance Vitamin D deficiency LVH (left ventricular hypertrophy) CAD (coronary artery disease) Hypertension Epigastric pain Anemia (Acute) Headache (Acute 01/31/14) Osteoporosis Myocardial infarction x2: 2004 > 2 stents at [facility], follows with Dr. Bowen 12/14/22 > NSTEMI, drug eluding stent prox to mid RCA at [facility] Medical History Hypomagnesemia Leukocytosis Acute confusion Headache Hyponatremia Laryngopharyngeal reflux (LPR) Electrolyte abnormality Anxiety Presence of stent in LAD coronary artery Hyponatremia GERD (gastroesophageal reflux disease) Abnormal uterine bleeding History of frequent urinary tract infections SIADH (syndrome of inappropriate ADH production) History of diverticulitis of colon Arteriosclerosis of coronary artery Surgical History History of surgery on arm History of surgery on left wrist Hx of cardiac catheterization Hx of bilateral cataract extraction H/O colonoscopy with polypectomy History of tooth extraction History of heart artery stent S/P dilation and curettage Family History Father Myocardial infarction Mother Cardiac disorder Other Dysuria No family history of adverse response to anesthesia Denies family history of Ovarian cancer Prostate cancer Breast cancer Colorectal cancer Social History Smoking Status: Never smoker Second Hand Exposure: No; Do You Dip or Chew Tobacco: No; Hx Alcohol Use: No Hx Substance Use: No Preferred Language: Mosotho Communication Ability: Effective Visual Impairment: No Limitations Hearing Ability: Normal Mosaic Tiler Required: No Beliefs That Will Affect Care: None marital status: Current Living Situation: Spouse Current Living Situation Comment: [facility] current occupational status: retired current occupation: worked in sales How many Children do You have: 1 Other Information That Helps Us Care for You: No Feels Safe at Home: Yes Safety Concerns: Feels Safe At This Time Childhood Exposure to Second-Hand Smoke: No Diet: regular Dental Care, Regularly: Yes Physical Activity Frequency: Daily Physical Activity Frequency Comment: bike and gardening Seatbelt Use: always Sunscreen Use: Yes Assistive Devices: Walker Review of Systems Review of Systems: All systems reviewed & are unremarkable except as noted in Subjective Physical Exam Physical Exam: General: No acute distress Skin: Warm and dry Head: Normocephalic, atraumatic Eyes: PERRL, conjunctivae clear, sclera non-icteric ENT: External ear and ear canal without swelling; nose atraumatic; good dentition, tongue normal appearance, pharynx normal Neck: Supple, no LAD; no JVD Cardio: RRR, no M/G/R, S1 and S2 normal Resp: No respiratory distress, Lungs CTA in all lobes bilaterally, no wheezes, rales, or rhonchi Abdomen: Soft, symmetric, nontender; No distention; No masses or hepatosplenomegaly; Bowel sounds normoactive MSK: No deformities, full ROM throughout; pulses palpable and equal; no edema. Neuro: Awake, alert; CN grossly intact Psych: Appropriate mood and affect; good judgement and insight. Results & Data Results & Data Vital Signs (Past 12 Hours) Vital Signs Temp Pulse Resp BP Pulse Ox O2 Del Method 06/09/24 19:00 151/80 H 06/09/24 19:00 151/80 H 06/09/24 18:57 77 22 99 06/09/24 18:42 72 18 98 06/09/24 18:33 68 20 99 06/09/24 18:30 141/76 H 06/09/24 18:21 70 20 98 06/09/24 18:15 73 17 99 06/09/24 18:00 70 22 98 06/09/24 18:00 142/79 H 06/09/24 18:00 142/79 H 06/09/24 17:32 71 22 99 06/09/24 17:30 152/77 H 06/09/24 17:30 152/77 H 06/09/24 17:30 152/77 H 06/09/24 17:30 152/77 H 06/09/24 17:30 152/77 H 06/09/24 17:29 Room Air 06/09/24 17:26 163/84 H 06/09/24 17:19 76 06/09/24 17:14 77 22 99 Room Air 06/09/24 16:59 36.9 C 77 22 151/89 H 99 Room Air Laboratory Results 06/09/24 06/09/24 19:01 17:20 WBC 5.36 RBC 3.00 L Hgb 9.8 L Hct 29.2 L MCV 97.3 MCH 32.7 MCHC 33.6 RDW Std Deviation 50.9 H RDW Coeff of Jorge Luis 14.4 Plt Count 230 MPV 9.9 Immature Gran % (Auto) 0.4 Neut % (Auto) 61.1 Lymph % (Auto) 25.6 [place] % (Auto) 9.9 Eos % (Auto) 2.4 Baso % (Auto) 0.6 Neut # (Auto) 3.28 Lymph # (Auto) 1.37 [place] # (Auto) 0.53 Eos # (Auto) 0.13 Baso # (Auto) 0.03 Immature Gran # (Auto) 0.02 Sodium 138 TNP Potassium 4.0 TNP Chloride 102 Carbon Dioxide 32 Anion Gap TNP BUN 20 Creatinine 0.60 Est Cr Clr Drug Dosing 46.8 eGFR 87.91 BUN/Creatinine Ratio 33.3 H Glucose 93 Calcium 9.5 Total Bilirubin 0.2 AST 23 TNP ALT 20 Alkaline Phosphatase 48 Troponin I High Sens 55.4 H* 52.8 H* Total Protein 7.4 Albumin 4.0 Globulin 3.4 Albumin/Globulin Ratio 1.2 Lipase 69 Diagnostic Findings Chest X-Ray 06/09/24 17:14 Clinical History: Chest pain Technique: A frontal view of the chest was obtained Comparison is made to the prior examination dated 05/27/2024 Findings: There are no confluent pulmonary infiltrates. The heart is mildly enlarged. No pleural effusion or pneumothorax is seen. There is no definite pulmonary nodule. No fracture is noted. No foreign body is seen Impression: 1. Mild cardiomegaly 2. No definite acute process Electronically signed by Olvin Wiggins 06-09-2024 5:46 PM ECG Additional Comments: Sinus rhythm with fusion complexes, LAD, LBBB 71 bpm, OR 172, QRS 124, QT/QTc 388/421, PRT 55/-53/79 Code Status & VTE Plan Code Status Full VTE Prophylaxis Plan VTE Prophylaxis will be ordered: Yes Supervising Physician Co-Signing Physician Notes Patient seen and examined, chart reviewed, case discussed with JONAH Alston and I agree with the assessment and plan as above. In brief, patient is an 84yo female with CAD, recent inferior STEMI presenting with episode of chest discomfort. Pain began after she ate some chili. Lasted briefly, < 5 minutes On exam she is resting comfortably, NAD Skin - no rash HEENT - MMM, Neck supple Heart - +S1/S2, regular Lungs- CTA Abd - soft, NT/ND Ext- warm, well perfused Labs and images reviewed Assessment/Plan High risk chest pain. Troponin has increased very mildly. EKG with no acute ischemic changes -Telemetry monitoring -Trend troponin -Consider Cardiology consultation if chest pain re-occurs or troponin continues to climb -Remainder as above PG Care Time/CCT Total # of Minutes Spent Total Time Spent with Patient: Total time spent is greater than 50% in coordination of care (as documented) at patient's floor/unit and/or counseling patient: Coding Level of Care Code 34895 INT INP/OBS CARE 3/75MIN Diagnoses Chest pain R07.9
[2024-06-09] MEDS ORDERED: ALUMINUM/MAGNESIUM SUSP 30 ML UDC PO PRN (22:17)
[2024-06-09] MEDS ORDERED: POLYETHYLENE (MIRALAX) 17 GM PACK PO PRN (22:17)
[2024-06-09] MEDS ORDERED: ONDANSETRON INJ 2 MG/ML 2 ML VIAL IV PRN (22:17)
[2024-06-10] MEDS: MELATONIN 3 MG TAB PO PRN (01:31)
--- NOTE | 2024-06-10 06:57 | Hospitalist Progress Note ---
Date of Service June 10, 2024 Assessment & Plan Admission and Anticipated Discharge Date Admission Date: June 09, 2024 Subjective Pt is an 84 yo female from [place] with a past med hx of CAD with recent hx of STEMI about 05/28-05/30/2024, osteoporosis, hx subdural hematoma, hx lumbar compression fracture, HTN, anemia who presents to the hospital on 84-year-old female PMHx CAD, HTN, DM, AF, SDH, and prior STEMI presenting via EMS from [place] for chest pain starting at 1500 hrs. States that the symptoms are not similar to her last cardiac event. ED evaluation reveals no leukocyto sis, H&H at 9.8/29.2, BUN/creatinine ratio 33.3, troponin 55.8 and repeat 55.4. CXR revealed mild cardiomegaly with no acute findings. Review of Systems Review of Systems: As per above Physical Exam Physical Exam: General:Alert and oriented, no acute distress, [] HEENT: Normocephalic, moist oral mucosa, Cardio: Regular rate and rhythm, no murmur, Resp:Lungs clear to auscultation b/l, no wheezes or rhonchi, GI: Soft and nontender, nondistended, bowel sounds active Skin: Warm, pink, dry, Psych: Mood-affect congruence. Results & Data Results & Data Vital Signs (Past 12 Hours) Vital Signs Temp Pulse Pulse Resp BP BP BP 06/10/24 05:07 36.7 C 68 20 130/67 06/09/24 22:54 67 06/09/24 22:21 36.8 C 72 16 150/81 H 06/09/24 21:56 74 20 144/66 H 06/09/24 20:00 72 20 143/80 H 06/09/24 19:00 151/80 H 06/09/24 19:00 151/80 H 06/09/24 18:57 77 22 Pulse Ox O2 Del Method 06/10/24 05:07 95 Room Air 06/09/24 22:54 06/09/24 22:21 98 Room Air 06/09/24 21:56 97 Room Air 06/09/24 20:00 98 06/09/24 19:00 06/09/24 19:00 06/09/24 18:57 99 Resident Activity Tracking Resident Involvement: Resident Care Provided Care Provided: Adult Hospital Medicine
[2024-06-10 07:33] VITALS: RESP 18; TEMP 98.1
[2024-06-10 07:59] LABS: Hematocrit (blood only) 29.1 % (37.0-47.0); Hemoglobin 10.1 g/dl (12.0-16.0); Mean Corpuscular Hemoglobin 33.1 pg (25.0-34.0); Mean Corpuscular Hgb Conc 34.7 g/dL (32.0-36.0); Mean Corpuscular Volume 95.4 fL (80.0-100.0); Platelet Count 211 K/uL (130-400); Red Blood Count 3.05 M/uL (4.20-5.40); White Blood Count 6.22 K/ul (4.8-10.8)
[2024-06-10 08:27] LABS: Albumin Globulin Ratio 1.2 (0.9-2); Albumin Level 3.6 gm/dl (3.4-5.0); BUN Creatinine Ratio 25.5 (10-20); Bilirubin,Total 0.6 mg/dl (0.2-1.0); Calcium 9.2 mg/dl (8.6-10.3); Globulin 3.1 gm/dl (2.5-4.0); Potassium 3.9 mmol/L (3.5-5.1); Total Protein 6.7 gm/dl (6.0-8.3)
[2024-06-10] MEDS: CALCITONIN SALMON NA 200 IU/AC 3.7 ML BTL SCH (08:31)
[2024-06-10] MEDS: DOCUSATE SODIUM 100 MG CAP PO SCH (08:32)
[2024-06-10] MEDS: CHOLECALCIFEROL 25 MCG (1000 UNITS) TAB PO SCH (08:32)
[2024-06-10] MEDS: SODIUM CHLORIDE 1 GM TABLET PO SCH (08:32)
[2024-06-10] MEDS: OMEGA-3 (PURIFIED FISH OIL) 1 GM CAP PO SCH (08:32)
[2024-06-10 08:37] LABS: Troponin I High Sensitivity 54.2 pg/ml (0-14)
--- NOTE | 2024-06-10 09:55 | Discharge Summary ---
Date of Service June 10, 2024 Admission HPI Per Admitting Provider 84-year-old female PMHx CAD, HTN, DM, AF, SDH, and prior STEMI presenting via EMS from [place] for chest pain starting at 1500 hrs. Reportedly had 5 out of 10 chest pain starting 2 hours prior to arrival as well as right low back pain that was rated a 5 out of 10 on the pain scale. Upon arrival to the ER, patient denying any pain. Was provided with 4 baby aspirin en route and denied nitro. Initially reported that the symptoms were more likely indigestion, after eating chili and then had diffuse chest pressure which lasted for "less than 5 minutes" she started to "not feel good" which caused her to feel concerned. Did not have any shortness of breath, palpitations, diaphoresis, or N/B at the time of symptoms. States that the symptoms are not similar to her last cardiac event. ED evaluation reveals no leukocytosis, H&H at 9.8/29.2, BUN/creatinine ratio 33.3, troponin 55.8 and repeat 55.4. CXR revealed mild cardiomegaly with no acute findings. Please see Dr. Amaro's attestation for adjustments/additions to treatment plan. Admission Exam Per Admitting Provider General: No acute distress Skin: Warm and dry Head: Normocephalic, atraumatic Eyes: PERRL, conjunctivae clear, sclera non-icteric ENT: External ear and ear canal without swelling; nose atraumatic; good dentition, tongue normal appearance, pharynx normal Neck: Supple, no LAD; no JVD Cardio: RRR, no M/G/R, S1 and S2 normal Resp: No respiratory distress, Lungs CTA in all lobes bilaterally, no wheezes, rales, or rhonchi Abdomen: Soft, symmetric, nontender; No distention; No masses or hepatosplenomegaly; Bowel sounds normoactive MSK: No deformities, full ROM throughout; pulses palpable and equal; no edema. Neuro: Awake, alert; CN grossly intact Psych: Appropriate mood and affect; good judgement and insight. Principal Diagnosis Chest pain, reflux Discharge Exam General: No acute distress, alert, quite pleasant and lively Head: Normocephalic, atraumatic Cardio: RRR, no murmur Resp: No respiratory distress, Lungs CTA in all lobes bilaterally, no wheezes, rales, or rhonchi Abdomen: Soft, symmetric, nontender; No distention; No masses or hepatosplenomegaly; Bowel sounds normoactive Skin: Warm and dry Discharge Data Allergies Allergy/AdvReac Type Severity Reaction Status Date / Time acetaminophen Allergy Intermediate Joint Verified 06/09/24 20:50 Pain, Headache asparagus Allergy Intermediate Joint Pain Verified 06/09/24 20:50 azithromycin Allergy Intermediate Joint Verified 06/09/24 20:50 Pain, Headache spinach Allergy Intermediate Joint Pain Verified 06/09/24 20:50 Pwyntoo-LCE-VkH Reductase Allergy Intermediate lethargy,muscle Verified 06/09/24 20:50 Inhibitor weakness [Ybeoikb-Hdl-Hsk Reductase Inhibitor] alprazolam AdvReac Intermediate Joint Verified 06/09/24 20:50 Pain, Headache cephalexin [From Keflex] AdvReac Intermediate Abdominal Verified 06/09/24 20:50 Pain ciprofloxacin AdvReac Intermediate Joint Verified 06/09/24 20:50 Pain, Headache Consultations 06/09/24 20:29 ED Decision to Admit Stat Hospital Course (1) Chest pain: (2) History of ST elevation myocardial infarction (STEMI): Plan Pt is an 84 yo female from [place] with a past med hx of CAD with recent hx of STEMI about 05/28-05/30/2024, osteoporosis, hx subdural hematoma, hx lumbar compression fracture, HTN, anemia who presents to the hospital on 06/09 for chest pain after eating chili. #Chest pain, resolved - does have significant hx of CAD, recent STEMI - EKG sinus, trop peak 55, CXR wnl - echo 05/28; EF 50-55% with inferior wall hypokinesis, moderate concentric LVH, grade 1 diastolic dysfunction, mild AR, mild TR, IVC dilated, small nonhemodynamically significant localized anterior pericardial effusion unchanged from prior study - maalox given here in the hospital - pt states this morning she has had no recurrence of chest pain throughout hospital stay. No SOB. Feeling well. - as chest pain started as diffuse after eating spicy chili, etiology most likely heartburn/reflux/gastritis, damaso as it improved with maalox Advised pt if recurs to come back to hosp immediately. Total Time Total Time Spent Total Time Spent (In Minutes): Attending time 26 minutes. Total Time Includes: Examination of the Patient, Discharge Planning and Communication With Other Providers Discharge Plan Discharge Items Patient Disposition: Personal Longterm Reason For Visit: CHEST PRESSURE Discharge Diagnosis: Chest pain, resolved Activity: Resume your previous activity Non-emergency contact: Primary Care Provider Call non-emergency contact if: you have any medication questions, your symptoms worsen and your pain is worsening Follow-up/Referrals: Michael Corley MD [Primary Care Provider] - Diet: Regular Addtl Attending Provider Instructions: You were admitted to the hospital for chest pain. As we talked about, given your recent history of a heart attack, we do worry about any chest pain. That being said, as we talked about, you have had no chest pain since being admitted to the hospital and your heart enzyme (troponin) was only slightly elevated, which can happen for other reasons that are not serious and resolve on their own. As we talked about, since you feel well and have not had any issues since being here and your EKG and enzymes are reassuring, we feel it is safe for you to return back to [place]. I would advise you be careful with spicy or very acidic foods, such as chili, as these foods can irriatate the stomach lining and cause chest pain, which is most likely what caused your chest pain. Over the counter medications such as Tums, famotidine, or prilosec/omeprazole can help ease stomach irritation if you eat things that are very acidic or spicy to prevent heartburn symptoms. Please plan to follow-up with your primary care doctor within 1 week of discharge from the hospital. If chest pain symptoms return, particularly if associated with shortness of breath, fainting, or sweating, please return to the hospital immediately. Pending Studies at Discharge: No Stand-Alone Forms: My [facility] Skilled Items Patient informed of condition?: Yes DNR: No Discharge Level of Care: Other Communicable Disease: No Discharge Prognosis: Stable Lines: None Urinary Catheter: No Medications and DC Order Prescriptions: Continued sodium chloride 1,000 mg tablet,soluble 1,000 mg PO BID 7 Days Qty: 14 0RF mirtazapine 7.5 mg tablet 7.5 mg PO HS 30 Days Qty: 30 6RF calcitonin (salmon) 200 unit/actuation spray,non-aerosol 1 spray NA DAILY Qty: 1 11RF docusate sodium 100 mg capsule 100 mg PO BID multivitamin Tablet 1 tab PO QAM melatonin 3 mg Tablet 3 mg PO HS PRN (Reason: Sleep) omega 4-yyx-boh-fish oil [Fish Oil] 1,000 mg (120 mg-180 mg) Capsule 1 cap PO QAM cholecalciferol (vitamin D3) [Vitamin D3] 25 mcg (1,000 unit) capsule 4,000 unit PO QAM Rx Instructions: Pt breaks open capsule and pours it into applesauce aspirin 81 mg Tablet,Delayed Release (Dr/Ec) 81 mg PO PM Hold Instructions: Resume on 02/05/24. At discretion of PCP. Recommend 2 weeks. diclofenac sodium [Voltaren Arthritis Pain] 1 % Gel 4 g EXT QID Qty: 100 0RF Rx Instructions: until pain resolved Discharge Orders: Discharge Order (Routine); Ordered 06/10/24 Ordered By: Sariah Angel Admission Data Admit Date/Time: 06/09/24 20:44 Attending Provider: Darlyn Grossman Admit Provider: Connie Amaro Primary Care Provider: Michael Corley Other Providers: Connie Amaro Other Interventions: Discharge Summary Assessment (RN) Last Done: 06/10/24 13:18 Supervising Physician Co-Signing Physician Notes I personally examined the patient and verified hood points of history and exam, discussed case, and agree with decision making and plan documented by Dr. Almonte. Patient evaluated for cardiac concerns due to strong cardiac history and reported chest pain at her home after eating chili. She reported no chest pain throughout the hospital stay. Troponin down trended. No acute abnormalities on ECG. She was recommended to follow-up with her PCP and trial judge. She is hopeful to start cardiac rehab. Resident Activity Tracking Resident Involvement: Resident Care Provided Care Provided: Adult Hospital Medicine
[2024-06-10 11:38] VITALS: PULSE 73; O2SAT 93
[2024-06-10 13:19] VITALS: BP 150/81
--- NOTE | 2024-06-10 15:48 | Electrocardiogram Report ---
Test Reason : Blood Pressure : */* mmHG Vent. Rate : 71 BPM Atrial Rate : 71 BPM P-R Int : 172 ms QRS Dur : 124 ms QT Int : 388 ms P-R-T Axes : 52 -53 79 degrees QTcB Int : 421 ms Sinus rhythm Left axis deviation Left bundle branch block Abnormal ECG Confirmed by Khanh Motta ([id number]) on 06/10/2024 3:48:03 PM Referred By: REFERRED SELF Confirmed By: Khanh Motta
[2024-06-10] MEDS ORDERED: MIRTAZAPINE TAB 15 MG TAB PO SCH (21:00)
[2024-06-10] MEDS ORDERED: ASPIRIN 81 MG ECTAB PO SCH (21:00)
== END 2024-06-10 14:30 | disposition home or self-care (01) ==
LOC: ED 17:06 → 2W 17:06 → SUATTDRO 20:44 → 2W 21:58